=== PATIENT | male | born 1955 | race Caucasian/White ===

== ENCOUNTER → 2018-04-24 07:22 | Outpatient (REF) | payer OTHER, SELFPAY ==
[2018-04-24 09:58] LABS: ALT 69 U/L (12-78); AST 93 U/L (15-37); Albumin 3.8 g/dL (3.4-5.0); Alkaline Phosphatase 124 U/L (46-116); Bilirubin, Total 0.5 mg/dL (0.2-1.0); Cholesterol 225 mg/dL (50-200); HDL Cholesterol 56 mg/dL (40-60); LDL CHOLESTEROL 96 mg/dL (<100); Total Protein 7.4 g/dL (6.4-8.2); Triglyceride 321 mg/dL (30-150)
== END ==
LOC: LBN 07:22
PROVIDERS: PCP Family Medicine; Visit Provider Family Medicine
DX: E78.5 Hyperlipidemia, unspecified (principal)
CPT/HCPCS: 80061; 80076; 83721

== ENCOUNTER 2018-04-27 08:00 | Outpatient (RCR) | payer OTHER, SELFPAY ==
--- NOTE | 2018-04-17 13:53 | PTTR_ITS ---
DATE: 04/17/18 SUBJECTIVE: Long stating that he is feeling much better. He felt a little sore after last session but the second day he noticed good relief. He managed to keep the tape on for several days and he feels this was helpful. He is questioning if he should cancel his MRI he has coming up. OBJECTIVE: Pt will be in contact with his doctor at the [facility] regarding MRI. Manual therapy: ([id number]). Perform unloading of his lumbar spine via leg pull bilaterally and unilaterally. Pt receives single knee to chest stretch, piriformis stretching and hamstring stretching. In prone perform STM to the right QL, glut musculature and piriformis. Clear trigger point to the piriformis with good tolerance. End with application of rock tape in H technique to the lumbar spine. He has a follow up with primary therapist Paolo Staples DPT next week. Direct treatment time: 30 minutes Total treatment time: 30 minutes Fang Couch PTA
--- NOTE | 2018-04-27 08:24 | PTTR_ITS ---
DATE: 04/27/18 SUBJECTIVE: I am doing okay for the most part. OBJECTIVE: * X Self Care Training - ([id number] x1): Patient states that he is doing quite a bit better and is able to work. He has been instructed that with the insidious nature of his back pain presenting that it very well could be related to his job activities. 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 Instead of utilizing the throttle on the right hand the entire time which creates a side bend to the right and mild thoraco lumbar rotation to the right, he should switch to the left half way through for symmetry and equilibrium. He should continue with his stretches and mobility patterns. Patient was then lightly mobilized with IASTM through the QL on the right side, and lightly over the lumbar paraspinals on the right for down regulation. Direct treatment time: 15 minutes of direct patient care.
== END 2018-05-12 23:59 | disposition home or self-care (01) ==
LOC: PT 08:00
PROVIDERS: PCP Family Medicine; Referring Provider Family Medicine; Visit Provider Family Medicine
DX: M54.5 Low back pain (principal)
CPT/HCPCS: 97140; 97535

== ENCOUNTER → 2018-05-01 14:46 | Outpatient (REF) | payer OTHER, SELFPAY ==
[2018-05-01 18:17] LABS: Abs Immature Grans 0.02 k/cumm (0.0-0.09); Absolute Basophil Count 0.02 k/cumm (0.0-0.2); Absolute Eosinophil Count 0.03 k/cumm (0.0-0.7); Absolute Lymphocyte Count 1.07 k/cumm (1.2-3.4); Absolute Monocyte Count 0.58 k/cumm (0.11-0.7); Absolute Neutrophil Count 1.98 k/cumm (1.2-6.7); Basophils % 0.5; Eosinophils % 0.8; HCT 34.4 % (40.0-50.0); HGB 11.7 g/dL (13.5-17.5); Immature Grans % 0.5; Lymphocytes % 28.9; Mean Corpuscular Hemoglobin 35.7 pg (27.0-33.0); Mean Corpuscular Volume 104.9 fL (80-95); Mean Platelet Volume 9.5 fL (8.0-11.0); Monocytes % 15.7; Neutrophils % 53.6; Platelet Count 105 x1000/uL (130-400); RBC 3.28 m/cumm (4.50-6.00); RBC Distribution Width 12.5 % (11.8-14.1)
== END ==
LOC: LBN 14:46
PROVIDERS: PCP Family Medicine; Visit Provider Internal Medicine Hematology & Oncology
DX: D69.3 Immune thrombocytopenic purpura (principal)
CPT/HCPCS: 85025

== ENCOUNTER 2018-10-30 00:52 | Outpatient (CLI) | payer OTHER, SELFPAY ==
--- NOTE | 2018-10-30 07:55 | DI.RAD_ITS ---
SYMPTOM/DIAGNOSIS: NEW ONSET LT SIDED CERVICAL PAIN, CERVICALGIA, M54.2 CERVICAL SPINE: Odontoid, AP and lateral and bilateral oblique views. No priors for comparison. There is straightening of the normal cervical lordosis. There is minimal anterolisthesis of C 3 on C 4. Disc heights appear well maintained. There are endplate osteophytes at multiple levels of the cervical spine. There are also degenerative changes of the facets seen throughout the cervical spine, particularly from C 2-3 through C 5-6, left slightly greater than right. There is moderate narrowing of the neural foramen on the left at C 2-3, C 3-4 and C 4- 5 and on the right at C 4-5. No acute fractures or subluxations are seen. The prevertebral soft tissues are unremarkable. IMPRESSION: Moderate cervical spondylosis.
== END 2018-10-30 01:12 ==
PROVIDERS: PCP Family Medicine; Visit Provider Family Medicine
DX: M54.2 Cervicalgia (principal); M47.812 Spondylosis without myelopathy or radiculopathy, cervical region
CPT/HCPCS: 72050

== ENCOUNTER 2018-12-05 01:11 | Outpatient (CLI) | payer OTHER, SELFPAY ==
--- NOTE | 2018-12-05 08:49 | DI.MRI_ITS ---
SYMPTOM/DIAGNOSIS: PERSISTENT NECK PAIN, CERVICALGIA, M54., SPONDYLOSIS ON XRAY CERVICAL SPINE MRI: MRI examination of the cervical spine was performed according to the usual protocol. No significant bony signal abnormality is seen. Visualized posterior fossa structures appear intact. There is a moderate mid cervical kyphosis. There are prominent hypertrophic endplate changes most marked at C 3-4 on the left. There is narrowing of the spinal canal at C 3-4 consistent with mild central canal spinal stenosis. There is a question of minimal cervical cord abnormality at this site seen on the sagittal T 2 weighted images, this is questionably present on the axial T 2 images as well. There is borderline central canal spinal stenosis at C 4-5 secondary to prominence of the disc osteophyte complex. There is bilateral neural foraminal narrowing at C 3-4 and C 4-5 and C 5-6. There is left sided neural foraminal narrowing at C 2-3. No additional focal findings identified in the cervical region. CONCLUSION: 1. Prominent hypertrophic degenerative endplate changes, most marked at C 3-4 with mild central canal spinal stenosis and question associated cord impingement/edema at this level. Multi level neural foraminal narrowing also noted. Please see above discussion for findings at individual levels.
== END 2018-12-05 01:31 ==
PROVIDERS: PCP Family Medicine; Visit Provider Family Medicine
DX: M54.2 Cervicalgia (principal); M48.02 Spinal stenosis, cervical region; M47.892 Other spondylosis, cervical region
CPT/HCPCS: 72141

== ENCOUNTER 2019-02-21 09:08 | Outpatient (CLI) | payer OTHER, SELFPAY ==
[2019-02-21] VITALS (11 sets, daily range): BP systolic 161–186; BP diastolic 88–101; PULSE 92–108; RESP 22–24; TEMP 36.7; O2SAT 94–98
--- NOTE | 2019-02-21 06:00 | DI.RAD_ITS ---
SYMPTOMS/DIAGNOSIS: CERVICAL RADICULOPATHY, CERVICAL EPIDURAL STEROID INJECTION PAIN CLINIC: Fluoroscopy Time: 36.6 sec Fluoroscopy was utilized by Dr. Allen during the performance of a cervical epidural steroid injection. Please refer to the procedure report for complete details.
[2019-02-21 10:00] LABS: Prothrombin Time 9.8 sec (9.3-11.0)
[2019-02-21 10:08] LABS: Platelet Count 133 x1000/uL (130-400)
[2019-02-21] MEDS: Midazolam 2 MG/2 ML VIAL IVP ×2 (11:01→11:06)
[2019-02-21] MEDS: Omnipaque 240 MG/ML 50 ML BTL IJ (11:17)
[2019-02-21] MEDS: methylPREDNISolone ACETATE 40 MG/ML VIAL IJ (11:17)
--- NOTE | 2019-02-21 11:17 | PDOC.PAIN ---
Pain Clinic Procedure Note Current Active Problems Problem Status Onset Cervical radiculitis Chronic Cervical Epidural Steroid Injection JAYCE BUCKLEY has been referred to the [facility] for cervical epidural steroid injection. 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 There were no medical, pharmacologic, radiographic or other structural contraindications to attempting fluoroscopically guided epidural steroid injection. Risks and expected side effects as well as potential benefit of the procedure were reviewed and voiced concerns addressed. The printed consent form was signed and witnessed. Standard time-out procedure was performed. The patient was placed in the prone position on the fluoroscopy table and automated blood pressure cuff and pulse oximeter applied. The skin entry point for entering the epidural space by a midline C7-T1 interlaminar approach was identified under fluoroscopy and marked. Following thorough Chlorhexadine preparation of the skin and draping and 1% lidocaine infiltration of the skin entry point and subcutaneous tissues, an 17 gauge Tuohy needle was placed under fluoroscopic guidance and with loss of resistance technique into the epidural space. Upon needle placement and loss of resistance there were no paresthesiae or return of blood or CSF through the needle. An Arrow catheter was thread cephalad to the C5 level {left} of midline. 1ml of Omnipaque 240 were injected with clear epidural spread in the A/P, lateral and oblique views. 80mg Depomedrol with 1ml sterile normal saline were injected through the catheter with no unusual discomfort expressed. Vital signs were stable throughout the procedure and were as recorded in the docflowsheet by the nursing staff. If given, dosages of intravenous drugs for anxiolysis and analgesia were documented in MAR. Follow up plans and appointments were discussed. Post procedure instruction was given as documented in nursing documentation and having met discharge criteria and was discharged from the [facility]. COMMENTS: Versed 2mg. patient will follow up. He can repeat if he gets good relief last. Otherwise consider medial branch blocks. Patient will follow-up with Marcela Holloway as needed. CC: Jordon Edgar DO
[2019-02-21] MEDS: Lactated Ringers 1,000 ML 80 ML IV ×2 (11:23→11:24)
[2019-02-21] MEDS: Acetaminophen 500 MG TAB 1000 MG PO (12:09)
== END 2019-02-21 09:28 ==
PROVIDERS: PCP Family Medicine; Visit Provider Anesthesiology Pain Medicine
DX: M54.12 Radiculopathy, cervical region (principal)
CPT/HCPCS: 62321; 36415; 72040; 85049; 85610; J1030; J2250; Q9967

== ENCOUNTER 2019-03-20 10:33 | Outpatient (REF) | payer OTHER, SELFPAY ==
[2019-03-20 13:23] LABS: Abs Immature Grans 0.01 k/cumm (0.0-0.09); Absolute Basophil Count 0.02 k/cumm (0.0-0.2); Absolute Eosinophil Count 0.04 k/cumm (0.0-0.7); Absolute Lymphocyte Count 0.89 k/cumm (1.2-3.4); Absolute Monocyte Count 0.44 k/cumm (0.11-0.7); Absolute Neutrophil Count 3.27 k/cumm (1.2-6.7); Basophils % 0.4; Eosinophils % 0.9; HCT 40.5 % (40.0-50.0); HGB 13.4 g/dL (13.5-17.5); Immature Grans % 0.2; Lymphocytes % 19.1; Mean Corp. HGB Concentration 33.1 g/dL (32.0-36.0); Mean Corpuscular Hemoglobin 34.8 pg (27.0-33.0); Mean Corpuscular Volume 105.2 fL (80-95); Monocytes % 9.4; RBC 3.85 m/cumm (4.50-6.00); RBC Distribution Width 12.7 % (11.8-14.1); White Blood Cell Count 4.67 k/cumm (4.4-10.8)
[2019-03-20 13:57] LABS: Diff Comment RBC Morph Reviewed; Platelet Count 98 x1000/uL (130-400)
[2019-03-20 13:58] LABS: Macrocytosis 1+
== END 2019-03-20 10:53 ==
LOC: LBN 10:33
PROVIDERS: PCP Family Medicine; Visit Provider Family Medicine
DX: T14.8XXA Other injury of unspecified body region, initial encounter (principal); R23.3 Spontaneous ecchymoses; M54.12 Radiculopathy, cervical region
CPT/HCPCS: 85025

== ENCOUNTER 2019-04-03 10:52 | Outpatient (CLI) | payer OTHER, SELFPAY ==
[2019-04-03 11:00] VITALS: BP 166/89; PULSE 98; RESP 22; TEMP 37.1; O2SAT 98
[2019-04-03 11:40] VITALS: O2SAT 98
--- NOTE | 2019-04-03 11:41 | PDOC.PAIN ---
Pain Clinic Procedure Note Current Active Problems Problem Status Onset Muscle pain LEFT trapezius, scalene and levator scapulae muscle trigger point INJECTIONS Pre-Procedural Evaluation: JAYCE BUCKLEY has been referred to the [facility] for a left trapezius, scalene and levator scapulae trigger point injection for a chief complaint of muscle pain. Pre-procedure Pain Score: 7/10 Patient was interviewed and the medical record reviewed. There were no medical, pharmacologic, radiographic, or other structural contraindications to preforming trigger point injection. Risks and expected side effects as well as potential benefits of the procedure were reviewed. The patient consent form was signed and witnessed. Standard time-out procedure was performed. Procedure Description: The patient was placed in the prone position and automated blood pressure cuff and pulse oximeter applied for monitoring during the procedure and recorded in the medical record. The site was then prepared in the usual sterile fashion, using thorough Chlorhexadine preparation of the skin and sterile draping. 3Skin and subcutaneous tissues were anesthetized with mL of 1% Lidocaine. A 25 guage 1.5 needle inch needle through the above named muscles. Post-procedure Pain Score: 0/10 Vital signs were stable throughout the procedure and were as recorded in the docflowsheet by the nursing staff. Follow up plans and appointments were discussed with the patient.Post procedure instruction was given as documented in nursing documentation and having met discharge criteria, they were discharged from the [facility]. COMMENTS: Stretching exercises for this area were taught.
== END 2019-04-03 11:12 ==
PROVIDERS: PCP Family Medicine; Visit Provider Preventive Medicine Occupational Medicine
DX: M79.10 Myalgia, unspecified site (principal)
CPT/HCPCS: 20553

== ENCOUNTER 2019-07-30 09:23 | Outpatient (REF) | payer OTHER, SELFPAY ==
[2019-07-30 10:09] LABS: Abs Immature Grans 0.01 k/cumm (0.0-0.09); Absolute Basophil Count 0.02 k/cumm (0.0-0.2); Absolute Eosinophil Count 0.04 k/cumm (0.0-0.7); Absolute Lymphocyte Count 1.59 k/cumm (1.2-3.4); Absolute Monocyte Count 0.53 k/cumm (0.11-0.7); Absolute Neutrophil Count 2.65 k/cumm (1.2-6.7); Basophils % 0.4; Eosinophils % 0.8; HCT 40.9 % (40.0-50.0); HGB 14.1 g/dL (13.5-17.5); Immature Grans % 0.2; Lymphocytes % 32.9; Mean Corp. HGB Concentration 34.5 g/dL (32.0-36.0); Mean Corpuscular Hemoglobin 35.5 pg (27.0-33.0); Mean Platelet Volume 10.4 fL (8.0-11.0); Neutrophils % 54.7; Platelet Count 119 x1000/uL (130-400); RBC 3.97 m/cumm (4.50-6.00); RBC Distribution Width 13.4 % (11.8-14.1); White Blood Cell Count 4.84 k/cumm (4.4-10.8)
== END 2019-07-30 09:43 ==
LOC: LBN 09:23
PROVIDERS: PCP Family Medicine; Visit Provider Internal Medicine Hematology & Oncology
DX: R56.9 Unspecified convulsions (principal); I25.118 Atherosclerotic heart disease of native coronary artery with other forms of angina pectoris; I73.9 Peripheral vascular disease, unspecified; D69.3 Immune thrombocytopenic purpura
CPT/HCPCS: 85025

== ENCOUNTER 2019-08-02 13:30 | Outpatient (CLI) | payer OTHER, SELFPAY ==
[2019-08-02 13:32] VITALS: BP 149/84; PULSE 94; RESP 16; TEMP 37.2; O2SAT 99
--- NOTE | 2019-08-02 14:02 | PDOC.PAIN ---
Pain Clinic Procedure Note Procedure Note Procedure Note: Pain Clinic Procedure Note Pre-operative diagnosis: myofascial pain Post-operative diagnosis: same as above LEFT scalene muscle, left levator scapulae trigger point INJECTIONS Pre-Procedural Evaluation: JAYCE BUCKLEY has been referred to the [facility] for a left scalene and levator scapulae trigger point injection for a chief complaint of muscle pain. Pre-procedure Pain Score: 7/10 Patient was interviewed and the medical record reviewed. There were no medical, pharmacologic, radiographic, or other structural contraindications to preforming trigger point injection. Risks and expected side effects as well as potential benefits of the procedure were reviewed. The patient consent form was signed and witnessed. Standard time-out procedure was performed. Procedure Description: The patient was placed in the prone position and automated blood pressure cuff and pulse oximeter applied for monitoring during the procedure and recorded in the medical record. The site was then prepared in the usual sterile fashion, using thorough Chlorhexadine preparation of the skin and sterile draping. A 27 guage 1.5 needle inch needle through the above named muscles and a total of 5cc solution containing 1cc of 10mg dexamethasone and 4cc of 0.25% Bupivocaine was injected into three trigger points along the belly of left anterior scalene muscles. Post-procedure Pain Score: 0/10 Vital signs were stable throughout the procedure and were as recorded in the docflowsheet by the nursing staff. Follow up plans and appointments were discussed with the patient.Post procedure instruction was given as documented in nursing documentation and having met discharge criteria, they were discharged from the [facility]. COMMENTS: Stretching exercises for this area were taught. I personally performed the entire procedure. Gilberto Cano MD Pain Management
[2019-08-02] MEDS: Bupivacaine 0.25% Pres-Free 30 ML VIAL IJ (14:11)
[2019-08-02] MEDS: Dexamethasone Sod. Phos./Pres-Free 10 MG/ML VIAL IJ (14:12)
== END 2019-08-02 13:50 ==
PROVIDERS: PCP Family Medicine; Visit Provider Internal Medicine
DX: M79.18 Myalgia, other site (principal)
CPT/HCPCS: 20552

== ENCOUNTER 2019-10-22 16:57 | Outpatient (REF) | payer OTHER, SELFPAY ==
[2019-10-22 18:22] LABS: Abs Immature Grans 0.01 k/cumm (0.0-0.09); Absolute Basophil Count 0.01 k/cumm (0.0-0.2); Absolute Eosinophil Count 0.02 k/cumm (0.0-0.7); Absolute Lymphocyte Count 1.27 k/cumm (1.2-3.4); Absolute Monocyte Count 0.61 k/cumm (0.11-0.7); Absolute Neutrophil Count 1.65 k/cumm (1.2-6.7); Basophils % 0.3; Eosinophils % 0.6; HCT 37.9 % (40.0-50.0); HGB 12.5 g/dL (13.5-17.5); Immature Grans % 0.3 %; Lymphocytes % 35.6; Mean Corpuscular Hemoglobin 35.8 pg (27.0-33.0); Mean Corpuscular Volume 108.6 fL (80-95); Mean Platelet Volume 9.8 fL (8.0-11.0); Monocytes % 17.1; Neutrophils % 46.1; RBC 3.49 m/cumm (4.50-6.00); RBC Distribution Width 12.5 % (11.8-14.1); White Blood Cell Count 3.57 k/cumm (4.4-10.8)
[2019-10-22 18:37] LABS: Diff Comment RBC Morph Reviewed; Macrocytosis 3+; Platelet Count 89 x1000/uL (130-400); Stomatocytes 2+
[2019-10-22 19:20] LABS: Vitamin B12 1303 pg/mL (193-986)
== END 2019-10-22 17:17 ==
LOC: LBN 16:57
PROVIDERS: PCP Family Medicine; Visit Provider Family Medicine
DX: D53.9 Nutritional anemia, unspecified (principal)
CPT/HCPCS: 82607; 85025

== ENCOUNTER 2019-11-06 14:00 | Outpatient (CLI) | payer OTHER, SELFPAY ==
[2019-11-06 14:09] VITALS: BP 145/86; PULSE 95; RESP 16; TEMP 37.2; O2SAT 96
--- NOTE | 2019-11-06 14:30 | PDOC.PAIN ---
Pain Clinic Procedure Note Procedure Note Procedure Note: Procedure Note: Pre-operative diagnosis: myofascial pain Post-operative diagnosis: same as above LEFT anterior scalene muscle, left trapezius trigger point INJECTIONS Pre-Procedural Evaluation: JAYCE BUCKLEY has been referred to the [facility] for a left scalene and levator scapulae trigger point injection for a chief complaint of muscle pain. Patient was interviewed and the medical record reviewed. There were no medical, pharmacologic, radiographic, or other structural contraindications to preforming trigger point injection. Risks and expected side effects as well as potential benefits of the procedure were reviewed. The patient consent form was signed and witnessed. Standard time-out procedure was performed. Procedure Description: The patient was placed in the prone position and automated blood pressure cuff and pulse oximeter applied for monitoring during the procedure and recorded in the medical record. The site was then prepared in the usual sterile fashion, using thorough Chlorhexadine preparation of the skin and sterile draping. A 25 guage 1.5 needle inch needle through the above named muscles and a total of 6cc solution containing 1cc of 10mg dexamethasone and 5cc of 0.25% Bupivocaine was injected into three trigger points along the belly of left anterior scalene muscles and left trapezius muscles. Vital signs were stable throughout the procedure and were as recorded in the docflowsheet by the nursing staff. Follow up plans and appointments were discussed with the patient.Post procedure instruction was given as documented in nursing documentation and having met discharge criteria, they were discharged from the [facility]. COMMENTS: for future injections, would recommend ultrasound guided left scalene injection for increased accuracy and safety. I personally performed the entire procedure. Gilberto Cano MD Pain Management
[2019-11-06 14:34] VITALS: O2SAT 97
[2019-11-06] MEDS: Bupivacaine 0.25% Pres-Free 30 ML VIAL IJ (14:35)
[2019-11-06] MEDS: Dexamethasone Sod. Phos./Pres-Free 10 MG/ML VIAL IJ (14:36)
== END 2019-11-06 14:20 ==
PROVIDERS: PCP Family Medicine; Visit Provider Internal Medicine
DX: M79.18 Myalgia, other site (principal)
CPT/HCPCS: 20552

== ENCOUNTER 2020-04-28 01:09 | Outpatient (CLI) | payer OTHER, SELFPAY ==
--- NOTE | 2020-04-28 06:45 | DI.RAD_ITS ---
EXAM: XR LUMBAR SPINE COMPLETE CLINICAL HISTORY: CHRONIC LOW BACK PAIN,M54.5,G89.29 TECHNIQUE: 2D digital imaging was performed. COMPARISON: CR LUMBAR SPINE COMPLETE from 04/22/2014 FINDINGS: There are no compression fractures. Endplate osteophytes are noted at all levels, greatest on the ri ght at L 2 3 and L4-5. There is mild narrowing of the L3-4 disc space. No spondylolysis or spondylo listhesis is seen. The aorta is calcified and normal in diameter. IMPRESSION: Stable degenerative disc changes.
== END 2020-04-28 01:29 ==
PROVIDERS: PCP Family Medicine; Visit Provider Family Medicine
DX: M51.36 Other intervertebral disc degeneration, lumbar region (principal)
CPT/HCPCS: 72110

== ENCOUNTER 2020-05-13 00:57 | Outpatient (CLI) | payer OTHER, SELFPAY ==
--- NOTE | 2020-05-13 07:00 | DI.RAD_ITS ---
EXAM: XR SACRUM CLINICAL HISTORY: fell landing on left buttock, r/o insufficiency Fx, SACRAL BACK PAIN, M53.3. TECHNIQUE: 2D digital imaging was performed. COMPARISON: No exams were available for comparison FINDINGS: BONES: No acute fracture is present. No bony destructive lesion is seen. JOINTS: No dislocation present. SOFT TISSUE: Vascular calcifications are present. IMPRESSION: No acute fracture or dislocation. DATA REPOSITORY: RADIATION DOSE DELIVERED:
== END 2020-05-13 01:17 ==
PROVIDERS: PCP Family Medicine; Visit Provider Nurse Practitioner Family
DX: M53.3 Sacrococcygeal disorders, not elsewhere classified (principal); M54.5 Low back pain
CPT/HCPCS: 72220

== ENCOUNTER 2020-11-10 07:08 | Outpatient (REF) | payer OTHER, SELFPAY ==
[2020-11-10 09:24] LABS: ALT 36 U/L (16-63); AST 69 U/L (15-37); Albumin 3.3 g/dL (3.4-5.0); Alkaline Phosphatase 265 U/L (46-116); Anion Gap 8.4 mmol/L (3-11); BUN 7 mg/dL (7-18); Bilirubin, Total 0.6 mg/dL (0.2-1.0); CO2 24.6 mmol/L (21.0-32.0); CREATININE 0.7 mg/dL (0.70-1.30); Calcium 8.4 mg/dL (8.5-10.1); Calculated LDL 90 mg/dL (<100); Chloride 102 mmol/L (98-107); Cholesterol 181 mg/dL (<200); Glucose 102 mg/dL (74-106); HDL Cholesterol 73 mg/dL (40-60); Potassium 4.8 mmol/L (3.5-5.1); Sodium 135 mmol/L (136-145); Triglyceride 91 mg/dL (<150)
== END 2020-11-10 07:09 | disposition home or self-care (01) ==
LOC: LBN 07:08
PROVIDERS: PCP Family Medicine; Visit Provider Family Medicine
DX: E78.5 Hyperlipidemia, unspecified (principal)
CPT/HCPCS: 80053; 80061

== ENCOUNTER 2021-01-23 13:16 | Outpatient (CLI) | payer OTHER, SELFPAY ==
--- NOTE | 2021-01-23 13:25 | DI.RAD_ITS ---
Exam(s) XR FOOT LT COMPLETE EXAM: XR FOOT LT COMPLETE CLINICAL HISTORY: Lt foot pain, likely gout, r/o frx of 2nd metatarsal, M79.673. TECHNIQUE: 2D digital imaging was performed. COMPARISON: ECG EKG from 01/29/2008 ECG EKG from 01/29/2008 FINDINGS: The patient has had previous surgery with resection of the head of the 2nd metatarsal and proximal po rtion of the proximal phalanx. No bony erosions are seen. There is no evidence of acute fracture. There are mild degenerative changes in the intertarsal region and 1st tarsal metatarsal joint. IMPRESSION: Chronic appearing deformities of the base of the 2nd proximal phalanx and head of the 2nd metatarsal. DATA REPOSITORY: RADIATION DOSE DELIVERED:
== END 2021-01-23 13:36 ==
PROVIDERS: PCP Family Medicine; Visit Provider Family Medicine
DX: M79.673 Pain in unspecified foot (principal); Z98.890 Other specified postprocedural states; M21.6X2 Other acquired deformities of left foot
CPT/HCPCS: 73630

== ENCOUNTER 2021-07-14 09:08 | Outpatient (CLI) | payer OTHER, SELFPAY ==
[2021-07-14 21:52] LABS: COVID-19 RT-PCR UVMMC Result Negative (Negative)
== END 2021-07-14 09:09 | disposition home or self-care (01) ==
LOC: LBO 09:08
PROVIDERS: PCP Family Medicine; Visit Provider Nurse Practitioner Family
DX: Z20.822 Contact with and (suspected) exposure to COVID-19 (principal)
CPT/HCPCS: U0003

== ENCOUNTER 2021-07-21 08:45 | Outpatient (CLI) | payer OTHER, SELFPAY ==
--- NOTE | 2021-07-21 08:30 | DI.RAD_ITS ---
Exam(s) XR SACROILIAC JOINTS EXAM: XR SACROILIAC JOINTS CLINICAL HISTORY: lower back pain left at SI joint, M54.9. TECHNIQUE: 2D digital imaging was performed. Three images were obtained. COMPARISON: CR XR LUMBAR SPINE COMPLETE from 04/28/2020 CR XR SACRUM from 05/13/2020 FINDINGS: Bones: No fracture is present. No bony destructive lesion is seen. Alignment is satisfactory. SI Joint:No fusion, erosions or sclerosis is seen. Soft Tissue: Atherosclerosis. IMPRESSION: No acute abnormality. DATA REPOSITORY: RADIATION DOSE DELIVERED:
== END 2021-07-21 09:05 ==
PROVIDERS: PCP Family Medicine; Visit Provider Physician Assistant
DX: M54.59 Other low back pain (principal); M53.3 Sacrococcygeal disorders, not elsewhere classified
CPT/HCPCS: 72202

== ENCOUNTER 2021-12-25 09:27 | Outpatient (CLI) | payer OTHER, SELFPAY ==
--- NOTE | 2021-12-25 09:15 | RT.EKG_ITS ---
APPROVED REPORT Exam: Resting ECG Reason for Exam: chest pain, WOODARD Patient Location: O HR:92 bpm ECG Measurements Heart Rate 92 AXIS DE 202 P 52 QRSd 83 QRS 7 QT 355 T 88 QTc 433 Conclusion Sinus rhythm...normal P axis, V-rate 60- 99 Atrial premature complexes...SV complexes w/ short R-R intvls
== END 2021-12-25 09:28 | disposition home or self-care (01) ==
PROVIDERS: PCP Student in an Organized Health Care Education/Training Program; Visit Provider Student in an Organized Health Care Education/Training Program
DX: R07.9 Chest pain, unspecified (principal); R06.09 Other forms of dyspnea
CPT/HCPCS: 93010

== ENCOUNTER 2021-12-25 10:28 | Outpatient (CLI) | payer OTHER, SELFPAY ==
--- NOTE | 2021-12-25 10:08 | DI.RAD_ITS ---
Exam(s) XR CHEST 2V PA LATERAL EXAM: XR CHEST 2V PA LATERAL CLINICAL HISTORY: eval poor lung snds, left bs; wt gain/possible CHF R63.5 WEIGHT GAIN R07.9 TECHNIQUE: 2D digital imaging was performed of the chest. Two images were obtained. PA and lateral views were obtained. COMPARISON: CR CHEST 2 VIEWS PA,LAT from 05/09/2017 FINDINGS: MEDIASTINUM: Normal. HEART: Normal. PULMONARY VASCULATURE: Normal. LUNGS: Stable scarring in the left lingula. No focal consolidating infiltrates. PLEURAL SPACE: No pleural effusion or pneumothorax. BONE:Within normal limits for the patient's age. OTHER FINDINGS:Unchanged slight elevation of the left hemidiaphragm. IMPRESSION: No acute pulmonary findings. DATA REPOSITORY: RADIATION DOSE DELIVERED:
== END 2021-12-25 10:48 ==
PROVIDERS: PCP Student in an Organized Health Care Education/Training Program; Visit Provider Student in an Organized Health Care Education/Training Program
DX: J44.9 Chronic obstructive pulmonary disease, unspecified (principal); R06.02 Shortness of breath; R07.89 Other chest pain; R63.5 Abnormal weight gain
CPT/HCPCS: 71046

== ENCOUNTER → 2022-01-05 00:59 | Outpatient (CLI) | payer OTHER, SELFPAY ==
--- NOTE | 2022-01-05 07:00 | DI.NM_ITS ---
APPROVED REPORT Exam: Exercise Treadmill Patient Location: Out-Patient Room/Bed: Stress Nurse: Bridget Briscoe RN Ordering Provider:LEONIDES CABRERA, Contact Number: [phone] BMI: 29.28 Baseline Rhythm: Sinus Tachycardia Indications: SUDDEN ONSET SOB, DULL CHEST PAIN, H/O STENTS Medical History Medical History: SOB, Chest pain, COPD, Carotid artery occlusion w/ cerebral infarction, ASCVD, Macro cytic Anemia, HLD Cardiac Medications: Rosuvastatin, Nitro, Metoprolol succinate, Clopidogrel, Albuterol, Pantoprazole , Allergies: Atorvastatin Cardiac Risk Factors: FHX of CAD, Hyperlipidemia, HTN, COPD, Smoking (former) Previous Cardiac Procedures: PCI w/ stent Pretest Chest Pain Characteristics: No chest pain Exercise History: Sedentary Physical Disabilities: None Lung Sounds: Clear to auscultation Heart Sounds: Regular Stress Test Details Test: Exercise stress testing was performed using a Pramod protocol. Nuclear Acquisition: Rest Tc-99m/Stress Tc-99m 2 days Rest Isotope: Tc-99m Sestamibi. Dose: 10.5 Date: 01/05/2022 Injection Time: 0930 Stress Isotope: Tc-99m Sestamibi. Dose: 33.0 Date: 01/05/2022 Injection Time: 1120 HR Resting HR Supine: 101 bpm Max Heart Rate (APMHR): 153.036402 bpm Resting HR Standin bpm Target HR (85% APMHR): 130.474790 bpm Max HR Achieved: 152 bpm % of APMHR: 99.35 Recovery HR: 106 bpm Comment: Patient did not take medications this morning. BP Resting BP Supine: 178/90 mmHg Resting BP Standin/88 mmHg Max BP: 204/94 mmHg Recovery BP: 160/88 mmHg Comment: Patient did not take medications this morning. ECG Resting ECG: Sinus Tachycardia Ectopy: PVCs, couplet Stress ECG: Sinus Tachycardia ST Change: No significant ST segment changes noted Arrhythmia: frequent PVCs Recovery ECG: Sinus tachycardia Recovery ST Change: Downsloping ST depression Lead(s): inferior leads Recovery ST Deviation: 0.5 mm Recovery Arrhythmia: frequent PACs and PVCs Clinical Reason for Termination: Fatigue, Dyspnea Stress Symptoms: Dyspnea, General Fatigue Exercise duration: 03 min45 sec Highest Stage Reached: Stage 2: 2.5 mph at 12% grade. Exercise capacity: 5.52 METs Rate Pressure Product: 32385 Stress ECG Conclusion 1. Resting electrocardiogram was within normal limits 2. Patient exercised on the Pramod protocol and completed a workload of 5.52 METS, stopping due to fat igue 3. Normal heart rate and blood pressure response to exercise. The patient achieved 99% of predicted heart rate for age 4. The electrocardiographic portion of the test showed no evidence of myocardial ischemia 5. Atrial and ventricular ectopic beats were seen 6. See MPI report Stress Test Summary STAGE Time (mins) Speed (mph) Grade (%) HR BP SYMPTOMS METS Supine 101 178/90 Standing 115 168/88 1 3 1.7 10 135 190/88 4.6 1 min recovery 133 202/88 3 min recovery 114 204/94 6 min recovery 106 188/80 9 min recovery 106 160/88 MPI Conclusion There is a moderate area of anteroapical and apical infarction There is no significant myocardial ischemia EF is 33%. There is moderate generalized hypokinesis Radiologist Interpretation Radiologist Interpretation by: Alek Alfaro MD Interpretation Date/Time: 01/05/2022 16:56:04
== END ==
PROVIDERS: PCP Student in an Organized Health Care Education/Training Program; Visit Provider Student in an Organized Health Care Education/Training Program
DX: R06.02 Shortness of breath (principal); R07.89 Other chest pain; Z95.5 Presence of coronary angioplasty implant and graft
CPT/HCPCS: 78452; 93017

== ENCOUNTER 2022-01-22 09:20 | Outpatient (REF) | payer OTHER, SELFPAY ==
[2022-01-22 10:02] LABS: Abs Immature Grans 0.03 10^3/uL (0.0-0.06); Absolute Basophil Count 0.03 10^3/uL (0.0-0.2); Absolute Eosinophil Count 0.07 10^3/uL (0.0-0.7); Absolute Lymphocyte Count 0.99 10^3/uL (1.2-3.4); Absolute Neutrophil Count 2.68 10^3/uL (1.2-6.7); Basophils % 0.7; Eosinophils % 1.6; HCT 35.7 % (40.0-50.0); HGB 12.3 g/dL (13.5-17.5); Immature Grans % 0.7; MCHC 34.5 % (32.0-36.0); MCV 99 fL (80-95); MPV 9.8 fL (8.0-11.0); Monocytes % 11.6; Neutrophils % 62.4; RBC 3.62 10^6/uL (4.36-5.78); RDW-SD 50.9 fL
[2022-01-22 10:27] LABS: ALT 28 U/L (16-63); AST 45 U/L (15-37); Alkaline Phosphatase 139 U/L (46-116); Anion Gap 9.8 mmol/L (3-11); BUN 5 mg/dL (7-18); Bilirubin, Total 0.5 mg/dL (0.2-1.0); CO2 22.2 mmol/L (21.0-32.0); CREATININE 0.8 mg/dL (0.70-1.30); Calcium 8.7 mg/dL (8.5-10.1); Chloride 97 mmol/L (98-107); Glucose 106 mg/dL (74-106); Potassium 4.9 mmol/L (3.5-5.1); Sodium 129 mmol/L (136-145); Total Protein 8.1 g/dL (6.4-8.2)
[2022-01-22 10:29] LABS: Diff Comment Diff Reviewed; Platelet Count 96 10^3/uL (130-400); RBC Morphology Normal
[2022-01-22 10:39] LABS: Calculated LDL 57 mg/dL (<100); Cholesterol 182 mg/dL (<200); HDL Cholesterol 111 mg/dL (40-60); Triglyceride 70 mg/dL (<150)
[2022-01-25 10:50] LABS: HIV-1/2 Ag & Ab Screen Negative (Negative)
[2022-01-25 10:55] LABS: Hepatitis C Ab w Rflx HCV PCR Negative (Negative)
== END 2022-01-22 09:21 | disposition home or self-care (01) ==
LOC: LBN 09:20
PROVIDERS: Family Medicine; PCP Student in an Organized Health Care Education/Training Program; Visit Provider Internal Medicine Cardiovascular Disease
DX: R07.9 Chest pain, unspecified (principal); I25.10 Atherosclerotic heart disease of native coronary artery without angina pectoris; R06.02 Shortness of breath; N28.9 Disorder of kidney and ureter, unspecified; Z13.220 Encounter for screening for lipoid disorders; Z11.3 Encounter for screening for infections with a predominantly sexual mode of transmission; Z11.4 Encounter for screening for human immunodeficiency virus [HIV]; Z11.59 Encounter for screening for other viral diseases
CPT/HCPCS: 80053; 80061; 85027; 86803; 87389; 85025

== ENCOUNTER 2022-01-23 11:25 | Outpatient (REF) | payer OTHER, SELFPAY ==
[2022-01-23 11:44] LABS: Source Nasal/Nares
[2022-01-23 14:02] LABS: COVID-19 PCR Negative (Negative)
== END 2022-01-23 11:26 | disposition home or self-care (01) ==
LOC: LBN 11:25
PROVIDERS: PCP Student in an Organized Health Care Education/Training Program; Visit Provider Student in an Organized Health Care Education/Training Program
DX: Z20.822 Contact with and (suspected) exposure to COVID-19 (principal); Z01.818 Encounter for other preprocedural examination
CPT/HCPCS: 87635

== ENCOUNTER 2022-02-06 11:33 | Outpatient (REF) | payer OTHER, SELFPAY ==
[2022-02-06 11:39] LABS: Source Nasal/Nares
[2022-02-06 14:55] LABS: COVID-19 PCR Negative (Negative)
== END 2022-02-06 11:34 | disposition home or self-care (01) ==
LOC: LBN 11:33
PROVIDERS: PCP Student in an Organized Health Care Education/Training Program; Visit Provider Student in an Organized Health Care Education/Training Program
DX: Z20.822 Contact with and (suspected) exposure to COVID-19 (principal); Z01.818 Encounter for other preprocedural examination
CPT/HCPCS: 87635

== ENCOUNTER → 2022-03-08 02:02 | Outpatient (CLI) | payer OTHER, SELFPAY ==
--- NOTE | 2022-03-08 06:45 | DI.MRI_ITS ---
Exam(s) MR LUMBAR SPINE WO EXAM: MR LUMBAR SPINE WO CLINICAL HISTORY: eval lft paraspinal region; out of proprtn tendERNESS,lt sided back pain,. TECHNIQUE: Multiplanar multisequence MRI of the Lumbar spine was performed. COMPARISON: No exams were available for comparison FINDINGS: Five lumbar vertebrae are presumed. Conus medullaris is at normal level. There is no evidence of conus mass nor subjacent clumping of in trathecal nerve roots to suggest arachnoiditis. The distal thecal sac appears unremarkable.There is no evidence of Tarlov intrasacral cysts nor other significant findings within the sacral canal Bones:There is a compression fracture at superior endplate level of L2. This exhibits acute and suba cute signal. Fracture lines extend towards the pedicles. There is approximately 20 percent height l oss at superior endplate level and there is intraosseous edema. There is also mild anterior wedging of T12 without acute signal evident on STIR images With respect to the individual levels... T12-L1: Normal disc height and signal at this level. No disc herniation. No central canal stenosis. No foraminal stenosis. L1-2: The L2 compression fracture at this level is associated with mild posterior displacement of the cortex. There is mild annular bulging but no prominent disc herniation. Nevertheless, there is an element of mild central spinal canal stenosis at this level as these findings are superimposed upon d evelopmental short AP dimensions of the pedicles. Facet joints appear unremarkable. There is no edna e foraminal stenosis at this level. No evidence of paraspinal hematoma. L2-3: Normal disc height. No disc herniation nor central canal stenosis.No foraminal stenosis.No face t arthropathy. L3-4: Preserved disc height although there is mild decreased hydration signal in the disc at this lev el. There is also broad relatively symmetrical annular bulging without a distinct focal disc herniat ion. Central canal dimensions are lower normal. There is mild foraminal stenosis on the right side as the bulging annulus extends into the exiting right neural foramen. Similar findings are not seen on the left side and there is no foraminal stenosis on the left side at this level. There is no prom inent facet arthropathy nor ligamentum flavum hypertrophy at this level. L4-5: This level exhibits preserved disc height and signal. However, there is annular bulging with a superimposed central subligamentous disc herniation. This extends posteriorly 4 millimeters and imp resses upon the anterior aspect of the thecal sac. These findings result in moderate central spinal canal stenosis at this level. The disc protrusion extends caudally for distance of 5 millimeters beh ind the mid aspect of L5 vertebral body. The annular bulging extends into the neural foramina bilate rally. There is an element of bilateral foraminal stenosis here, mild on the left side and moderate on the right side, this despite absence of prominent facet joint arthropathy. It is related to short AP dimensions the pedicles and the annular bulging. L5-S1: Normal disc height and signal. No disc herniation or canal stenosis. No foraminal stenosis a t this level. No significant facet arthropathy Soft tissues: Small benign cyst is noted in the left kidney. This measures approximately 11 millime ters. IMPRESSION: 1. Multilevel findings as described individually above. 2. Acute or subacute appearing fracture of L2 with approximately 20 percent height loss. There is mi ld central canal stenosis at this level without prominent foraminal stenosis. 3. Moderate central spinal canal stenosis at L4-5 level as well as mild foraminal stenosis on the lef t side and moderate foraminal stenosis on the right side at this level, as described above. Mild foraminal stenosis on the right side at L3-4 level also noted, as described above. DATA REPOSITORY:
== END ==
PROVIDERS: PCP Student in an Organized Health Care Education/Training Program; Visit Provider Student in an Organized Health Care Education/Training Program
DX: M48.061 Spinal stenosis, lumbar region without neurogenic claudication (principal); S32.029A Unspecified fracture of second lumbar vertebra, initial encounter for closed fracture; X58.XXXA Exposure to other specified factors, initial encounter
CPT/HCPCS: 72148

== ENCOUNTER 2022-08-04 13:18 | Outpatient (REF) | payer OTHER, SELFPAY ==
[2022-08-04 09:05] LABS: Anion Gap 8.9 mmol/L (3-11); BUN 9 mg/dL (7-18); CO2 25.1 mmol/L (21.0-32.0); Calcium 8.8 mg/dL (8.5-10.1); Chloride 94 mmol/L (98-107); Estimated GFR 81.98 (mL/min/1.73m2); Glucose 159 mg/dL (74-106); Potassium 4.8 mmol/L (3.5-5.1); Sodium 128 mmol/L (136-145)
== END 2022-08-04 13:19 | disposition home or self-care (01) ==
LOC: LBN 13:18
PROVIDERS: PCP Student in an Organized Health Care Education/Training Program; Visit Provider Student in an Organized Health Care Education/Training Program
DX: M48.061 Spinal stenosis, lumbar region without neurogenic claudication (principal); Z79.1 Long term (current) use of non-steroidal anti-inflammatories (NSAID); M62.830 Muscle spasm of back
CPT/HCPCS: 80048

== ENCOUNTER 2022-08-29 16:57 | Outpatient (REF) | payer OTHER, SELFPAY ==
[2022-08-29 17:11] LABS: Anion Gap 10.3 mmol/L (3-11); BUN 6 mg/dL (7-18); CO2 23.7 mmol/L (21.0-32.0); CREATININE 0.8 mg/dL (0.70-1.30); Calcium 8.3 mg/dL (8.5-10.1); Chloride 96 mmol/L (98-107); Glucose 98 mg/dL (74-106); Sodium 130 mmol/L (136-145)
== END 2022-08-29 16:58 | disposition home or self-care (01) ==
LOC: LBN 16:57
PROVIDERS: PCP Student in an Organized Health Care Education/Training Program; Visit Provider Student in an Organized Health Care Education/Training Program
DX: E87.1 Hypo-osmolality and hyponatremia (principal); Z79.1 Long term (current) use of non-steroidal anti-inflammatories (NSAID)
CPT/HCPCS: 80048

== ENCOUNTER 2022-10-19 12:47 | Outpatient (CLI) | payer OTHER, SELFPAY ==
--- NOTE | 2022-10-19 12:53 | DI.CT_ITS ---
Exam(s) CT CHEST PE CTA EXAM: CT CHEST PE CTA CLINICAL HISTORY: Pleuritic chest pain, R07.81, SOB, R06.02, eval for PNA, PE. TECHNIQUE: Imaging Protocol: CT angiography of the chest was performed using pulmonary embolus soniya col. Multi planar reconstructions were performed. CONTRAST MATERIAL: Intravenous: Omnipaque 350 Contrast volume: 100 cc COMPARISON: CT,NM,TMT NM MPI REST STRESS GRP from 01/05/2022 FINDINGS: CHEST: PULMONARY ARTERIES: There are no obvious intraluminal filling defects to suggest acute pulmonary embo li. LUNGS: No confluent infiltrates nor pleural effusions. There is a pleural base nodule in the lateral segment of the right middle lobe measuring 4 millimeters. No other significant focal right lung par enchymal findings although there is a sessile pleural plaque over the right upper lobe noted measurin g 1 cm x 0.3 cm. No associated mass at this level. No other calcified pleural plaques on either simran e. There are no infiltrates nor significant nodules in the opposite-left lung. There are no pleural effusions on either side. There are no focal findings in the trachea and mainstem bronchi. MEDIASTINUM: There is no hilar nor mediastinal adenopathy. Visualized thyroid unremarkable. CARDIAC: Heart size is upper normal. There is no pericardial effusion.Caliber of the thoracic aorta is within normal limits. No evidence of aortic dissection. There is no significant shift of the inte rventricular septum. PARTIALLY VISUALIZED UPPERMOST ABDOMEN: Somewhat cirrhotic appearing partially visualized liver. No ascites evident. OSSEOUS: No significant osseous lesions.. IMPRESSION: 1. No evidence of acute pulmonary emboli. No evidence of pulmonary infarction.No pleural effusions. 2. Small 4 millimeters subpleural nodule in the lateral aspect of the right lung, specifically in the lateral segment of the right middle lobe. There is also a sessile 1 cm length calcified pleural kathryn que over the anterior aspect of the right lung. Opposite-left lung is clear. 3. No evidence of Arctic dissection. No pericardial effusion. RADIATION DOSE DELIVERED: 401.17mGy.cm Total DLP DATA REPOSITORY: All CT scans at this facility are submitted to the National Radiology Data Registry (NRDR) Dose Index Registry (DIR) with the [employer] (ACR). RADIATION OPTIMIZATION: All CT scans at this facility use at least one of these dose optimization te chniques: automated exposure control; mA and/or kV adjustment per patient size (includes targeted exa ms where dose is matched to clinical indication); or iterative reconstruction.
[2022-10-19 13:53] LABS: Estimated GFR 81.98 (mL/min/1.73m2)
[2022-10-19] MEDS: Omnipaque 350 MG/ML 100 ML BTL IJ (14:07)
== END 2022-10-19 13:07 ==
PROVIDERS: PCP Student in an Organized Health Care Education/Training Program; Visit Provider Student in an Organized Health Care Education/Training Program
DX: E87.1 Hypo-osmolality and hyponatremia (principal); R07.81 Pleurodynia; R06.02 Shortness of breath; R91.1 Solitary pulmonary nodule
CPT/HCPCS: 71275; 82565; J3490

== ENCOUNTER 2022-11-20 10:58 | Outpatient (REF) | payer OTHER, SELFPAY ==
[2022-11-20 11:51] LABS: Abs Immature Grans 0.02 10^3/uL (0.0-0.06); Absolute Basophil Count 0.02 10^3/uL (0.0-0.2); Absolute Eosinophil Count 0.04 10^3/uL (0.0-0.7); Absolute Lymphocyte Count 0.39 10^3/uL (1.2-3.4); Absolute Monocyte Count 0.45 10^3/uL (0.1-0.8); Basophils % 0.6; Eosinophils % 1.2; HCT 35.3 % (40.0-50.0); HGB 11.7 g/dL (13.5-17.5); Immature Grans % 0.6; Lymphocytes % 11.7; MCH 32.1 pg (27.0-33.0); MCHC 33.1 % (32.0-36.0); MCV 97 fL (80-95); MPV 9.7 fL (8.0-11.0); Monocytes % 13.6; Neutrophils % 72.3; Platelet Count 106 10^3/uL (130-400); RBC 3.64 10^6/uL (4.36-5.78); RDW 16.2 % (11.8-14.1); RDW-SD 58.4 fL; WBC 3.32 10^3/uL (4.4-10.8)
[2022-11-20 12:03] LABS: BUN 7 mg/dL (7-18); CREATININE 0.8 mg/dL (0.70-1.30); Chloride 96 mmol/L (98-107); Glucose 101 mg/dL (74-106); Potassium 4.9 mmol/L (3.5-5.1); Sodium 131 mmol/L (136-145)
[2022-11-20 12:07] LABS: Iron 49 ug/dL (65-175); Total Iron Binding Capacity 440 ug/dL (250-450); Transferrin Sat 11 % (20-55)
== END 2022-11-20 10:59 | disposition home or self-care (01) ==
LOC: LBN 10:58
PROVIDERS: PCP Student in an Organized Health Care Education/Training Program; Visit Provider Student in an Organized Health Care Education/Training Program
DX: D53.9 Nutritional anemia, unspecified; D69.3 Immune thrombocytopenic purpura; E83.51 Hypocalcemia; E87.1 Hypo-osmolality and hyponatremia; J44.9 Chronic obstructive pulmonary disease, unspecified
CPT/HCPCS: 80048; 83540; 83550; 85025

== ENCOUNTER 2022-12-09 03:02 | Outpatient (CLI) | payer OTHER, SELFPAY ==
[2022-12-09] MEDS: Albuterol HFA 18 GM 200 PUFF INH IH (09:10)
[2022-12-09] MEDS: Inhaler, Assist Device 1 EACH MC (09:12)
--- NOTE | 2022-12-10 13:35 | W.PFT ---
Date of service: 12/09/22 Time of Service: 08:07 Pulmonary Function Test Result Indications: COPD/Pleural Plaques Interpretation Spirometry: There is no airflow limitation. There is restrictive appearing spirometry. There is no bronchodilator response. Lung Volumes: There is moderate restrictive lung disease Diffusion Capacity: Decreased diffusion Airway Pressure: Normal airways resistance. Impression Moderate restrictive lung disease. Clinical Correlation therefore is recommended.
== END 2022-12-09 03:03 | disposition home or self-care (01) ==
LOC: RT 03:02
PROVIDERS: PCP Student in an Organized Health Care Education/Training Program; Visit Provider Student in an Organized Health Care Education/Training Program
DX: J98.4 Other disorders of lung (principal)
CPT/HCPCS: 94060; 94726; 94729

== ENCOUNTER 2022-12-09 12:52 | Outpatient (REF) | payer OTHER, SELFPAY ==
[2022-12-10 09:42] LABS: Source Nasal/Nares
[2022-12-10 10:38] LABS: COVID-19 PCR Negative (Negative)
== END 2022-12-09 12:53 | disposition home or self-care (01) ==
LOC: LBN 12:52
PROVIDERS: PCP Student in an Organized Health Care Education/Training Program; Visit Provider Physician Assistant Surgical
DX: Z20.822 Contact with and (suspected) exposure to COVID-19 (principal); Z01.818 Encounter for other preprocedural examination
CPT/HCPCS: 87635; U0003

== ENCOUNTER 2022-12-10 10:23 | Day surgery (SDC) | payer OTHER, SELFPAY ==
[2022-12-10] VITALS (7 sets, daily range): BP systolic 142–182; BP diastolic 76–97; PULSE 92–110; RESP 16–23; TEMP 36.5–36.6; O2SAT 96–99; BMI 24.8
[2022-12-10] MEDS: Lactated Ringers 1,000 ML 80 ML IV (11:05)
--- NOTE | 2022-12-10 11:29 | W.ANESPRE ---
General Info Date of Service Date Performed: 12/10/22 Height: 5 ft 10.87 in Weight: 80.6 kg Body Mass Index (BMI): 24.8 Surgical Procedure: Operation Date: 12/10/22 12:10 Proposed Procedure Side Surgeon p Bronchoscopy w/BAL and Endobronchial Brushing Danyell Henriquez MD Meds Allergies and Home Medications Allergies Allergy/AdvReac Type Severity Reaction Status Date / Time atorvastatin AdvReac Intermediate Diarrhea Verified 12/02/22 10:07 Home Medication Medication Instructions Recorded acetaminophen 500 mg tablet 1,000 mg PO PRN PRN 04/25/15 (Tylenol Extra Strength) vitamin B complex [B 1 cap PO .qd 04/24/19 Complex-Vitamin B12] eyhkkezlfy-gswuotljlafzfev-jwzxhwbsldtjhkvq-acetaminophen 1 cap PO DAILY 11/17/20 capsule colchicine 0.6 mg tablet 0.6 mg PO DAILY PRN gout #7 tabs 02/10/21 losartan 25 mg tablet 25 mg PO HS 01/13/22 metoprolol succinate 200 mg 200 mg PO HS 01/13/22 tablet,extended release 24 hr (Toprol XL) gabapentin 300 mg capsule 300 mg PO BID #60 caps 02/05/22 clopidogrel 75 mg tablet (Plavix) 75 mg PO DAILY #90 tabs 03/30/22 pantoprazole 40 mg tablet,delayed 40 mg PO DAILY 90 days #90 tab-caps 03/30/22 release (Protonix) sildenafil 50 mg tablet (Viagra) 50 mg PO DAILY PRN sexual activity 05/28/22 10 days #10 tab-caps ipratropium 20 mcg-albuterol 100 1 puff inhalation Q6H PRN chest 06/14/22 mcg/actuation mist for inhalation congestion; cold symptoms #4 grams (Combivent Respimat) aspirin 81 mg chewable tablet 81 mg PO DAILY #90 tab-caps 09/16/22 furosemide 20 mg tablet 20 mg PO DAILY #90 tabs 09/16/22 nitroglycerin 0.4 mg sublingual 0.4 mg sublingual PRN #25 tabs 10/07/22 tablet tramadol 50 mg tablet 50 mg PO DAILY PRN severe back or 10/19/22 coughing pain #10 tabs fluticasone fur. 100 mcg-umeclid 1 inh inhalation DAILY #60 ea 12/02/22 62.5 mcg-vilant 25 mcg inhalat.powder (Trelegy Ellipta) rosuvastatin 20 mg tablet 20 mg PO DAILY #90 tabs 12/08/22 Current Visit Medications: Current Medications Generic Name Dose Route Start Last Admin Trade Name Freq PRN Reason Stop Dose Admin Albuterol Sulfate 2.5 mg/ 0 mg 12/10/22 08:03 Ipratropium Yeso 0.5 mg UPD Q2H PRN PRN Ringer's Solution 1,000 mls @ 80 mls/hr 12/10/22 06:00 12/10/22 11:05 IV 12/10/22 23:59 80 mls/hr INFUSION SULEIMAN Administration IV Miscellaneous Supplies 1 each 12/10/22 06:00 Iv Access IV 12/10/22 23:59 DIRECTED SULEIMAN Sodium Chloride 0 ml 12/10/22 06:00 Normal Saline Flush 10 Ml Syr IV 12/10/22 23:59 PRN PRN Sodium Chloride 0 ml 12/10/22 06:00 Normal Saline 10 Ml Vial IJ 12/10/22 23:59 DIRECTED PRN Sterile Water 0 ml 12/10/22 06:00 Water,Injection,Sterile 10 Ml Vial IJ 12/10/22 23:59 DIRECTED PRN PFSH Active Problems Active Problems: Problem Status Onset Code Coronary atherosclerosis of [place] coronary vessel 10/24/09 I25.10 Chronic ITP (idiopathic thrombocytopenia) 07/25/17 D69.3 Chronic airway obstruction, not elsewhere classified 03/06/07 J44.9 Hypertension 12/11/00 I10 Hyperlipidemia 11/10/02 E78.5 Hypocalcemia 04/01/15 E83.51 Sensorineural hearing loss, bilateral 06/24/14 H90.3 Splenomegaly 08/02/17 R16.1 Cervical radiculitis M54.12 Sudden hearing loss 12/15/12 H91.20 Osteoarthritis of lower back 12/11/01 M47.9 Headache 08/01/09 R51 Macrocytic anemia D53.9 Carcinoma in situ, unspecified D09.9 Chronic low back pain M54.5, G89.29 Hepatic steatosis K76.0 Muscle spasm M62.838 Left-sided back pain M54.9 Hx of atherosclerotic cardiovascular disease Z86.79 COPD (chronic obstructive pulmonary disease) J44.9 Weight gain R63.5 Absent breath sounds on left side of chest R09.89 Anemia D64.9 Tenderness of back M54.9 Compression fracture of L2 lumbar vertebra S32.020A Spinal stenosis at L4-L5 level M48.061 COVID-19 U07.1 Encounter for long-term (current) use of NSAIDs Z79.1 Sacroiliac joint dysfunction of left side M53.3 Hyponatremia E87.1 Lung nodule seen on imaging study R91.1 Pleuritic chest pain R07.81 Pleural plaque J92.9 Hemoptysis R04.2 Encounter for screening for COVID-19 Z11.52 Medical History Medical History Abnormal findings on diagnostic imaging of lung (11/25/06) Old notes, CXR since then show cardiomegaly, possible atelectasis or scarring.. nothing acute. Anxiety disorder, unspecified (03/22/17) Atherosclerosis of [place] coronary artery of [place] heart without angina pectoris (10/24/09) stent 2009; re-occluded stented 11/2015 along with second site Cx.; dual platelet rx until 12/2016-06/2018; Dr. Mcnulty; MPI [facility] [place] 07/30/16 neg for ischemia, EF 51% Carotid artery occlusion (04/12/07) bilateral; L PARIETAL CVA Carpal tunnel syndrome (07/05/11) Cerebral artery occlusion with cerebral infarction (01/13/07) Convulsions (01/25/08) Pt. denies Erectile dysfunction History of tobacco use (10/12/11) quit over 25 yrs ago, 09/2022 Left buttock pain Helped focus on SI Joint vs lower bk. Feeling great, 09/2022. 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 [facility] [place] Tobacco Smoking/Tobacco Use Status: Former Tobacco Use Passive smoking exposure: Yes Second hand exposure: Yes Alcohol Alcohol Intake: current Alcohol intake frequency: 0-2 drinks per day Alcohol type: beer and wine Substance Use Substance use: Never Substance use type: does not use Vital Signs and Lab Results Vital Signs Most Recent Vital Signs in EMR: Most Recent Vital Signs Temp Pulse Resp BP Pulse Ox 36.6 C 110 H 18 182/92 H 99 12/10/22 10:55 12/10/22 10:55 12/10/22 10:55 12/10/22 10:55 12/10/22 10:55 Lab Results Blood Type / Crossmatch: No Data to Display Complete Blood Count: White Blood Count 3.32 10^3/uL (4.4-10.8) L 11/20/22 08:25 Red Blood Count 3.64 10^6/uL (4.36-5.78) L 11/20/22 08:25 Hemoglobin 11.7 g/dL (13.5-17.5) L 11/20/22 08:25 Hematocrit 35.3 % (40.0-50.0) L 11/20/22 08:25 Platelet Count 106 10^3/uL (130-400) L 11/20/22 08:25 Complete Metabolic Panel: Sodium 131 mmol/L (136-145) L 11/20/22 08:25 Potassium 4.9 mmol/L (3.5-5.1) 11/20/22 08:25 Chloride 96 mmol/L (98-107) L 11/20/22 08:25 Carbon Dioxide 27.0 mmol/L (21.0-32.0) 11/20/22 08:25 BUN 7 mg/dL (7-18) 11/20/22 08:25 Creatinine 0.8 mg/dL (0.70-1.30) 11/20/22 08:25 Est GFR (CKD-EPI 2020) 96.40 (mL/min/1.73m2) 11/20/22 08:25 Calcium 9.0 mg/dL (8.5-10.1) 11/20/22 08:25 Glucose 101 mg/dL (74-106) 11/20/22 08:25 Liver Function Panel: No Data to Display Coagulation Panel: No Data to Display Cardiac Panel: No Data to Display Arterial Blood Gas: No Data to Display Venous Blood Gas: No Data to Display Pancreas Panel: No Data to Display Thyroid Panel: No Data to Display Infectious Disease: Coronavirus (COVID-19)(PCR) Negative (Negative) 12/09/22 09:00 Coronavirus 2019 Source Nasal/Nares 12/09/22 09:00 Blood Cultures: No Data to Display Toxicology Panel: No Data to Display Imaging and Studies Imaging and Studies Study information below may be from another EMR and interpreted by another provider. Please see original notes in EMR for more complete details. EKG Summary: Conclusion Sinus rhythm...normal P axis, V-rate 60- 99 Atrial premature complexes...SV complexes w/ short R-R intvls 12/25/21 Stress Test Summary: Stress ECG Conclusion 1. Resting electrocardiogram was within normal limits 2. Patient exercised on the Pramod protocol and completed a workload of 5.52 METS, stopping due to fatigue 3. Normal heart rate and blood pressure response to exercise. The patient achieved 99% of predicted heart rate for age 4. The electrocardiographic portion of the test showed no evidence of myocardial ischemia 5. Atrial and ventricular ectopic beats were seen 6. See MPI report 01/05/22 Anesthesia Assessment and Plan Anesthesia History Personal History: No History of Anesthesia Complications and Malignant Hyperthermia Family History: No Family History of Anesthesia Complications and Family History Unknown Exercise Tolerance Exercise Tolerance: Metabolic Equivalents>4 Pertinent Negatives Pertinent Negatives: No Symptoms of GERD, No Major Cardiovascular Symptoms or Complaints and No History of CVA/TIA Cardiac & Pulmonary Exam Cardiac Exam: Normal S1/S2 Heart Sounds Pulmonary Exam: Clear Bilateral Breath Sounds Implantable Cardiac Device Does patient have a Pacemaker or an ICD?: No Airway Exam Known Difficult Airway: No Mallampati Class: 2 Mouth Opening: Normal (> 3cm) Thyromental Distance: Greater than 3 cm Neck Range of Motion: Full ROM Neck Circumference: Normal Teeth Condition: Normal Dentition (lower teeth intact) and Removable Dentures/Plates Upper ASA Classification ASA Score: ASA 3 Emergency Case?: No NPO Status NPO Status: NPO Clears >2 hours, Solids >8 hours Anesthesia Plan Resuscitation Status: Full Code Anesthesia Technique: General Anesthesia Airway Planned: Endotracheal Tube Monitors Used: Standard Monitors Preoperative Comments:: Used inhaler this am, breathing pretty good per patient. COVID neg.
--- NOTE | 2022-12-10 12:25 | PAPNONF_PTH ---
PATIENT: Long Godinez LOC: [facility] U#:[id number] AGE/SX: 67/M ROOM: RE12/10/[address]: Danyell Henriquez MD : [id number] BED: DIS: 12/10/2022 SPEC #: [id number] RECD: 12/10/22 16:21 STATUS: HENNY REGoldy #: [id number] SRAVANTHI: 12/10/22 12:[address]: Danyell Henriquez DEPT: [facility] Cytology RECD BY: Sarahi Murillo ENTERED: 12/10/22 16:23 SP TYPE: YANELIS HENDRIX DR: Annette Moreno, DO Tissues: 1 - BODY FLUID CYTO(NOT S/U/N/EM)[facility] Procedures: BODY FLUID CYTO(NOT SPU/UR/NIP/ENDOM)[facility] Comments: [id number] (TV = 15 ML, SENT FRESH) (REFRIGERATED)
[2022-12-10] MEDS: Lidocaine 1% Multi-Dose 10 ML VIAL (12:30)
--- NOTE | 2022-12-10 13:17 | W.PM.OP ---
Date of service: 12/10/22 Time of Service: 12:00 Operative Note Operative Note Refer to Anesthesia Record Procedure Description: Bronchoscopy Indication:Hemoptysis, pulmonary nodule Procedure performed: Flexible bronchoscopy with BAL and endobronchial brushings Sedation plan: General anesthesia Informed consent was obtained after the risks and benefits or the procedure were discussed. Anesthesia sedated the patient and I intubated the patient using a 3.0 Glydescope with an 8.5 EET on first attempt. A proper and complete OR compliant time out was performed. The therapeutic 6.2mm Olympus bronchoscope was inserted into the airways the the ETT, were 3cc in total of 1% topical lidocaine was used the anesthetize the airways. The trachea was midline and without lesion or injury. The mucosa appeared normal and there were no signs of tracheomalacia. The idania was sharp. All bronchial subsegments were visualized within each lobe and showed normal anatomy, minimal to now clear secretions and no evidence of lesion, injury or trauma. There was no evidence of old blood nor evidence of newer blood or active bleeding. Endobronchial brushings were obtained of the anterior and posterior wall of the right mainstem bronchus in order to send for Percepta genetic testing. A bronchoalveolar lavage was performed in the RML. A total of 120cc of saline was administered with a return of 50cc. The fluid was slightly cloudy in appearance with some mucus plugging. The bronchoscope was then removed and the case terminated. The patient was taken to PACU in stable condition. Samples collected:L BAL, bronchial washings, right main stem endobronchial brushings Testing ordered:Percepta genetic testing, cell diff, cytopathology, bacterial, fungal and AFB cultures Complications:None Danyell Henriquez MD Pulmonary & Critical Care Medicine
--- NOTE | 2022-12-10 13:24 | W.ANESPOSTOP ---
Postoperative Evaluation Date, Time and Location Date Performed: 12/10/22 Time Performed: 13:25 Patient Location: Day Surgery Unit Vital Signs Most Recent Imported Vital Signs: Most Recent Vital Signs Temp Pulse Resp BP Pulse Ox 36.6 C 93 H 23 142/81 H 97 12/10/22 13:01 12/10/22 13:01 12/10/22 13:01 12/10/22 13:01 12/10/22 13:01 Pain Score Most Recent Pain Score: Most Recent Pain Score Pain Level 0 12/10/22 10:55 Assessment Mental Status: Awake (Alert & Oriented to Patient Baseline) Airway and Respiratory Function: Patent airway with normal (patient baseline) respiratory exam Cardiovascular Function: Hemodynamically Stable Hydration Status: Adequately Hydrated Nausea & Vomiting: No Nausea or Vomiting Pain: Pt. Denies Any Pain Peripheral Nerve Block: Patient did not receive a nerve block
[2022-12-12 08:30] LABS: Gram Smear Result Neutrophils Present
[2022-12-13 16:07] LABS: Lymphocytes Fluid Relative 59 %; Neutrophils Fluid Relative 5 %
[2022-12-13 16:08] LABS: Mono/Macrophage Fluid Relative 36 %
[2023-01-07 08:27] LABS: Fungus Smear No Fungi Seen
[2023-01-07 08:28] LABS: Fungus Smear No Fungi Seen
== END 2022-12-10 13:45 | disposition home or self-care (01) ==
PROVIDERS: PCP Student in an Organized Health Care Education/Training Program; Visit Provider Student in an Organized Health Care Education/Training Program
PROC: 0BJ08ZZ Inspection of Tracheobronchial Tree, Via Natural or Artificial Opening Endoscopic (ICD-10-PCS; CPT 31622; principal; 2022-12-10 12:00)
DX: R91.1 Solitary pulmonary nodule (principal); R04.2 Hemoptysis; J84.09 Other alveolar and parieto-alveolar conditions
CPT/HCPCS: 31623; 31624; 80162; 87070; 87102; 87116; 87205; 87206; 88104; J1100; J2405; J2704; J3010

== ENCOUNTER 2023-06-23 11:15 | Outpatient (CLI) | payer OTHER, SELFPAY ==
[2023-06-23 09:47] LABS: CREATININE 0.9 mg/dL (0.70-1.30); Estimated GFR 92.45 (mL/min/1.73m2)
== END 2023-06-23 11:16 | disposition home or self-care (01) ==
LOC: LBO 11:18
PROVIDERS: PCP Student in an Organized Health Care Education/Training Program; Visit Provider Surgery
DX: I73.9 Peripheral vascular disease, unspecified (principal)
CPT/HCPCS: 36415; 82565

== ENCOUNTER 2023-08-19 16:58 | Outpatient (REF) | payer OTHER, SELFPAY ==
[2023-08-19 08:40] LABS: Abs Immature Grans 0.01 10^3/uL (0.0-0.06); Absolute Basophil Count 0.01 10^3/uL (0.0-0.2); Absolute Eosinophil Count 0.03 10^3/uL (0.0-0.7); Absolute Lymphocyte Count 0.39 10^3/uL (1.2-3.4); Absolute Monocyte Count 0.29 10^3/uL (0.1-0.8); Absolute Neutrophil Count 1.46 10^3/uL (1.2-6.7); Basophils % 0.5; Eosinophils % 1.4; HCT 32.9 % (40.0-50.0); HGB 10.7 g/dL (13.5-17.5); Immature Grans % 0.5; Lymphocytes % 17.8; MCH 30.5 pg (27.0-33.0); MCHC 32.5 % (32.0-36.0); MCV 94 fL (80-95); MPV 9.9 fL (8.0-11.0); Monocytes % 13.2; Neutrophils % 66.6; RBC 3.51 10^6/uL (4.36-5.78); RDW 14.6 % (11.8-14.1); RDW-SD 50.4 fL; WBC 2.19 10^3/uL (4.4-10.8)
[2023-08-19 09:03] LABS: Iron 32 ug/dL (65-175); Total Iron Binding Capacity 483 ug/dL (250-450); Transferrin Sat 7 % (20-55)
[2023-08-19 09:05] LABS: Diff Comment Diff Reviewed; Platelet Count 81 10^3/uL (130-400); RBC Morphology Normal
[2023-08-19 09:06] LABS: ALT 35 U/L (16-63); AST 47 U/L (15-37); Albumin 3.8 g/dL (3.4-5.0); Alkaline Phosphatase 160 U/L (46-116); Anion Gap 8.7 mmol/L (3-11); BUN 5 mg/dL (7-18); Bilirubin, Direct 0.2 mg/dL (0.0-0.2); Bilirubin, Total 0.6 mg/dL (0.2-1.0); CO2 28.3 mmol/L (21.0-32.0); CREATININE 0.8 mg/dL (0.70-1.30); Calcium 8.8 mg/dL (8.5-10.1); Chloride 96 mmol/L (98-107); Cholesterol 184 mg/dL (<200); Glucose 142 mg/dL (74-106); HDL Cholesterol 119 mg/dL (40-60); Potassium 4.6 mmol/L (3.5-5.1); Sodium 133 mmol/L (136-145); Total Protein 7.7 g/dL (6.4-8.2)
[2023-08-19 09:11] LABS: Triglyceride <25 mg/dL (<150)
[2023-08-19 09:22] LABS: LDL CHOLESTEROL 46 mg/dL (<100)
== END 2023-08-19 16:59 | disposition home or self-care (01) ==
LOC: LBN 16:58
PROVIDERS: PCP Student in an Organized Health Care Education/Training Program; Visit Provider Student in an Organized Health Care Education/Training Program
DX: D69.3 Immune thrombocytopenic purpura; E78.5 Hyperlipidemia, unspecified; I10 Essential (primary) hypertension; I25.10 Atherosclerotic heart disease of native coronary artery without angina pectoris; J98.4 Other disorders of lung; Z13.220 Encounter for screening for lipoid disorders
CPT/HCPCS: 80048; 80061; 80076; 83721; 83540; 83550; 85025

== ENCOUNTER → 2023-08-30 19:28 | Outpatient (CLI) | payer OTHER, SELFPAY ==
--- NOTE | 2023-08-30 17:58 | DI.RAD_ITS ---
Exam(s) XR CHEST 2V PA LATERAL EXAM: XR CHEST 2V PA LATERAL CLINICAL HISTORY: COPD-J44.9 TECHNIQUE: 2D digital imaging was performed of the chest. Two images were obtained. PA and lateral views were obtained. COMPARISON: CR XR CHEST 2V PA LATERAL from 12/25/[address] CHEST WO from 01/19/2023 FINDINGS: There is poor inspiration. MEDIASTINUM: Normal. HEART: Normal. PULMONARY VASCULATURE: Normal. LUNGS: No focal consolidating infiltrates. PLEURAL SPACE: No pleural effusion or pneumothorax. BONE:Within normal limits for the patient's age. There is an old T6 compression fracture deformity. There now appears to be mild compression of the T5 vertebral body. OTHER FINDINGS:There is elevation of the left hemidiaphragm. IMPRESSION: 1. No focal consolidating infiltrates. 2. Question of new mild T5 vertebral body compression deformity. This is of indeterminate age. This was not present on the most recent examination from 01/19/2023. Please correlate with patient's clin ical findings. If further imaging is warranted, an MRI may be obtained. DATA REPOSITORY: RADIATION DOSE DELIVERED:
--- NOTE | 2023-08-30 18:16 | DI.VRAD_ITS ---
PROCEDURE INFORMATION: Exam: XR Chest Exam date and time: 08/30/2023 5:24 PM Age: 68 years old Clinical indication: Other: Copd eval pathology TECHNIQUE: Imaging protocol: Radiologic exam of the chest. Views: 2 views. COMPARISON: CT CHEST WO 01/19/2023 8:04 AM FINDINGS: Lungs: Lung volumes are relatively low with mild bilateral lower lobe atelectasis. Mid to upper lungs appear clear. Pleural spaces: Unremarkable. No pleural effusion. No pneumothorax. Heart/Mediastinum: Unremarkable. No cardiomegaly. Diaphragm: Mild elevation of the left hemidiaphragm. Bones/joints: Mild degenerative changes of the spine and shoulders. IMPRESSION: Mild hypoaeration changes. Dictated and Authenticated by: Nirav Dawson MD. Ordering:HILARIO Connors MD
== END ==
PROVIDERS: PCP Student in an Organized Health Care Education/Training Program; Visit Provider Nurse Practitioner Family
DX: J44.9 Chronic obstructive pulmonary disease, unspecified (principal)
CPT/HCPCS: 71046

== ENCOUNTER 2023-09-15 04:33 | Outpatient (CLI) | payer OTHER, SELFPAY ==
[2023-09-15] MEDS: Levalbuterol HFA 15 GM INH 4 PUFF IH (08:47)
[2023-09-15] MEDS: Inhaler, Assist Device 1 EACH MC (08:48)
--- NOTE | 2023-09-15 10:48 | W.PFT ---
Date of service: 09/15/23 Time of Service: 07:59 Pulmonary Function Test Result Indications: RLD Interpretation Spirometry: There is no airflow limitation. No significant bronchodilator response. FVC is low. Lung Volumes: There is moderate restrictive lung disease Diffusion Capacity: The diffusion is low Airway Pressure: Normal airways resistance Impression Moderate restrictive lung disease with a decreased diffusion. This pattern is most consistent with ILD. Clinical Correlation therefore is recommended.
== END 2023-09-15 04:34 | disposition home or self-care (01) ==
LOC: RT 04:33
PROVIDERS: PCP Student in an Organized Health Care Education/Training Program; Visit Provider Physician Assistant Surgical
DX: J84.9 Interstitial pulmonary disease, unspecified (principal)
CPT/HCPCS: 94060; 94726; 94729

== ENCOUNTER → 2023-10-27 02:02 | Outpatient (CLI) | payer OTHER, SELFPAY ==
--- NOTE | 2023-10-27 | DI.NM_ITS ---
APPROVED REPORT Exam: Pharmacologic Patient Location: Out-Patient Room/Bed: Stress Nurse: Temitope Giles RN Ordering Provider:JOSE JUAN MG, Contact Number: [phone] BMI: 28.16 Baseline Rhythm: Sinus Rhythm Comment: Occasional multifocal PVC's Indications: ASCVD, cardiomyopathy, R/O ischemia Medical History Medical History: Claudification calf muscle, cerebral artery occlusion with cerebral infarction, vert igo, anxiety, hx, tobacco use, atherosclerosis of [place] coronary artery without angina, PAD, corotid artery occlusion, pulmonary fibrosis, RLS, HTN, HLD, COPD, emphysema Cardiac Medications: Aspirin, breztri aerosphere, clopidogel, trelegy ellipta, furosemide, combivent, losartan, metoprolol succinate, pantoprazole, rosuvastatin, sildenafil, tramadol, vitamin B complex Allergies: Atorvastatin Cardiac Risk Factors: Family hx, HTN, HLD, PVD, CVD, COPD, former smoker Previous Cardiac Procedures: Coronary stent november 2015 CHRISSY left circumflex , LAD POBA in stent resten osis cardiac cath 01/22/22 Pretest Chest Pain Characteristics: None Exercise History: Sedentary Physical Disabilities: Current DVTs LE's Lung Sounds: Fine crackles bilat bases Heart Sounds: Regular Stress Test Details Test: Pharmacologic stress testing performed using 0.4 mg of regadenoson per 5 mL given IV over 10 s econds. Reason for pharmacologic stress test: Current DVT's LE's. Nuclear Acquisition: Rest Tc-99m/Stress Tc-99m 1 day Rest Isotope: Tc-99m Sestamibi. Dose: 9.5 Date: 10/27/2023 Injection Time: 0915 Stress Isotope: Tc-99m Sestamibi. Dose: 32.4 Date: 10/27/2023 Injection Time: 1115 HR Resting HR Supine: 83 bpm Max Heart Rate (APMHR): 151.680321 bpm Target HR (85% APMHR): 128.880719 bpm Max HR Achieved: 98 bpm % of APMHR: 64.90 Recovery HR: 84 bpm BP Resting BP Supine: 178/98 mmHg Max BP: 184/90 mmHg Recovery BP: 180/90 mmHg ECG Resting ECG: Sinus Rhythm Ectopy: Occasional multifocal PVC's Stress ECG: Sinus Rhythm ST Change: Nondiagnostic low heart rate Arrhythmia: Multifocal PVC's Recovery ECG: Sinus Rhythm Recovery ST Change: Nondiagnostic low heart rate Recovery Arrhythmia: Occasional multifocal PVC's, couplet Clinical Stress Symptoms: Mod dyspnea Angina Score: None Rate Pressure Product: 20111 Stress ECG Conclusion 1. Resting EKG showed poor R wave progression 2. Patient underwent testing using pharmacologic stress with regadenoson 3. Peak heart rate achieved was 65% of maximal for age 4. The electrocardiographic portion of the test was not nonstick 5. Sporadic atrial and ventricular beats were seen 6. See MPI report Stress Test Summary STAGE HR BP SpO2 Symptoms NOTES Supine 83 178/98 1 min post Lexiscan injection 88 184/90 3 min post Lexiscan injection 88 180/92 6 min post Lexiscan injection 84 180/90 96 Patient noted to have fine crackles in bilateral bases. No noted dyspnea at rest or complaints of SOB . Spoke with adelfo Moses to proceed with lexiscan. MPI Conclusion There is a small fixed anteroapical defect consistent with infarction. There is no superimposed isch emia Ejection fraction is calculated at 10% with severe global hypokinesis Radiologist Interpretation Radiologist agrees with Respiratory Support Technician's Interpretation. Radiologist Interpretation by: Ameena Tierney MD Interpretation Date/Time: 10/27/2023 15:43:49
== END ==
PROVIDERS: PCP Student in an Organized Health Care Education/Training Program; Visit Provider Physician Assistant
DX: I25.10 Atherosclerotic heart disease of native coronary artery without angina pectoris (principal); I42.9 Cardiomyopathy, unspecified
CPT/HCPCS: 78452; 93017

== ENCOUNTER → 2023-11-11 00:25 | Outpatient (CLI) | payer OTHER, SELFPAY ==
--- NOTE | 2023-11-11 07:30 | DI.US_ITS ---
APPROVED REPORT EXAM: Comprehensive 2D, Doppler, and color-flow Echocardiogram Patient Location: Out-Patient Sanitation Technician: Lisa Davenport RDCS (AE) Indications: ASCVD, Cardiomyopathy Other Information Study Quality: Adequate Conclusion Normal left ventricular wall thickness and chamber size. Ejection fraction biplane is 33%. There is generalized hypokinesis with akinesis of anterior apical segment Normal right ventricular size and function Mildly dilated left atrium. Normal right atrial size Aortic valve is sclerotic and trileaflet with trace to mild regurgitation Normal mitral valve with mild regurgitation Normal tricuspid valve with trace to mild regurgitation Estimated right ventricular systolic pressure is 57 mmHg Wall motion Left Ventricle The left ventricle is normal size. Left ventricular systolic function is moderately decreased. There is normal left ventricular wall thickness. Regional wall motion abnormalities are noted. There is no ventricular septal defect visualized. LVEF is 33%. Right Ventricle The right ventricle is normal size. The right ventricular systolic function is normal. Atria Left atrium is mildly dilated. The right atrium size is normal. Aortic Valve The Aortic valve is sclerotic. There is no aortic valvular stenosis. Trace to mild aortic regurgitati on. Mitral Valve The mitral valve is normal in structure. No evidence of mitral valve stenosis. Mild mitral regurgitat ion. Tricuspid Valve The tricuspid valve is normal in structure. There is no tricuspid valve stenosis. Trace to mild tricu spid regurgitation. The RVSP is 56.9 mmHg. Pulmonic Valve The pulmonary valve is normal in structure. There is no pulmonic valvular stenosis. There is no pulmo nilson valvular regurgitation. Great Vessels The aortic root is normal in size. The ascending aorta is normal in size. Aortic arch is not well vis ualized. IVC is normal in size and collapses >50% with inspiration. Pericardium There is no pericardial effusion. 2D Dimensions IVSD d PLAX 0.87 cm M: 0.6-1.2 Ao Root d 3.05 cm M: 3.1 - 3.7 LVPW d PLAX 0.92 cm M: 0.6 - 1.2 Ao Asc Diam d 3.47 cm M: 2.6 - 3.4 LVID d PLAX 5.55 cm M: 4.2 - 5.8 LVDs 4.66 cm M: 2.5 - 4.0 LV EF Teichholz 33.4 % FS 16.06 % LV EDV (Teich) 150.3 mL LV ESV (Teich) 100.1 mL M-Mode TAPSE 2.08 cm (M/F) >1.7 Auto EF LV EDV A4C 163.7 mL LV EDV A2C 175.2 mL LV EDV BP 167.8 mL LV ESV A4C 107.9 mL LV ESV A2C 117.4 mL LV ESV BP 111.7 mL LVEF(%) A4C 34.1 % LVEF(%) A2C 33.0 % LVEF(%) BP 33.4 % LV SV A4C 55.8 ml LV SV A2C 57.8 ml LV SV BP 56.1 ml LV CO A4C 4.2 L/min LV CO A2C 4.3 L/min LV CO BP 4.2 L/min HR A4C 74.54 BPM HR A2C 74.23 BPM LV EDV Index (BP) LV Strain Long Pk Overal Avg (s) 7.98 LA Volume LA Length A4C 5.9 cm LA Length A2C 5.9 cm LA Area A4C s 24.31 cm2 LA Area A2C s 26.74 cm2 LA Vol A4C A-L 85.05 mL LA Vol A2C A-L 102.68 mL LA Vol Biplane A-L 93.6 mL LA Vol/BSA A4C A-L LA Vol/BSA A2C A-L LA Vol/BSA BP A-L 43.7 mL/m2 LA Vol A4C MOD 78.1 mL LA Vol A2C MOD 91.0 mL LA Vol BP MOD 84.3 mL RA Volume RA Area A4C 16.8 cm2 RA ESV A4C (A-L) 46.2mL RA Vol/BSA A4C A-L RA Length A4C 5.2 cm RA ESV A4C (MOD) 43.6mL LV Diastology MV E' medial 0.046 (>0.07 m/s) MV E Vmax 1.13 (0.4-1.3 m/s) MV E/E' MED 24.33 (<14) MV A Vmax 0.50 (0.4-1.3 m/s) MV E' lateral 0.108 (>0.1 m/s) E/A Ratio 2.3 MV E/E' LAT 10.44 (<14) MV E' Average 0.077 m/s MV E/E'(average) 14.61 Aortic Valve AoV Vmax 1.86 m/s LVOT Vmax 1.00 m/s AoV Peak Grad 40.8 mmHg LVOT Peak Grad 4.0 mmHg AoV Area (Vmax) 1.49 cm2 LVOT VTI 0.234 m AoV VTI 0.417 m LVOT Mean Grad 2.2 mmHg AoV Mean Dejuan. 1.27 m/s LVOT SV 65.11 mL AoV Mean Grad 7.3 mmHg LVOT Diam s 1.85 cm AoV Area (VTI) 1.56 cm2 AV Regurg Peak Gr. 67.65 mmHg Velocity Ratio 0.54 AR Decel [place] 2.3m/sec2 AR DT 1799 msec AR PHT 522 msec AR Vmax 4.11 m/s Mitral Valve MV DT 145 (160-240 msec) MV Vmax TIPS 1.24 m/s MV Mean Grad 2.1 (<2mmHg) MV VTI 0.330 m Pulmonary Valve PV Vmax 1.05 (0.5-1.5 m/s) RVOT Vmax 0.44 m/s PV Peak Grad 4.4 mmHg RVOT Peak Gr. 0.8 mmHg PV Mean Dejuan 0.54 m/s RVOT VTI 0.111 m PV Mean Grad 1.4 mmHg RVOT Mean Gr. 0.6 mmHg Tricuspid Valve RA Pressure 3.00 mmHg TR Vmax 3.67 m/s TV S' 0.13 m/s TR Peak Grad 53.9 mmHg RVSP (TR) 56.9 mmHg
== END ==
PROVIDERS: PCP Student in an Organized Health Care Education/Training Program; Visit Provider Physician Assistant
DX: I42.9 Cardiomyopathy, unspecified (principal)
CPT/HCPCS: 93306

== ENCOUNTER 2023-11-18 02:05 | Outpatient (CLI) | payer OTHER, SELFPAY ==
[2023-11-18 09:40] LABS: Abs Immature Grans 0.02 10^3/uL (0.0-0.06); Absolute Basophil Count 0.02 10^3/uL (0.0-0.2); Absolute Eosinophil Count 0.06 10^3/uL (0.0-0.7); Absolute Lymphocyte Count 0.84 10^3/uL (1.2-3.4); Absolute Monocyte Count 0.35 10^3/uL (0.1-0.8); Absolute Neutrophil Count 2.19 10^3/uL (1.2-6.7); Basophils % 0.6; Eosinophils % 1.7; HGB 11.8 g/dL (13.5-17.5); Immature Grans % 0.6; Lymphocytes % 24.1; MCHC 31.9 % (32.0-36.0); MCV 94 fL (80-95); MPV 10.5 fL (8.0-11.0); Monocytes % 10.1; Neutrophils % 62.9; RBC 3.93 10^6/uL (4.36-5.78); RDW 17.1 % (11.8-14.1); WBC 3.48 10^3/uL (4.4-10.8)
[2023-11-18 09:47] LABS: Iron 100 ug/dL (65-175); Total Iron Binding Capacity 421 ug/dL (250-450); Transferrin Sat 24 % (20-55)
[2023-11-18 09:51] LABS: Anion Gap 8.3 mmol/L (3-11); BUN 16 mg/dL (7-18); CO2 26.7 mmol/L (21.0-32.0); CREATININE 1.5 mg/dL (0.70-1.30); Calcium 8.4 mg/dL (8.5-10.1); Calculated LDL 76 mg/dL (<100); Chloride 100 mmol/L (98-107); Cholesterol 197 mg/dL (<200); Estimated GFR 50.08 (mL/min/1.73m2); Glucose 81 mg/dL (74-106); HDL Cholesterol 100 mg/dL (40-60); Potassium 4.7 mmol/L (3.5-5.1); Sodium 135 mmol/L (136-145); Triglyceride 107 mg/dL (<150)
[2023-11-18 09:56] LABS: Diff Comment Diff Reviewed; Platelet Count 69 10^3/uL (130-400); RBC Morphology Normal
[2023-11-18 10:10] LABS: Vitamin D 25 Total 43.8 ng/mL (30-100)
== END 2023-11-18 02:06 | disposition home or self-care (01) ==
LOC: LBO 02:07
PROVIDERS: PCP Student in an Organized Health Care Education/Training Program; Visit Provider Student in an Organized Health Care Education/Training Program
DX: E87.1 Hypo-osmolality and hyponatremia; D69.3 Immune thrombocytopenic purpura; J44.9 Chronic obstructive pulmonary disease, unspecified; I65.29 Occlusion and stenosis of unspecified carotid artery; E78.5 Hyperlipidemia, unspecified; I73.9 Peripheral vascular disease, unspecified; K90.9 Intestinal malabsorption, unspecified
CPT/HCPCS: 80048; 80061; 82306; 83540; 83550; 85025

== ENCOUNTER 2023-12-12 09:45 | Outpatient (REF) | payer OTHER, SELFPAY ==
[2023-12-12 10:51] LABS: ALT 39 U/L (16-63); AST 59 U/L (15-37); Albumin 3.4 g/dL (3.4-5.0); Alkaline Phosphatase 179 U/L (46-116); Anion Gap 11.7 mmol/L (3-11); BUN 18 mg/dL (7-18); Bilirubin, Direct 0.3 mg/dL (0.0-0.2); Bilirubin, Total 0.8 mg/dL (0.2-1.0); CO2 25.3 mmol/L (21.0-32.0); CREATININE 1.4 mg/dL (0.70-1.30); Calcium 8.2 mg/dL (8.5-10.1); Chloride 99 mmol/L (98-107); Estimated GFR 54.41 (mL/min/1.73m2); Glucose 89 mg/dL (74-106); Potassium 4.3 mmol/L (3.5-5.1); Sodium 136 mmol/L (136-145); Total Protein 7.1 g/dL (6.4-8.2)
== END 2023-12-12 09:46 | disposition home or self-care (01) ==
LOC: LBN 09:45
PROVIDERS: PCP Student in an Organized Health Care Education/Training Program; Visit Provider Student in an Organized Health Care Education/Training Program
DX: I10 Essential (primary) hypertension (principal); N17.9 Acute kidney failure, unspecified; K76.0 Fatty (change of) liver, not elsewhere classified
CPT/HCPCS: 36415; 80048; 80076

== ENCOUNTER 2023-12-23 08:22 | Outpatient (CLI) | payer OTHER, SELFPAY ==
--- NOTE | 2023-12-23 08:15 | RT.EKG_ITS ---
APPROVED REPORT Exam: Resting ECG Reason for Exam: Irregular heart rhythem/tachycardia Patient Location: O HR:111 bpm ECG Measurements Heart Rate 111 AXIS NM [id number] P [id number] QRSd 86 QRS 0 QT 321 T 93 QTc 436 Conclusion Atrial fibrillation...V-rate 88-142, irreg A-activity Ventricular premature complex...V complex w/ short R-R interval Nonspecific T abnormalities, lateral leads...T <-0.10mV, I aVL V5 V6
== END 2023-12-23 08:23 | disposition home or self-care (01) ==
PROVIDERS: PCP Student in an Organized Health Care Education/Training Program; Visit Provider Student in an Organized Health Care Education/Training Program
DX: I49.9 Cardiac arrhythmia, unspecified (principal)
CPT/HCPCS: 93010

== ENCOUNTER 2023-12-30 08:19 | Outpatient (RCR) | payer OTHER, SELFPAY ==
--- NOTE | 2023-12-30 09:00 | HOLTER_ITS ---
APPROVED REPORT Conclusion This is a 48-hour Holter monitor Rhythm throughout is atrial fibrillation with an average heart rate of 110. Minimum heart rate is 6 2, maximum 169 There are occasional ventricular ectopic beats There were no apparent patient symptoms
== END 2024-01-10 23:59 | disposition home or self-care (01) ==
LOC: CARDOPNVT 08:19
PROVIDERS: PCP Student in an Organized Health Care Education/Training Program; Visit Provider Internal Medicine Cardiovascular Disease
DX: Z86.79 Personal history of other diseases of the circulatory system; I10 Essential (primary) hypertension
CPT/HCPCS: 93225

== ENCOUNTER 2023-12-30 08:41 | Outpatient (CLI) | payer OTHER, SELFPAY ==
--- NOTE | 2023-12-30 08:30 | RT.EKG_ITS ---
APPROVED REPORT Exam: Resting ECG Reason for Exam: Tachycardia Patient Location: O HR:128 bpm ECG Measurements Heart Rate 128 AXIS NJ [id number] P [id number] QRSd 82 QRS 13 QT 310 T 82 QTc 453 Conclusion Atrial fibrillation...V-rate 99-169, irreg A-activity
== END 2023-12-30 08:42 | disposition home or self-care (01) ==
LOC: DI.CARD 08:42
PROVIDERS: PCP Student in an Organized Health Care Education/Training Program; Visit Provider Internal Medicine Cardiovascular Disease
DX: I65.29 Occlusion and stenosis of unspecified carotid artery (principal); I48.91 Unspecified atrial fibrillation; I73.9 Peripheral vascular disease, unspecified
CPT/HCPCS: 93010

== ENCOUNTER 2023-12-30 15:59 | Outpatient (REF) | payer OTHER, SELFPAY ==
[2023-12-30 16:42] LABS: TSH (W/Ref FT4) 1.97 uIU/mL (0.36-3.74)
[2023-12-30 16:58] LABS: HCT 32.2 % (40.0-50.0); HGB 10.5 g/dL (13.5-17.5); MCH 34.1 pg (27.0-33.0); MCHC 32.6 % (32.0-36.0); MCV 105 fL (80-95); MPV 9.9 fL (8.0-11.0); RBC 3.08 10^6/uL (4.36-5.78); RDW 20.2 % (11.8-14.1); RDW-SD 78.3 fL
[2023-12-30 17:10] LABS: Platelet Count 54 10^3/uL (130-400)
[2023-12-30 17:11] LABS: ALT 37 U/L (16-63); AST 62 U/L (15-37); Albumin 3.3 g/dL (3.4-5.0); Alkaline Phosphatase 161 U/L (46-116); Anion Gap 11.8 mmol/L (3-11); BUN 13 mg/dL (7-18); Bilirubin, Direct 0.2 mg/dL (0.0-0.2); Bilirubin, Total 0.5 mg/dL (0.2-1.0); CO2 24.2 mmol/L (21.0-32.0); CREATININE 1.1 mg/dL (0.70-1.30); Calcium 8.4 mg/dL (8.5-10.1); Chloride 102 mmol/L (98-107); Estimated GFR 72.67 (mL/min/1.73m2); Glucose 102 mg/dL (74-106); Magnesium 2.1 mg/dL (1.8-2.4); Potassium 4.6 mmol/L (3.5-5.1); Sodium 138 mmol/L (136-145)
[2023-12-30 17:57] LABS: WBC 1.71 10^3/uL (4.4-10.8)
[2023-12-30 20:27] LABS: Lab Add On Test DONE
[2023-12-30 20:30] LABS: Abs Immature Grans 0.01 10^3/uL (0.0-0.06); Absolute Basophil Count 0.01 10^3/uL (0.0-0.2); Absolute Eosinophil Count 0.03 10^3/uL (0.0-0.7); Absolute Lymphocyte Count 0.34 10^3/uL (1.2-3.4); Basophils % 0.6; Eosinophils % 1.8; Immature Grans % 0.6; Lymphocytes % 20.1; Monocytes % 11.8; Neutrophils % 65.1
[2023-12-30 20:34] LABS: ESR 14 mm/hr (0-20)
[2023-12-30 20:42] LABS: C-Reactive Protein < 0.50 mg/dL (<or=0.5)
[2023-12-30 20:46] LABS: Lab Add On Test DONE
[2023-12-30 20:54] LABS: Reticulocyte 2.6 % (0.5-2.4)
[2023-12-30 21:40] LABS: LDH 199 U/L (85-227); Vitamin B12 1127 pg/mL (193-986)
== END 2023-12-30 16:00 | disposition home or self-care (01) ==
LOC: LBO 15:59
PROVIDERS: PCP Student in an Organized Health Care Education/Training Program; Visit Provider Student in an Organized Health Care Education/Training Program
DX: I10 Essential (primary) hypertension (principal); Z91.89 Other specified personal risk factors, not elsewhere classified; E88.89 Other specified metabolic disorders; D61.818 Other pancytopenia; D69.3 Immune thrombocytopenic purpura; I25.10 Atherosclerotic heart disease of native coronary artery without angina pectoris; D72.819 Decreased white blood cell count, unspecified; Z79.899 Other long term (current) drug therapy
CPT/HCPCS: 80048; 80076; 85027; 85652; 82607; 83615; 83735; 84443; 85007; 85025; 85045; 86140

== ENCOUNTER 2024-02-13 18:48 | Outpatient (REF) | payer OTHER, SELFPAY ==
[2024-02-13 19:01] LABS: Abs Immature Grans 0.01 10^3/uL (0.0-0.06); Absolute Basophil Count 0.01 10^3/uL (0.0-0.2); Absolute Eosinophil Count 0.03 10^3/uL (0.0-0.7); Absolute Lymphocyte Count 0.52 10^3/uL (1.2-3.4); Absolute Monocyte Count 0.47 10^3/uL (0.1-0.8); Absolute Neutrophil Count 2.41 10^3/uL (1.2-6.7); Basophils % 0.3 %; Eosinophils % 0.9 %; HCT 26.7 % (40.0-50.0); HGB 8.9 g/dL (13.5-17.5); Immature Grans % 0.3 %; Lymphocytes % 15.1 %; MCHC 33.3 % (32.0-36.0); MCV 105 fL (80-95); MPV 9.8 fL (8.0-11.0); Monocytes % 13.6 %; Neutrophils % 69.8 %; RBC 2.54 10^6/uL (4.36-5.78); RDW 15.7 % (11.8-14.1); WBC 3.45 10^3/uL (4.4-10.8)
[2024-02-13 19:13] LABS: Calculated LDL 66 mg/dL (<100); Cholesterol 173 mg/dL (<200); HDL Cholesterol 98 mg/dL (40-60); Triglyceride 46 mg/dL (<150)
[2024-02-13 19:44] LABS: Diff Comment RBC Morph Reviewed; Macrocytosis 1+; Platelet Count 61 10^3/uL (130-400)
== END 2024-02-13 18:49 | disposition home or self-care (01) ==
LOC: LBN 18:48
PROVIDERS: PCP Student in an Organized Health Care Education/Training Program; Visit Provider Internal Medicine Cardiovascular Disease
DX: D69.3 Immune thrombocytopenic purpura (principal); E78.2 Mixed hyperlipidemia
CPT/HCPCS: 80061; 85025

== ENCOUNTER 2024-05-13 11:15 | Outpatient (REF) | payer OTHER, SELFPAY ==
[2024-05-13 11:34] LABS: Anion Gap 9.6 mmol/L (3-11); BUN 13 mg/dL (7-18); CO2 23.4 mmol/L (21.0-32.0); CREATININE 1.4 mg/dL (0.70-1.30); Calcium 8.2 mg/dL (8.5-10.1); Chloride 106 mmol/L (98-107); Estimated GFR 54.41 (mL/min/1.73m2); Glucose 108 mg/dL (74-106); Potassium 3.3 mmol/L (3.5-5.1); Sodium 139 mmol/L (136-145)
[2024-05-13 12:02] LABS: Abs Immature Grans 0.01 10^3/uL (0.0-0.06); Absolute Basophil Count 0.01 10^3/uL (0.0-0.2); Absolute Eosinophil Count 0.03 10^3/uL (0.0-0.7); Absolute Lymphocyte Count 0.43 10^3/uL (1.2-3.4); Absolute Monocyte Count 0.13 10^3/uL (0.1-0.8); Absolute Neutrophil Count 1.14 10^3/uL (1.2-6.7); Basophils % 0.6 %; Eosinophils % 1.7 %; HCT 29.5 % (40.0-50.0); HGB 9.6 g/dL (13.5-17.5); Immature Grans % 0.6 %; Lymphocytes % 24.6 %; MCH 35.7 pg (27.0-33.0); MCHC 32.5 % (32.0-36.0); MCV 110 fL (80-95); Monocytes % 7.4 %; Neutrophils % 65.1 %; RBC 2.69 10^6/uL (4.36-5.78); RDW 17.2 % (11.8-14.1); RDW-SD 69.4 fL
[2024-05-13 12:06] LABS: Platelet Count 59 10^3/uL (130-400)
[2024-05-13 12:07] LABS: Diff Comment Agrees w/ Instrument; Macrocytosis 2+
[2024-05-13 12:24] LABS: WBC 1.75 10^3/uL (4.4-10.8)
== END 2024-05-13 11:16 | disposition home or self-care (01) ==
LOC: LBN 11:15
PROVIDERS: PCP Student in an Organized Health Care Education/Training Program; Visit Provider Internal Medicine Cardiovascular Disease
DX: I50.21 Acute systolic (congestive) heart failure (principal); D61.818 Other pancytopenia
CPT/HCPCS: 80048; 85025

== ENCOUNTER 2024-06-04 23:24 | Emergency (ER) | payer OTHER, SELFPAY ==
--- NOTE | 2024-06-04 23:15 | RT.EKG_ITS ---
APPROVED REPORT Exam: Resting ECG Reason for Exam: WEAKNESS Patient Location: E HR:86 bpm ECG Measurements Heart Rate 86 AXIS KS [id number] P [id number] QRSd 85 QRS -7 QT 385 T 109 QTc 461 Conclusion Atrial fibrillation...V-rate 72-105, irreg A-activity no ST segment or T wave abnormalities to suggest occlusive IA
[2024-06-04 23:28] VITALS: BP 127/72; PULSE 77; RESP 16; TEMP 36.8; O2SAT 98
[2024-06-04 23:58] LABS: Abs Immature Grans 0.02 10^3/uL (0.0-0.06); Absolute Basophil Count 0.03 10^3/uL (0.0-0.2); Absolute Eosinophil Count 0.07 10^3/uL (0.0-0.7); Absolute Lymphocyte Count 1.19 10^3/uL (1.2-3.4); Absolute Monocyte Count 0.48 10^3/uL (0.1-0.8); Absolute Neutrophil Count 2.33 10^3/uL (1.2-6.7); Basophils % 0.7 %; Eosinophils % 1.7 %; HGB 10.7 g/dL (13.5-17.5); Immature Grans % 0.5 %; Lymphocytes % 28.9 %; MCH 36.3 pg (27.0-33.0); MCHC 32.4 % (32.0-36.0); MCV 112 fL (80-95); Monocytes % 11.7 %; Neutrophils % 56.5 %; RBC 2.95 10^6/uL (4.36-5.78); RDW 16.6 % (11.8-14.1); RDW-SD 69.2 fL; WBC 4.12 10^3/uL (4.4-10.8)
[2024-06-05] VITALS (52 sets, daily range): BP systolic 122–170; BP diastolic 63–104; PULSE 73–117; RESP 15–30; O2SAT 83–99
--- NOTE | 2024-06-05 | DI.CT_ITS ---
Exam(s) CT HEAD WO EXAM: CT HEAD WO CLINICAL HISTORY: fall on AC, worsening BLE worst on rt. TECHNIQUE: Imaging Protocol: Axial computed tomography images with coronal and sagittal reformatted images were created and reviewed COMPARISON: CT HEAD WITHOUT CONTRAST from 05/09/2017 FINDINGS: Ventricles and Extra axial spaces: Normal in size and morphology for the patient's age. Hemorrhage: None. Cerebral parenchyma: There is a stable area of encephalomalacia involving the left parietal lobe. Th ere are areas of decreased attenuation in the white matter consistent with chronic microvascular isch emic disease. Midline shift: None. Brainstem/Cerebellum: Normal. Calvarium: Normal. Visualized Paranasal sinuses/Mastoids: The visualized paranasal sinuses are clear. There is opacific ation of the right mastoid air cells. Soft Tissues: Unremarkable. IMPRESSION: No acute intracranial process. RADIATION DOSE DELIVERED: 844.25mGy.cm Total DLP DATA REPOSITORY: All CT scans at this facility are submitted to the National Radiology Data Registry (NRDR) Dose Index Registry (DIR) with the [employer] (ACR). RADIATION OPTIMIZATION: All CT scans at this facility use at least one of these dose optimization te chniques: automated exposure control; mA and/or kV adjustment per patient size (includes targeted exa ms where dose is matched to clinical indication); or iterative reconstruction.
[2024-06-05 00:10] LABS: INR 1.8 (0.9-1.1); PTT Activated 42.6 sec (23.6-32.8); Prothrombin Time 17.2 sec (9.1-11.1)
[2024-06-05 00:15] LABS: ALT 25 U/L (16-63); AST 53 U/L (15-37); Albumin 2.9 g/dL (3.4-5.0); Alkaline Phosphatase 180 U/L (46-116); Anion Gap 8.3 mmol/L (3-11); BUN 20 mg/dL (7-18); CO2 30.7 mmol/L (21.0-32.0); CREATININE 1.8 mg/dL (0.70-1.30); Calcium 8.2 mg/dL (8.5-10.1); Chloride 101 mmol/L (98-107); Creatine Kinase 72 U/L (39-308); Estimated GFR 39.99 (mL/min/1.73m2); Glucose 98 mg/dL (74-106); Potassium 3.5 mmol/L (3.5-5.1); Sodium 140 mmol/L (136-145); Troponin I 45 ng/L (<or=76)
[2024-06-05 00:23] LABS: Diff Comment RBC Morph Reviewed; Macrocytosis 1+; Platelet Count 79 10^3/uL (130-400)
--- NOTE | 2024-06-05 00:30 | DI.CT_ITS ---
Exam(s) CT ABD AORTA CTA W RUNOFF EXAM: CT ABD AORTA CTA W RUNOFF CLINICAL HISTORY: BLE weakness (rt worst), no doppler DP/PT pulses. TECHNIQUE: Imaging Protocol: Axial computed tomography images with coronal and sagittal reformatted images were created and reviewed CONTRAST MATERIAL: Intravenous: Omnipaque 350 Contrast volume:100 ml Oral: None COMPARISON: CT CT ANGIOGRAM AORTA LOWER EXTREMITY RUNOFF from 06/23/2023 FINDINGS: There is cardiomegaly. No pericardial effusion. No pleural effusions in the visualized lung bases. AORTA/RUNOFF CTA: There is no evidence of abdominal aortic aneurysm. The abdominal aorta is peripherally calcified but not enlarged. No evidence of dissection.The aortic bifurcation is calcified There is moderate stenosis at the origin celiac artery. There is more severe stenosis stenosis in the 1st cm of the superior mesenteric artery. The inferior mesenteric artery is patent. There are no large meandering collateral vessels in the mesentery. There are no ischemic appearing bowel loops.. Bowel loop diameters are also normal in both large and small bowel and there is no ascites. Renal arteries exhibit mild proximal stenosis without obvious critical stenosis. No evidence of posts tenotic dilatation of the renal arteries. The aortic bifurcation is calcified as are the common iliac arteries. There is no aneurysmal dilatat ion of the common iliac arteries but there is significant atherosclerotic disease in these vessels, m ost prominent in the proximal aspect of the right common iliac artery where there is approximately 50 percent stenosis. There is no significant stenosis in the right external iliac artery. There is mo derate atherosclerotic disease in the right common femoral artery. The right SFA exhibits moderate s tenosis proximally. Also mild-moderate stenosis in Sai's canal. There is a tight focal stenosis in the proximal right popliteal artery. Moderate-severe disease throu ghout the popliteal artery below this level. No evidence of right popliteal aneurysm. Tibioperoneal t runk exhibits mild disease but there is a significant stenosis at the origin of the right anterior ti bial artery. No significant stenosis at the origin of the right posterior tibial artery. There is pat ent 3 vessel runoff below this level in the calf with the anterior tibial artery continuous into the foot as the dorsalis pedis vessel and the posterior tibial artery reaching to and beyond the medial m alleolus as the plantar vessels. The right peroneal artery is opacified to the distal calf. On the LEFT side there is circumferential calcified plaque in the left common iliac artery with mild- moderate stenosis. There is no significant stenosis at the junction of the left common and external i liac arteries and there is no significant stenosis in the left external iliac artery. There is calcif ied posterior wall plaque in the left common femoral artery with mild stenosis. The left SFA artery e xhibits multilevel mild stenosis proximally. Mild-moderate disease in Sai's canal. There is a mode rate stenosis at the origin of the left popliteal artery. There is no evidence of aneurysm of the lef t popliteal artery. Mild multilevel stenosis in the popliteal artery. The left tibioperoneal trunk is patent. There is no significant stenosis at the origin of the left anterior tibial artery nor at the origin of the left posterior tibial artery. There is patent 3 vessel runoff in the left calf with th e anterior tibial artery continuous into the dorsal foot as the dorsalis pedis artery and the left po sterior tibial artery continuous beyond the medial malleolus ankle level into the foot as the plantar artery. The left peroneal is demonstrated to be patent to the distal left calf. There is no evidence of obvious abscess is nor osteomyelitis in the feet. ABDOMEN: There is no ascites. There are no ischemic appearing bowel loops. LIVER: Liver appears cirrhotic. There are no obvious for ominous focal hepatic lesions. GALLBLADDER/BILIARY: Gallbladder appears mildly distended but not edematous. There is no pericholecys tic fluid. No calcified gallstones noted. CBD is not dilated. PANCREAS: No evidence of pancreatic mass nor dilatation of the pancreatic duct. SPLEEN: Spleen size upper normal. No significant splenic lesions. ADRENALS: There are no significant adrenal masses. KIDNEYS: Both kidneys exhibit normal size. There is a benign cyst in the inferior pole the left kidne y which measures 1.3 cm and does not require further workup. There are no solid renal lesions no radi opaque calculi in the kidneys and no hydronephrosis nor hydroureter.. LYMPH NODES: There is no retroperitoneal nor para-aortic adenopathy. No obvious mesenteric masses. ABDOMINAL WALL: No evidence of significant significant anterior abdominal wall hernia. GI: There is no evidence of bowel obstruction, free air, nor abscess.No ischemic appearing bowel loop s. PELVIS: LYMPH NODES: There is no intrapelvic nor inguinal adenopathy. GI: No evidence of appendicitis.There is diverticulosis of the descending-left colon and sigmoid. The re is no evidence of acute diverticulitis. URINARY BLADDER: No calculi nor masses evident REPRODUCTIVE: Prostate size normal. Seminal vesicles unremarkable. OSSEOUS: No significant osseous lesions. IMPRESSION: 1. Significant atherosclerotic disease, including a high-grade hemodynamically significant stenosis a t the junction of the RIGHT SFA and right popliteal artery. There is no similar stenosis at this loca tion in the opposite-left lower extremity. Vascular surgery consultation is recommended. 2. Mild-moderate atherosclerotic involvement of suprainguinal inflow, as described above. Most signif icant atherosclerotic inflow disease is in the proximal right common iliac artery. 3. Moderate focal narrowing at the origin of the right anterior tibial artery. 4. There is thin but otherwise patent 3 vessel runoff in both calves. 5. No evidence of abdominal aortic aneurysm, significant aneurysmal dilatation of the iliac vessels, nor evidence of popliteal artery aneurysms. 6. 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 More moderate stenosis at the brianda gin of the celiac artery. The inferior mesenteric artery is not occluded. There are no prominent mean dering mesenteric vessels and there are no ischemic appearing bowel loops. 7. Other findings as above. First read by [facility]. Final report called by myself to ER physician later same date 06/05/2024 RADIATION DOSE DELIVERED: 839.03mGy.cm Total DLP DATA REPOSITORY: All CT scans at this facility are submitted to the National Radiology Data Registry (NRDR) Dose Index Registry (DIR) with the [employer] (ACR). RADIATION OPTIMIZATION: All CT scans at this facility use at least one of these dose optimization te chniques: automated exposure control; mA and/or kV adjustment per patient size (includes targeted exa ms where dose is matched to clinical indication); or iterative reconstruction.
--- NOTE | 2024-06-05 00:44 | ED.GENADUL_ITS ---
Discharge Plan Discharge Details Chief Complaint: Fall/Non TraumaCriteria Primary Care Provider: Annette Moreno ED Provider: Roselyn Strauss Home Meds and New Rx's Prescriptions: No Action rosuvastatin 20 mg tablet 20 mg PO DAILY Qty: 90 3RF Eliquis 5 mg tablet 5 mg PO BID Qty: 60 1RF Rx Instructions: Trial 2' new Afib & (mod-high) TANGELA/CH2DS2 scores.. TBD w/ Card/Vasc re: PLAVIX metoprolol succinate [Toprol XL] 200 mg tablet extended release 24 hr 200 mg PO HS Rx Instructions: Continue w/ increase of 200mg per Card 12/2021 ([facility]) nitroglycerin 0.4 mg tablet, sublingual 0.4 mg Sublingual PRN Qty: 25 3RF Rx Instructions: for chest pain. sildenafil [Viagra] 50 mg tablet 50 mg PO DAILY PRN (Reason: sexual activity) 10 Days Qty: 10 6RF Patient Comments: pt states he doesn't take this anymore Rx Instructions: as directed for erectile dysfunction tramadol 50 mg tablet 50 mg PO DAILY PRN (Reason: severe back pain or claudication pain) vitamin B complex [B Complex-Vitamin B12] 1 cap PO .qd Patient Comments: Pt reports he is no longer taking 08/02/19 TR aspirin 81 mg tablet,chewable 81 mg PO DAILY Qty: 90 3RF Rx Instructions: As best dispensed (OTC vs Rx?) Combivent Respimat 20-100 mcg/actuation mist 1 puff inhalation Q6H PRN (Reason: chest congestion; cold symptoms) Qty: 4 6RF Rx Instructions: Trial in the morning (with spacer) to help clear phlegm acetaminophen [Tylenol Extra Strength] 500 MG tablet 1,000 mg PO PRN PRN Patient Comments: Pt reports taking 1500mg Acetaminophen TID, made aware of Pt exceeding recommended dosage. TR 08/02/19. benzonatate 100 mg capsule 100 mg PO TID PRN (Reason: cough) Qty: 90 6RF Breztri Aerosphere 160-9-4.8 mcg/actuation HFA aerosol inhaler 2 inh inhalation BID Qty: 10.7 12RF losartan 50 mg tablet 50 mg PO DAILY Patient Comments: Increased Per [facility] Cardio note 10/18/23 Dr. Moreno.HE Trelegy Ellipta 100-62.5-25 mcg blister with device 1 inh inhalation DAILY Qty: 60 11RF furosemide 20 mg tablet 20 mg PO DAILY Qty: 90 3RF pantoprazole 20 mg tablet,delayed release (/EC) 20 mg PO DAILY Qty: 90 3RF Rx Instructions: Continue with lower dose PPI 2' malabsorption risks clopidogrel [Plavix] 75 mg tablet 75 mg PO DAILY Qty: 90 3RF Rx Instructions: 01/20/24--pt restarted on his own- 12/28/23- stop plavix, start eliquis 5mg BID, cont asa 81mg; (per [facility] Cardiology; Dr. Peralta) dabigatran etexilate 150 mg capsule 150 mg PO BID HPI General Mode of arrival: EMS . Date/Time Provider Initiated Documentation: 06/04/24 23:29 . Limitations to Documentation: no limitations . Information obtained by: patient, family and old records reviewed . HPI Narrative: 69yo M with hx severe peripheral arterial disease, afib on dabigatran, prior CVA, COPD, CHF, panycytopenia, presenting for weakness and fall. Reports 2 years of progressively worsening bilateral lower extremity weakness, significantly impacting his ability to get around and walk for the past 6 months. Today his legs 'gave out' from under him; typically when this happens he is able to 'catch myself' and recover but today was not able to and fell to the ground landing on his knees at around 5pm. Since then has been unable to walk independently for which reason he called EMS. No pain anywhere including no leg or knee or back pain. No numbness or tingling. Right leg is weaker then left; no weakness elsewhere. He did not strike his head or lose conciseness. Has been trying to get some type of vascular surgery but reports he needs his cardiac conditions/anticoagulation managed before it can be done. He is otherwise in his usual state of health with no fevers, chills, rash, nausea, vomiting, abdominal pain, back pain, lightheadedness, vertigo, vision changes, bowel/bladder changes, or other concerns. Related Data Home Medications ?Medication ?Instructions ?Recorded ?Confirmed acetaminophen 500 mg tablet 1,000 mg PO PRN PRN 04/25/15 06/04/24 (Tylenol Extra Strength) vitamin B complex [B 1 cap PO .qd 04/24/19 06/04/24 Complex-Vitamin B12] aspirin 81 mg chewable tablet 81 mg PO DAILY #90 tab-caps 09/16/22 06/04/24 benzonatate 100 mg capsule 100 mg PO TID PRN cough #90 caps 09/01/23 06/04/24 budesonide 160 mcg-glycopyr 9 2 inh inhalation BID #10.7 grams 09/01/23 06/04/24 mcg-formot 4.8 mcg/actuation HFA inhaler (Breztri Aerosphere) rosuvastatin 20 mg tablet 20 mg PO DAILY #90 tabs 11/10/23 06/04/24 losartan 50 mg tablet 50 mg PO DAILY 11/17/23 06/04/24 fluticasone fur. 100 mcg-umeclid 1 inh inhalation DAILY #60 ea 12/05/23 06/04/24 62.5 mcg-vilant 25 mcg inhalat.powder (Trelegy Ellipta) apixaban 5 mg tablet (Eliquis) 5 mg PO BID new atrial 12/25/23 06/04/24 fibrillation & stroke risk #60 tabs metoprolol succinate 200 mg 200 mg PO HS 12/25/23 06/04/24 tablet,extended release 24 hr (Toprol XL) nitroglycerin 0.4 mg sublingual 0.4 mg sublingual PRN #25 tabs 12/25/23 06/04/24 tablet sildenafil 50 mg tablet (Viagra) 50 mg PO DAILY PRN sexual activity 12/25/23 06/04/24 10 days #10 tab-caps tramadol 50 mg tablet 50 mg PO DAILY PRN severe back 12/25/23 06/04/24 pain or claudication pain furosemide 20 mg tablet 20 mg PO DAILY #90 tabs 01/06/24 06/04/24 ipratropium 20 mcg-albuterol 100 1 puff inhalation Q6H PRN chest 02/03/24 06/04/24 mcg/actuation mist for inhalation congestion; cold symptoms #4 grams (Combivent Respimat) pantoprazole 20 mg tablet,delayed 20 mg PO DAILY #90 tab-caps 04/20/24 06/04/24 release clopidogrel 75 mg tablet (Plavix) 75 mg PO DAILY #90 tabs 04/26/24 06/04/24 dabigatran etexilate 150 mg capsule 150 mg PO BID 05/28/24 06/04/24 Previous Rx's ?Medication ?Instructions ?Recorded aspirin 81 mg chewable tablet 81 mg PO DAILY #90 tab-caps 09/16/22 benzonatate 100 mg capsule 100 mg PO TID PRN cough #90 caps 09/01/23 budesonide 160 mcg-glycopyr 9 2 inh inhalation BID #10.7 grams 09/01/23 mcg-formot 4.8 mcg/actuation HFA inhaler (Breztri Aerosphere) rosuvastatin 20 mg tablet 20 mg PO DAILY #90 tabs 11/10/23 fluticasone fur. 100 mcg-umeclid 1 inh inhalation DAILY #60 ea 12/05/23 62.5 mcg-vilant 25 mcg inhalat.powder (Trelegy Ellipta) apixaban 5 mg tablet (Eliquis) 5 mg PO BID new atrial 12/25/23 fibrillation & stroke risk #60 tabs nitroglycerin 0.4 mg sublingual 0.4 mg sublingual PRN #25 tabs 12/25/23 tablet sildenafil 50 mg tablet (Viagra) 50 mg PO DAILY PRN sexual activity 12/25/23 10 days #10 tab-caps furosemide 20 mg tablet 20 mg PO DAILY #90 tabs 01/06/24 ipratropium 20 mcg-albuterol 100 1 puff inhalation Q6H PRN chest 02/03/24 mcg/actuation mist for inhalation congestion; cold symptoms #4 grams (Combivent Respimat) pantoprazole 20 mg tablet,delayed 20 mg PO DAILY #90 tab-caps 04/20/24 release clopidogrel 75 mg tablet (Plavix) 75 mg PO DAILY #90 tabs 04/26/24 Allergies Allergy/AdvReac Type Severity Reaction Status Date / Time atorvastatin AdvReac Intermediate Diarrhea Verified 06/04/24 23:37 General Stated Complaint: Fall/Non TraumaCriteria SHE: 3 Review of Systems Narrative: see HPI Exam Narrative Exam Narrative: GENERAL: Alert, no acute distress. SKIN: Warm and well perfused. Scattered echymosis. HEAD: Atraumatic, normocephalic without edema, discoloration or evidence of trauma. EYES: PERRL. No scleral icterus or conjunctival injection. Extraocular muscles intact without nystagmus or diplopia. MOUTH: Moist mucus membranes without blood. Posterior pharynx without erythema or exudate. NECK: Trachea midline. No discolorations or edema. CV: Irregular. Normal s1 and s2. No murmurs, rubs, or gallops. PV: Radial pulses 2+ bilaterally and symmetric. No extremity edema. 6-8 second capillary refill at toes, no palpable DP or PT pulses. CHEST: Chest symmetric with respirations. No chest wall tenderness. Lungs are clear to auscultation bilaterally. ABDOMEN: Soft, nondistended, nontender. BACK: Spine without bony tenderness PELVIC: Pelvis stable, nontender to lateral compression MSK: No gross deformities. Tolerates full range of motion of extremities without tenderness. Neuro: ? GCS 15.? PERRL.? EOMI.? Fluent speech, no dysarthria. Motor- 5/5 strength symmetric bilateral upper extremities. RLE: Hip flexion & knee flexors/extensors 2/5, ankle dorsiflexors and planter flexors 3+/5. LLE: Hip flexion & knee flexors/extensors 3+/5, ankle dorsiflexors/plantar flexors 4/5 Sensation- ?Intact to light touch and symmetric multiple dermatomes including upper and lower extremities, no saddle anesthesia Rectal: Normal tone Coordination- No dysmetria on finger to nose Reflexes- 2/4 achilles & patellar, no clonus CRANIAL NERVES: II: Pupils equal and reactive, III, IV, : EOM intact, no gaze preference or deviation, no nystagmus. V: normal sensation in V1, V2, and V3 segments bilaterally VII: no asymmetry, no nasolabial fold flattening VIII: normal hearing to speech IX, X: normal palatal elevation, no uvular deviation XI: 5/5 head turn and 5/5 shoulder shrug bilaterally XII: midline tongue protrusion Course Vital Signs Vital signs: Vital Signs Temperature 36.8 C 06/04/24 23:28 Pulse 77 06/04/24 23:28 Respiratory Rate 16 06/04/24 23:28 Blood Pressure 127/72 06/04/24 23:28 Pulse Oximetry 98 06/04/24 23:28 Temperature 36.8 C 06/04/24 23:28 Temperature Source Temporal Artery Scan 06/04/24 23:28 Pulse 77 06/04/24 23:28 Respiratory Rate 16 06/04/24 23:28 Respiratory Effort Normal 06/04/24 23:42 Blood Pressure 127/72 06/04/24 23:28 Blood Pressure Position Sitting 06/04/24 23:28 Pulse Oximetry 98 06/04/24 23:28 Oxygen Delivery Method Room Air 06/04/24 23:28 Oxygen Flow Rate 0 06/04/24 23:28 Pain Level 0 06/04/24 23:28 Lab/Test Results Lab/Test Results: Laboratory Tests Range/Units 06/04/24 23:55 WBC (4.4-10.8) 10^3/uL 4.12 L RBC (4.36-5.78) 10^6/uL 2.95 L Hgb (13.5-17.5) g/dL 10.7 L Hct (40.0-50.0) % 33.0 L MCV (80-95) fL 112 H MCH (27.0-33.0) pg 36.3 H MCHC (32.0-36.0) % 32.4 RDW (11.8-14.1) % 16.6 H Plt Count (130-400) 10^3/uL 79 L MPV (8.0-11.0) fL 10.0 Immature Gran % % 0.5 Neutrophils % % 56.5 Lymphocytes % % 28.9 Monocytes % % 11.7 Eosinophils % % 1.7 Basophils % % 0.7 Nucleated RBC % (0.0-0.3) % 0.0 Absolute Neutrophils (1.2-6.7) 10^3/uL 2.33 Absolute Lymphocytes (1.2-3.4) 10^3/uL 1.19 L Absolute Monocytes (0.1-0.8) 10^3/uL 0.48 Absolute Eosinophils (0.0-0.7) 10^3/uL 0.07 Absolute Basophils (0.0-0.2) 10^3/uL 0.03 Macrocytosis 1+ PT (9.1-11.1) sec 17.2 H INR (0.9-1.1) 1.8 H APTT (23.6-32.8) sec 42.6 H Sodium (136-145) mmol/L 140 Potassium (3.5-5.1) mmol/L 3.5 Chloride (98-107) mmol/L 101 Carbon Dioxide (21.0-32.0) mmol/L 30.7 Anion Gap (3-11) mmol/L 8.3 BUN (7-18) mg/dL 20 H Creatinine (0.70-1.30) mg/dL 1.8 H Est GFR (CKD-EPI 2020) (mL/min/1.73m2) 39.99 Glucose (74-106) mg/dL 98 Calcium (8.5-10.1) mg/dL 8.2 L Total Bilirubin (0.2-1.0) mg/dL 0.80 AST (15-37) U/L 53 H ALT (16-63) U/L 25 Alkaline Phosphatase (46-116) U/L 180 H Creatine Kinase (39-308) U/L 72 Troponin I (<or=76) ng/L 45 Total Protein (6.4-8.2) g/dL 7.0 Albumin (3.4-5.0) g/dL 2.9 L Medical Decision Making 69yo M with hx severe peripheral arterial disease, afib on dabigatran, prior CVA, COPD, CHF, panycytopenia, presenting for weakness and fall. Reports 2 years of progressively worsening bilateral lower extremity weakness, significantly impacting his ability to get around and walk for the past 6 months, and much more severe for the past two weeks, today resulting in a fall after which he has been unable to walk independently. He denies any pain or numbness. Vital signs reassuring on arrival, no significant traumatic findings on exam. He does have marked lower extremity weakness worst on the right with no palpable or dopplerable DP or PT pulses on either side and apillary refill is 6-8 seconds. Sensation is intact to light touch and he has no pain as well as no skin breakdown/ulcers/gangrene. History/symptoms not suggestive of GBS. Not particularly consistent with acute limb ischemia however severe weakness and absent pulses is concerning for progression of chronic vascular disease. Less likely CVA and patient not within window for tPA or thrombectomy. No back pain or bowel/bladder symptoms to suggest cauda equina/spinal epidural hematoma/epidural abscess/cord compression. As we are unable to get an MEET, will order CTA with runoff. -EKG afib, no ST segment or T wave abnormalities to suggest occlusive SC -Labs reviewed as below, CBC with pancytopenia somewhat improved from 05/13/24 (WBC 4.1, Hg 10.7, plt 79, ANC 2.33), CMP with Cr of 1.8 (up from 1.4 3 weeks prior), INR elevated at 1.8, CK normal, troponin normal. -CT head independently reviewed; likely old left sided stroke with no intracranial mass or bleed on my view, agree with radiology read below. -CTA independently reviewed; radiology read below with significant LE occlusion/stenosis On reassessment patient with somewhat improved strength- good strength on left, right slightly improved but continues with significant weakness and is unable to walk even with walker. He does now report some chronic low back pain and that his LE weakness seems to be worse when his back pain is worse (but again denies back pain at this particular time). Would benefit from MRI when available in the morning. Teleneurology consulted; discussed with Dr. Mckeon who agrees with MRI lumbar spine, no indication for further brain imaging. Pancytopenia without clear origin (inconclusive bone marrow biopsy in February) raises concern for malignancy and ideally would get C & T spine as well however patient claustrophobic and likely unable to tolerate, refuses; does think he can tolerate shorter scan wtih premedication, agreeable to L-spine this morning. Will be signed out to oncoming physician with plan to followup MRI. Pending results, anticipate either neurosurgery consult with potential transfer, vs [facility] admission for PT/OT. Medical Records Medical records reviewed: Yes I reviewed the patient's medical records. Imaging Data Radiologic Study: Imaging: CT Scan Radiologist's impression: Head: IMPRESSION: No intracranial posttraumatic changes. Runoff: IMPRESSION: 1. 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 2. No evidence of hemodynamically significant stenosis or occlusion within the lower extremities. Lab Data Lab results reviewed: Yes I reviewed the patient's lab results. Labs: Laboratory Tests Range/Units 06/04/24 23:55 WBC (4.4-10.8) 10^3/uL 4.12 L RBC (4.36-5.78) 10^6/uL 2.95 L Hgb (13.5-17.5) g/dL 10.7 L Hct (40.0-50.0) % 33.0 L MCV (80-95) fL 112 H MCH (27.0-33.0) pg 36.3 H MCHC (32.0-36.0) % 32.4 RDW (11.8-14.1) % 16.6 H Plt Count (130-400) 10^3/uL 79 L MPV (8.0-11.0) fL 10.0 Immature Gran % % 0.5 Neutrophils % % 56.5 Lymphocytes % % 28.9 Monocytes % % 11.7 Eosinophils % % 1.7 Basophils % % 0.7 Nucleated RBC % (0.0-0.3) % 0.0 Absolute Neutrophils (1.2-6.7) 10^3/uL 2.33 Absolute Lymphocytes (1.2-3.4) 10^3/uL 1.19 L Absolute Monocytes (0.1-0.8) 10^3/uL 0.48 Absolute Eosinophils (0.0-0.7) 10^3/uL 0.07 Absolute Basophils (0.0-0.2) 10^3/uL 0.03 Macrocytosis 1+ PT (9.1-11.1) sec 17.2 H INR (0.9-1.1) 1.8 H APTT (23.6-32.8) sec 42.6 H Sodium (136-145) mmol/L 140 Potassium (3.5-5.1) mmol/L 3.5 Chloride (98-107) mmol/L 101 Carbon Dioxide (21.0-32.0) mmol/L 30.7 Anion Gap (3-11) mmol/L 8.3 BUN (7-18) mg/dL 20 H Creatinine (0.70-1.30) mg/dL 1.8 H Est GFR (CKD-EPI 2020) (mL/min/1.73m2) 39.99 Glucose (74-106) mg/dL 98 Calcium (8.5-10.1) mg/dL 8.2 L Total Bilirubin (0.2-1.0) mg/dL 0.80 AST (15-37) U/L 53 H ALT (16-63) U/L 25 Alkaline Phosphatase (46-116) U/L 180 H Creatine Kinase (39-308) U/L 72 Troponin I (<or=76) ng/L 45 Total Protein (6.4-8.2) g/dL 7.0 Albumin (3.4-5.0) g/dL 2.9 L Quality:SDOH Health Related Social Needs: No Data to Display PFSH All Active Problems (Updated 03/01/24 @ 10:21 by Selma Platt LPN) Pancytopenia (Acute) 02/17/24 f/u [facility] Hem/Onc At risk for stroke (Acute) New AFib: CHAD2 12/16.. [id number] 02/18 .. so, med-high risk (9.7% stroke risk; 13.6% TIA risk).. Atrial fibrillation, new onset (Acute) Asymptomatic, just took medications.. some improvement in HR while resting [allowing meds to act? ik) in exam room, 12/23/23. Thrombocytopenia (Chronic) Acute, with Hx chronic ITP .. new pathology? or active ITP? or hepatic dz? Atherosclerosis of [place] coronary artery of [place] heart without angina pectoris (Acute 10/24/09) stent 2009; re-occluded stented 11/2015 along with second site Cx.; dual platelet rx until 12/2016-06/2018; Dr. Mcnulty; [facility] 07/30/16 neg for ischemia, EF 51% (< AFTER 2021 stenting?) Cirrhosis of liver without ascites (Acute) Heart failure with reduced ejection fraction (Acute) EF 33% (11/11/23) .. 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 Rt Calf, resolves w/in minutes of rest Other specified nonscarring hair loss (Acute) LE, b/l (no problem, but notable to pt who is wondering) .. 2' PAD? ik, 03/2023 [ ] MEET Pulmonary fibrosis (Acute) Emphysema lung (Acute) Restrictive lung disease (Acute) Chronic ITP (idiopathic thrombocytopenia) (Chronic 07/25/17) Per rvw of Heme consult of 07/2019: RTC if pltlts<70,000, 12/17/23, ik...Heme consult Dr. Nolen 07/2017, likely slowly progressive chronic going back to 2006; re-consult if drops below 50,000 Hypertension (Chronic 12/11/00) avoid hypotension due to cerebral vascular disease; cardilogy: Dr Camara; goal 130-140 systolic, sens to thiazide Hyperlipidemia (Chronic 11/10/02) goal LDL 70 or best able Sensorineural hearing loss, bilateral (Chronic 06/24/14) R hearing aid 07/2014 Splenomegaly (Chronic 08/02/17) 14 cm on US 06/2017; ? due to chronic ITP Cervical radiculitis (Chronic) Osteoarthritis of lower back (Acute 12/11/01) Macrocytic anemia (Acute) Chronic low back pain (Chronic) Acute episodes, . Mild DJD on LS film 04/2014; Hx daily Aleve. Hepatic steatosis (Chronic) Abdominal US in 2016 Muscle spasm (Acute) Acute ... improves with PT, but re-spasms .. Need rest, anti-inflamm then abd/core mm strengthening. Possible PSOAS (?) Hx of atherosclerotic cardiovascular disease (Acute) Stents Patent per Cath, 02/2022 (Dr. Camara, [facility] [facility]). Stents placed, 2009 .. re- occluded, stented 11/2015 along with second site Cx.; dual platelet Rx 12/2016-06/2018; Dr. Mcnulty; [facility] 07/30/16 neg for ischemia, EF 51% COPD (chronic obstructive pulmonary disease) (Chronic) NEG COPD per pt rpt s/p Pulm OV, 03/2023. Per CT (2016), Hx smoking. Weight gain (Acute) 15 lbs per chart, no diet change per pt Absent breath sounds on left side of chest (Acute) much lower than rt base .. seems new.. Anemia (Chronic) Low HGB. Hx Macrocytic anemia, B12 WNL ().. [ ] iron suppl, po review Compression fracture of L2 lumbar vertebra (Acute) per MRI (03/08/22), w/ acute/subacute signal. Fx lines extend towards pedicles..20% ht loss..intraosseous edema.. Spinal stenosis at L4-L5 level (Acute) per MRI (03/08/22). .. moderate ctl canal stenosis .. disc protrusion caudally, 5mm behind L5.. MRI LSpine 04/2022 no nerve compressin or central stenosis Sacroiliac joint dysfunction of left side (Acute) Hyponatremia (Chronic) CHRONIC? Asymptomatic, 08/05/22 Lung nodule seen on imaging study (Acute) Per 10/19/22 CTA: Neg PE. (+) pleural base nodule, RML, 4mm.. & sessile pleural plaque (RUL) measuring 1 cm x 0.3 cm. Pleuritic chest pain (Acute) Pleural plaque (Acute) Medical History (Updated 03/01/24 @ 10:21 by Selma Platt LPN) Hx of arterial ischemic stroke 2006, cerebral infarction Hemoptysis COVID-30 March 2022, home test Tenderness of back Prominent mm; lft paraspinal tenderness (L2-L4), rad into left buttock Left buttock pain Helped focus on SI Joint vs lower bk. Feeling great, 09/2022. Left-sided back pain Acute on chronic .. barely walking, tenderness out of proportion .. 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 Derm: squamous cell left forearm with biopsy and destroyed by curettage and electrodesiccation. Cerebral artery occlusion with cerebral infarction (01/13/07) Convulsions (01/25/08) Pt. denies Abnormal findings on diagnostic imaging of lung (11/25/06) Old notes, CXR since then show cardiomegaly, possible atelectasis or scarring.. nothing acute. Carpal tunnel syndrome (07/05/11) Headache (08/01/09) Sudden hearing loss (12/15/12) assoc with CVA?? 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 [facility] Coronary Stent (12/11/15) LAD POBA for in-stent restenosis, November 2015 AND left circumflex 3-mm drug-eluting stent, November 2015, Dr Camara Appendectomy 2006 Family History Father , Pneumonia at age 68. Tobacco use disorder Pneumonia Other Heart disease Stroke Social History Smoking/Tobacco Use Status: Former Tobacco Use Quit Date: 09/12/02 Tobacco: How many years used: 15 Second Hand Exposure: Yes Smoking risk assessment performed?: Yes Alcohol Intake: current Alcohol Intake frequency: 0-2 drinks per day Alcohol type: beer and wine Drug use: Never Substance use type: does not use Adopted: No Foster care: No Household members: spouse and family Housing: house Number of Children: 2 number of grandchildren: 3 Communication Needs: Hard of Hearing and Corrective Lenses Education Level: high school Do you need help understanding health information?: Never current occupation: [employer] Pets and animals: No Do you think of yourself as: straight/heterosexual Current gender identity: male What is your relationship status?: How often do you get together with friends or relatives?: once per week Panel score (0-1 are the most socially isolated patients): 1 What type of physical activity do you participate in: other Details: active lifestyle- Duration: 15-30 minutes/day Frequency: daily Shannan/Jehovah'S Witness: Adventism Seatbelt use: sometimes Drive intox or ride w/intox hammer driver: No Do you feel safe at home: Yes Do you feel safe in your relationship?: Yes
[2024-06-05] MEDS: Omnipaque 350 MG/ML 100 ML BTL IJ (00:51)
[2024-06-05] MEDS: Normal Saline - Diluent 50 ML VIAL IJ ×2 (00:53→00:55)
[2024-06-05] MEDS: Omnipaque 350 MG/ML 50 ML BTL IJ (00:54)
[2024-06-05] MEDS: Normal Saline Flush 10 ML SYR IVP ×2 (00:56→10:42)
[2024-06-05] MEDS: Normal Saline 1,000 ML 150 ML IV (01:33)
--- NOTE | 2024-06-05 01:44 | DI.VRAD_ITS ---
PROCEDURE INFORMATION: Exam: CT Head Without Contrast Exam date and time: 06/05/2024 12:17 AM Age: 69 years old Clinical indication: Injury or trauma; Blunt trauma (contusions or hematomas); Consciousness not specified; Injury date: 06/04/24; Injury details: Fall on ac, worsening ble worst on RT TECHNIQUE: Imaging protocol: Computed tomography of the head without contrast. Radiation optimization: All CT scans at this facility use at least one of these dose optimization techniques: automated exposure control; mA and/or kV adjustment per patient size (includes targeted exams where dose is matched to clinical indication); or iterative reconstruction. COMPARISON: MR cervical spine wo 12/05/2018 5:02 PM FINDINGS: Brain: No recent infarct, intracranial bleed or mass effect. There is left frontoparietal encephalomalacia, from prior left MCA infarct. Cerebral ventricles: No ventriculomegaly. Pituitary gland and sella: Partially empty sella. Paranasal sinuses: Visualized sinuses are unremarkable. No fluid levels. Mastoid air cells: Partial opacification of the right mastoid air cells. Bones: Unremarkable. No acute fracture. Soft tissues: Unremarkable. IMPRESSION: No intracranial posttraumatic changes. Dictated and Authenticated by: Ta Zarate MD. Ordering:ANNA Dempsey MD
--- NOTE | 2024-06-05 04:14 | DI.VRAD_ITS ---
PROCEDURE INFORMATION: Exam: CTA Abdominal Aorta and Bilateral Lower Extremities (Run-off) With Contrast Exam date and time: 06/05/2024 1:11 AM Age: 69 years old Clinical indication: Other: Ble weakness (rt worst), no doppler dp/pt pulses; Prior surgery; Surgery date: 6+ months; Surgery type: Cardiac cath, appendectomy TECHNIQUE: Imaging protocol: Computed tomographic angiography of the of the abdominal aorta, pelvis and bilateral lower extremities with contrast. 3D rendering (Not supervised by radiologist): MIP and/or 3D reconstructed images were created by the technologist. Radiation optimization: All CT scans at this facility use at least one of these dose optimization techniques: automated exposure control; mA and/or kV adjustment per patient size (includes targeted exams where dose is matched to clinical indication); or iterative reconstruction. Contrast material: OMNIPAQUE 350; Contrast volume: 150 ml; Contrast route: INTRAVENOUS (IV); COMPARISON: CT ANGIOGRAM AORTA LOWER EXTREMITY RUNOFF 06/23/2023 2:43 PM FINDINGS: Aorta: Atherosclerotic plaque. No aortic aneurysm. No aortic dissection. Celiac trunk and mesenteric arteries: Moderate stenosis at the origin of the celiac artery. 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 Renal arteries: Atherosclerotic plaque. No occlusion or significant stenosis. Right iliac arteries: Atherosclerotic plaque. No occlusion or significant stenosis. Right femoral/popliteal arteries: Atherosclerotic plaque with areas of segmental stenoses. No occlusion or significant stenosis. Right infrapopliteal arteries: No occlusion or significant stenosis. Left iliac arteries: Atherosclerotic plaque. No occlusion or significant stenosis. Left femoral/popliteal arteries: Atherosclerotic plaque with areas of segmental stenoses. No occlusion or significant stenosis. Left infrapopliteal arteries: No occlusion or significant stenosis. Liver: No mass. Gallbladder and biliary ducts: Unremarkable. No calcified stones. No ductal dilation. Pancreas: Unremarkable. No mass. No ductal dilation. Spleen: Normal. No splenomegaly. Adrenal glands: Normal. No mass. Kidneys and ureters: Normal. No mass. Stomach and bowel: Unremarkable. No obstruction. No mucosal thickening. Appendix: No evidence of appendicitis. Urinary bladder: Unremarkable. No mass. Reproductive: Unremarkable as visualized. Intraperitoneal space: Unremarkable. No free air. No significant fluid collection. Lymph nodes: No lymphadenopathy. Bones/joints: No acute fracture. No dislocation. Soft tissues: Unremarkable. IMPRESSION: 1. 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 2. No evidence of hemodynamically significant stenosis or occlusion within the lower extremities. Dictated and Authenticated by: Armond Cuadra MD. Ordering:ANNA Dempsey MD
--- NOTE | 2024-06-05 04:57 | DI.MRI_ITS ---
Exam(s) MR LUMBAR SPINE WO/W EXAM: MR LUMBAR SPINE WO/W CLINICAL HISTORY: BLE weakness R > L. TECHNIQUE: Multiplanar multisequence MRI of the Lumbar Spine was performed. CONTRAST MATERIAL: IV Contrast: 19 mL of Dotarem contrast administered. COMPARISON: MR MR LUMBAR SPINE WO from 03/08/2022 FINDINGS: The examination is limited due to patient motion artifact. Bones: The last intervertebral disc space is designated the L5/S1 level for the numbering purpose of this examination. Stable old L2 compression fracture deformity. No spondylolysis or spondylolisthes is. Endplate osteophytes are seen at several levels of the lumbar spine. Cord: The conus tip ends at the L1 level. It is of normal size and signal intensity. T12-L1: No disc herniations or bulges are present. No central spinal canal or neural foraminal stenos is. L1-2: There is a diffuse disc bulge present. There is flattening of the thecal sac. There is mild b ilateral neural foraminal stenosis. L2-3: No disc herniations or bulges are present. No central spinal canal or neural foraminal stenosis . L3-4: There is a diffuse disc bulge. There are degenerative changes of the facets. Mild narrowing o f the central spinal canal is seen. Moderate to severe bilateral neural foraminal stenosis is presen t, right greater than left. L4-5: There is a diffuse disc bulge. There are degenerative changes of the facets and mild hypertrop hy of the ligamentum flavum. Moderately severe central spinal canal stenosis is present. Marked aleida ateral neural foraminal stenosis is seen. L5-S1: No disc herniations or bulges are present. There are mild degenerative changes of the facets. No significant central spinal canal stenosis or neural foraminal stenosis is present. Soft tissues: The visualized SI joints and sacrum are well maintained. The paraspinal soft tissues ar e unremarkable. There is no evidence of suspicious enhancement. IMPRESSION: 1. Degenerative changes in the disc bulge seen at L4-L5 causing moderately severe central spinal marvin l stenosis and marked bilateral neural foraminal stenosis. 2. Old L2 compression fracture. 3. Multilevel central spinal canal or neural foraminal stenosis as described above. DATA REPOSITORY:
[2024-06-05] MEDS: Cyclobenzaprine 10 MG TAB 5 MG PO (07:42)
[2024-06-05] MEDS: Dexamethasone 10 MG/ML VIAL IVP (07:42)
[2024-06-05] MEDS: Lidocaine 5% Patch 1 PATCH TP (07:43)
[2024-06-05] MEDS: LORazepam 2 MG/ML VIAL 1 MG IV (09:52)
[2024-06-05] MEDS: Gadoterate meglumine 20 ML SYRINGE 19 ML IVP (10:43)
--- NOTE | 2024-06-05 12:34 | ED.PROG_ITS ---
Date of service: 06/05/24 Time of Service: 12:34 Medical Decision Making Resting comfortably feeling much better after dexamethasone cyclobenzaprine and Lidoderm, MRI showing degenerative changes and disc bulge at L4-L5 causing moderate severe central spinal canal stenosis with bilateral foraminal stenosis, patient now able to ambulate at bedside, full strength, sensation intact no ataxia; patient requesting to go home. Will initiate spine service referral at [facility]. Given home care instructions and return precautions. Given walker as extra precaution at home. Quality:[facility] Health Related Social Needs: No Data to Display Sign Out Sign Out Data: Sign Out Comment: BLE weakness R >> L, unable to walk. Pending MRI; will need admit vs transfer depending on results. Last updated by Roselyn Strauss MD at 06/05/24 06:57 Discharge Plan Disposition Patient Disposition: Home Condition: Improving Discharge Details Chief Complaint: Fall/Non TraumaCriteria Clinical Impression: Lumbar spinal stenosis, Neural foraminal stenosis of lumbar spine Primary Care Provider: Annette Moreno ED Provider: Aris Knowles Home Meds and New Rx's Prescriptions: No Action rosuvastatin 20 mg tablet 20 mg PO DAILY Qty: 90 3RF Eliquis 5 mg tablet 5 mg PO BID Qty: 60 1RF Rx Instructions: Trial 2' new Afib & (mod-high) TANGELA/CH2DS2 scores.. TBD w/ Card/Vasc re: PLAVIX metoprolol succinate [Toprol XL] 200 mg tablet extended release 24 hr 200 mg PO HS Rx Instructions: Continue w/ increase of 200mg per Card 12/2021 ([facility]) nitroglycerin 0.4 mg tablet, sublingual 0.4 mg Sublingual PRN Qty: 25 3RF Rx Instructions: for chest pain. sildenafil [Viagra] 50 mg tablet 50 mg PO DAILY PRN (Reason: sexual activity) 10 Days Qty: 10 6RF Patient Comments: pt states he doesn't take this anymore Rx Instructions: as directed for erectile dysfunction tramadol 50 mg tablet 50 mg PO DAILY PRN (Reason: severe back pain or claudication pain) vitamin B complex [B Complex-Vitamin B12] 1 cap PO .qd Patient Comments: Pt reports he is no longer taking 08/02/19 TR aspirin 81 mg tablet,chewable 81 mg PO DAILY Qty: 90 3RF Rx Instructions: As best dispensed (OTC vs Rx?) Combivent Respimat 20-100 mcg/actuation mist 1 puff inhalation Q6H PRN (Reason: chest congestion; cold symptoms) Qty: 4 6RF Rx Instructions: Trial in the morning (with spacer) to help clear phlegm acetaminophen [Tylenol Extra Strength] 500 MG tablet 1,000 mg PO PRN PRN Patient Comments: Pt reports taking 1500mg Acetaminophen TID, MD made aware of Pt exceeding recommended dosage. TR 08/02/19. benzonatate 100 mg capsule 100 mg PO TID PRN (Reason: cough) Qty: 90 6RF Breztri Aerosphere 160-9-4.8 mcg/actuation HFA aerosol inhaler 2 inh inhalation BID Qty: 10.7 12RF losartan 50 mg tablet 50 mg PO DAILY Patient Comments: Increased Per [facility] Cardio note 10/18/23 Dr. Moreno.HE Trelegy Ellipta 100-62.5-25 mcg blister with device 1 inh inhalation DAILY Qty: 60 11RF furosemide 20 mg tablet 20 mg PO DAILY Qty: 90 3RF pantoprazole 20 mg tablet,delayed release (DR/EC) 20 mg PO DAILY Qty: 90 3RF Rx Instructions: Continue with lower dose PPI 2' malabsorption risks clopidogrel [Plavix] 75 mg tablet 75 mg PO DAILY Qty: 90 3RF Rx Instructions: 01/20/24--pt restarted on his own- 12/28/23- stop plavix, start eliquis 5mg BID, cont asa 81mg; (per [facility] Cardiology; Dr. Peralta) dabigatran etexilate 150 mg capsule 150 mg PO BID Discharge Instructions Instructions: Lumbar spinal stenosis Additional Instructions: Please follow-up with spinal specialist. Please help with your primary care physician. Return to the emergency department for any worsening symptom
--- NOTE | 2024-06-05 16:45 | ED.FU.B_ITS ---
Date of service: 06/05/24 Time of Service: 16:46 Follow Up Plan: Received call from Dr. Mccormick who is reading the CTA with runoffs provide patient has significant disease in his legs. On chart review it seems like he has chronic vascular disease in his legs and is deemed high risk for intervention and sees [facility] vascular surgery. Will place in the follow-up list to have care management help make sure he has follow-up with them.
== END 2024-06-05 12:59 | disposition home or self-care (01) ==
PROVIDERS: Student in an Organized Health Care Education/Training Program; Emergency Provider Emergency Medicine; PCP Student in an Organized Health Care Education/Training Program
DX: R53.1 Weakness (principal); M48.061 Spinal stenosis, lumbar region without neurogenic claudication; W19.XXXA Unspecified fall, initial encounter; Z86.79 Personal history of other diseases of the circulatory system; Z79.01 Long term (current) use of anticoagulants
CPT/HCPCS: 00123; 36415; 36416; 72158; 75635; 80053; 82550; 82962; 93005; 96361; 96374; 96375; 99285; 70450; 84484; 85025; 85610; 85730; 93010; 99284; J1100; J2060; J3490; Q9967

== ENCOUNTER 2024-06-15 08:54 | Outpatient (REF) | payer OTHER, SELFPAY ==
[2024-06-15 09:07] LABS: Abs Immature Grans 0.02 10^3/uL (0.0-0.06); Absolute Basophil Count 0.01 10^3/uL (0.0-0.2); Absolute Eosinophil Count 0.03 10^3/uL (0.0-0.7); Absolute Lymphocyte Count 0.76 10^3/uL (1.2-3.4); Absolute Monocyte Count 0.26 10^3/uL (0.1-0.8); Basophils % 0.3 %; Eosinophils % 0.9 %; HCT 27.4 % (40.0-50.0); HGB 8.9 g/dL (13.5-17.5); Immature Grans % 0.6 %; Lymphocytes % 23.2 %; MCH 37.9 pg (27.0-33.0); MCHC 32.5 % (32.0-36.0); MCV 117 fL (80-95); Monocytes % 7.9 %; Neutrophils % 67.1 %; Nucleated RBC 0.6 % (0.0-0.3); Platelet Count 64 10^3/uL (130-400); RBC 2.35 10^6/uL (4.36-5.78); RDW 17.2 % (11.8-14.1); RDW-SD 70.9 fL; WBC 3.28 10^3/uL (4.4-10.8)
[2024-06-15 09:23] LABS: Diff Comment RBC Morph Reviewed; MPV 10.4 fL (8.0-11.0); Macrocytosis 2+; Polychromasia Present
[2024-06-15 09:32] LABS: ALT 36 U/L (16-63); AST 58 U/L (15-37); Alkaline Phosphatase 232 U/L (46-116); Anion Gap 9.9 mmol/L (3-11); BUN 14 mg/dL (7-18); CO2 25.1 mmol/L (21.0-32.0); CREATININE 1.4 mg/dL (0.70-1.30); Calcium 8.4 mg/dL (8.5-10.1); Chloride 104 mmol/L (98-107); Estimated GFR 54.07 (mL/min/1.73m2); Glucose 107 mg/dL (74-106); Potassium 3.4 mmol/L (3.5-5.1); Sodium 139 mmol/L (136-145); Total Protein 6.9 g/dL (6.4-8.2)
== END 2024-06-15 08:55 | disposition home or self-care (01) ==
LOC: LBN 08:54
PROVIDERS: PCP Student in an Organized Health Care Education/Training Program; Visit Provider Nurse Practitioner Adult Health
DX: D61.818 Other pancytopenia (principal)
CPT/HCPCS: 80053; 85025

== ENCOUNTER 2024-07-20 01:22 | Outpatient (CLI) | payer OTHER, SELFPAY ==
[2024-07-20 08:23] LABS: Abs Immature Grans 0.01 10^3/uL (0.0-0.06); Absolute Basophil Count 0.01 10^3/uL (0.0-0.2); Absolute Eosinophil Count 0.03 10^3/uL (0.0-0.7); Absolute Lymphocyte Count 0.39 10^3/uL (1.2-3.4); Absolute Monocyte Count 0.29 10^3/uL (0.1-0.8); Absolute Neutrophil Count 1.53 10^3/uL (1.2-6.7); Basophils % 0.4 %; Eosinophils % 1.3 %; HCT 26.5 % (40.0-50.0); HGB 8.5 g/dL (13.5-17.5); Immature Grans % 0.4 %; Lymphocytes % 17.3 %; MCH 35.3 pg (27.0-33.0); MCHC 32.1 % (32.0-36.0); MCV 110 fL (80-95); MPV 10.6 fL (8.0-11.0); Monocytes % 12.8 %; Neutrophils % 67.8 %; RBC 2.41 10^6/uL (4.36-5.78); RDW-SD 60.2 fL; WBC 2.26 10^3/uL (4.4-10.8)
[2024-07-20 08:44] LABS: Diff Comment Diff Reviewed; Hypochromasia 1+; Macrocytosis 2+; Platelet Count 59 10^3/uL (130-400)
== END 2024-07-20 01:23 | disposition home or self-care (01) ==
LOC: LBO 01:22
PROVIDERS: PCP Student in an Organized Health Care Education/Training Program; Visit Provider Internal Medicine Cardiovascular Disease
DX: I25.10 Atherosclerotic heart disease of native coronary artery without angina pectoris (principal)
CPT/HCPCS: 36415; 85025

== ENCOUNTER 2024-08-06 09:54 | Inpatient (IN) | payer OTHER, SELFPAY ==
[2024-08-06] VITALS (45 sets, daily range): BP systolic 123–205; BP diastolic 58–92; PULSE 67–121; RESP 16–41; TEMP 36.3–36.7; O2SAT 85–96
--- NOTE | 2024-08-06 09:45 | RT.EKG_ITS ---
APPROVED REPORT Exam: Resting ECG Reason for Exam: SOB/weakness Patient Location: E HR:88 bpm ECG Measurements Heart Rate 88 AXIS MS 184 P 61 QRSd 89 QRS -4 QT 392 T 77 QTc 470 Conclusion Sinus rhythm...normal P axis, V-rate 60- 99 Low voltage, precordial leads...precordial leads <1.0mV
[2024-08-06 10:17] LABS: Lactate 2.1 mmol/L (0.6-1.4)
[2024-08-06 10:20] LABS: Abs Immature Grans 0.03 10^3/uL (0.0-0.06); Absolute Basophil Count 0.02 10^3/uL (0.0-0.2); Absolute Eosinophil Count 0.01 10^3/uL (0.0-0.7); Absolute Lymphocyte Count 0.52 10^3/uL (1.2-3.4); Absolute Monocyte Count 0.25 10^3/uL (0.1-0.8); Absolute Neutrophil Count 3.65 10^3/uL (1.2-6.7); Basophils % 0.4 %; Eosinophils % 0.2 %; HCT 32.3 % (40.0-50.0); HGB 10.3 g/dL (13.5-17.5); Immature Grans % 0.7 %; Lymphocytes % 11.6 %; MCH 35.4 pg (27.0-33.0); MCHC 31.9 % (32.0-36.0); MCV 111 fL (80-95); MPV 9.9 fL (8.0-11.0); Monocytes % 5.6 %; Neutrophils % 81.5 %; RBC 2.91 10^6/uL (4.36-5.78); RDW 15.9 % (11.8-14.1); RDW-SD 65.4 fL; WBC 4.48 10^3/uL (4.4-10.8)
--- NOTE | 2024-08-06 10:30 | DI.CT_ITS ---
Exam(s) CT CHEST PE CTA EXAM: CT CHEST PE CTA CLINICAL HISTORY: left chest pain, SOB. TECHNIQUE: Imaging Protocol: Axial CT angiography was performed with multi-slice acquisition and mu lti-planar and/or 3D reconstructions. Computer aided detection (CAD) was utilized. CONTRAST MATERIAL: Intravenous: Omnipaque 350 contrast volume:100 mL COMPARISON: CT CT CHEST WO from 01/27/2024 FINDINGS: The examination is limited due to patient motion artifact. Tracheobronchial tree: Patent where visualized. No bronchiectasis. Pulmonary parenchyma: Centrilobular emphysematous changes are present. There is an infiltrate in the right upper lobe. Dependent atelectatic changes are seen in the lung bases. No architectural disto rtion. There are stable pulmonary nodules. No new pulmonary nodules are seen. Pulmonary Arteries: No evidence of filling defect to suggest pulmonary emboli. Mediastinum and Minnie: Stable mediastinal lymph nodes. The esophagus is unremarkable. Pleura: Pleural calcification on the right is again seen. There are small bilateral pleural effusion s, right greater than left. No pneumothorax. Heart: The heart is not dilated. Coronary artery calcification is present. No pericardial effusion. Aorta: Thoracic aorta non-dilated. No evidence of dissection. Atherosclerotic calcification is presen t. Upper abdomen: Unremarkable. Soft tissues: Unremarkable. Bones: Within normal limits for the patient's age.Stable T5 and T6 compression fracture deformities. IMPRESSION: 1. No evidence of pulmonary embolism, thoracic aortic dissection or aneurysm. 2. Right upper lobe infiltrate. This may represent pneumonia or atelectasis. Please correlate clini [place]. 3. Small bilateral pleural effusions, right greater than left. RADIATION DOSE DELIVERED: 92.71mGy.cm Total DLP DATA REPOSITORY: All CT scans at this facility are submitted to the National Radiology Data Registry (NRDR) Dose Index Registry (DIR) with the [employer] (A[employer]). RADIATION OPTIMIZATION: All CT scans at this facility use at least one of these dose optimization te chniques: automated exposure control; mA and/or kV adjustment per patient size (includes targeted exa ms where dose is matched to clinical indication); or iterative reconstruction.
--- NOTE | 2024-08-06 10:35 | W.ED.GENAD ---
Discharge Plan Disposition Patient Disposition: Admit to [facility] Condition: Serious Discharge Details Chief Complaint: SOB Clinical Impression: Acute CHF (congestive heart failure), Anemia, Thrombocytopenia, Right upper lobe pulmonary infiltrate, Chronic kidney disease Primary Care Provider: Annette Moreno ED Provider: Tad Reid Home Meds and New Rx's Prescriptions: No Action rosuvastatin 20 mg tablet 20 mg PO DAILY Qty: 90 3RF Eliquis 5 mg tablet 5 mg PO BID Qty: 60 1RF Rx Instructions: Trial 2' new Afib & (mod-high) TANGELA/CH2DS2 scores.. TBD w/ Card/Vasc re: PLAVIX metoprolol succinate [Toprol XL] 200 mg tablet extended release 24 hr 200 mg PO HS Rx Instructions: Continue w/ increase of 200mg per Card 12/2021 ([facility] [place]) nitroglycerin 0.4 mg tablet, sublingual 0.4 mg Sublingual PRN Qty: 25 3RF Rx Instructions: for chest pain. sildenafil [Viagra] 50 mg tablet 50 mg PO DAILY PRN (Reason: sexual activity) 10 Days Qty: 10 6RF Patient Comments: pt states he doesn't take this anymore Rx Instructions: as directed for erectile dysfunction dabigatran etexilate [Pradaxa] 150 mg capsule 150 mg PO BID tramadol 50 mg tablet 50 mg PO DAILY PRN (Reason: severe back pain or claudication pain) Qty: 30 2RF Rx Instructions: Increased to daily use while awaiting evaluation vitamin B complex [B Complex-Vitamin B12] 1 cap PO .qd Patient Comments: Pt reports he is no longer taking 08/02/19 TR aspirin 81 mg tablet,chewable 81 mg PO DAILY Qty: 90 3RF Rx Instructions: As best dispensed (OTC vs Rx?) Combivent Respimat 20-100 mcg/actuation mist 1 puff inhalation Q6H PRN (Reason: chest congestion; cold symptoms) Qty: 4 6RF Rx Instructions: Trial in the morning (with spacer) to help clear phlegm acetaminophen [Tylenol Extra Strength] 500 MG tablet 1,000 mg PO PRN PRN Patient Comments: Pt reports taking 1500mg Acetaminophen TID, MD made aware of Pt exceeding recommended dosage. TR 08/02/19. benzonatate 100 mg capsule 100 mg PO TID PRN (Reason: cough) Qty: 90 6RF Breztri Aerosphere 160-9-4.8 mcg/actuation HFA aerosol inhaler 2 inh inhalation BID Qty: 10.7 12RF losartan 50 mg tablet 50 mg PO DAILY Patient Comments: Increased Per [facility] [place] Cardio note 10/18/23 Dr. Moreno.HE Trelegy Ellipta 100-62.5-25 mcg blister with device 1 inh inhalation DAILY Qty: 60 11RF furosemide 20 mg tablet 20 mg PO DAILY Qty: 90 3RF pantoprazole 20 mg tablet,delayed release (DR/EC) 20 mg PO DAILY Qty: 90 3RF Rx Instructions: Continue with lower dose PPI 2' malabsorption risks clopidogrel [Plavix] 75 mg tablet 75 mg PO DAILY Qty: 90 3RF Rx Instructions: 01/20/24--pt restarted on his own-LH 12/28/23- stop plavix, start eliquis 5mg BID, cont asa 81mg; (per [facility] [place] Cardiology; Dr. Peralta) dabigatran etexilate 150 mg capsule 150 mg PO BID torsemide 20 mg tablet 20 mg PO ONCE PRN (Reason: once every other day) HPI General Mode of arrival: ambulatory. Date/Time Provider Initiated Documentation: 08/06/24 10:04. Limitations to Documentation: no limitations. Information obtained by: patient and family. HPI Narrative: 69-year-old male with multiple medical problems presents with shortness of breath. Patient notes shortness of breath over the past few days. Symptoms were worse last night when trying to sleep. He does generally not feeling well over the past 1 week. He has associated left-sided chest discomfort described as a heaviness over the past 3 days. No leg swelling or calf pain. Related Data Home Medications ?Medication ?Instructions ?Recorded ?Confirmed acetaminophen 500 mg tablet 1,000 mg PO PRN PRN 04/25/15 08/06/24 (Tylenol Extra Strength) vitamin B complex [B 1 cap PO .qd 04/24/19 08/06/24 Complex-Vitamin B12] aspirin 81 mg chewable tablet 81 mg PO DAILY #90 tab-caps 09/16/22 08/06/24 benzonatate 100 mg capsule 100 mg PO TID PRN cough #90 caps 09/01/23 08/06/24 budesonide 160 mcg-glycopyr 9 2 inh inhalation BID #10.7 grams 09/01/23 08/06/24 mcg-formot 4.8 mcg/actuation HFA inhaler (Breztri Aerosphere) rosuvastatin 20 mg tablet 20 mg PO DAILY #90 tabs 11/10/23 08/06/24 losartan 50 mg tablet 50 mg PO DAILY 11/17/23 08/06/24 fluticasone fur. 100 mcg-umeclid 1 inh inhalation DAILY #60 ea 12/05/23 08/06/24 62.5 mcg-vilant 25 mcg inhalat.powder (Trelegy Ellipta) apixaban 5 mg tablet (Eliquis) 5 mg PO BID new atrial 12/25/23 08/06/24 fibrillation & stroke risk #60 tabs metoprolol succinate 200 mg 200 mg PO HS 12/25/23 08/06/24 tablet,extended release 24 hr (Toprol XL) nitroglycerin 0.4 mg sublingual 0.4 mg sublingual PRN #25 tabs 12/25/23 08/06/24 tablet sildenafil 50 mg tablet (Viagra) 50 mg PO DAILY PRN sexual activity 12/25/23 08/06/24 10 days #10 tab-caps furosemide 20 mg tablet 20 mg PO DAILY #90 tabs 01/06/24 08/06/24 ipratropium 20 mcg-albuterol 100 1 puff inhalation Q6H PRN chest 02/03/24 08/06/24 mcg/actuation mist for inhalation congestion; cold symptoms #4 grams (Combivent Respimat) pantoprazole 20 mg tablet,delayed 20 mg PO DAILY #90 tab-caps 04/20/24 08/06/24 release clopidogrel 75 mg tablet (Plavix) 75 mg PO DAILY #90 tabs 04/26/24 08/06/24 dabigatran etexilate 150 mg capsule 150 mg PO BID 05/28/24 08/06/24 dabigatran etexilate 150 mg 150 mg PO BID 07/19/24 08/06/24 capsule (Pradaxa) tramadol 50 mg tablet 50 mg PO DAILY PRN severe back 07/19/24 08/06/24 pain or claudication pain #30 tabs torsemide 20 mg tablet 20 mg PO ONCE PRN once every other 08/06/24 08/06/24 day Previous Rx's ?Medication ?Instructions ?Recorded aspirin 81 mg chewable tablet 81 mg PO DAILY #90 tab-caps 09/16/22 benzonatate 100 mg capsule 100 mg PO TID PRN cough #90 caps 09/01/23 budesonide 160 mcg-glycopyr 9 2 inh inhalation BID #10.7 grams 09/01/23 mcg-formot 4.8 mcg/actuation HFA inhaler (Breztri Aerosphere) rosuvastatin 20 mg tablet 20 mg PO DAILY #90 tabs 11/10/23 fluticasone fur. 100 mcg-umeclid 1 inh inhalation DAILY #60 ea 12/05/23 62.5 mcg-vilant 25 mcg inhalat.powder (Trelegy Ellipta) apixaban 5 mg tablet (Eliquis) 5 mg PO BID new atrial 12/25/23 fibrillation & stroke risk #60 tabs nitroglycerin 0.4 mg sublingual 0.4 mg sublingual PRN #25 tabs 12/25/23 tablet sildenafil 50 mg tablet (Viagra) 50 mg PO DAILY PRN sexual activity 12/25/23 10 days #10 tab-caps furosemide 20 mg tablet 20 mg PO DAILY #90 tabs 01/06/24 ipratropium 20 mcg-albuterol 100 1 puff inhalation Q6H PRN chest 02/03/24 mcg/actuation mist for inhalation congestion; cold symptoms #4 grams (Combivent Respimat) pantoprazole 20 mg tablet,delayed 20 mg PO DAILY #90 tab-caps 04/20/24 release clopidogrel 75 mg tablet (Plavix) 75 mg PO DAILY #90 tabs 04/26/24 tramadol 50 mg tablet 50 mg PO DAILY PRN severe back 07/19/24 pain or claudication pain #30 tabs Allergies Allergy/AdvReac Type Severity Reaction Status Date / Time atorvastatin AdvReac Intermediate Diarrhea Verified 08/06/24 10:24 General Stated Complaint: SOB SHE: 3 Review of Systems All systems reviewed & are unremarkable except as noted in HPI and below Constitutional Constitutional: Denies fever(s) Respiratory Respiratory: Reports cough (Intermittent over the past week) Exam Const General: cooperative and no acute distress HENMT Mouth: moist mucous membranes Eyes Conjunctivae: normal conjunctivae Sclera: normal sclerae Neck Neck: trachea midline and supple Resp Effort & Inspection: labored and tachypneic Auscultation: clear to auscultation bilaterally, no rales, no rhonchi and no wheezes Cardio Rate: regular rate and not tachycardic Rhythm: regular rhythm Heart Sounds: murmur systolic II/ and at the right sternal border GI Palpation: soft, not firm, no guarding, no masses, not rigid and nontender Skin General skin exam: no rashes or lesions noted Neuro General: patient alert, patient awake and tone normal Extrem General: no calf tenderness and no edema Psych Appearance: grossly normal Mental Status: mental status grossly normal Course Vital Signs Vital signs: Vital Signs Temperature 36.6 C 08/06/24 09:58 Pulse 84 08/06/24 09:58 Respiratory Rate 32 H 08/06/24 09:58 Blood Pressure 205/92 H 08/06/24 09:58 Pulse Oximetry 93 08/06/24 09:58 Temperature 36.6 C 08/06/24 10:09 Temperature Source Oral 08/06/24 10:09 Pulse 74 08/06/24 10:09 Respiratory Rate 24 08/06/24 10:09 Respiratory Effort Short of Breath, Labored 08/06/24 10:11 Respiratory Depth Shallow 08/06/24 10:11 Respiratory Pattern Normal 08/06/24 10:11 Blood Pressure 203/62 H 08/06/24 10:09 Blood Pressure Position Supine 08/06/24 10:09 Pulse Oximetry 94 08/06/24 10:09 Oxygen Delivery Method Room Air 08/06/24 10:09 Oxygen Flow Rate 0 08/06/24 09:58 Pain Level 4 08/06/24 10:09 Lab/Test Results Lab/Test Results: Laboratory Tests Range/Units 08/06/24 10:10 VBG Lactate (0.6-1.4) mmol/L 2.1 H Medical Decision Making 1035 --69-year-old male with multimedical problems including history of coronary artery disease, status post stent, CHF, pulmonary fibrosis, peripheral arterial disease, thrombocytopenia, anemia, cirrhosis, A-fib, here with shortness of breath over the past 3 days, associated left-sided chest discomfort, generally not feeling well over the past week with intermittent cough. Patient is afebrile, saturating in the upper 80s to low 90s on room air, with tachypnea and labored breathing. He is not typically on oxygen. Supplemental oxygen was applied, nasal cannula 2 L and oxygen saturation improved in the mid 90s. Patient is hypertensive. Patient is in critical condition on arrival. Concern for acute CHF exacerbation versus acute pulmonary embolism. Suspect pulmonary fibrosis is contributing. Screening EKG was reviewed and interpreted by me: Please report, sinus rhythm 88 bpm, normal axis, low voltage precordial leads, PVCs noted. I will check labs including VBG. Plan to obtain CT of the chest to assess for acute life-threatening pulmonary embolism. 1218 --CT of the chest was interpreted by radiology:1. No evidence of pulmonary embolism, thoracic aortic dissection or aneurysm. 2. Right upper lobe infiltrate. This may represent pneumonia or atelectasis. Please correlate clinically. 3. Small bilateral pleural effusions, right greater than left. Labs reviewed: Chronic anemia, improved; chronic thrombocytopenia with platelets 91, chronic kidney disease with creatinine 1.7 noted. BNP is significantly elevated 8340. Initial troponin negative. VBG reviewed and consistent with likely respiratory alkalosis. Plan to initiate treatment for acute CHF exacerbation. I will give Lasix [address] findings of infiltrate and recent cough, I will cover with antibiotic for atypical presentation of pneumonia. Patient will require hospitalization. 1304 -- I spoke with Dr. Contreras, communications station manager hospitalist, discussed ED presention and course he will admit the patient. Echo order to be placed and followed by hospitalist. Lab Data Lab results reviewed: Yes I reviewed the patient's lab results. Labs: Laboratory Tests Range/Units 08/06/24 08/06/24 10:10 10:45 WBC (4.4-10.8) 10^3/uL 4.48 RBC (4.36-5.78) 10^6/uL 2.91 L Hgb (13.5-17.5) g/dL 10.3 L Hct (40.0-50.0) % 32.3 L MCV (80-95) fL 111 H MCH (27.0-33.0) pg 35.4 H MCHC (32.0-36.0) % 31.9 L RDW (11.8-14.1) % 15.9 H Plt Count (130-400) 10^3/uL 91 L MPV (8.0-11.0) fL 9.9 Immature Gran % % 0.7 Neutrophils % % 81.5 Lymphocytes % % 11.6 Monocytes % % 5.6 Eosinophils % % 0.2 Basophils % % 0.4 Nucleated RBC % (0.0-0.3) % 0.0 Absolute Neutrophils (1.2-6.7) 10^3/uL 3.65 Absolute Lymphocytes (1.2-3.4) 10^3/uL 0.52 L Absolute Monocytes (0.1-0.8) 10^3/uL 0.25 Absolute Eosinophils (0.0-0.7) 10^3/uL 0.01 Absolute Basophils (0.0-0.2) 10^3/uL 0.02 RBC Morphology See Below Polychromasia Present Macrocytosis 1+ Stomatocytes 2+ VBG pH (7.31-7.41) 7.45 H VBG pCO2 (41-51) mmHg 34 L VBG pO2 mmHg 30 VBG HCO3 (23-28) mmol/L 24 VBG Total CO2 (24-29) mmol/L 22 L VBG O2 Saturation % 53 VBG Base Excess (-2-3) mmol/L 0 VBG Lactate (0.6-1.4) mmol/L 2.1 H Sodium (136-145) mmol/L 138 Potassium (3.5-5.1) mmol/L 4.6 Chloride (98-107) mmol/L 106 Carbon Dioxide (21.0-32.0) mmol/L 22.6 Anion Gap (3-11) mmol/L 9.4 BUN (7-18) mg/dL 21 H Creatinine (0.70-1.30) mg/dL 1.7 H Est GFR (CKD-EPI 2020) (mL/min/1.73m2) 42.83 Glucose (74-106) mg/dL 92 Calcium (8.5-10.1) mg/dL 8.2 L Magnesium (1.8-2.4) mg/dL 2.0 Total Bilirubin (0.2-1.0) mg/dL 1.72 H AST (15-37) U/L 146 H ALT (16-63) U/L 54 Alkaline Phosphatase (46-116) U/L 629 H Troponin I (<or=76) ng/L 40 NT-Pro-B Natriuret Pep (<300) pg/mL 8340 H Total Protein (6.4-8.2) g/dL 6.6 Albumin (3.4-5.0) g/dL 2.0 L COVID-19 Source Nasopharynx SARS-CoV-2 (PCR) (Negative) Negative Influenza Type A (PCR) (Negative) Negative Influenza Type B (PCR) (Negative) Negative RSV (PCR) (Negative) Negative Quality:SDOH Health Related Social Needs: No Data to Display PFSH All Active Problems (Updated 08/06/24 @ 13:07 by Tad Reid MD) Chronic kidney disease (Chronic) Right upper lobe pulmonary infiltrate (Acute) Thrombocytopenia (Chronic) Anemia (Chronic) Acute CHF (congestive heart failure) (Acute) Disability affecting daily living (Acute) Lumbosacral stenosis with neurogenic claudication (Acute) per [facility] tele consult & 06/05/24 MRI Radiculopathy due to disorder of intervertebral disc of lumbar spine (Acute) Pancytopenia (Acute) 02/17/24 f/u Hem/Onc At risk for stroke (Acute) New AFib: CHAD2 12/16.. [id number] 02/18 .. so, med-high risk (9.7% stroke risk; 13.6% TIA risk).. Atrial fibrillation, new onset (Acute) Asymptomatic, just took medications.. some improvement in HR while resting [allowing meds to act? ik) in exam room, 12/23/23. Thrombocytopenia (Chronic) Acute, with Hx chronic ITP .. new pathology? or active ITP? or hepatic dz? Atherosclerosis of [place] coronary artery of [place] heart without angina pectoris (Acute 10/24/09) stent 2009; re-occluded stented 11/2015 along with second site Cx.; dual platelet rx until 12/2016-06/2018; Dr. Mcnulty; [facility] 07/30/16 neg for ischemia, EF 51% (< AFTER 2021 stenting?) Cirrhosis of liver without ascites (Acute) Heart failure with reduced ejection fraction (Acute) EF 33% (11/11/23) .. 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 Rt Calf, resolves w/in minutes of rest Other specified nonscarring hair loss (Acute) LE, b/l (no problem, but notable to pt who is wondering) .. 2' PAD? ik, 03/2023 [ ] MEET Pulmonary fibrosis (Acute) Emphysema lung (Acute) Restrictive lung disease (Acute) Chronic ITP (idiopathic thrombocytopenia) (Chronic 07/25/17) Per rvw of Heme consult of 07/2019: RTC if pltlts<70,000, 12/17/23, ik...Heme consult Dr. Nolen 07/2017, likely slowly progressive chronic going back to 2006; re-consult if drops below 50,000 Hypertension (Chronic 12/11/00) avoid hypotension due to cerebral vascular disease; cardilogy: Dr Camara; goal 130-140 systolic, sens to thiazide Hyperlipidemia (Chronic 11/10/02) goal LDL 70 or best able Sensorineural hearing loss, bilateral (Chronic 06/24/14) R hearing aid 07/2014 Splenomegaly (Chronic 08/02/17) 14 cm on US 06/2017; ? due to chronic ITP Cervical radiculitis (Chronic) Osteoarthritis of lower back (Acute 12/11/01) Macrocytic anemia (Acute) Chronic low back pain (Chronic) Acute episodes, 2020-. Mild DJD on LS film 04/2014; Hx daily Aleve. Hepatic steatosis (Chronic) Abdominal US in 2016 Muscle spasm (Acute) Acute ... improves with PT, but re-spasms .. Need rest, anti-inflamm then abd/core mm strengthening. Possible PSOAS (?) Hx of atherosclerotic cardiovascular disease (Acute) Stents Patent per Cath, 02/2022 (Dr. Camara, [facility] [place]). Stents placed, 2009 .. re-occluded, stented 11/2015 along with second site Cx.; dual platelet Rx 12/2016-06/2018; Dr. Mcnulty; [facility] 07/30/16 neg for ischemia, EF 51% COPD (chronic obstructive pulmonary disease) (Chronic) NEG COPD per pt rpt s/p Pulm OV, 03/2023. Per CT (2016), Hx smoking. Weight gain (Acute) 15 lbs per chart, no diet change per pt Anemia (Chronic) Low HGB. Hx Macrocytic anemia, B12 WNL ().. [ ] iron suppl, po review Compression fracture of L2 lumbar vertebra (Acute) per MRI (03/08/22), w/ acute/subacute signal. Fx lines extend towards pedicles..20% ht loss..intraosseous edema.. Spinal stenosis at L4-L5 level (Acute) per MRI (03/08/22). .. moderate ctl canal stenosis .. disc protrusion caudally, 5mm behind L5.. MRI LSpine 04/2022 no nerve compressin or central stenosis Sacroiliac joint dysfunction of left side (Acute) Hyponatremia (Chronic) CHRONIC? Asymptomatic, 08/05/22 Lung nodule seen on imaging study (Acute) Per 10/19/22 CTA: Neg PE. (+) pleural base nodule, RML, 4mm.. & sessile pleural plaque (RUL) measuring 1 cm x 0.3 cm. Pleuritic chest pain (Acute) Pleural plaque (Acute) Medical History Absent breath sounds on left side of chest much lower than rt base .. seems new.. Hx of arterial ischemic stroke 2006, cerebral infarction Hemoptysis COVID-30 March 2022, home test Tenderness of back Prominent mm; lft paraspinal tenderness (L2-L4), rad into left buttock Left buttock pain Helped focus on SI Joint vs lower bk. Feeling great, 09/2022. Left-sided back pain Acute on chronic .. barely walking, tenderness out of proportion .. 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 Cerebral artery occlusion with cerebral infarction (01/13/07) Convulsions (01/25/08) Pt. denies Abnormal findings on diagnostic imaging of lung (11/25/06) Old notes, CXR since then show cardiomegaly, possible atelectasis or scarring.. nothing acute. Carpal tunnel syndrome (10/24/11) Headache (08/01/09) Sudden hearing loss (12/15/12) assoc with CVA?? 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 Camara [facility] [place] Coronary Stent (12/11/15) LAD POBA for in-stent restenosis, November 2015 AND left circumflex 3-mm drug-eluting stent, November 2015, Dr Camara Appendectomy 2006 Family History Father , Pneumonia at age 68. Tobacco use disorder Pneumonia Other Heart disease Stroke Social History Smoking/Tobacco Use Status: Former Tobacco Use Quit Date: 09/12/02 Tobacco: How many years used: 15 Second Hand Exposure: Yes Smoking risk assessment performed?: Yes Alcohol Intake: current Alcohol Intake frequency: 0-2 drinks per day Alcohol type: hard liquor Drug use: Never Substance use type: does not use Adopted: No Foster care: No Household members: spouse and family Housing: house Number of Children: 2 number of grandchildren: 3 Communication Needs: Hard of Hearing and Corrective Lenses Education Level: high school Do you need help understanding health information?: Never current occupation: [employer] Pets and animals: No Do you think of yourself as: straight/heterosexual Current gender identity: male What is your relationship status?: How often do you get together with friends or relatives?: once per week Panel score (0-1 are the most socially isolated patients): 1 What type of physical activity do you participate in: other Details: active lifestyle-LH Duration: 15-30 minutes/day Frequency: daily Shannan/Adventist: Yazidi Seatbelt use: sometimes Drive intox or ride w/intox goat driver: No Do you feel safe at home: Yes Do you feel safe in your relationship?: Yes PAWSS Have you Been Recently Intoxicated or Drunk Within the Last 30 days?: No Have you Ever Experienced Previous Episodes of Alcohol Withdrawal?: No Have you ever Experienced Withdrawal Seizures?: No Have you ever Experienced Delirium Tremens(DT)s?: No Have you ever undergone Alcohol Rehabilitation Treatment (i.e, inpt ot outpatient treatment programs)?: No Have you ever Experienced Blackouts?: No Have you ever Combined Alcohol with other Downers within the last 90 days?: No Have you ever Combined Alcohol with any other Substance of Abuse during the last 90 days?: No Positive Blood Alcohol level on Presentation? [PCS.BAL]: No Evidence of Increased Autonomic Activity (i.e. HR>120, tremor, sweating, agitation, nausea)?: No Result: 0
[2024-08-06 10:38] LABS: Diff Comment RBC Morph Reviewed; Macrocytosis 1+; Platelet Count 91 10^3/uL (130-400); Polychromasia Present
[2024-08-06 10:39] LABS: Stomatocytes 2+
[2024-08-06 10:43] LABS: BE (Venous) 0 mmol/L (-2-3); HCO3 (Venous) 24 mmol/L (23-28); O2 Sat (Venous) 53 %; TCO2 (Venous) 22 mmol/L (24-29); pCO2 (Venous) 34 mmHg (41-51); pH (Venous) 7.45 (7.31-7.41); pO2 (Venous) 30 mmHg
[2024-08-06 10:49] LABS: ALT 54 U/L (16-63); AST 146 U/L (15-37); Alkaline Phosphatase 629 U/L (46-116); Anion Gap 9.4 mmol/L (3-11); BUN 21 mg/dL (7-18); Bilirubin, Total 1.72 mg/dL (0.2-1.0); CO2 22.6 mmol/L (21.0-32.0); CREATININE 1.7 mg/dL (0.70-1.30); Calcium 8.2 mg/dL (8.5-10.1); Chloride 106 mmol/L (98-107); Estimated GFR 42.83 (mL/min/1.73m2); Glucose 92 mg/dL (74-106); NT-proBNP 8340 pg/mL (<300); Potassium 4.6 mmol/L (3.5-5.1); Sodium 138 mmol/L (136-145); Total Protein 6.6 g/dL (6.4-8.2); Troponin I 40 ng/L (<or=76)
[2024-08-06 11:32] LABS: COVID-19 PCR Negative (Negative); Influenza A PCR Negative (Negative); Influenza B PCR Negative (Negative); RSV PCR Negative (Negative)
[2024-08-06] MEDS: Normal Saline - Diluent 50 ML VIAL IJ (11:35)
[2024-08-06] MEDS: Omnipaque 350 MG/ML 100 ML BTL IJ (11:35)
[2024-08-06 11:59] LABS: Source Nasopharynx
[2024-08-06 12:36] LABS: Troponin I 37 ng/L (<or=76)
[2024-08-06] MEDS: cefTRIAXone 1 GM/50 ML BAG IVPB (12:42)
[2024-08-06] MEDS: Furosemide 20 MG/2 ML VIAL IVP (12:42)
[2024-08-06 13:49] LABS: Troponin I 46 ng/L (<or=76)
--- NOTE | 2024-08-06 15:01 | HPE_ITS ---
Date of service: 08/06/24 Time of Service: 15:01 Assessment and Plan Assessment and plan (1) Acute CHF (congestive heart failure): Status: Acute Assessment and plan: I think this is the primary cause of his hypoxic respirotory failure, given timing of stopping his torsemide with onset of symptoms, elevated BNaP Weight gain per note, but not clear on our record. He is typically on torsemide 40mg, given 20mg furosmide IV in ED, will give higher dose 80mg IV, monitor I/Os H/o ischemic heart disease with HFrEF with LVEF around 30% in December of 2023, repeat echo He on beta vero and ARB (holding now due to orthostasis) but not SGLT2i or MRA. Qualifiers: Heart failure type: systolic Qualified Code(s): I50.21 - Acute systolic (congestive) heart failure (2) Community acquired pneumonia: Status: Acute Assessment and plan: This may be contributing with new cough/sputum and infiltrate on CT. Cover with ceftriaxone/azithro sputum culture ordered Qualifiers: Laterality: right Lung location: upper lobe of lung Qualified Code(s): J18.9 - Pneumonia, unspecified organism (3) Hx of atherosclerotic cardiovascular disease: Status: Acute Assessment and plan: Continue aspirin and high intensity statin. No chest pain. EKG/troponins reassuring. (4) Hypertension: Status: Chronic Assessment and plan: BP high, holding losartan, continue metoprolol as also rate control. Resume losartan if not getting orthstasis. Qualifiers: Hypertension type: primary hypertension Qualified Code(s): I10 - Essential (primary) hypertension (5) PAD (peripheral artery disease): Status: Acute Assessment and plan: Continue ASA, DOAC, statin. (6) Atrial fibrillation, new onset: Status: Acute Assessment and plan: Metoprolol for rate control, now in sinus (was cardioverted earlier this year at ). On Pradaxa, continue. 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 CT earlier this year showed cirrhosis, h/o large spleen, I wonder if this hasn't been the cause all along. (8) Liver dysfunction: Status: Acute Assessment and plan: Cirrhosis seen on contrast CT in December 2023. He is not aware of this. I recommended he no drink alcohol. Avoid acetaminophen doses above 2g/day. (9) Abnormal involuntary movements: Status: Acute Assessment and plan: Per this started after stroke. He is on tramadol, which may make this worse, try oxycodone instead. Ca++ low, may simply be hypoalbuminemia related but will get ionized to confirm this isn't contributing. (10) Chronic kidney disease: Status: Chronic Assessment and plan: Near recent baseline between stage 3a and 3b. Continue to monitor. Possibly contributing to anemia? Qualifiers: Chronic kidney disease stage 3 subtype: unspecified whether 3a or 3b (11) Anemia: Status: Chronic Assessment and plan: H/h higher today than in the last few months, though may be contributing to CHF symptoms. Sees hematology. No clear blood loss. Monitor. Qualifiers: Anemia type: unspecified type Qualified Code(s): D64.9 - Anemia, unspecified History of Present Illness History of Present Illness Chief Complaint: SOB Narrative: 69 yo M with history of CAD s/p PCI to LAD/LCX, HFrEF, CKD, PAD with LE stenting, h/o L hemispheric CVA 2006 a/w aleida carotid stenosis, atrial fibrillation on dibagatran who is presenting with shortness of breath over the past 2 weeks that worsened with associated cough over the past 2 days. He states he has been dizzy and weak for a long time. He was seen 07/26/24 by his neighborhood conservation officer Dr. Craig who noted orthostasis with BP dropping from 160/82 to 82/52 standing. Told him to hold losartan (dose given as 25mg) and only take torsemide 40mg every other day. The torsemide had been increased to 60mg daily on previous visit in June. The patient and state he was told to stop it and he hasn't taken the torsemide since then. Per notes his weight was up that visit from 180lbs to 198lbs, though the patient hasn't noted clear weight gain. Since then he has continued to feel fatigued but more short of breath. He has noted increased orthopnea and PND, even sleeping in a recliner. Over the weekend he started to cough and has started to cough up thick sputum at times. He has not had fevers, though he has felt more cold. He has not noted BRBPR or melena or other bleeding, just bruising that is chronic. Review of Systems All systems reviewed & are unremarkable except as noted in HPI and below Constitutional Constitutional: Denies headache(s) and Reports weakness (legs get weak, no focal) ENT Ears, Nose, Mouth, and Throat: Denies vertigo, Denies headache(s), Denies nasal congestion, Denies nasal discharge and Denies sore throat Cardiovascular Cardiovascular: Reports as per HPI, Denies chest pain, Denies chest pain with activity, Denies leg edema, Reports lightheadedness and Denies palpitations Musculoskeletal Musculoskeletal: Reports back pain (chronic, takes tramadol) Integumentary/Breasts Skin/Breast: Reports change in hair (has lost hair on his body), Denies lesions and Denies rash Neurologic Neurologic: Denies confusion, Denies vertigo, Denies headache(s), Denies localized weakness, Denies convulsions, Denies sensory deficit and Reports weakness (legs get weak, no focal) Psychiatric Psychiatric: Denies confusion Endocrine Endocrine: Denies palpitations PFSH All Active Problems (Updated 08/06/24 @ 16:16 by Long Contreras) Abnormal involuntary movements (Acute) Community acquired pneumonia (Acute) Liver dysfunction (Acute) Chronic kidney disease (Chronic) Right upper lobe pulmonary infiltrate (Acute) Thrombocytopenia (Chronic) Anemia (Chronic) Acute CHF (congestive heart failure) (Acute) Disability affecting daily living (Acute) Lumbosacral stenosis with neurogenic claudication (Acute) per [facility] tele consult & 06/05/24 MRI Radiculopathy due to disorder of intervertebral disc of lumbar spine (Acute) Pancytopenia (Acute) 02/17/24 f/u [facility] Hem/Onc At risk for stroke (Acute) New AFib: CHAD2 12/16.. [id number] 02/18 .. so, med-high risk (9.7% stroke risk; 13.6% TIA risk).. Atrial fibrillation, new onset (Acute) Asymptomatic, just took medications.. some improvement in HR while resting [allowing meds to act? ik) in exam room, 12/23/23. Thrombocytopenia (Chronic) Acute, with Hx chronic ITP .. new pathology? or active ITP? or hepatic dz? Cirrhosis of liver without ascites (Acute) Heart failure with reduced ejection fraction (Acute) EF 33% (11/11/23) .. EF 51% post-cath (01/2022) EF 33% (12/2021) Impaired quality of life (Acute) Femoro-popliteal artery disease (Acute) Atherosclerosis of lower extremity with claudication (Acute) PAD (peripheral artery disease) (Acute) Rt LE, per MEET, [facility] (03/18/23) Diarrhea (Acute) Daily x months, managed with OTC (loperamide?) Claudication of calf muscles (Acute) Worsening, 10/2023, affecting ADLs and ability to work! Rt Calf, resolves w/in minutes of rest Other specified nonscarring hair loss (Acute) LE, b/l (no problem, but notable to pt who is wondering) .. 2' PAD? ik, 03/2023 [ ] MEET Pulmonary fibrosis (Acute) Emphysema lung (Acute) Restrictive lung disease (Acute) Pleural plaque (Acute) Pleuritic chest pain (Acute) Lung nodule seen on imaging study (Acute) Per 10/19/22 CTA: Neg PE. (+) pleural base nodule, RML, 4mm.. & sessile pleural plaque (RUL) measuring 1 cm x 0.3 cm. Hyponatremia (Chronic) CHRONIC? Asymptomatic, 08/05/22 Sacroiliac joint dysfunction of left side (Acute) Spinal stenosis at L4-L5 level (Acute) per MRI (03/08/22). .. moderate ctl canal stenosis .. disc protrusion caudally, 5mm behind L5.. MRI LSpine 04/2022 no nerve compressin or central stenosis Compression fracture of L2 lumbar vertebra (Acute) per MRI (03/08/22), w/ acute/subacute signal. Fx lines extend towards pedicles..20% ht loss..intraosseous edema.. Anemia (Chronic) Low HGB. Hx Macrocytic anemia, B12 WNL ().. [ ] iron suppl, po review Weight gain (Acute) 15 lbs per chart, no diet change per pt COPD (chronic obstructive pulmonary disease) (Chronic) NEG COPD per pt rpt s/p Pulm OV, 03/2023. Per CT (2016), Hx smoking. Hx of atherosclerotic cardiovascular disease (Acute) Stents Patent per Cath, 02/2022 (Dr. Camara, [facility] Stents placed, 2009 .. re- occluded, stented 11/2015 along with second site Cx.; dual platelet Rx 12/2016-06/2018; Dr. Mcnulty; [facility] 07/30/16 neg for ischemia, EF 51% Muscle spasm (Acute) Acute ... improves with PT, but re-spasms .. Need rest, anti-inflamm then abd/core mm strengthening. Possible PSOAS (?) Hepatic steatosis (Chronic) Abdominal US in 2016 Chronic low back pain (Chronic) Acute episodes, 2020-. Mild DJD on LS film 04/2014; Hx daily Aleve. Macrocytic anemia (Acute) Osteoarthritis of lower back (Acute 12/11/01) Cervical radiculitis (Chronic) Splenomegaly (Chronic 08/02/17) 14 cm on US 06/2017; ? due to chronic ITP Sensorineural hearing loss, bilateral (Chronic 06/24/14) R hearing aid 07/2014 Hyperlipidemia (Chronic 11/10/02) goal LDL 70 or best able Hypertension (Chronic 12/11/00) avoid hypotension due to cerebral vascular disease; cardilogy: Dr Camara; goal 130-140 systolic, sens to thiazide Chronic ITP (idiopathic thrombocytopenia) (Chronic 07/25/17) Per rvw of Heme consult of 07/2019: RTC if pltlts<70,000, 12/17/23, ik...Heme consult Dr. Nolen 07/2017, likely slowly progressive chronic going back to 2006; re-consult if drops below 50,000 Carotid artery occlusion (Acute 04/12/07) bilateral; L PARIETAL CVA Atherosclerosis of [place] coronary artery of [place] heart without angina pectoris (Acute 10/24/09) stent 2009; re-occluded stented 11/2015 along with second site Cx.; dual platelet rx until 12/2016-06/2018; Dr. Mcnulty; [facility] 07/30/16 neg for ischemia, EF 51% (< AFTER 2021 stenting?) Medical History Hx of arterial ischemic stroke 2006, cerebral infarction Hemoptysis COVID-30 March 2022, home test Tenderness of back Prominent mm; lft paraspinal tenderness (L2-L4), rad into left buttock Left buttock pain Helped focus on SI Joint vs lower bk. Feeling great, 09/2022. Absent breath sounds on left side of chest much lower than rt base .. seems new.. Left-sided back pain Acute on chronic .. barely walking, tenderness out of proportion .. Carcinoma in situ, unspecified 11/28/2019 [facility] Derm: squamous cell left forearm with biopsy and destroyed by curettage and electrodesiccation. Cerebral artery occlusion with cerebral infarction (01/13/07) Convulsions (01/25/08) Pt. denies Abnormal findings on diagnostic imaging of lung (11/25/06) Old notes, CXR since then show cardiomegaly, possible atelectasis or scarring.. nothing acute. Carpal tunnel syndrome (07/05/11) Headache (08/01/09) Sudden hearing loss (12/15/12) assoc with CVA?? 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 Camara [facility] Coronary Stent (12/11/15) LAD POBA for in-stent restenosis, November 2015 AND left circumflex 3-mm drug-eluting stent, November 2015, Dr Camara Appendectomy 2006 Family History Father , Pneumonia at age 68. Tobacco use disorder Pneumonia Other Heart disease Stroke Social History (Updated 08/06/24 @ 15:39 by Long Contreras) Smoking/Tobacco Use Status: Former Tobacco Use Quit Date: 09/12/02 Tobacco: How many years used: 15 Second Hand Exposure: Yes Smoking risk assessment performed?: Yes Alcohol Intake: current Alcohol Intake frequency: 0-2 drinks per day Alcohol type: hard liquor Drug use: Never Substance use type: does not use Adopted: No Foster care: No Household members: spouse and family Housing: house Number of Children: 2 number of grandchildren: 3 Communication Needs: Hard of Hearing and Corrective Lenses Education Level: high school Do you need help understanding health information?: Never current occupation: [employer] Pets and animals: No Do you think of yourself as: straight/heterosexual Current gender identity: male What is your relationship status?: How often do you get together with friends or relatives?: once per week Panel score (0-1 are the most socially isolated patients): 1 What type of physical activity do you participate in: other Details: active lifestyle- Duration: 15-30 minutes/day Frequency: daily Shannan/Lutheran: Hoahaoism Seatbelt use: sometimes Drive intox or ride w/intox certified driver examiner: No Do you feel safe at home: Yes Do you feel safe in your relationship?: Yes Additional Social history: 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 works at [employer]. Meds Allergies and Home Medications Allergies Allergy/AdvReac Type Severity Reaction Status Date / Time atorvastatin AdvReac Intermediate Diarrhea Verified 08/06/24 10:24 Home Medications ?Medication ?Instructions ?Recorded ?Confirmed ?Type acetaminophen 500 mg tablet 1,000 mg PO PRN PRN 04/25/15 08/06/24 History (Tylenol Extra Strength) vitamin B complex [B 1 cap PO .qd 04/24/19 08/06/24 History Complex-Vitamin B12] aspirin 81 mg chewable tablet 81 mg PO DAILY #90 tab-caps 09/16/22 08/06/24 Rx benzonatate 100 mg capsule 100 mg PO TID PRN cough #90 caps 09/01/23 08/06/24 Rx budesonide 160 mcg-glycopyr 9 2 inh inhalation BID #10.7 grams 09/01/23 08/06/24 Rx mcg-formot 4.8 mcg/actuation HFA inhaler (Breztri Aerosphere) rosuvastatin 20 mg tablet 20 mg PO DAILY #90 tabs 11/10/23 08/06/24 Rx losartan 50 mg tablet 50 mg PO DAILY 11/17/23 08/06/24 History fluticasone fur. 100 mcg-umeclid 1 inh inhalation DAILY #60 ea 12/05/23 08/06/24 Rx 62.5 mcg-vilant 25 mcg inhalat.powder (Trelegy Ellipta) apixaban 5 mg tablet (Eliquis) 5 mg PO BID new atrial 12/25/23 08/06/24 Rx fibrillation & stroke risk #60 tabs metoprolol succinate 200 mg 200 mg PO HS 12/25/23 08/06/24 History tablet,extended release 24 hr (Toprol XL) nitroglycerin 0.4 mg sublingual 0.4 mg sublingual PRN #25 tabs 12/25/23 08/06/24 Rx tablet sildenafil 50 mg tablet (Viagra) 50 mg PO DAILY PRN sexual activity 12/25/23 08/06/24 Rx 10 days #10 tab-caps furosemide 20 mg tablet 20 mg PO DAILY #90 tabs 01/06/24 08/06/24 Rx ipratropium 20 mcg-albuterol 100 1 puff inhalation Q6H PRN chest 02/03/24 08/06/24 Rx mcg/actuation mist for inhalation congestion; cold symptoms #4 grams (Combivent Respimat) pantoprazole 20 mg tablet,delayed 20 mg PO DAILY #90 tab-caps 04/20/24 08/06/24 Rx release clopidogrel 75 mg tablet (Plavix) 75 mg PO DAILY #90 tabs 04/26/24 08/06/24 Rx dabigatran etexilate 150 mg capsule 150 mg PO BID 05/28/24 08/06/24 History dabigatran etexilate 150 mg 150 mg PO BID 07/19/24 08/06/24 History capsule (Pradaxa) tramadol 50 mg tablet 50 mg PO DAILY PRN severe back 07/19/24 08/06/24 Rx pain or claudication pain #30 tabs torsemide 20 mg tablet 20 mg PO ONCE PRN once every other 08/06/24 08/06/24 History day Exam Narrative Exam Narrative: GEN: Alert and oriented x 4, pleasant and cooperative, gives linear history. No acute distress at rest. HEENT: Head atraumatic. Conjunctiva clear, no icterus. PEERL, EOMI. no rhinorrhea. MMM, OP benign. Neck is supple with no masses or lymphadenopathy, trachea midline. I could not appreciate elevated JVP LUNGS: Rales at bases bilaterally, no wheezes, no distress at rest. CV: RRR with no murmurs, gallops, or rubs. ABD: active bowel sounds, soft, nontender and nondistended. No masses. No fluid wave. EXT: no cyanosis, clubbing. Warm. 1+ aleida edema to shins MSK: No joint redness or swelling. Left 2nd toe shortened. NEURO: CN 2-12 grossly intact. Normal movement and symmetric strength of 4 extremities. Normal speech and coordination. irregular twitching/jerking movements of extremities, no real tremor. SKIN: No rashes or open wounds. bruising on forearms. PSYCH: normal mood and affect, normal thought process. Results Imaging CT scan - chest: report reviewed EKG: report reviewed and image reviewed (sinus with PACs and PVC, no ischemic change) Imaging Studies: CT chest: 1. No evidence of pulmonary embolism, thoracic aortic dissection or aneurysm. 2. Right upper lobe infiltrate. This may represent pneumonia or atelectasis. Please correlate clinically. 3. Small bilateral pleural effusions, right greater than left. Labs 08/06/24 10:10 08/06/24 10:10 Labs: Laboratory Results - last 24 hr 08/06/24 08/06/24 08/06/24 10:10 10:45 11:15 WBC 4.48 RBC 2.91 L Hgb 10.3 L Hct 32.3 L MCV 111 H MCH 35.4 H MCHC 31.9 L RDW 15.9 H Plt Count 91 L MPV 9.9 Immature Gran % 0.7 Neutrophils % 81.5 Lymphocytes % 11.6 Monocytes % 5.6 Eosinophils % 0.2 Basophils % 0.4 Nucleated RBC % 0.0 Absolute Neutrophils 3.65 Absolute Lymphocytes 0.52 L Absolute Monocytes 0.25 Absolute Eosinophils 0.01 Absolute Basophils 0.02 RBC Morphology See Below Polychromasia Present Macrocytosis 1+ Stomatocytes 2+ VBG pH 7.45 H VBG pCO2 34 L VBG pO2 30 VBG HCO3 24 VBG Total CO2 22 L VBG O2 Saturation 53 VBG Base Excess 0 VBG Lactate 2.1 H Sodium 138 Potassium 4.6 Chloride 106 Carbon Dioxide 22.6 Anion Gap 9.4 BUN 21 H Creatinine 1.7 H Est GFR (CKD-EPI 2020) 42.83 Glucose 92 Calcium 8.2 L Magnesium 2.0 Total Bilirubin 1.72 H AST 146 H ALT 54 Alkaline Phosphatase 629 H Troponin I 40 37 NT-Pro-B Natriuret Pep 8340 H Total Protein 6.6 Albumin 2.0 L COVID-19 Source Nasopharynx SARS-CoV-2 (PCR) Negative Influenza Type A (PCR) Negative Influenza Type B (PCR) Negative RSV (PCR) Negative 08/06/24 13:20 WBC RBC Hgb Hct MCV MCH MCHC RDW Plt Count MPV Immature Gran % Neutrophils % Lymphocytes % Monocytes % Eosinophils % Basophils % Nucleated RBC % Absolute Neutrophils Absolute Lymphocytes Absolute Monocytes Absolute Eosinophils Absolute Basophils RBC Morphology Polychromasia Macrocytosis Stomatocytes VBG pH VBG pCO2 VBG pO2 VBG HCO3 VBG Total CO2 VBG O2 Saturation VBG Base Excess VBG Lactate Sodium Potassium Chloride Carbon Dioxide Anion Gap BUN Creatinine Est GFR (CKD-EPI 2020) Glucose Calcium Magnesium Total Bilirubin AST ALT Alkaline Phosphatase Troponin I 46 NT-Pro-B Natriuret Pep Total Protein Albumin COVID-19 Source SARS-CoV-2 (PCR) Influenza Type A (PCR) Influenza Type B (PCR) RSV (PCR) Last Vital Signs Temp 36.6 C 08/06/24 10:09 Pulse 68 08/06/24 10:46 Resp 22 08/06/24 10:50 BP 171/67 H 08/06/24 10:46 Pulse Ox 95 08/06/24 10:50 PAWSS Have you Been Recently Intoxicated or Drunk Within the Last 30 days?: No Have you Ever Experienced Previous Episodes of Alcohol Withdrawal?: No Have you ever Experienced Withdrawal Seizures?: No Have you ever Experienced Delirium Tremens(DT)s?: No Have you ever undergone Alcohol Rehabilitation Treatment (i.e, inpt ot outpatient treatment programs)?: No Have you ever Experienced Blackouts?: No Have you ever Combined Alcohol with other Downers within the last 90 days?: No Have you ever Combined Alcohol with any other Substance of Abuse during the last 90 days?: No Positive Blood Alcohol level on Presentation? [PCS.BAL]: No Evidence of Increased Autonomic Activity (i.e. HR>120, tremor, sweating, agitation, nausea)?: No Result: 0 Time Spent Time spent with Patient: >75 minutes Time was spent: preparing to see the patient(eg.review tests), obtaining and/or reviewing separately otained hiistory, ordering medications,tests, procedures, referring, communicating with other health care administrative tech, indepentently interpreting results, counseling the patient and care coordination
--- NOTE | 2024-08-06 15:05 | W.PC.ACHO ---
Registration Status: Primary Language: Preferred Language: ED Information & Data Chief Complaint SOB 08/06/24 10:37 Triage Note patient state he has SOB and 08/06/24 09:58 chest pain since Tuesday, state it is difficult for him to tie his shoe recently . Difficulty sleeping lastnight because he feels as if he cannot breathe Medical / Surgical History (Last Reviewed 08/06/24 @ 10:37 by Tad Reid MD) Absent breath sounds on left side of chest Hx of arterial ischemic stroke Hemoptysis COVID-19 Tenderness of back Left buttock pain Left-sided back pain Carcinoma in situ, unspecified Cerebral artery occlusion with cerebral infarction (01/13/07) Convulsions (01/25/08) Abnormal findings on diagnostic imaging of lung (11/25/06) Carpal tunnel syndrome (07/05/11) Headache (08/01/09) Sudden hearing loss (12/15/12) History of tobacco use (10/12/11) Vertigo (05/09/17) 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) Anxiety disorder, unspecified (03/22/17) Erectile dysfunction (Last Reviewed 08/06/24 @ 10:37 by Tad Reid MD) History of biopsy Hx of cardiac cath Coronary Stent (12/11/15) Appendectomy Most Recent Vital Signs Temperature 36.6 C 08/06/24 10:09 Temperature Source Oral 08/06/24 10:09 Pulse 75 08/06/24 11:16 Pulse 75 08/06/24 15:00 Respiratory Rate 25 H 08/06/24 15:00 Respiratory Effort Short of Breath, Labored 08/06/24 10:11 Respiratory Depth Shallow 08/06/24 10:11 Respiratory Pattern Normal 08/06/24 10:11 Blood Pressure 168/76 H 08/06/24 11:16 Blood Pressure Mean 106 08/06/24 11:16 Blood Pressure Position Supine 08/06/24 10:09 Pulse Oximetry 92 08/06/24 15:00 Oxygen Delivery Method Room Air 08/06/24 10:09 Oxygen Flow Rate 0 08/06/24 09:58 Pain Level 4 08/06/24 10:09 Allergies atorvastatin Adverse Reaction (Intermediate, Verified 08/06/24 10:24) Diarrhea begun 11/2015; persistent diarrhea for 5 mos; relieved on D/C 04/2016 Active Medications Generic Name Dose Route Start Last Admin Trade Name Ghada PRN Reason Stop Dose Admin Iohexol 100 ml 08/06/24 11:45 08/06/24 11:35 Omnipaque 350 Mg/Ml 100 Ml Btl IJ 09/05/24 23:59 100 ml DIRECTED SULEIMAN Administration Sodium Chloride 50 ml 08/06/24 11:45 08/06/24 11:35 Normal Saline - Diluent 50 Ml Vial IJ 50 ml .FOR DI USE SULEIMAN Administration IV IV Catheter Type [Right Saline Lock Antecubital] IV Catheter Gauge [Right 18 Antecubital] Diet Orders Category Date Time Status Heart Healthy Eating [DIET] Nutrition 08/06/24 Dinner Active Diagnostics 08/06/24 08/06/24 08/06/24 Range/Units 13:20 11:15 10:45 WBC (4.4-10.8) 10^3/uL RBC (4.36-5.78) 10^6/uL Hgb (13.5-17.5) g/dL Hct (40.0-50.0) % MCV (80-95) fL MCH (27.0-33.0) pg MCHC (32.0-36.0) % RDW (11.8-14.1) % Plt Count (130-400) 10^3/uL MPV (8.0-11.0) fL Immature Gran % % Neutrophils % % Lymphocytes % % Monocytes % % Eosinophils % % Basophils % % Nucleated RBC % (0.0-0.3) % Absolute Neutrophils (1.2-6.7) 10^3/uL Absolute Lymphocytes (1.2-3.4) 10^3/uL Absolute Monocytes (0.1-0.8) 10^3/uL Absolute Eosinophils (0.0-0.7) 10^3/uL Absolute Basophils (0.0-0.2) 10^3/uL RBC Morphology Polychromasia Macrocytosis Stomatocytes VBG pH (7.31-7.41) VBG pCO2 (41-51) mmHg VBG pO2 mmHg VBG HCO3 (23-28) mmol/L VBG Total CO2 (24-29) mmol/L VBG O2 Saturation % VBG Base Excess (-2-3) mmol/L VBG Lactate (0.6-1.4) mmol/L Sodium (136-145) mmol/L Potassium (3.5-5.1) mmol/L Chloride (98-107) mmol/L Carbon Dioxide (21.0-32.0) mmol/L Anion Gap (3-11) mmol/L BUN (7-18) mg/dL Creatinine (0.70-1.30) mg/dL Est GFR (CKD-EPI 2020) (mL/min/1.73m2) Glucose (74-106) mg/dL Calcium (8.5-10.1) mg/dL Magnesium (1.8-2.4) mg/dL Total Bilirubin (0.2-1.0) mg/dL AST (15-37) U/L ALT (16-63) U/L Alkaline Phosphatase (46-116) U/L Troponin I 46 37 (<or=76) ng/L NT-Pro-B Natriuret Pep (<300) pg/mL Total Protein (6.4-8.2) g/dL Albumin (3.4-5.0) g/dL COVID-19 Source Nasopharynx SARS-CoV-2 (PCR) Negative (Negative) Influenza Type A (PCR) Negative (Negative) Influenza Type B (PCR) Negative (Negative) RSV (PCR) Negative (Negative) 08/06/24 Range/Units 10:10 WBC 4.48 (4.4-10.8) 10^3/uL RBC 2.91 L (4.36-5.78) 10^6/uL Hgb 10.3 L (13.5-17.5) g/dL Hct 32.3 L (40.0-50.0) % MCV 111 H (80-95) fL MCH 35.4 H (27.0-33.0) pg MCHC 31.9 L (32.0-36.0) % RDW 15.9 H (11.8-14.1) % Plt Count 91 L (130-400) 10^3/uL MPV 9.9 (8.0-11.0) fL Immature Gran % 0.7 % Neutrophils % 81.5 % Lymphocytes % 11.6 % Monocytes % 5.6 % Eosinophils % 0.2 % Basophils % 0.4 % Nucleated RBC % 0.0 (0.0-0.3) % Absolute Neutrophils 3.65 (1.2-6.7) 10^3/uL Absolute Lymphocytes 0.52 L (1.2-3.4) 10^3/uL Absolute Monocytes 0.25 (0.1-0.8) 10^3/uL Absolute Eosinophils 0.01 (0.0-0.7) 10^3/uL Absolute Basophils 0.02 (0.0-0.2) 10^3/uL RBC Morphology See Below Polychromasia Present Macrocytosis 1+ Stomatocytes 2+ VBG pH 7.45 H (7.31-7.41) VBG pCO2 34 L (41-51) mmHg VBG pO2 30 mmHg VBG HCO3 24 (23-28) mmol/L VBG Total CO2 22 L (24-29) mmol/L VBG O2 Saturation 53 % VBG Base Excess 0 (-2-3) mmol/L VBG Lactate 2.1 H (0.6-1.4) mmol/L Sodium 138 (136-145) mmol/L Potassium 4.6 (3.5-5.1) mmol/L Chloride 106 (98-107) mmol/L Carbon Dioxide 22.6 (21.0-32.0) mmol/L Anion Gap 9.4 (3-11) mmol/L BUN 21 H (7-18) mg/dL Creatinine 1.7 H (0.70-1.30) mg/dL Est GFR (CKD-EPI 2020) 42.83 (mL/min/1.73m2) Glucose 92 (74-106) mg/dL Calcium 8.2 L (8.5-10.1) mg/dL Magnesium 2.0 (1.8-2.4) mg/dL Total Bilirubin 1.72 H (0.2-1.0) mg/dL AST 146 H (15-37) U/L ALT 54 (16-63) U/L Alkaline Phosphatase 629 H (46-116) U/L Troponin I 40 (<or=76) ng/L NT-Pro-B Natriuret Pep 8340 H (<300) pg/mL Total Protein 6.6 (6.4-8.2) g/dL Albumin 2.0 L (3.4-5.0) g/dL COVID-19 Source SARS-CoV-2 (PCR) (Negative) Influenza Type A (PCR) (Negative) Influenza Type B (PCR) (Negative) RSV (PCR) (Negative) Intake and Output - 24 Hour Total 08/06/24 09:54 thru 08/06/24 13:33 Intake Total 50 Output Total 250 Balance -200 Weight 91 kg Intake: IV 50 Output: Urine 250 Other: Urine Color Pale Urine Appearance Clear Falls Risk Assessment History of Falls No History 08/06/24 10:13 Contributing Factors Incontinence,Medications 08/06/24 10:13 Ambulatory Aids Independent 08/06/24 10:13 Tubes/Lines None 08/06/24 10:13 Gait Evaluation No gait disturbance 08/06/24 10:13 Cognition No cognitive impairment 08/06/24 10:13 Fall Total Score 6 08/06/24 10:13 Level of Risk Standard/Low Risk 08/06/24 10:13 v v v v v v v v v Sending and/or Receiving Nurses: Please use comment section below to note any information pertinent to the patient hand-off not included above. Information / Comments: Report received from: Jannette at 1504 given to Harriett. going into room 216
[2024-08-06] MEDS: oxyCODONE 5 MG TAB PO (15:54)
[2024-08-06] MEDS: Acetaminophen 325 MG TAB PO (15:54)
[2024-08-06] MEDS: Furosemide 100 MG/10 ML VIAL 80 MG IVP (16:18)
[2024-08-06] MEDS: AZITHROMYCIN 500 MG in Normal Saline 250 ML 250 MG IVPB (16:19)
[2024-08-06] MEDS: Metoprolol CR 100 MG TABCR 200 MG PO (19:48)
[2024-08-06] MEDS: Normal Saline Flush 10 ML SYR IVP (19:52)
[2024-08-07] VITALS (14 sets, daily range): BP systolic 93–166; BP diastolic 60–83; PULSE 62–95; RESP 16–19; TEMP 36.2–37; O2SAT 90–96
[2024-08-07 06:00] LABS: Abs Immature Grans 0.01 10^3/uL (0.0-0.06); Absolute Basophil Count 0.02 10^3/uL (0.0-0.2); Absolute Eosinophil Count 0.03 10^3/uL (0.0-0.7); Absolute Lymphocyte Count 0.48 10^3/uL (1.2-3.4); Absolute Monocyte Count 0.22 10^3/uL (0.1-0.8); Absolute Neutrophil Count 2.01 10^3/uL (1.2-6.7); Basophils % 0.7 %; Eosinophils % 1.1 %; HCT 29.5 % (40.0-50.0); HGB 9.4 g/dL (13.5-17.5); Immature Grans % 0.4 %; Lymphocytes % 17.3 %; MCH 35.1 pg (27.0-33.0); MCHC 31.9 % (32.0-36.0); MCV 110 fL (80-95); MPV 10.4 fL (8.0-11.0); Monocytes % 7.9 %; Neutrophils % 72.6 %; RBC 2.68 10^6/uL (4.36-5.78); RDW 15.8 % (11.8-14.1); RDW-SD 64.8 fL; WBC 2.77 10^3/uL (4.4-10.8)
[2024-08-07 06:21] LABS: ALT 47 U/L (16-63); AST 116 U/L (15-37); Albumin 1.9 g/dL (3.4-5.0); Alkaline Phosphatase 581 U/L (46-116); Anion Gap 7.3 mmol/L (3-11); BUN 21 mg/dL (7-18); Bilirubin, Total 1.55 mg/dL (0.2-1.0); CO2 25.7 mmol/L (21.0-32.0); CREATININE 1.8 mg/dL (0.70-1.30); Calcium 8.1 mg/dL (8.5-10.1); Chloride 102 mmol/L (98-107); Estimated GFR 39.99 (mL/min/1.73m2); Glucose 79 mg/dL (74-106); Magnesium 2.1 mg/dL (1.8-2.4); Potassium 3.4 mmol/L (3.5-5.1); Sodium 135 mmol/L (136-145); Total Protein 6.3 g/dL (6.4-8.2)
[2024-08-07 06:27] LABS: Platelet Count 67 10^3/uL (130-400)
[2024-08-07 06:28] LABS: Diff Comment Diff Reviewed; Macrocytosis 2+
[2024-08-07] MEDS: Rosuvastatin 20 MG TAB PO (08:16)
[2024-08-07] MEDS: Vitamins B Comp w/C TAB 1 TAB PO (08:16)
[2024-08-07] MEDS: Pantoprazole 20 MG TABCR PO (08:17)
[2024-08-07] MEDS: Normal Saline Flush 10 ML SYR IVP ×2 (08:23→20:51)
[2024-08-07] MEDS: Tiotropium Bromide-Respimat 10 PUFF INH 2 PUFF IH (08:42)
[2024-08-07] MEDS: Budesonide/Formoterol 80/4.5 6.9 GM 60 PUFF INH IH ×2 (08:43→20:50)
--- NOTE | 2024-08-07 09:04 | PDOC.CMIN ---
Date of service: 08/07/24 Time of Service: 09:04 Care Management Initial Assmt Initial Assessment Reason for Hospitalization: CAP, CHF Functional Status/Living Situation Patient Presentation: Long is sitting in a chair when CM met with him. He is polite and easy to engage in conversation during this CM assessment. Hospitalist is ready to meet with patient, CM will meet with patient at a later time. Town of Residence: [place] Resides with: Alone Significant Other/Family: Local Instrumental Activities of Daily Living (ADLs): Independent Medications Medication Management: No Issues/Barriers identified Physical Functioning/Mobility Assistive Device: None Advance Directives Advance Directives: Do you have an Advance Directive: N 03/07/15 10:12 AD On File at [facility]: N 12/01/12 08:27 Date Asked 08/06/24 08/06/24 10:00 AD Date Reviewed COLST On File at [facility] COLST Date Scanned Code Status Resuscitation Status Full Code Insurance Coverage/Financial Issues Insurance: [facility] Health Plans ([facility] Only) Care Team Visit Care Team Role Provider Type Annette Moreno DO Primary Care Provider OSTEOPATHIC DOCTOR Tad Reid MD Emergency Provider [facility] STAFF PHYSICIAN Long Contreras Admit Provider [facility] STAFF PHYSICIAN Attending Provider Discharge Potential Discharge Needs: PCP F/U Appt Anticipated Barriers to Discharge: Medical Status Patient/Family Education Needs: Review discharge instructions, discuss Ask Me Three Transportation: Private vehicle Plan: Long is being closely monitored and treated for CAP/CHF. Anticipate pt will return home with no new services when medically ready. Does not have home O2 at baseline. Pt will follow up with community providers and discharge plan of care. CM will follow. PFSH All Active Problems (Updated 08/07/24 @ 14:38 by Miriam Delaney RN) Spinal stenosis, lumbar region with neurogenic claudication (Acute ~07/30/24) [facility] Ctr Pain/Spine-note from 07/30/24.HE Acute HFrEF (heart failure with reduced ejection fraction) (Acute ~07/26/24) [facility] Cardiology note from 07/26/24 visit.HE Bilateral carotid artery occlusion (Acute ~07/17/24) [facility] Vascular Surg. note from 07/17/24.HE Abnormal involuntary movements (Acute) Community acquired pneumonia (Acute) Liver dysfunction (Acute) Chronic kidney disease (Chronic) Right upper lobe pulmonary infiltrate (Acute) Thrombocytopenia (Chronic) Anemia (Chronic) Acute CHF (congestive heart failure) (Acute) Disability affecting daily living (Acute) Lumbosacral stenosis with neurogenic claudication (Acute) per [facility] tele consult & 06/05/24 MRI Radiculopathy due to disorder of intervertebral disc of lumbar spine (Acute) Pancytopenia (Acute) 02/17/24 f/u [facility] Hem/Onc At risk for stroke (Acute) New AFib: CHAD2 12/16.. [id number] 02/18 .. so, med-high risk (9.7% stroke risk; 13.6% TIA risk).. Atrial fibrillation, new onset (Acute) Asymptomatic, just took medications.. some improvement in HR while resting [allowing meds to act? ik) in exam room, 12/23/23. Thrombocytopenia (Chronic) Acute, with Hx chronic ITP .. new pathology? or active ITP? or hepatic dz? Atherosclerosis of [place] coronary artery of [place] heart without angina pectoris (Acute 10/24/09) stent 2009; re-occluded stented 11/2015 along with second site Cx.; dual platelet rx until 12/2016-06/2018; Dr. Mcnulty; [facility] 07/30/16 neg for ischemia, EF 51% (< AFTER 2021 stenting?) Cirrhosis of liver without ascites (Acute) Heart failure with reduced ejection fraction (Acute) EF 33% (11/11/23) .. 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 Rt Calf, resolves w/in minutes of rest Other specified nonscarring hair loss (Acute) LE, b/l (no problem, but notable to pt who is wondering) .. 2' PAD? ik, 03/2023 [ ] MEET Pulmonary fibrosis (Acute) Emphysema lung (Acute) Restrictive lung disease (Acute) Chronic ITP (idiopathic thrombocytopenia) (Chronic 07/25/17) Per rvw of Heme consult of 07/2019: RTC if pltlts<70,000, 12/17/23, ik...Heme consult Dr. Nolen 07/2017, likely slowly progressive chronic going back to 2006; re-consult if drops below 50,000 Hypertension (Chronic 12/11/00) avoid hypotension due to cerebral vascular disease; cardilogy: Dr Camara; goal 130-140 systolic, sens to thiazide Hyperlipidemia (Chronic 11/10/02) goal LDL 70 or best able Sensorineural hearing loss, bilateral (Chronic 06/24/14) R hearing aid 07/2014 Splenomegaly (Chronic 08/02/17) 14 cm on US 06/2017; ? due to chronic ITP Cervical radiculitis (Chronic) Osteoarthritis of lower back (Acute 12/11/01) Macrocytic anemia (Acute) Chronic low back pain (Chronic) Acute episodes, . Mild DJD on LS film 04/2014; Hx daily Aleve. Hepatic steatosis (Chronic) Abdominal US in 2016 Muscle spasm (Acute) Acute ... improves with PT, but re-spasms .. Need rest, anti-inflamm then abd/core mm strengthening. Possible PSOAS (?) Hx of atherosclerotic cardiovascular disease (Acute) Stents Patent per Cath, 02/2022 (Dr. Camara, [facility]). Stents placed, 2009 .. re-occluded, stented 11/2015 along with second site Cx.; dual platelet Rx 12/2016-06/2018; Dr. Mcnulty; [facility] 07/30/16 neg for ischemia, EF 51% COPD (chronic obstructive pulmonary disease) (Chronic) NEG COPD per pt rpt s/p Pulm OV, 03/2023. Per CT (2016), Hx smoking. Weight gain (Acute) 15 lbs per chart, no diet change per pt Anemia (Chronic) Low HGB. Hx Macrocytic anemia, B12 WNL ().. [ ] iron suppl, po review Compression fracture of L2 lumbar vertebra (Acute) per MRI (03/08/22), w/ acute/subacute signal. Fx lines extend towards pedicles..20% ht loss..intraosseous edema.. Spinal stenosis at L4-L5 level (Acute) per MRI (03/08/22). .. moderate ctl canal stenosis .. disc protrusion caudally, 5mm behind L5.. MRI LSpine 04/2022 no nerve compressin or central stenosis Sacroiliac joint dysfunction of left side (Acute) Hyponatremia (Chronic) CHRONIC? Asymptomatic, 08/05/22 Lung nodule seen on imaging study (Acute) Per 10/19/22 CTA: Neg PE. (+) pleural base nodule, RML, 4mm.. & sessile pleural plaque (RUL) measuring 1 cm x 0.3 cm. Pleuritic chest pain (Acute) Pleural plaque (Acute) Medical History Hx of arterial ischemic stroke 2006, cerebral infarction Hemoptysis COVID-30 March 2022, home test Tenderness of back Prominent mm; lft paraspinal tenderness (L2-L4), rad into left buttock Left buttock pain Helped focus on SI Joint vs lower bk. Feeling great, 09/2022. Absent breath sounds on left side of chest much lower than rt base .. seems new.. Left-sided back pain Acute on chronic .. barely walking, tenderness out of proportion .. Carcinoma in situ, unspecified 11/28/2019 [facility] Derm: squamous cell left forearm with biopsy and destroyed by curettage and electrodesiccation. Cerebral artery occlusion with cerebral infarction (01/13/07) Convulsions (01/25/08) Pt. denies Abnormal findings on diagnostic imaging of lung (11/25/06) Old notes, CXR since then show cardiomegaly, possible atelectasis or scarring.. nothing acute. Carpal tunnel syndrome (07/05/11) Headache (08/01/09) Sudden hearing loss (12/15/12) assoc with CVA?? 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 Camara [facility] Coronary Stent (12/11/15) LAD POBA for in-stent restenosis, November 2015 AND left circumflex 3-mm drug-eluting stent, November 2015, Dr Camara Appendectomy 2006 Family History Father , Pneumonia at age 68. Tobacco use disorder Pneumonia Other Heart disease Stroke Social History (Updated 08/06/24 @ 15:39 by Long Contreras) Smoking/Tobacco Use Status: Former Tobacco Use Quit Date: 09/12/02 Tobacco: How many years used: 15 Second Hand Exposure: Yes Smoking risk assessment performed?: Yes Alcohol Intake: current Alcohol Intake frequency: 0-2 drinks per day Alcohol type: hard liquor Drug use: Never Substance use type: does not use Adopted: No Foster care: No Household members: spouse and family Housing: house Number of Children: 2 number of grandchildren: 3 Communication Needs: Hard of Hearing and Corrective Lenses Education Level: high school Do you need help understanding health information?: Never current occupation: [employer] Pets and animals: No Do you think of yourself as: straight/heterosexual Current gender identity: male What is your relationship status?: How often do you get together with friends or relatives?: once per week Panel score (0-1 are the most socially isolated patients): 1 What type of physical activity do you participate in: other Details: active lifestyle- Duration: 15-30 minutes/day Frequency: daily Shannan/Oriental Orthodox: Yazidi Seatbelt use: sometimes Drive intox or ride w/intox test driver: No Do you feel safe at home: Yes Do you feel safe in your relationship?: Yes Additional Social history: 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 works at [employer]. SDOH(Care Management) Screening Will the Patient Participate in the Screening?: Yes Do you worry about having a steady place to live?: no Problems where you live: no known problems In the past 12 months, have you had to go without electric, gas, oil or water in your home?: no Have you or anyone in your house had to go without enough food to eat?: no Has lack of transportation kept you from medical appointments or from doing things needed for daily living?: no Has anyone in your support network made you feel unsafe for any reason?: no
[2024-08-07] MEDS: oxyCODONE 5 MG TAB PO (10:24)
[2024-08-07] MEDS: Aspirin 81 MG CHEW PO (11:19)
[2024-08-07] MEDS: Furosemide 100 MG/10 ML VIAL 80 MG IVP ×2 (11:20→18:30)
[2024-08-07] MEDS: Potassium Chloride 20 MEQ TABCR 40 MEQ PO (11:20)
[2024-08-07] MEDS: cefTRIAXone 1 GM/50 ML BAG IVPB (12:07)
--- NOTE | 2024-08-07 13:44 | DI.US_ITS ---
APPROVED REPORT EXAM: Comprehensive 2D, Doppler, and color-flow Echocardiogram Patient Location: In-Patient Habilitation Training Specialist: Lisa Davenport RDCS (AE) Indications: CHF, SOB Other Information Study Quality: Adequate Conclusion Normal left ventricular wall thickness and chamber size. Ejection fraction is 42%. The anteroapical segment is akinetic. The remainder of the ventricle is hypokinetic Normal right ventricular size and function Mildly dilated left atrium. Right atrial size is normal Aortic valve is calcified with mild regurgitation. There is no hemodynamically significant aortic st enosis Normal mitral valve with mild regurgitation Estimated right ventricular systolic pressure is 37 mmHg Compared to an echocardiogram from November 2023, LV function is similar. Right ventricular systolic pr essure has decreased Wall motion Left Ventricle The left ventricle is normal size. Left ventricular systolic function is mild to moderately decreased . There is normal left ventricular wall thickness. Anteroapical segment is akinetic. Remainder is hyp ocontractile There is no ventricular septal defect visualized. LVEF is 42%. Right Ventricle The right ventricle is normal size. Right ventricle is mildly hypokinetic. Atria Mildly dilated left atrium The right atrium size is normal. The interatrial septum is intact with no evidence for an atrial septal defect. Aortic Valve Aortic valve is calcified. No hemodynamically significant valvular aortic stenosis. Mild aortic regur gitation. Mitral Valve The mitral valve is normal in structure. No evidence of mitral valve stenosis. Mild mitral regurgitat ion. Tricuspid Valve The tricuspid valve is normal in structure. There is no tricuspid valve stenosis. Mild tricuspid regu rgitation. The RVSP is 36.9mmHg. Pulmonic Valve The pulmonary valve is normal in structure. There is no pulmonic valvular stenosis. There is no pulmo nilson valvular regurgitation. Great Vessels The aortic root is normal in size. The ascending aorta is normal in size. Aortic arch is not well vis ualized. IVC is normal in size and collapses >50% with inspiration. Pericardium There is no pericardial effusion. 2D Dimensions IVSD d PLAX 1.12 cm M: 0.6-1.2 Ao Root d 3.30 cm M: 3.1 - 3.7 LVPW d PLAX 1.10 cm M: 0.6 - 1.2 Ao Asc Diam d 3.48 cm M: 2.6 - 3.4 LVID d PLAX 4.82 cm M: 4.2 - 5.8 LVDs 3.82 cm M: 2.5 - 4.0 LV EF Teichholz 42.4 % FS 20.85 % LV EDV (Teich) 108.6 mL LV ESV (Teich) 62.6 mL M-Mode TAPSE 2.28 cm (M/F) >1.7 Auto EF LV EDV A4C 156.5 mL LV EDV A2C 150.6 mL LV EDV BP 152.2 mL LV ESV A4C 91.2 mL LV ESV A2C 87.5 mL LV ESV BP 89.0 mL LVEF(%) A4C 41.7 % LVEF(%) A2C 41.9 % LVEF(%) BP 41.5 % LV SV A4C 65.3 ml LV SV A2C 63.0 ml LV SV BP 63.2 ml LV CO A4C 4.7 L/min LV CO A2C 4.7 L/min LV CO BP 4.7 L/min HR A4C 72.73 BPM HR A2C 74.54 BPM LV EDV Index (BP) LA Volume LA Length A4C 5.0 cm LA Length A2C 4.9 cm LA Area A4C s 18.23 cm2 LA Area A2C s 19.07 cm2 LA Vol A4C A-L 55.94 mL LA Vol A2C A-L 63.55 mL LA Vol Biplane A-L 60.7 mL LA Vol/BSA A4C A-L LA Vol/BSA A2C A-L LA Vol/BSA BP A-L 29.3 mL/m2 LA Vol A4C MOD 52.0 mL LA Vol A2C MOD 57.3 mL LA Vol BP MOD 55.5 mL RA Volume RA Area A4C 14.9 cm2 RA ESV A4C (A-L) 39.3mL RA Vol/BSA A4C A-L RA Length A4C 4.8 cm RA ESV A4C (MOD) 36.9mL LV Diastology MV E' medial 0.046 (>0.07 m/s) MV E Vmax 0.81 (0.4-1.3 m/s) MV E/E' MED 17.37 (<14) MV A Vmax 0.95 (0.4-1.3 m/s) MV E' lateral 0.082 (>0.1 m/s) E/A Ratio 0.9 MV E/E' LAT 9.81 (<14) MV E' Average 0.064 m/s MV E/E'(average) 12.54 Aortic Valve AoV Vmax 1.99 m/s LVOT Vmax 1.10 m/s AoV Peak Grad 39.9 mmHg LVOT Peak Grad 4.8 mmHg AoV Area (Vmax) 1.86 cm2 LVOT VTI 0.249 m AoV VTI 0.397 m LVOT Mean Grad 2.7 mmHg AoV Mean Dejuan. 1.35 m/s LVOT SV 83.86 mL AoV Mean Grad 8.1 mmHg LVOT Diam s 2.05 cm AoV Area (VTI) 2.11 cm2 AV Regurg Peak Gr. 15.76 mmHg Velocity Ratio 0.55 AR Decel Carroll 2.4m/sec2 AR DT 1642 msec AR PHT 476 msec AR Vmax 4.00 m/s Mitral Valve MV DT 164 (160-240 msec) MV Vmax TIPS 0.92 m/s MV Mean Grad 1.8 (<2mmHg) MV VTI 0.319 m Pulmonary Valve PV Vmax 1.03 (0.5-1.5 m/s) RVOT Vmax 0.68 m/s PV Peak Grad 4.2 mmHg RVOT Peak Gr. 1.9 mmHg PV Mean Dejuan 0.72 m/s RVOT VTI 0.168 m PV Mean Grad 2.4 mmHg RVOT Mean Gr. 1.1 mmHg Tricuspid Valve RA Pressure 3.00 mmHg TR Vmax 2.91 m/s TV S' 0.18 m/s TR Peak Grad 33.9 mmHg RVSP (TR) 36.9 mmHg
--- NOTE | 2024-08-07 14:41 | W.PM.PROGNOT ---
Date of Service Date of service: 08/07/24 Time of Service: 14:41 Assessment and Plan Assessment and plan (1) Acute CHF (congestive heart failure): Status: Acute Assessment and plan: Causing hypoxic respirotory failure, associated with stopping his torsemide Weight down 2.7kg, fluid negative 2 liters since admission. Continue 80mg IV furosemide BID H/o ischemic heart disease with HFrEF with LVEF around 30% in December of 2023, imrpoved to 42% on repeat echo He on beta vero and ARB (holding now due to orthostasis) but not SGLT2i or MRA Will trial on SLGT2i as would help CHF and CKD. Qualifiers: Heart failure type: systolic Qualified Code(s): I50.21 - Acute systolic (congestive) heart failure (2) Community acquired pneumonia: Status: Acute Assessment and plan: This may be contributing with new cough/sputum and infiltrate on CT. Covering with ceftriaxone/azithro sputum culture ordered Qualifiers: Laterality: right Lung location: upper lobe of lung Qualified Code(s): J18.9 - Pneumonia, unspecified organism (3) Hx of atherosclerotic cardiovascular disease: Status: Acute Assessment and plan: Continue aspirin and high intensity statin. No chest pain. EKG/troponins reassuring on admission. (4) Hypertension: Status: Chronic Assessment and plan: BP lower today. holding losartan, continue metoprolol as also rate control. Continue holding for now, but I would like to resume losartan at low dose before discharge if not getting orthstasis. Qualifiers: Hypertension type: primary hypertension Qualified Code(s): I10 - Essential (primary) hypertension (5) PAD (peripheral artery disease): Status: Acute Assessment and plan: Continue ASA, DOAC, statin. (6) Atrial fibrillation, new onset: Status: Acute Assessment and plan: Metoprolol for rate control, continues in sinus (was cardioverted earlier this year at ). On Pradaxa, continue. 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 CT earlier this year showed cirrhosis, h/o large spleen, I wonder if this hasn't been the cause all along. (8) Liver dysfunction: Status: Acute Assessment and plan: Acute on chronic, likely a/w heaptic congestion He does have cirrhosis seen on contrast CT in May of 2024. Diagnosis added to his list in December 2023 but not clearly documented in notes. He was not aware of this until told on admission. I recommended he no drink alcohol. Avoid acetaminophen doses above 2g/day. (9) Abnormal involuntary movements: Status: Acute Assessment and plan: Per this started after stroke. He is on tramadol, which may make this worse, though no better on oxycode. Ca++ low, may simply be hypoalbuminemia related but will get ionized to confirm this isn't contributing. With cirrhosis [place] could be considered. This presents in early middle age but he has had movements since he was younger and cirrhosis for who knows how long so reasonable to check. (10) Chronic kidney disease: Status: Chronic Assessment and plan: Near recent baseline between stage 3a and 3b. Continue to monitor. Possibly contributing to anemia? Qualifiers: Chronic kidney disease stage 3 subtype: unspecified whether 3a or 3b (11) Anemia: Status: Chronic Assessment and plan: H/h similar to the last few months, anemia may be contributing to CHF symptoms. Sees hematology. No clear blood loss. Monitor. Last iron studies in November, repeat with labs Qualifiers: Anemia type: unspecified type Qualified Code(s): D64.9 - Anemia, unspecified Subjective Subjective Patient reports: feels better, tolerating a regular diet and voiding w/o difficulty; denies blood in stool, nausea, vomiting or fever Interval history since last seen: He is feeling better in terms of breathing. Still more SOB than normal. Feels like less swollen. He would like to go home. Still has jerky movements, states he has had this since he was young. He also admits he used to take large amounts of acetaminophen when he was young like 8-10 at a time. Exam Narrative Exam Narrative: GEN: Alert and oriented x 4, pleasant and cooperative, gives linear history. No acute distress at rest. LUNGS: Rales at bases bilaterally, no wheezes, no distress at rest. CV: distant, RRR with no murmurs, gallops, or rubs. ABD: active bowel sounds, soft, nontender and nondistended. EXT: no cyanosis, clubbing. Warm. trace to 1+ aleida edema to shins NEURO: irregular twitching/jerking movements of extremities, no tremor or asterixis. Objective Last Vital Signs Temp 36.6 C 08/07/24 12:43 Pulse 83 08/07/24 12:43 Resp 16 08/07/24 12:43 BP 93/61 L 08/07/24 12:43 Pulse Ox 93 08/07/24 12:43 Laboratory Results - last 24 hr 08/07/24 05:49 WBC 2.77 L RBC 2.68 L Hgb 9.4 L Hct 29.5 L MCV 110 H MCH 35.1 H MCHC 31.9 L RDW 15.8 H Plt Count 67 L MPV 10.4 Immature Gran % 0.4 Neutrophils % 72.6 Lymphocytes % 17.3 Monocytes % 7.9 Eosinophils % 1.1 Basophils % 0.7 Nucleated RBC % 0.0 Absolute Neutrophils 2.01 Absolute Lymphocytes 0.48 L Absolute Monocytes 0.22 Absolute Eosinophils 0.03 Absolute Basophils 0.02 RBC Morphology See Below Macrocytosis 2+ Sodium 135 L Potassium 3.4 L D Chloride 102 Carbon Dioxide 25.7 Anion Gap 7.3 BUN 21 H Creatinine 1.8 H Est GFR (CKD-EPI 2020) 39.99 Glucose 79 Calcium 8.1 L Magnesium 2.1 Total Bilirubin 1.55 H AST 116 H ALT 47 Alkaline Phosphatase 581 H Total Protein 6.3 L Albumin 1.9 L PAWSS Have you Been Recently Intoxicated or Drunk Within the Last 30 days?: No Have you Ever Experienced Previous Episodes of Alcohol Withdrawal?: No Have you ever Experienced Withdrawal Seizures?: No Have you ever Experienced Delirium Tremens(DT)s?: No Have you ever undergone Alcohol Rehabilitation Treatment (i.e, inpt ot outpatient treatment programs)?: No Have you ever Experienced Blackouts?: No Have you ever Combined Alcohol with other Downers within the last 90 days?: No Have you ever Combined Alcohol with any other Substance of Abuse during the last 90 days?: No Positive Blood Alcohol level on Presentation? [PCS.BAL]: No Evidence of Increased Autonomic Activity (i.e. HR>120, tremor, sweating, agitation, nausea)?: No Result: 0 Time Spent with Patient Time Spent with Patient: 35-49 minutes Time was spent: preparing to see the patient(eg.review tests), obtaining and/or reviewing separately [facility], ordering medications,tests, procedures, referring, communicating with other health adult care provider, indepentently interpreting results, counseling the patient and care coordination
[2024-08-07] MEDS: AZITHROMYCIN 500 MG in Normal Saline 250 ML 250 MG IVPB (16:24)
[2024-08-07 17:08] LABS: Ionized Calcium 1.07 mmol/L (1.14-1.35)
[2024-08-07] MEDS: Empaglifozin 10 MG TAB PO (17:21)
[2024-08-07] MEDS: Doxycycline Hyclate 100 MG CAP PO ×2 (18:30→20:51)
[2024-08-07] MEDS: Benzonatate 100 MG CAP PO (20:51)
[2024-08-07] MEDS: Potassium Chloride 20 MEQ TABCR PO (20:51)
[2024-08-07] MEDS: Metoprolol CR 100 MG TABCR 200 MG PO (20:51)
[2024-08-07] MEDS: Melatonin 3 MG TAB 6 MG PO (21:51)
[2024-08-08 03:38] VITALS: BP 132/69; PULSE 78; RESP 18; TEMP 36.8; O2SAT 93
[2024-08-08 06:52] LABS: HCT 29.1 % (40.0-50.0); HGB 9.6 g/dL (13.5-17.5); MCH 35.3 pg (27.0-33.0); MCV 107 fL (80-95); MPV 10.4 fL (8.0-11.0); RBC 2.72 10^6/uL (4.36-5.78); RDW-SD 63.2 fL; WBC 2.66 10^3/uL (4.4-10.8)
[2024-08-08 07:02] LABS: Anion Gap 7.9 mmol/L (3-11); BUN 25 mg/dL (7-18); CO2 25.1 mmol/L (21.0-32.0); CREATININE 2.1 mg/dL (0.70-1.30); Calcium 8.3 mg/dL (8.5-10.1); Chloride 100 mmol/L (98-107); Estimated GFR 33.24 (mL/min/1.73m2); Glucose 90 mg/dL (74-106); Potassium 3.4 mmol/L (3.5-5.1); Sodium 133 mmol/L (136-145)
[2024-08-08 07:32] LABS: Platelet Count 62 10^3/uL (130-400)
[2024-08-08] MEDS: Doxycycline Hyclate 100 MG CAP PO (07:35)
[2024-08-08] MEDS: Potassium Chloride 20 MEQ TABCR PO (07:35)
[2024-08-08] MEDS: Pantoprazole 20 MG TABCR PO (07:36)
[2024-08-08] MEDS: Vitamins B Comp w/C TAB 1 TAB PO (07:36)
[2024-08-08] MEDS: Rosuvastatin 20 MG TAB PO (07:36)
[2024-08-08] MEDS: Aspirin 81 MG CHEW PO (07:36)
[2024-08-08] MEDS: Furosemide 100 MG/10 ML VIAL 80 MG IVP (07:36)
[2024-08-08] MEDS: Normal Saline Flush 10 ML SYR IVP ×2 (07:37→12:20)
[2024-08-08 07:39] VITALS: BP 128/64; PULSE 89; RESP 18; TEMP 36.5; O2SAT 94
[2024-08-08 08:01] LABS: Iron 37 ug/dL (65-175); Total Iron Binding Capacity 221 ug/dL (250-450); Transferrin Sat 17 % (20-55)
[2024-08-08 08:05] VITALS: O2SAT 96
[2024-08-08] MEDS: Budesonide/Formoterol 80/4.5 6.9 GM 60 PUFF INH IH (08:05)
[2024-08-08] MEDS: Tiotropium Bromide-Respimat 10 PUFF INH 2 PUFF IH (08:05)
[2024-08-08 08:09] VITALS: O2SAT 94
[2024-08-08] MEDS: Empaglifozin 10 MG TAB PO (08:54)
[2024-08-08 11:43] VITALS: BP 112/69; BP 70/59; BP 92/77; PULSE 124; PULSE 84; PULSE 98
[2024-08-08 11:54] VITALS: PULSE 90; RESP 18; TEMP 36.5; O2SAT 92
--- NOTE | 2024-08-08 12:07 | PDOC.CMDIS ---
Date of service: 08/08/24 Time of Service: 12:07 LACE Index Scoring Tool Questions: Length of Stay (in days): 2 Was the patient admitted via the E.D.?: Yes Comorbidities: Congestive Heart Failure, Chronic Pulmonary Disease (Emplysemia) and Liver or Renal Disease E.D. Visits: 2 Answers: Total Score: 12 Risk of Readmission: High Risk Care Management Discharge Plan Reason for Hospitalization: CAP/CHF Discharge Plan: Discharge home via private vehicle with family. Follow up with community providers and discharge plan of care as recommended. No new services are ordered prior to this discharge. Patient/Family Education Needs: Review discharge instructions, limitations, medications and plan to follow up with community providers. SDOH Health Related Social Needs: No Data to Display
[2024-08-08] MEDS: cefTRIAXone 1 GM/50 ML BAG IVPB (12:19)
--- NOTE | 2024-08-08 12:36 | W.PM.DS.N ---
Date of service: 08/08/24 Time of Service: 12:36 DS: Diagnosis Discharge Diagnosis (1) Acute CHF (congestive heart failure): Status: Acute (2) Community acquired pneumonia: Status: Acute (3) Hx of atherosclerotic cardiovascular disease: Status: Acute (4) Hypertension: Status: Chronic (5) PAD (peripheral artery disease): Status: Acute (6) Atrial fibrillation, new onset: Status: Acute (7) Thrombocytopenia: Status: Chronic (8) Liver dysfunction: Status: Acute (9) Abnormal involuntary movements: Status: Acute (10) Chronic kidney disease: Status: Chronic (11) Anemia: Status: Chronic Discharge Plan Disposition Patient Disposition: Home Condition: Fair Discharge Details Reason For Visit: Community acquired pneumonia, CHF Admit Date/Time: 08/06/24 13:08 Admit Provider: Long Contreras Attending Provider: Long Contreras [facility] Course: 69 yo M with history of CAD and HFrEF, h/o CVA a/w bilateral carotid occlusion, PAD, CKD3, pAfib s/p cardioversion, and chronic pancytopenia presented with 2 weeks of increased SOB and leg edema and 2 days of cough and sputum production. He had stopped his torsemide at the advise of his rn critical care prior to symptom onset due to dizziness and orthostatic hypotension during his last cardiology visit. ED evaluation was significant for basilar rales on lung exam, LE edema, hypoxia requiring 2 liters NC, BNaP of 8340, troponins 37-46 without at trend, and CTA that was negative for PE but positive for RUL infilitrate and small pleural effusions. He was admitted and given IV furosemide 80mg BID and treated for community acquired pneumonia with ceftriaxone and azithromycin. He was not wheezy. He used his trelegy inhaler (per pulm should be Trelegy OR Breztri) but not given steroids. He was orthostatic on admission. He was still orthostatic per vital signs on discharge, though his lightheadedness improved with diuresis. His losartan was held, but his metoprolol was continued due to history of atrial fibrillation and HFrEF. His orthostasis may be related to his bilateral carotid stenosis. He should follow up with cardiology and PCP to establish a clear goal blood pressure. Echocardiogram showed LVEF of 42%, which was an imrpovement since his last one in November. He was given empaglaflozin 10mg to treat the heart failure and CKD risk. He diuresed over the first 2 days and his weight weight down 3kg and was 3L fluid negative. He was discharged on his previous dose of torsemide and should have follow up BMP in the next week. Mg was normal. His cough improved. He was getting some facial fullness and blurred with azithromycin infusion and this was stopped 08/07 and replaced with doxycycline. He was sent home with 3 more days of amox/clav and doxycycine to finish a 5 day course. Worse elevation of AST/ALT and alk phos was noted on admission, which was felt to be related to hepatic congestion on top of baseline liver dysfunction. Note was made of CT angiogram of abdomen and pelvis from May that showed a cirrhotic liver. His labs are consistent with cirrhosis, though this is complicated by possible ITP vs MDS per hematology. He was told he likely has cirrhosis, he should have a fibroscan to clarify and likely a hepatology consult. He was cautioned to avoid alcohol and NSAIDs completely and limit acetaminophen to 2 grams a day. He was noted to have frequent irregular jerky involuntary movements, which he reports is chronic. Tramadol was held and pain treated with oxycodone prn, but this didn't help so he was discharged back on his tramadol. His calcium was low, which can cause nerve hyperactivity. His albumin was also, but given unreliable nature of corrected calcium, ionized calcium was sent and did confirm low calcium. He did have a recent normal vitamin D level this year, and was given a supplement of calcium and vitamin D. He should have full renal labs with PTH and phosphorus as an outpatient. Because of the chronic abnormal movements he has had since he was younger and cirrhosis of uncertain etiology, ceruloplasm was sent. If this is low, he should have a 24 hour urine copper. His eye doctor should also check him for Latoya Jasbir rings. Home Meds and New Rx's Prescriptions: New acetaminophen 325 mg Tablet 650 mg PO Q4H PRN PRN (Reason: fever or pain) Qty: 0 0RF Rx Instructions: max dose 2000mg per day doxycycline hyclate 100 mg Capsule 100 mg PO BID 3 Days Qty: 6 0RF potassium chloride [Klor-Con M20] 20 mEq Tablet,Er Particles/Crystals 20 meq PO DAILY Qty: 30 0RF Jardiance 10 mg Tablet 10 mg PO QAM Qty: 30 0RF calcium carbonate-vitamin D3 [Calcium 500 With D] 500 mg-10 mcg (400 unit) tablet 1 tab PO BID Qty: 60 3RF amoxicillin-pot clavulanate 875-125 mg tablet 1 tab PO BID 3 Days Qty: 6 0RF Continued rosuvastatin 20 mg tablet 20 mg PO DAILY Qty: 90 3RF metoprolol succinate [Toprol XL] 200 mg tablet extended release 24 hr 200 mg PO HS Rx Instructions: Continue w/ increase of 200mg per Card 12/2021 [place] [place] nitroglycerin 0.4 mg tablet, sublingual 0.4 mg Sublingual PRN Qty: 25 3RF Rx Instructions: for chest pain. tramadol 50 mg tablet 50 mg PO DAILY PRN (Reason: severe back pain or claudication pain) Qty: 30 2RF Rx Instructions: Increased to daily use while awaiting evaluation vitamin B complex [B Complex-Vitamin B12] 1 cap PO .qd Patient Comments: Pt reports he is no longer taking 08/02/19 TR aspirin 81 mg tablet,chewable 81 mg PO DAILY Qty: 90 3RF Rx Instructions: As best dispensed (OTC vs Rx?) Combivent Respimat 20-100 mcg/actuation mist 1 puff inhalation Q6H PRN (Reason: chest congestion; cold symptoms) Qty: 4 6RF Rx Instructions: Trial in the morning (with spacer) to help clear phlegm benzonatate 100 mg capsule 100 mg PO TID PRN (Reason: cough) Qty: 90 6RF Trelegy Ellipta 100-62.5-25 mcg blister with device 1 inh inhalation DAILY Qty: 60 11RF pantoprazole 20 mg tablet,delayed release (DR/EC) 20 mg PO DAILY Qty: 90 3RF Rx Instructions: Continue with lower dose PPI 2' malabsorption risks dabigatran etexilate 150 mg capsule 150 mg PO BID torsemide 20 mg tablet 20 mg PO ONCE PRN (Reason: once every other day) Qty: 30 0RF Discontinued sildenafil [Viagra] 50 mg tablet 50 mg PO DAILY PRN (Reason: sexual activity) 10 Days Qty: 10 6RF Patient Comments: pt states he doesn't take this anymore Rx Instructions: as directed for erectile dysfunction acetaminophen [Tylenol Extra Strength] 500 MG tablet 1,000 mg PO PRN PRN Patient Comments: Pt reports taking 1500mg Acetaminophen TID, MD made aware of Pt exceeding recommended dosage. TR 08/02/19. Hyacinthi Aerosphere 160-9-4.8 mcg/actuation HFA aerosol inhaler 2 inh inhalation BID Qty: 10.7 12RF losartan 50 mg tablet 50 mg PO DAILY Patient Comments: Increased Per [facility] Cardio note 10/18/23 Dr. Moreno.HE Discharge Instructions Instructions: Heart Failure, Adult (DC) Additional Instructions: You should resume the water pill torsemide 20mg per day to keep the fluid off. You should weight yourself daily and call you doctor if the weight is up by more than 3lbs is a day or 5 lbs in a week. Your calcium is low, which can make your nerves more shakey. You should take a calcium/vitamin D supplement twice daily You should not take the losartan for now due to blood pressure dropping when standing. We did prescribed a new medication Jardiance (empagliflozin). This should help your heart and kidneys. This makes there be sugar in your urine, so be careful with hygeine. You have liver scarring and abnormal liver function. You should totally avoid alcohol and ibuprofen. You should not take more than 2000mg of acetaminophen (Tyelenol) per day. You should take 3 more days of the two antibiotics to finish treatment of your pneumonia. Activity:: Activity as Tolerated Equipment/Supplies:: No Equipment Needed Diet:: Low Sodium Discharge Orders Discharge Orders: Discharge Order (Routine); Ordered 08/08/24 Ordered By: Long Contreras DS: Summary Time Spent with Patient providing and/or coordinating discharge services: Greater than 30 minutes Status at Discharge Functional status at discharge: independent ambulation Overall status at discharge: patient is back to baseline Mental Status: mental status grossly normal Speech and Movement: speech and movement normal (twitches) Mood: congruent mood Affect: normal affect Quality:SDOH Health Related Social Needs: No Data to Display Exam Narrative Exam Narrative: GEN: Alert and oriented x 4, pleasant and cooperative, gives linear history. No acute distress at rest. LUNGS: Rales at bases bilaterally, no wheezes, no distress at rest. CV: distant, RRR with no murmurs, gallops, or rubs. ABD: active bowel sounds, soft, nontender and nondistended. EXT: no cyanosis, clubbing. Warm. trace edema to shins NEURO: irregular twitching/jerking movements of extremities, no tremor or asterixis. Psych Mental Status: mental status grossly normal Speech and Movement: speech and movement normal (twitches) Mood: congruent mood Affect: normal affect DS: Data Vitals/I&O Vitals and I&O: Vital Signs Temperature 36.5 C 08/08/24 11:54 Temperature Source Tympanic 08/08/24 11:54 Pulse 90 08/08/24 11:54 Pulse Rhythm Irregular 08/06/24 15:34 Pulse 75 08/06/24 15:00 Respiratory Rate 18 08/08/24 11:54 Respiratory Effort Short of Breath 08/06/24 15:34 Respiratory Depth Normal 08/06/24 15:34 Respiratory Pattern Normal 08/06/24 15:34 Blood Pressure 112/69 08/08/24 11:43 Blood Pressure Mean 106 08/06/24 11:16 Blood Pressure Position Supine 08/06/24 10:09 Pulse Oximetry 92 08/08/24 11:54 Oxygen Delivery Method Room Air 08/08/24 11:54 Oxygen Flow Rate 0 08/08/24 11:54 Pain Level 0 08/08/24 07:36 Comment Correction to previous vitals, he is on 1 L NC, not 2L NC 08/07/24 23:18 Intake & Output 08/07/24 08/08/24 08/08/24 23:59 11:59 23:59 Intake Total 408 / 1148 880 / 880 Output Total 1425 / 2350 725 / 725 Balance -1017 / -1202 155 / 155 Weight 84.368 kg Intake: IV 308 / 328 Oral 100 / 820 880 / 880 Output: Urine 1425 / 2350 725 / 725 Other: Urine Color Yellow Yellow Urine Appearance Clear Clear Urine Odor None Normal Stool Size Large Stool Characteristics Formed Data Completed and Pending Labs on day of discharge: Labs from last 24 hours 08/08/24 08/07/24 06:40 05:49 WBC 2.66 L RBC 2.72 L Hgb 9.6 L Hct 29.1 L MCV 107 H MCH 35.3 H MCHC 33.0 RDW 16.0 H Plt Count 62 L MPV 10.4 Sodium 133 L Potassium 3.4 L Chloride 100 Carbon Dioxide 25.1 Anion Gap 7.9 BUN 25 H Creatinine 2.1 H Est GFR (CKD-EPI 2020) 33.24 Glucose 90 Calcium 8.3 L Ionized Calcium 1.07 L Iron 37 L TIBC 221 L Transferrin % Sat 17 L Ceruloplasmin Pending Preliminary micro results at discharge 08/07/24 11:00 Sputum Culture - Preliminary Sputum Normal [place] PFSH All Active Problems (Updated 08/07/24 @ 14:38 by Miriam Delaney RN) Spinal stenosis, lumbar region with neurogenic claudication (Acute ~07/30/24) [facility] Pain/Spine-note from 07/30/24.HE Acute HFrEF (heart failure with reduced ejection fraction) (Acute ~07/26/24) [facility] [place]iology [place] from 07/26/24 visit.HE Bilateral carotid artery occlusion (Acute ~07/17/24) [facility] [place] Vascular Surg. note from 07/17/24.HE Abnormal involuntary movements (Acute) Community acquired pneumonia (Acute) Liver dysfunction (Acute) Chronic kidney disease (Chronic) Right upper lobe pulmonary infiltrate (Acute) Thrombocytopenia (Chronic) Anemia (Chronic) Acute CHF (congestive heart failure) (Acute) Disability affecting daily living (Acute) Lumbosacral stenosis with neurogenic claudication (Acute) per [facility] tele consult & 06/05/24 MRI Radiculopathy due to disorder of intervertebral disc of lumbar spine (Acute) Pancytopenia (Acute) 02/17/24 f/u Hem/Onc At risk for stroke (Acute) New AFib: CHAD2 6.. [id number] 02/18 .. so, med-high risk (9.7% stroke risk; 13.6% TIA risk).. Atrial fibrillation, new onset (Acute) Asymptomatic, just took medications.. some improvement in HR while resting [allowing meds to act? ik) in exam room, 12/23/23. Thrombocytopenia (Chronic) Acute, with Hx chronic ITP .. new pathology? or active ITP? or hepatic dz? Cirrhosis of liver without ascites (Acute) Heart failure with reduced ejection fraction (Acute) EF 33% (11/11/23) .. EF 51% post-cath (01/2022) EF 33% (12/2021) Impaired quality of life (Acute) Femoro-popliteal artery disease (Acute) Atherosclerosis of lower extremity with claudication (Acute) PAD (peripheral artery disease) (Acute) Rt LE, per MEET, [facility] (03/18/23) Diarrhea (Acute) Daily x months, managed with OTC (loperamide?) Claudication of calf muscles (Acute) Worsening, 10/2023, affecting ADLs and ability to work! Rt Calf, resolves w/in minutes of rest Other specified nonscarring hair loss (Acute) LE, b/l (no problem, but notable to pt who is wondering) .. 2' PAD? ik, 03/2023 [ ] MEET Pulmonary fibrosis (Acute) Emphysema lung (Acute) Restrictive lung disease (Acute) Pleural plaque (Acute) Pleuritic chest pain (Acute) Lung nodule seen on imaging study (Acute) Per 10/19/22 CTA: Neg PE. (+) pleural base nodule, RML, 4mm.. & sessile pleural plaque (RUL) measuring 1 cm x 0.3 cm. Hyponatremia (Chronic) CHRONIC? Asymptomatic, 08/05/22 Sacroiliac joint dysfunction of left side (Acute) Spinal stenosis at L4-L5 level (Acute) per MRI (03/08/22). .. moderate ctl canal stenosis .. disc protrusion caudally, 5mm behind L5.. MRI LSpine 04/2022 no nerve compressin or central stenosis Compression fracture of L2 lumbar vertebra (Acute) per MRI (03/08/22), w/ acute/subacute signal. Fx lines extend towards pedicles..20% ht loss..intraosseous edema.. Anemia (Chronic) Low HGB. Hx Macrocytic anemia, B12 WNL ().. [ ] iron suppl, po review Weight gain (Acute) 15 lbs per chart, no diet change per pt COPD (chronic obstructive pulmonary disease) (Chronic) NEG COPD per pt rpt s/p Pulm OV, 03/2023. Per CT (2016), Hx smoking. Hx of atherosclerotic cardiovascular disease (Acute) Stents Patent per Cath, 02/2022 (Dr. Camara, [facility] Stents placed, 2009 .. re-occluded, stented 11/2015 along with second site Cx.; dual platelet Rx 12/2016-06/2018; Dr. Mcnulty; [facility] 07/30/16 neg for ischemia, EF 51% Muscle spasm (Acute) Acute ... improves with PT, but re-spasms .. Need rest, anti-inflamm then abd/core mm strengthening. Possible PSOAS (?) Hepatic steatosis (Chronic) Abdominal US in 2016 Chronic low back pain (Chronic) Acute episodes, 2020-. Mild DJD on LS film 04/2014; Hx daily Aleve. Macrocytic anemia (Acute) Osteoarthritis of lower back (Acute 12/11/01) Cervical radiculitis (Chronic) Splenomegaly (Chronic 08/02/17) 14 cm on US 06/2017; ? due to chronic ITP Sensorineural hearing loss, bilateral (Chronic 06/24/14) R hearing aid 07/2014 Hyperlipidemia (Chronic 11/10/02) goal LDL 70 or best able Hypertension (Chronic 12/11/00) avoid hypotension due to cerebral vascular disease; cardilogy: Dr Camara; goal 130-140 systolic, sens to thiazide Chronic ITP (idiopathic thrombocytopenia) (Chronic 07/25/17) Per rvw of Heme consult of 07/2019: RTC if pltlts<70,000, 12/17/23, ik...Heme consult Dr. Nolen 07/2017, likely slowly progressive chronic going back to 2006; re-consult if drops below 50,000 Carotid artery occlusion (Acute 04/12/07) bilateral; L PARIETAL CVA Atherosclerosis of [place] coronary artery of [place] heart without angina pectoris (Acute 10/24/09) stent 2009; re-occluded stented 11/2015 along with second site Cx.; dual platelet rx until 12/2016-06/2018; Dr. Mcnulty; [facility] 07/30/16 neg for ischemia, EF 51% (< AFTER 2021 stenting?) Medical History Hx of arterial ischemic stroke 2006, cerebral infarction Hemoptysis COVID-30 March 2022, home test Tenderness of back Prominent mm; lft paraspinal tenderness (L2-L4), rad into left buttock Left buttock pain Helped focus on SI Joint vs lower bk. Feeling great, 09/2022. Absent breath sounds on left side of chest much lower than rt base .. seems new.. Left-sided back pain Acute on chronic .. barely walking, tenderness out of proportion .. Carcinoma in situ, unspecified 11/28/2019 [facility] [place]erm: squamous cell left forearm with biopsy and destroyed by curettage and electrodesiccation. Cerebral artery occlusion with cerebral infarction (01/13/07) Convulsions (01/25/08) Pt. denies Abnormal findings on diagnostic imaging of lung (11/25/06) Old notes, CXR since then show cardiomegaly, possible atelectasis or scarring.. nothing acute. Carpal tunnel syndrome (07/05/11) Headache (08/01/09) Sudden hearing loss (12/15/12) assoc with CVA?? 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 Camara [facility] Coronary Stent (12/11/15) LAD POBA for in-stent restenosis, November 2015 AND left circumflex 3-mm drug-eluting stent, November 2015, Dr Camara Appendectomy 2006 Family History Father , Pneumonia at age 68. Tobacco use disorder Pneumonia Other Heart disease Stroke Social History (Updated 08/06/24 @ 15:39 by Long Contreras) Smoking/Tobacco Use Status: Former Tobacco Use Quit Date: 09/12/02 Tobacco: How many years used: 15 Second Hand Exposure: Yes Smoking risk assessment performed?: Yes Alcohol Intake: current Alcohol Intake frequency: 0-2 drinks per day Alcohol type: hard liquor Drug use: Never Substance use type: does not use Adopted: No Foster care: No Household members: spouse and family Housing: house Number of Children: 2 number of grandchildren: 3 Communication Needs: Hard of Hearing and Corrective Lenses Education Level: high school Do you need help understanding health information?: Never current occupation: [employer] Pets and animals: No Do you think of yourself as: straight/heterosexual Current gender identity: male What is your relationship status?: How often do you get together with friends or relatives?: once per week Panel score (0-1 are the most socially isolated patients): 1 What type of physical activity do you participate in: other Details: active lifestyle- Duration: 15-30 minutes/day Frequency: daily Shannan/Taoism: Mandaeism Seatbelt use: sometimes Drive intox or ride w/intox haulpak driver: No Do you feel safe at home: Yes Do you feel safe in your relationship?: Yes Additional Social history: still works two jobs [employer] and doing [employer] for [employer]. works at [employer]. Time Spent with Patient Time Spent with Patient: 45-69 minutes Time was spent: preparing to see the patient(eg.review tests), obtaining and/or reviewing separately otained hiistory, ordering medications,tests, procedures, referring, communicating with other health ambulatory care coordinator, indepentently interpreting results, counseling the patient and care coordination
--- NOTE | 2024-08-08 13:45 | CHAPLAIN ---
Long was in bed when I visited. I explained my role and offered support. Long said he expects to be discharge around noon today. He's in touch with family and looking forward to being home.
[2024-08-10 12:45] LABS: Ceruloplasmin 34.8 mg/dL
== END 2024-08-08 13:44 | disposition home or self-care (01) | DRG 291 ==
LOC: ER 13:07 → MS 15:11
PROVIDERS: Admitting Provider Family Medicine; Emergency Provider Student in an Organized Health Care Education/Training Program; PCP Student in an Organized Health Care Education/Training Program; Visit Provider Family Medicine
DX: I13.0 Hypertensive heart and chronic kidney disease with heart failure and stage 1 through stage 4 chronic kidney disease, or unspecified chronic kidney disease (principal); I50.23 Acute on chronic systolic (congestive) heart failure; J96.01 Acute respiratory failure with hypoxia; J18.9 Pneumonia, unspecified organism; E87.1 Hypo-osmolality and hyponatremia; I48.91 Unspecified atrial fibrillation; D69.6 Thrombocytopenia, unspecified; R25.9 Unspecified abnormal involuntary movements; K74.60 Unspecified cirrhosis of liver; N18.30 Chronic kidney disease, stage 3 unspecified; M48.062 Spinal stenosis, lumbar region with neurogenic claudication; I70.211 Atherosclerosis of native arteries of extremities with intermittent claudication, right leg; J84.10 Pulmonary fibrosis, unspecified; J43.9 Emphysema, unspecified; J98.4 Other disorders of lung; M54.50 Low back pain, unspecified; G89.29 Other chronic pain; I65.23 Occlusion and stenosis of bilateral carotid arteries; D53.9 Nutritional anemia, unspecified; Z79.01 Long term (current) use of anticoagulants; Z79.02 Long term (current) use of antithrombotics/antiplatelets; Z86.73 Personal history of transient ischemic attack (TIA), and cerebral infarction without residual deficits; Z95.828 Presence of other vascular implants and grafts; Z95.5 Presence of coronary angioplasty implant and graft; Z87.891 Personal history of nicotine dependence
CPT/HCPCS: 00123; 36415; 71275; 80048; 80053; 82390; 82805; 85027; 87637; 93005; 94640; 96365; 96375; 99285; 82330; 83540; 83550; 83605; 83735; 83880; 84484; 85025; 87070; 87205; 93010; 93306; 94664; 94760; 99223; 99232; 99239; J0456; J0696; J1940; J1941; J3490

== ENCOUNTER 2024-08-30 13:46 | Outpatient (CLI) | payer OTHER, SELFPAY ==
--- NOTE | 2024-08-30 11:28 | DI.RAD_ITS ---
Exam(s) XR CHEST 2V PA LATERAL EXAM: XR CHEST 2V PA LATERAL CLINICAL HISTORY: decreased breath sounds at left lung base, R06.89-other abnormalities of TECHNIQUE: 2D digital imaging was performed of the chest. Two images were obtained. PA and lateral views were obtained. COMPARISON: CR XR CHEST 2V PA LATERAL from 12/25/2021 CR,XR XR CHEST 2V PA LATERAL from 08/30/[address] CHEST PE CTA from 08/06/2024 FINDINGS: MEDIASTINUM: Normal. HEART: Normal. PULMONARY VASCULATURE: Normal. LUNGS: There is residual right upper lobe infiltrate. It is shown improvement compared to the CT sca n of the chest from 08/06/2024. No evidence of a left lung infiltrate is seen. Chronic changes are seen in the right lung base. PLEURAL SPACE: No pleural effusion or pneumothorax. BONE:Within normal limits for the patient's age. OTHER FINDINGS:There is unchanged elevation of the left hemidiaphragm. IMPRESSION: 1. There is a small persistent residual infiltrate in the right upper lobe. This has significantly i mproved compared to the examination from 08/06/2024. 2. No left lung infiltrate. DATA REPOSITORY: RADIATION DOSE DELIVERED:
== END 2024-08-30 14:06 ==
LOC: DI 13:47
PROVIDERS: PCP Nurse Practitioner Family; Visit Provider Emergency Medicine
DX: R06.89 Other abnormalities of breathing (principal)
CPT/HCPCS: 71046

== ENCOUNTER 2024-08-31 12:44 | Outpatient (CLI) | payer OTHER, SELFPAY ==
[2024-08-31 08:23] LABS: HCT 27.8 % (40.0-50.0); HGB 8.8 g/dL (13.5-17.5); MCH 33.5 pg (27.0-33.0); MCHC 31.7 % (32.0-36.0); MPV 10.9 fL (8.0-11.0); RBC 2.63 10^6/uL (4.36-5.78); RDW-SD 58.7 fL; WBC 3.15 10^3/uL (4.4-10.8)
[2024-08-31 08:32] LABS: Platelet Count 83 10^3/uL (130-400); Prothrombin Time 13.2 sec (9.1-11.1)
[2024-08-31 08:33] LABS: MCV 106 fL (80-95)
[2024-08-31 08:34] LABS: ALT 32 U/L (16-63); AST 61 U/L (15-37); Albumin 2.6 g/dL (3.4-5.0); Alkaline Phosphatase 344 U/L (46-116); Anion Gap 8.5 mmol/L (3-11); BUN 10 mg/dL (7-18); Bilirubin, Direct 0.3 mg/dL (0.0-0.2); Bilirubin, Total 0.67 mg/dL (0.2-1.0); CO2 26.5 mmol/L (21.0-32.0); CREATININE 1.1 mg/dL (0.70-1.30); Calcium 8.7 mg/dL (8.5-10.1); Chloride 101 mmol/L (98-107); Estimated GFR 72.22 (mL/min/1.73m2); Glucose 116 mg/dL (74-106); INR 1.3 (0.9-1.1); Potassium 4.7 mmol/L (3.5-5.1); Sodium 136 mmol/L (136-145); Total Protein 7.2 g/dL (6.4-8.2)
[2024-08-31 09:01] LABS: Ferritin 54 ng/mL (26-388)
[2024-09-04 08:47] LABS: HBs Antibody, Qual Negative (See Note); HBs Antibody, Quant <3.1 mIU/mL (See Note); Hepatitis B Core Antibody Negative (Negative); Hepatitis B surface Ag Negative (Negative); Hepatitis C Ab w Rflx HCV PCR Negative (Negative)
== END 2024-08-31 12:45 | disposition home or self-care (01) ==
LOC: LBO 12:46
PROVIDERS: PCP Nurse Practitioner Family; Visit Provider Emergency Medicine
DX: I50.21 Acute systolic (congestive) heart failure (principal); R25.9 Unspecified abnormal involuntary movements; K76.89 Other specified diseases of liver; N18.9 Chronic kidney disease, unspecified; D69.6 Thrombocytopenia, unspecified; K74.60 Unspecified cirrhosis of liver
CPT/HCPCS: 36415; 80053; 80076; 85027; 86704; 86706; 86803; 87340; 82728; 85610

== ENCOUNTER 2024-09-03 08:27 | Emergency (ER) | payer OTHER, SELFPAY ==
[2024-09-03 08:32] VITALS: BP 106/63; PULSE 71; RESP 18; TEMP 35.9; O2SAT 100
--- NOTE | 2024-09-03 08:45 | DI.CT_ITS ---
Exam(s) CT HEAD WO EXAM: CT HEAD WO CLINICAL HISTORY: fall on thinners. TECHNIQUE: Imaging Protocol: Axial computed tomography images with coronal and sagittal reformatted images were created and reviewed COMPARISON: CT CT HEAD WO from 06/05/2024 FINDINGS: Ventricles and Extra axial spaces: Normal in size and morphology for the patient's age. Hemorrhage: None. Cerebral parenchyma: Large area of decreased attenuation again noted in the left parietal lobe consis tent with old infarct. No evidence of acute infarct or mass. Midline shift: None. Brainstem/Cerebellum: Normal. Calvarium: Normal. Visualized Paranasal sinuses:Clear. Mastoids: Opacification of a few bilateral mastoid air cells, unchanged from prior. Soft Tissues: Unremarkable. ORBITS: Unremarkable. PITUITARY: Not enlarged. IMPRESSION: No acute intracranial process. Old left parietal infarct. RADIATION DOSE DELIVERED: 906.94mGy.cm Total DLP DATA REPOSITORY: All CT scans at this facility are submitted to the National Radiology Data Registry (NRDR) Dose Index Registry (DIR) with the [employer] (ACR). RADIATION OPTIMIZATION: All CT scans at this facility use at least one of these dose optimization te chniques: automated exposure control; mA and/or kV adjustment per patient size (includes targeted exa ms where dose is matched to clinical indication); or iterative reconstruction.
--- NOTE | 2024-09-03 08:45 | ED.GENADUL_ITS ---
Discharge Plan Disposition Patient Disposition: Home Condition: Stable Discharge Details Clinical Impression: Fall Primary Care Provider: Gladys Jonas ED Provider: Madhav Maradiaga Home Meds and New Rx's Prescriptions: Continued rosuvastatin 20 mg tablet 20 mg PO DAILY Qty: 90 3RF nitroglycerin 0.4 mg tablet, sublingual 0.4 mg Sublingual PRN Qty: 25 3RF Rx Instructions: for chest pain. torsemide 20 mg tablet 20 mg PO ONCE PRN (Reason: once every other day) Qty: 90 3RF potassium chloride [Klor-Con M20] 20 mEq tablet,ER particles/crystals 20 meq PO DAILY Qty: 90 3RF tramadol 50 mg tablet 50 mg PO DAILY PRN (Reason: severe back pain or claudication pain) Qty: 30 2RF Rx Instructions: Increased to daily use while awaiting evaluation metoprolol succinate [Toprol XL] 200 mg tablet extended release 24 hr 200 mg PO HS Qty: 90 3RF Rx Instructions: Continue w/ increase [place] 200[place] [place] vitamin B complex [B Complex-Vitamin B12] 1 cap PO .qd Patient Comments: Pt reports he is no longer taking 08/02/19 TR aspirin 81 mg tablet,chewable 81 mg PO DAILY Qty: 90 3RF Rx Instructions: As best dispensed (OTC vs Rx?) Combivent Respimat 20-100 mcg/actuation mist 1 puff inhalation Q6H PRN (Reason: chest congestion; cold symptoms) Qty: 4 6RF Rx Instructions: Trial in the morning (with spacer) to help clear phlegm Trelegy Ellipta 100-62.5-25 mcg blister with device 1 inh inhalation DAILY Qty: 60 11RF pantoprazole 20 mg tablet,delayed release (DR/EC) 20 mg PO DAILY Qty: 90 3RF Rx Instructions: Continue with lower dose PPI 2' malabsorption risks dabigatran etexilate 150 mg capsule 150 mg PO BID acetaminophen 325 mg Tablet 650 mg PO Q4H PRN PRN (Reason: fever or pain) Qty: 0 0RF Rx Instructions: max dose 2000mg per day calcium carbonate-vitamin D3 [Calcium 500 With D] 500 mg-10 mcg (400 unit) tablet 1 tab PO BID Qty: 60 3RF No Action Jardiance 10 mg tablet 10 mg PO QAM Qty: 30 0RF Discharge Instructions Instructions: Preventing Falls ED Additional Instructions: You were seen in the emergency department for your fall at home with left knee pain, minor right finger abrasion and minor bump to the head, your CT scan shows no intracranial bleeding, your x-ray of your knee shows no acute fracture. Please obtain an [id number] Velcro or a neoprene knee brace to help support this, please ice and elevate any areas of pain frequently over the next few days and take Tylenol as needed for pain. Please return to the emergency department for any neurologic abnormality, severe increase in knee pain despite treatment, please follow-up with orthopedics for further knee pain lasting longer than 2 weeks for possible evaluation of internal knee injury Referrals: Gladys Jonas APRN [Primary Care Provider] - Discharge Data Discharge Date/Time-TO BE ENTERED AT DEPARTURE: 09/03/24 10:19 HPI General Date/Time Provider Initiated Documentation: 09/03/24 08:44 . HPI Narrative: 69 year-old male presents to ED today by POV/ambulating with his daughter with a chief complaint of fall from bottom step on a ladder, with injury to R hand, L knee, and a minor bump on the head - on blood thinners with onset just prior to arrival. Quality described as L knee pain most severe, no radiation to headache, visual changes, LOC, neck pain, numbness/tingling, endorses minor bruise to L knee. Severity is described as moderate. Palliating factors include nothing attempted yet. Provoking factors include nothing specific. Patient not anticoagulated. Related Data Home Medications ?Medication ?Instructions ?Recorded ?Confirmed vitamin B complex [B 1 cap PO .qd 04/24/19 09/03/24 Complex-Vitamin B12] aspirin 81 mg chewable tablet 81 mg PO DAILY #90 tab-caps 09/16/22 09/03/24 rosuvastatin 20 mg tablet 20 mg PO DAILY #90 tabs 11/10/23 09/03/24 fluticasone fur. 100 mcg-umeclid 1 inh inhalation DAILY #60 ea 12/05/23 09/03/24 62.5 mcg-vilant 25 mcg inhalat.powder (Trelegy Ellipta) nitroglycerin 0.4 mg sublingual 0.4 mg sublingual PRN #25 tabs 12/25/23 09/03/24 tablet ipratropium 20 mcg-albuterol 100 1 puff inhalation Q6H PRN chest 02/03/24 09/03/24 mcg/actuation mist for inhalation congestion; cold symptoms #4 grams (Combivent Respimat) pantoprazole 20 mg tablet,delayed 20 mg PO DAILY #90 tab-caps 04/20/24 09/03/24 release dabigatran etexilate 150 mg capsule 150 mg PO BID 05/28/24 09/03/24 acetaminophen 325 mg tablet 650 mg (2 x 325 mg) PO Q4H PRN PRN 08/08/24 09/03/24 fever or pain #0 tabs calcium 500 mg (as 1 tab PO BID #60 tabs 08/08/24 09/03/24 carbonate)-vitamin D3 10 mcg (400 unit) tablet (Calcium 500 With D) metoprolol succinate 200 mg 200 mg PO HS #90 tabs 08/30/24 09/03/24 tablet,extended release 24 hr (Toprol XL) potassium chloride 20 mEq 20 meq PO DAILY #90 tabs 08/30/24 09/03/24 tablet,extended release(part/cryst) (Klor-Con M) torsemide 20 mg tablet 20 mg PO ONCE PRN once every other 08/30/24 09/03/24 day #90 tabs tramadol 50 mg tablet 50 mg PO DAILY PRN severe back 08/30/24 09/03/24 pain or claudication pain #30 tabs empagliflozin 10 mg tablet 10 mg PO QAM #30 tabs 09/04/24 (Jardiance) Previous Rx's ?Medication ?Instructions ?Recorded aspirin 81 mg chewable tablet 81 mg PO DAILY #90 tab-caps 09/16/22 rosuvastatin 20 mg tablet 20 mg PO DAILY #90 tabs 11/10/23 fluticasone fur. 100 mcg-umeclid 1 inh inhalation DAILY #60 ea 12/05/23 62.5 mcg-vilant 25 mcg inhalat.powder (Trelegy Ellipta) nitroglycerin 0.4 mg sublingual 0.4 mg sublingual PRN #25 tabs 12/25/23 tablet ipratropium 20 mcg-albuterol 100 1 puff inhalation Q6H PRN chest 02/03/24 mcg/actuation mist for inhalation congestion; cold symptoms #4 grams (Combivent Respimat) pantoprazole 20 mg tablet,delayed 20 mg PO DAILY #90 tab-caps 04/20/24 release acetaminophen 325 mg tablet 650 mg (2 x 325 mg) PO Q4H PRN PRN 08/08/24 fever or pain #0 tabs calcium 500 mg (as 1 tab PO BID #60 tabs 08/08/24 carbonate)-vitamin D3 10 mcg (400 unit) tablet (Calcium 500 With D) metoprolol succinate 200 mg 200 mg PO HS #90 tabs 08/30/24 tablet,extended release 24 hr (Toprol XL) potassium chloride 20 mEq 20 meq PO DAILY #90 tabs 08/30/24 tablet,extended release(part/cryst) (Klor-Con M) torsemide 20 mg tablet 20 mg PO ONCE PRN once every other 08/30/24 day #90 tabs tramadol 50 mg tablet 50 mg PO DAILY PRN severe back 08/30/24 pain or claudication pain #30 tabs empagliflozin 10 mg tablet 10 mg PO QAM #30 tabs 09/04/24 (Jardiance) Allergies Allergy/AdvReac Type Severity Reaction Status Date / Time azithromycin AdvReac Severe Other (See Verified 09/03/24 08:46 Comment) atorvastatin AdvReac Intermediate Diarrhea Verified 09/03/24 08:46 General Stated Complaint: Fall/Non TraumaCriteria SHE: 3 Review of Systems All systems reviewed & are unremarkable except as noted in HPI and below Exam Narrative Exam Narrative: GENERAL APPEARANCE: Well-nourished, non-toxic, awake and alert, atraumatic, no acute distress. SKIN: Warm, pink, dry, minor 0.25cm abrasion to R fourth finger HEAD: Normocephalic, atraumatic- no scalp hematoma, no urena's sign, no periorbital ecchymosis, normal hair distribution for gender/age. EYES: Normal conjunctiva, no exudates on lids/lashes. ENT: Nares patent, no circumoral cyanosis, no facial swelling NECK: Supple, trachea midline, painless cervical ROM. LUNGS/CHEST: Non-labored respirations, normal A/P diameter, symmetrical expansion, no chest wall deformity HEART (CV/PV): No peripheral edema, no JVD. ABDOMEN: Soft, non-distended, no guarding. MSK: Normal ROM, no swelling/deformity to bilateral UEs or LEs, moving all extremities without weakness, no cyanosis, spine midline without tenderness, normal curvature, L knee swelling without crepitus/deformity, minor ecchymosis NEURO: Mental Status AAOx4 - alert to person, place, time, events No facial droop, no forehead involvement. Motor: No focal weakness - strength 5/5 in bilateral UEs and LEs, proximal and distal, symmetric. Sensory: sensation intact to light touch globally. Gait antalgic. PSYCH: euthymic, cooperative, pleasant, appropriate speech Course Vital Signs Vital signs: Vital Signs Temperature 35.9 C L 09/03/24 08:32 Pulse 71 09/03/24 08:32 Respiratory Rate 18 09/03/24 08:32 Blood Pressure 106/63 09/03/24 08:32 Pulse Oximetry 100 09/03/24 08:32 Temperature 35.9 C L 09/03/24 08:32 Pulse 71 09/03/24 08:32 Respiratory Rate 18 09/03/24 08:32 Blood Pressure 106/63 09/03/24 08:32 Pulse Oximetry 100 09/03/24 08:32 Oxygen Delivery Method Room Air 09/03/24 08:32 Oxygen Flow Rate 0 09/03/24 08:32 Pain Level 0 09/03/24 08:32 Medical Decision Making This dictation utilizes [id number] dictation software and may contain unedited grammatical errors. 69 year-old male presents to ED today by POV/ambulating with his daughter with a chief complaint of fall from bottom step on a ladder, with injury to R hand, L knee, and a minor bump on the head - on blood thinners with onset just prior to arrival. Quality described as L knee pain most severe, no radiation to headache, visual changes, LOC, neck pain, numbness/tingling, endorses minor bruise to L knee. Severity is described as moderate. Palliating factors include nothing attempted yet. Provoking factors include nothing specific. Patients' medical history: Atrial fibrillation, history of CVA, vertigo, CHF, spinal stenosis, cirrhosis, peripheral artery disease, pulmonary fibrosis, emphysema, chronic ITP, hypertension. Family and social history: Works at [employer], non- smoker quit many years ago. Pertinent exam findings / vital signs include tenderness mild bruising to knee, tib-fib stable, neurovascularly intact distally, minor abrasion to right ring finger not requiring repair, no cervical tenderness, benign cardiopulmonary status, no rib tenderness, no midline spinal tenderness, no scalp hematoma or signs of head trauma. Differential / pathologies of concern include intracranial hemorrhage, fracture, contusion, sprain/strain, abrasion. Diagnostic studies of: -CT head without, x-ray left knee. -CT head shows no ICH -X-ray of the knee shows no acute fracture no significant effusion Interventions of: -Given Tylenol. ED Course/Assessment/Plan: 69-year-old male presents with left knee pain and a minor abrasion to right hand and a small bump on the head from falling on a bottom rung of the ladder on anticoagulants, imaging is all completely negative, I did state that he should put some ice on his knee and get a neoprene knee sleeve to help with relief but that he could likely return to Plavix no. Recommended regular dose of Tylenol, patient's daughter was in exam room and verbalized understanding of plan and return to ED criteria for any neurologic changes, inability to ambulate, signs of infection of minor abrasions. Findings not consistent with intracranial hemorrhage, fracture, neurovascular compromise. Disposition of fall. Patient verbalized understanding of the plan and return to ED criteria and engaged in shared decision making. Medical Records Medical records reviewed: Yes I reviewed the patient's medical records. Imaging Data Radiologic Study: Attestation: I personally reviewed and interpreted this imaging study as follows: Imaging: CT Scan Radiologist's impression: EXAM: CT HEAD WO CLINICAL HISTORY: fall on thinners. TECHNIQUE: Imaging Protocol: Axial computed tomography images with coronal and sagittal reformatted images were created and reviewed COMPARISON: CT CT HEAD WO from 06/05/2024 FINDINGS: Ventricles and Extra axial spaces: Normal in size and morphology for the patient's age. Hemorrhage: None. Cerebral parenchyma: Large area of decreased attenuation again noted in the left parietal lobe consistent with old infarct. No evidence of acute infarct or mass. Midline shift: None. Brainstem/Cerebellum: Normal. Calvarium: Normal. Visualized Paranasal sinuses:Clear. Mastoids: Opacification of a few bilateral mastoid air cells, unchanged from prior. Soft Tissues: Unremarkable. ORBITS: Unremarkable. PITUITARY: Not enlarged. IMPRESSION: No acute intracranial process. Old left parietal infarct. Radiologic Study #2: Attestation: I personally reviewed and interpreted this imaging study as follows: Imaging: X-Ray Radiologist's impression: EXAM: XR KNEE LT 3V AP,LAT,KIANA CLINICAL HISTORY: L knee pain. TECHNIQUE: 2D digital imaging was performed. Three views. COMPARISON: No exams were available for comparison FINDINGS: BONES: No acute fracture is present. No bony destructive lesion is seen. Enthesophyte at quadriceps insertion. JOINTS: Joint spaces are maintained. The knee is normally aligned. No joint effusion is seen. SOFT TISSUE: Vascular calcifications. IMPRESSION: No acute abnormality. Quality:[facility] Health Related Social Needs: No Data to Display PFSH All Active Problems (Updated 09/03/24 @ 10:00 by MELISSA Salas) Fall (Acute) Lumbar radiculitis (Acute) Spinal stenosis, lumbar region with neurogenic claudication (Acute ~07/30/24) [facility] [place]Spine-[place] from 07/30/24.HE Acute HFrEF (heart failure with reduced ejection fraction) (Acute ~07/26/24) [facility] [place] 07/26/24 visit.HE Bilateral carotid artery occlusion (Acute ~07/17/24) [facility] [place] from 07/17/24.HE Abnormal involuntary movements (Acute) Community acquired pneumonia (Acute) Liver dysfunction (Acute) Chronic kidney disease (Chronic) Right upper lobe pulmonary infiltrate (Acute) Thrombocytopenia (Chronic) Anemia (Chronic) Disability affecting daily living (Acute) Lumbosacral stenosis with neurogenic claudication (Acute) per [facility]UR[facility] tele consult & 06/05/24 MRI Radiculopathy due to disorder of intervertebral disc of lumbar spine (Acute) Pancytopenia (Acute) 02/17/24 f/u Hem/Onc At risk for stroke (Acute) New AFib: CHAD2 12/16.. WCF2RH4 02/18 .. so, med-high risk (9.7% stroke risk; 13.6% TIA risk).. Thrombocytopenia (Chronic) Acute, with Hx chronic ITP .. new pathology? or active ITP? or hepatic dz? Atherosclerosis of [place] coronary artery of [place] heart without angina pectoris (Acute 10/24/09) stent 2009; re-occluded stented 11/2015 along with second site Cx.; dual platelet rx until 12/2016-06/2018; Dr. Mcnulty; [facility] 07/30/16 neg for ischemia, EF 51% (< AFTER 2021 stenting?) Cirrhosis of liver without ascites (Acute) Heart failure with reduced ejection fraction (Acute) EF 33% (11/11/23) .. 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 Rt Calf, resolves w/in minutes of rest Other specified nonscarring hair loss (Acute) LE, b/l (no problem, but notable to pt who is wondering) .. 2' PAD? ik, 03/2023 [ ] MEET Pulmonary fibrosis (Acute) Emphysema lung (Acute) Restrictive lung disease (Acute) Chronic ITP (idiopathic thrombocytopenia) (Chronic 07/25/17) Per rvw of Heme consult of 07/2019: RTC if pltlts<70,000, 12/17/23, ik...Heme consult Dr. Nolen 07/2017, likely slowly progressive chronic going back to 2006; re-consult if drops below 50,000 Hypertension (Chronic 12/11/00) avoid hypotension due to cerebral vascular disease; cardilogy: Dr Camara; goal 130-140 systolic, sens to thiazide Hyperlipidemia (Chronic 11/10/02) goal LDL 70 or best able Sensorineural hearing loss, bilateral (Chronic 06/24/14) R hearing aid 07/2014 Splenomegaly (Chronic 08/02/17) 14 cm on US 06/2017; ? due to chronic ITP Cervical radiculitis (Chronic) Osteoarthritis of lower back (Acute 12/11/01) Macrocytic anemia (Acute) Chronic low back pain (Chronic) Acute episodes, 2020-. Mild DJD on LS film 04/2014; Hx daily Aleve. Hepatic steatosis (Chronic) Abdominal US in 2016 Muscle spasm (Acute) Acute ... improves with PT, but re-spasms .. Need rest, anti-inflamm then abd/core mm strengthening. Possible PSOAS (?) COPD (chronic obstructive pulmonary disease) (Chronic) NEG COPD per pt rpt s/p Pulm OV, 03/2023. Per CT (2016), Hx smoking. Weight gain (Acute) 15 lbs per chart, no diet change per pt Anemia (Chronic) Low HGB. Hx Macrocytic anemia, B12 WNL ().. [ ] iron suppl, po review Compression fracture of L2 lumbar vertebra (Acute) per MRI (03/08/22), w/ acute/subacute signal. Fx lines extend towards pedicles..20% ht loss..intraosseous edema.. Spinal stenosis at L4-L5 level (Acute) per MRI (03/08/22). .. moderate ctl canal stenosis .. disc protrusion caudally, 5mm behind L5.. MRI LSpine 04/2022 no nerve compressin or central stenosis Sacroiliac joint dysfunction of left side (Acute) Hyponatremia (Chronic) CHRONIC? Asymptomatic, 08/05/22 Lung nodule seen on imaging study (Acute) Per 10/19/22 CTA: Neg PE. (+) pleural base nodule, RML, 4mm.. & sessile pleural plaque (RUL) measuring 1 cm x 0.3 cm. Pleuritic chest pain (Acute) Pleural plaque (Acute) Medical History Hx of arterial ischemic stroke 2006, cerebral infarction Hemoptysis COVID-30 March 2022, home test Tenderness of back Prominent mm; lft paraspinal tenderness (L2-L4), rad into left buttock Left buttock pain Helped focus on SI Joint vs lower bk. Feeling great, 09/2022. Absent breath sounds on left side of chest much lower than rt base .. seems new.. Left-sided back pain Acute on chronic .. barely walking, tenderness out of proportion .. 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: squamous cell left forearm with biopsy and destroyed by curettage and electrodesiccation. Cerebral artery occlusion with cerebral infarction (01/13/07) Convulsions (01/25/08) Pt. denies Abnormal findings on diagnostic imaging of lung (11/25/06) Old notes, CXR since then show cardiomegaly, possible atelectasis or scarring.. nothing acute. Carpal tunnel syndrome (07/05/11) Headache (08/01/09) Sudden hearing loss (12/15/12) assoc with CVA?? 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 [facility] [place]ary Stent (12/11/15) LAD POBA for in-stent restenosis, November 2015 AND left circumflex 3-mm drug-eluting stent, November 2015, Dr Camara Appendectomy 2006 Family History Father , Pneumonia at age 68. Tobacco use disorder Pneumonia Other Heart disease Stroke Social History (Updated 08/06/24 @ 15:39 by Long Contreras) Smoking/Tobacco Use Status: Former Tobacco Use Quit Date: 09/12/02 Tobacco: How many years used: 15 Second Hand Exposure: Yes Smoking risk assessment performed?: Yes Alcohol Intake: current Alcohol Intake frequency: 0-2 drinks per day Alcohol type: hard liquor Drug use: Never Substance use type: does not use Adopted: No Foster care: No Household members: spouse and family Housing: house Number of Children: 2 number of grandchildren: 3 Communication Needs: Hard of Hearing and Corrective Lenses Education Level: high school Do you need help understanding health information?: Never current occupation: [employer] Pets and animals: No Do you think of yourself as: straight/heterosexual Current gender identity: male What is your relationship status?: How often do you get together with friends or relatives?: once per week Panel score (0-1 are the most socially isolated patients): 1 What type of physical activity do you participate in: other Details: active lifestyle-LH Duration: 15-30 minutes/day Frequency: daily Shannan/Hinduism: Orthodoxy Seatbelt use: sometimes Drive intox or ride w/intox bottom hoop driver: No Do you feel safe at home: Yes Do you feel safe in your relationship?: Yes Additional Social history: 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 works at [employer]. PAWSS Have you Been Recently Intoxicated or Drunk Within the Last 30 days?: No Have you Ever Experienced Previous Episodes of Alcohol Withdrawal?: No Have you ever Experienced Withdrawal Seizures?: No Have you ever Experienced Delirium Tremens(DT)s?: No Have you ever undergone Alcohol Rehabilitation Treatment (i.e, inpt ot outpatient treatment programs)?: No Have you ever Experienced Blackouts?: No Have you ever Combined Alcohol with other Downers within the last 90 days?: No Have you ever Combined Alcohol with any other Substance of Abuse during the last 90 days?: No Positive Blood Alcohol level on Presentation? [PCS.BAL]: No Evidence of Increased Autonomic Activity (i.e. HR>120, tremor, sweating, agitation, nausea)?: No Result: 0
[2024-09-03 10:11] VITALS: BP 125/71; PULSE 83; RESP 16; TEMP 35.6; O2SAT 96
== END 2024-09-03 10:19 | disposition home or self-care (01) ==
PROVIDERS: Emergency Provider Physician Assistant; PCP Nurse Practitioner Family
DX: S69.91XA Unspecified injury of right wrist, hand and finger(s), initial encounter; S89.91XA Unspecified injury of right lower leg, initial encounter; W11.XXXA Fall on and from ladder, initial encounter; Z79.01 Long term (current) use of anticoagulants; S00.03XA Contusion of scalp, initial encounter; M25.562 Pain in left knee; S60.414A Abrasion of right ring finger, initial encounter
CPT/HCPCS: 73562; 99284; 70450

== ENCOUNTER 2024-09-14 13:37 | Outpatient (CLI) | payer OTHER, SELFPAY ==
[2024-09-14 09:32] LABS: Abs Immature Grans 0.02 10^3/uL (0.0-0.06); Absolute Basophil Count 0.02 10^3/uL (0.0-0.2); Absolute Eosinophil Count 0.04 10^3/uL (0.0-0.7); Absolute Lymphocyte Count 0.89 10^3/uL (1.2-3.4); Absolute Monocyte Count 0.48 10^3/uL (0.1-0.8); Absolute Neutrophil Count 1.91 10^3/uL (1.2-6.7); Basophils % 0.6 %; Eosinophils % 1.2 %; HCT 29.2 % (40.0-50.0); Immature Grans % 0.6 %; Lymphocytes % 26.5 %; MCH 31.8 pg (27.0-33.0); MCHC 30.8 % (32.0-36.0); MCV 103 fL (80-95); MPV 10.2 fL (8.0-11.0); Monocytes % 14.3 %; Neutrophils % 56.8 %; RBC 2.83 10^6/uL (4.36-5.78); RDW 14.7 % (11.8-14.1); RDW-SD 56.5 fL; WBC 3.36 10^3/uL (4.4-10.8)
[2024-09-14 09:51] LABS: ALT 40 U/L (16-63); AST 93 U/L (15-37); Albumin 2.9 g/dL (3.4-5.0); Alkaline Phosphatase 276 U/L (46-116); BUN 11 mg/dL (7-18); Bilirubin, Total 0.78 mg/dL (0.2-1.0); CREATININE 1.2 mg/dL (0.70-1.30); Calcium 8.5 mg/dL (8.5-10.1); Chloride 102 mmol/L (98-107); Estimated GFR 65.06 (mL/min/1.73m2); Glucose 91 mg/dL (74-106); LDH 246 U/L (85-227); Platelet Count 91 10^3/uL (130-400); Potassium 4.2 mmol/L (3.5-5.1); Sodium 136 mmol/L (136-145); Total Protein 7.1 g/dL (6.4-8.2)
== END 2024-09-14 13:38 | disposition home or self-care (01) ==
LOC: LBO 13:38
PROVIDERS: PCP Nurse Practitioner Adult Health; Visit Provider Internal Medicine
DX: D61.818 Other pancytopenia (principal)
CPT/HCPCS: 36415; 80053; 83615; 85025

== ENCOUNTER 2024-09-25 04:02 | Outpatient (CLI) | payer OTHER, SELFPAY ==
[2024-09-25 07:34] LABS: Platelet Count 66 10^3/uL (130-400)
== END 2024-09-25 04:03 | disposition home or self-care (01) ==
LOC: LBO 04:02
PROVIDERS: PCP Nurse Practitioner Adult Health; Visit Provider Nurse Practitioner Family
DX: D69.3 Immune thrombocytopenic purpura (principal)
CPT/HCPCS: 85049

== ENCOUNTER 2024-10-01 11:15 | Outpatient (CLI) | payer OTHER, SELFPAY ==
[2024-10-01 09:31] LABS: Platelet Count 72 10^3/uL (130-400)
== END 2024-10-01 11:16 | disposition home or self-care (01) ==
LOC: LBO 11:16
PROVIDERS: PCP Nurse Practitioner Adult Health; Visit Provider Nurse Practitioner Family
DX: D69.3 Immune thrombocytopenic purpura (principal)
CPT/HCPCS: 85049

== ENCOUNTER 2024-10-21 17:29 | Outpatient (REF) | payer OTHER, SELFPAY ==
[2024-10-21 17:40] LABS: Platelet Count 73 10^3/uL (130-400)
== END 2024-10-21 17:30 | disposition home or self-care (01) ==
LOC: LBO 17:29
PROVIDERS: PCP Nurse Practitioner Adult Health; Visit Provider Anesthesiology Pain Medicine
DX: D69.6 Thrombocytopenia, unspecified (principal)
CPT/HCPCS: 85049

== ENCOUNTER 2024-10-29 11:55 | Outpatient (CLI) | payer OTHER, SELFPAY ==
[2024-10-29 13:05] LABS: Platelet Count 73 10^3/uL (130-400)
== END 2024-10-29 11:56 | disposition home or self-care (01) ==
LOC: LBO 11:55
PROVIDERS: PCP Nurse Practitioner Family; Visit Provider Anesthesiology Pain Medicine
DX: D69.3 Immune thrombocytopenic purpura (principal)
CPT/HCPCS: 85049

== ENCOUNTER 2024-11-09 07:25 | Inpatient (IN) | payer OTHER, SELFPAY ==
[2024-11-09] VITALS (57 sets, daily range): BP systolic 100–151; BP diastolic 47–93; PULSE 77–102; RESP 16–31; TEMP 36.2–36.8; O2SAT 89–100
--- NOTE | 2024-11-09 07:15 | RT.EKG_ITS ---
APPROVED REPORT Exam: Resting ECG Reason for Exam: Dyspnea Patient Location: E HR:90 bpm ECG Measurements Heart Rate 90 AXIS HI 204 P 66 QRSd 78 QRS 8 QT 385 T 98 QTc 472 Conclusion Sinus rhythm...normal P axis, V-rate 60- 99 Low voltage, precordial leads...precordial leads <1.0mV I have reviewed and interpreted ECG and agree with software generated interpretation.
--- NOTE | 2024-11-09 07:41 | W.ED.GENAD ---
Discharge Plan Disposition Patient Disposition: Admit to [facility] Condition: Good Discharge Details Chief Complaint: SOB Clinical Impression: Anemia, Congestive heart failure, Non-ST elevation MD (NSTEMI) Primary Care Provider: Gladys Jonas ED Provider: Madhav Burgos Home Meds and New Rx's Prescriptions: No Action rosuvastatin 20 mg tablet 20 mg PO DAILY Qty: 90 3RF nitroglycerin 0.4 mg tablet, sublingual 0.4 mg Sublingual PRN Qty: 25 3RF Rx Instructions: for chest pain. potassium chloride [Klor-Con M20] 20 mEq tablet,ER particles/crystals 20 meq PO DAILY Qty: 90 3RF metoprolol succinate 100 mg tablet extended release 24 hr 100 mg PO DAILY vitamin B complex [B Complex-Vitamin B12] 1 cap PO .qd Patient Comments: Pt reports he is no longer taking 08/02/19 TR aspirin 81 mg tablet,chewable 81 mg PO DAILY Qty: 90 3RF Rx Instructions: As best dispensed (OTC vs Rx?) Combivent Respimat 20-100 mcg/actuation mist 1 puff inhalation Q6H PRN (Reason: chest congestion; cold symptoms) Qty: 4 6RF Rx Instructions: Trial in the morning (with spacer) to help clear phlegm gabapentin 100 mg capsule 100 mg PO TID trazodone 50 mg tablet 50 mg PO QHS PRN (Reason: sleep) Qty: 30 3RF Trelegy Ellipta 100-62.5-25 mcg blister with device 1 inh inhalation DAILY Qty: 60 11RF pantoprazole 20 mg tablet,delayed release (DR/EC) 20 mg PO DAILY Qty: 90 3RF Rx Instructions: Continue with lower dose PPI 2' malabsorption risks dabigatran etexilate 150 mg capsule 150 mg PO BID Jardiance 10 mg tablet 10 mg PO QAM Qty: 90 3RF torsemide 20 mg tablet 20 mg PO Q OTHER DAY Rx Instructions: decr dose from 07/26/25 but pt just started that week of 10/29/24 per Jose who spoke w/cardiology recently- acetaminophen 325 mg Tablet 650 mg PO Q4H PRN PRN (Reason: fever or pain) Qty: 0 0RF Rx Instructions: max dose 2000mg per day calcium carbonate-vitamin D3 [Calcium 500 With D] 500 mg-10 mcg (400 unit) tablet 1 tab PO BID Qty: 60 3RF dabigatran etexilate [Pradaxa] 150 mg capsule 150 mg PO BID HPI General Date/Time Provider Initiated Documentation: 11/09/24 07:30. HPI Narrative: A pleasant 69-year-old male with a past medical history of heart failure, previous pneumonia, previous cardiac disease with stenting, appendectomy, previous tobacco use in the past, atrial fibrillation on Pradaxa, who presents today for evaluation of shortness of breath. Patient states he has had some difficulty breathing for the past week or so, it is worse with exertion. He has had a mild cough but it has been nonproductive. He has noticed increased swelling in his lower extremities. He denies any chest pain, chest tightness or tearing or ripping sensation. No history of PEs. He feels more short of breath when lying down flat, feels better when sitting upright. He feels more short of breath when he is walking around. He has been taking his diuretic furosemide. No hemoptysis. No other complaints at this time. Related Data Home Medications ?Medication ?Instructions ?Recorded ?Confirmed vitamin B complex [B 1 cap PO .qd 04/24/19 10/24/24 Complex-Vitamin B12] aspirin 81 mg chewable tablet 81 mg PO DAILY #90 tab-caps 09/16/22 10/24/24 rosuvastatin 20 mg tablet 20 mg PO DAILY #90 tabs 11/10/23 10/24/24 fluticasone fur. 100 mcg-umeclid 1 inh inhalation DAILY #60 ea 12/05/23 10/24/24 62.5 mcg-vilant 25 mcg inhalat.powder (Trelegy Ellipta) nitroglycerin 0.4 mg sublingual 0.4 mg sublingual PRN #25 tabs 12/25/23 10/24/24 tablet ipratropium 20 mcg-albuterol 100 1 puff inhalation Q6H PRN chest 02/03/24 10/24/24 mcg/actuation mist for inhalation congestion; cold symptoms #4 grams (Combivent Respimat) pantoprazole 20 mg tablet,delayed 20 mg PO DAILY #90 tab-caps 04/20/24 10/24/24 release dabigatran etexilate 150 mg capsule 150 mg PO BID 05/28/24 10/24/24 acetaminophen 325 mg tablet 650 mg (2 x 325 mg) PO Q4H PRN PRN 08/08/24 10/24/24 fever or pain #0 tabs calcium 500 mg (as 1 tab PO BID #60 tabs 08/08/24 10/24/24 carbonate)-vitamin D3 10 mcg (400 unit) tablet (Calcium 500 With D) potassium chloride 20 mEq 20 meq PO DAILY #90 tabs 08/30/24 10/24/24 tablet,extended release(part/cryst) (Klor-Con M) metoprolol succinate 100 mg 100 mg PO DAILY 09/11/24 10/24/24 tablet,extended release 24 hr gabapentin 100 mg capsule 100 mg PO TID 10/05/24 10/24/24 trazodone 50 mg tablet 50 mg PO QHS PRN sleep #30 tabs 10/05/24 10/24/24 empagliflozin 10 mg tablet 10 mg PO QAM #90 tabs 10/15/24 10/24/24 (Jardiance) dabigatran etexilate 150 mg 150 mg PO BID 10/17/24 10/24/24 capsule (Pradaxa) torsemide 20 mg tablet 20 mg PO Q OTHER DAY 11/02/24 Previous Rx's ?Medication ?Instructions ?Recorded aspirin 81 mg chewable tablet 81 mg PO DAILY #90 tab-caps 09/16/22 rosuvastatin 20 mg tablet 20 mg PO DAILY #90 tabs 11/10/23 fluticasone fur. 100 mcg-umeclid 1 inh inhalation DAILY #60 ea 12/05/23 62.5 mcg-vilant 25 mcg inhalat.powder (Trelegy Ellipta) nitroglycerin 0.4 mg sublingual 0.4 mg sublingual PRN #25 tabs 12/25/23 tablet ipratropium 20 mcg-albuterol 100 1 puff inhalation Q6H PRN chest 02/03/24 mcg/actuation mist for inhalation congestion; cold symptoms #4 grams (Combivent Respimat) pantoprazole 20 mg tablet,delayed 20 mg PO DAILY #90 tab-caps 04/20/24 release acetaminophen 325 mg tablet 650 mg (2 x 325 mg) PO Q4H PRN PRN 08/08/24 fever or pain #0 tabs calcium 500 mg (as 1 tab PO BID #60 tabs 08/08/24 carbonate)-vitamin D3 10 mcg (400 unit) tablet (Calcium 500 With D) potassium chloride 20 mEq 20 meq PO DAILY #90 tabs 08/30/24 tablet,extended release(part/cryst) (Klor-Con M) trazodone 50 mg tablet 50 mg PO QHS PRN sleep #30 tabs 10/05/24 empagliflozin 10 mg tablet 10 mg PO QAM #90 tabs 10/15/24 (Jardiance) Allergies Allergy/AdvReac Type Severity Reaction Status Date / Time azithromycin AdvReac Severe Other (See Verified 11/09/24 07:39 Comment) atorvastatin AdvReac Intermediate Diarrhea Verified 11/09/24 07:39 General Stated Complaint: SOB SHE: 2 Exam Narrative Exam Narrative: 1.Const: Well-nourished, Well-developed, appearing stated age 2.Eyes: PERRL, no conjunctival injection, and symmetrical lids. 3.ENT: Atraumatic external nose and ears. Moist MM. Neck: Symmetric, trachea midline, No thyromegaly. 4.CVS: +S1/S2, Peripheral pulses 2+ and equal in all extremities. Brisk capillary refill in all extremities. 5.RESP: No wheezes rales or rhonchi, except for a minimal expiratory wheeze in the upper right lung field 6.GI: Soft, Nontender/Nondistended, No hepatosplenomegaly. No guarding or rebound. 7.MSK: Normocephalic/Atraumatic, Extremities w/o deformity or ttp No cyanosis or clubbing, Normal movement of all extremities. +1 pitting edema bilaterally. No calf tenderness 8.Skin: Warm, Dry. No rashes or lesions. 9.Neuro: hand box coverer II-XII grossly intact. Sensation grossly intact, no focal neurologic deficits. 10.Psych: (AAO) x3. Appropriate mood and affect Course Vital Signs Vital signs: Vital Signs Pulse 94 H 11/09/24 07:27 Respiratory Rate 27 H 11/09/24 07:27 Blood Pressure 141/65 H 11/09/24 07:27 Pulse Oximetry 89 L 11/09/24 07:27 Pulse 94 H 11/09/24 07:27 Respiratory Rate 27 H 11/09/24 07:27 Blood Pressure 141/65 H 11/09/24 07:27 Pulse Oximetry 89 L 11/09/24 07:27 Oxygen Delivery Method Room Air 11/09/24 07:27 Oxygen Flow Rate 0 11/09/24 07:27 Pain Level 0 11/09/24 07:27 Comment placed on oxygen 11/09/24 07:27 Medical Decision Making A pleasant 69-year-old male with a past medical history of heart failure, previous pneumonia, previous cardiac disease with stenting, appendectomy, previous tobacco use in the past, atrial fibrillation on Pradaxa, who presents today for evaluation of shortness of breath. Patient states he has had some difficulty breathing for the past week or so, it is worse with exertion. He has had a mild cough but it has been nonproductive. He has noticed increased swelling in his lower extremities. He denies any chest pain, chest tightness or tearing or ripping sensation. No history of PEs. He feels more short of breath when lying down flat, feels better when sitting upright. He feels more short of breath when he is walking around. He has been taking his diuretic furosemide. No hemoptysis. No other complaints at this time. Exam demonstrates well-appearing male. Relatively clear lung sounds except for minimal right upper respiratory wheeze. Oxygen is at 89%, however with deep breathing he came up to the mid to high 90s. Differential is highest for CHF, PE unlikely with his anticoagulant use. Cardiac etiology of concern, but no evidence of ACS or STEMI on EKG. Pneumonia is on the differential with this cough, but I feel that this is more likely to be congestive heart failure. We will gently diurese, will monitor closely and reassess. We will gently diurese at 20 mg of Lasix. 10:08 AM Chest x-ray read as negative per radiology, but I do feel there is evidence of mild CHF components. Bedside echo shows mild reduction in cardiac function, however ejection fraction still remains greater than 50% in appearance. Unfortunately laboratory workup shows evidence of a notably dropping hemoglobin at 6.3 compared to prior levels, where his hemoglobin was 9 just a month ago. Rectal exam was performed, no gross blood, however Hemoccult is notably positive. Platelets are 49 which appears to be stable for the patient. Patient states that he has had a colonoscopy before and there were polyps, but this was over 5 to 10 years ago. Electrolytes stable, BUN 27, creatinine 1.6, doubt upper GI bleed. proBNP is higher than normal at 10,800, additionally the troponin is 210, concerning for an acute cardiac component. Suspect it is related to a combination of generalized heart failure, anemia, and his chronic disease. EKG shows no STEMI. COVID flu and RSV negative. We will reach out to [facility] for further assessment. 2:42 PM Discussed the case with [facility] cardiology both nurse practitioner Casie and Dr. Vogt, at this time they feel that the NSTEMI is secondary to demand ischemia is a type II NSTEMI. Will recommend continued medical management and trending of the troponins. Troponin has been steadily but very shallowly trending upward at 210, to 220, to 230. Patient remains chest pain-free. We discussed risks and benefits of heparinization, and cardiology does not recommend heparinization at this time. They do feel that it would be reasonable to hold on the Pradaxa, but do recommend weighing the risks and benefits. They recommend having the patient be medically stabilized from the bleed and CHF components, having surgery evaluate for potential sources of bleed, and then reassessing this patient becomes more stable. I did reach out to surgery, Dr. Horton and discussed the case with him. He is quite hesitant to perform any colonoscopy or endoscopy until the patient's platelets and hemoglobin and NSTEMI improved. He recommends medical idealization at this time. He does not recommend emergent endoscopy or colonoscopy until those other components improved. I did speak with the hospitalist Dr. García, and he accepts the patient for admission for continued blood medical management, trending of troponins, surgical consult as stability improves. Patient remains notably hemodynamically stable here. No tachycardia or hypotension or dysrhythmia. We did give Protonix and famotidine IV. Repeat hemoglobin after initial unit has gone up to 6.8, we will add a second unit at this time. Patient states that he does feel somewhat better. I have extensively reviewed the treatment plan with the patient. I have addressed all patient concerns at this time. I have also discussed the plan with the admitting physician and they agree with the current assessment and plan and have agreed to assume responsibility for the patient. All parties demonstrate verbal understanding and agreement with our assessment and plan at this time. The documentation in this chart was dictated using [employer] dictation software. Please excuse any dictation errors. FINDINGS: LUNGS: Clear. No pleural abnormality seen. HEART: Normal size. AORTA: Normal diameter. BONES: Unremarkable for age. Soft tissues: Unremarkable. IMPRESSION: No acute findings. Quality:SDOH Health Related Social Needs: No Data to Display Critical Care Time Critical Care Time Critical Care Time: Yes Total Critical Care Time: 100 Attestation: Upon my evaluation, this patient had a high probability of imminent or life-threatening deterioration, which required my direct attention, intervention, and personal management. I have personally provided 100 minutes of critical care time exclusive of time spent on separately billable procedures. Time includes review of laboratory data, radiology results, discussion with consultants, and monitoring for potential decompensation. Interventions were performed as documented. PFSH All Active Problems (Updated 11/09/24 @ 14:47 by Madhav Burgos DO) Non-ST elevation MD (NSTEMI) (Acute) Congestive heart failure (Chronic) Anemia (Chronic) Sleep difficulties (Acute) Knee pain, left (Acute) Insomnia (Acute) Lumbar radiculitis (Acute) Spinal stenosis, lumbar region with neurogenic claudication (Acute ~07/30/24) [facility] [place]Spine-[place]/30/24.HE Acute HFrEF (heart failure with reduced ejection fraction) (Acute ~07/26/24) [facility] [place]26[place]24 visit.HE Bilateral carotid artery occlusion (Acute ~07/17/24) [facility] [place] [place] from 07/17/24.HE Abnormal involuntary movements (Acute) Community acquired pneumonia (Acute) Liver dysfunction (Acute) Chronic kidney disease (Chronic) Right upper lobe pulmonary infiltrate (Acute) Thrombocytopenia (Chronic) Anemia (Chronic) Disability affecting daily living (Acute) Lumbosacral stenosis with neurogenic claudication (Acute) per [facility] tele consult & 06/05/24 MRI Radiculopathy due to disorder of intervertebral disc of lumbar spine (Acute) Pancytopenia (Acute) 02/17/24 f/u Hem/Onc At risk for stroke (Acute) New AFib: CHAD2 12/16.. [id number] 02/18 .. so, med-high risk (9.7% stroke risk; 13.6% TIA risk).. Thrombocytopenia (Chronic) Acute, with Hx chronic ITP .. new pathology? or active ITP? or hepatic dz? Atherosclerosis of [place] coronary artery of [place] heart without angina pectoris (Acute 10/24/09) stent 2009; re-occluded stented 11/2015 along with second site Cx.; dual platelet rx until 12/2016-06/2018; Dr. Mcnulty; [facility] 07/30/16 neg for ischemia, EF 51% (< AFTER 2021 stenting?) Cirrhosis of liver without ascites (Acute) Heart failure with reduced ejection fraction (Acute) EF 33% (11/11/23) .. 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 Rt Calf, resolves w/in minutes of rest Other specified nonscarring hair loss (Acute) LE, b/l (no problem, but notable to pt who is wondering) .. 2' PAD? ik, 03/2023 [ ] MEET Pulmonary fibrosis (Acute) Emphysema lung (Acute) Restrictive lung disease (Acute) Chronic ITP (idiopathic thrombocytopenia) (Chronic 07/25/17) Per rvw of Heme consult of 07/2019: RTC if pltlts<70,000, 12/17/23, ik...Heme consult Dr. Nolen 07/2017, likely slowly progressive chronic going back to 2006; re-consult if drops below 50,000 Hypertension (Chronic 12/11/00) avoid hypotension due to cerebral vascular disease; cardilogy: Dr Camara; goal 130-140 systolic, sens to thiazide Hyperlipidemia (Chronic 11/10/02) goal LDL 70 or best able Sensorineural hearing loss, bilateral (Chronic 06/24/14) R hearing aid 07/2014 Splenomegaly (Chronic 08/02/17) 14 cm on US 06/2017; ? due to chronic ITP Cervical radiculitis (Chronic) Osteoarthritis of lower back (Acute 12/11/01) Macrocytic anemia (Acute) Chronic low back pain (Chronic) Acute episodes, . Mild DJD on LS film 04/2014; Hx daily Aleve. Hepatic steatosis (Chronic) Abdominal US in 2016 Muscle spasm (Acute) Acute ... improves with PT, but re-spasms .. Need rest, anti-inflamm then abd/core mm strengthening. Possible PSOAS (?) COPD (chronic obstructive pulmonary disease) (Chronic) NEG COPD per pt rpt s/p Pulm OV, 03/2023. Per CT (2016), Hx smoking. Weight gain (Acute) 15 lbs per chart, no diet change per pt Anemia (Chronic) Low HGB. Hx Macrocytic anemia, B12 WNL ().. [ ] iron suppl, po review Compression fracture of L2 lumbar vertebra (Acute) per MRI (03/08/22), w/ acute/subacute signal. Fx lines extend towards pedicles..20% ht loss..intraosseous edema.. Spinal stenosis at L4-L5 level (Acute) per MRI (03/08/22). .. moderate ctl canal stenosis .. disc protrusion caudally, 5mm behind L5.. MRI LSpine 04/2022 no nerve compressin or central stenosis Sacroiliac joint dysfunction of left side (Acute) Hyponatremia (Chronic) CHRONIC? Asymptomatic, 08/05/22 Lung nodule seen on imaging study (Acute) Per 10/19/22 CTA: Neg PE. (+) pleural base nodule, RML, 4mm.. & sessile pleural plaque (RUL) measuring 1 cm x 0.3 cm. Pleuritic chest pain (Acute) Pleural plaque (Acute) Medical History Hx of arterial ischemic stroke 2006, cerebral infarction Hemoptysis COVID-30 March 2022, home test Tenderness of back Prominent mm; lft paraspinal tenderness (L2-L4), rad into left buttock Left buttock pain Helped focus on SI Joint vs lower bk. Feeling great, 09/2022. Absent breath sounds on left side of chest much lower than rt base .. seems new.. Left-sided back pain Acute on chronic .. barely walking, tenderness out of proportion .. Carcinoma in situ, unspecified [place]28/[place] [facility] [place]: squamous cell left forearm with biopsy and destroyed by curettage and electrodesiccation. Cerebral artery occlusion with cerebral infarction (01/13/07) Convulsions (01/25/08) Pt. denies Abnormal findings on diagnostic imaging of lung (11/25/06) Old notes, CXR since then show cardiomegaly, possible atelectasis or scarring.. nothing acute. Carpal tunnel syndrome (07/05/11) Headache (08/01/09) Sudden hearing loss (12/15/12) assoc with CVA?? 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 Camara [facility] [place] Stent (12/11/15) LAD POBA for in-stent restenosis, November 2015 AND left circumflex 3-mm drug-eluting stent, November 2015, Dr Camara Appendectomy 2006 Family History Father , Pneumonia at age 68. Tobacco use disorder Pneumonia Other Heart disease Stroke Social History (Updated 08/06/24 @ 15:39 by Long Contreras) Smoking/Tobacco Use Status: Former Tobacco Use Quit Date: 09/12/02 Tobacco: How many years used: 15 Second Hand Exposure: Yes Smoking risk assessment performed?: Yes Alcohol Intake: current Alcohol Intake frequency: 0-2 drinks per day Alcohol type: hard liquor Drug use: Never Substance use type: does not use Adopted: No Foster care: No Household members: spouse and family Housing: house Number of Children: 2 number of grandchildren: 3 Communication Needs: Hard of Hearing and Corrective Lenses Education Level: high school Do you need help understanding health information?: Never current occupation: [employer] Pets and animals: No Do you think of yourself as: straight/heterosexual Current gender identity: male What is your relationship status?: How often do you get together with friends or relatives?: once per week Panel score (0-1 are the most socially isolated patients): 1 What type of physical activity do you participate in: other Details: active lifestyle- Duration: 15-30 minutes/day Frequency: daily Shannan/Muslim: Latter-Day Seatbelt use: sometimes Drive intox or ride w/intox petroleum transport driver: No Do you feel safe at home: Yes Do you feel safe in your relationship?: Yes Additional Social history: 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 works at [employer]. POCUS Exam (ED) Limited Cardiac Exam DATE OF EXAM: 11/09/24 TIME OF EXAM: 09:03 PROVIDER THAT PERFORMED THE STUDY: Madhav Burgos IS THIS A REPEAT EXAM DURING THIS ENCOUNTER: no REASON FOR EXAM: Dyspnea VISUALIZED STRUCTURES: Left atrium, Left ventricle and Interventricular septum VIEW OBTAINED: Parasternal long-axis PERTINENT FINDINGS/IMPRESSION: LV dysfunction :mild Exam complete
--- NOTE | 2024-11-09 07:51 | DI.RAD_ITS ---
Exam(s) XR PORTABLE CHEST AP EXAM: XR PORTABLE CHEST AP CLINICAL HISTORY: sob, cough TECHNIQUE: 2D digital imaging was performed. COMPARISON: CR XR CHEST 2V PA LATERAL from 08/30/2024 FINDINGS: LUNGS: Clear. No pleural abnormality seen. HEART: Normal size. AORTA: Normal diameter. BONES: Unremarkable for age. Soft tissues: Unremarkable. IMPRESSION: No acute findings. DATA REPOSITORY: RADIATION DOSE DELIVERED:
[2024-11-09 08:02] LABS: BE (Venous) -2 mmol/L (-2-3); HCO3 (Venous) 24 mmol/L (23-28); O2 Sat (Venous) 45 %; TCO2 (Venous) 23 mmol/L (24-29); pCO2 (Venous) 42 mmHg (41-51); pH (Venous) 7.35 (7.31-7.41); pO2 (Venous) 30 mmHg
[2024-11-09 08:03] LABS: Abs Immature Grans 0.03 10^3/uL (0.0-0.06); Absolute Basophil Count 0.01 10^3/uL (0.0-0.2); Absolute Eosinophil Count 0.03 10^3/uL (0.0-0.7); Absolute Lymphocyte Count 0.37 10^3/uL (1.2-3.4); Absolute Monocyte Count 0.31 10^3/uL (0.1-0.8); Absolute Neutrophil Count 3.44 10^3/uL (1.2-6.7); Basophils % 0.2 %; Eosinophils % 0.7 %; HCT 22.9 % (40.0-50.0); Immature Grans % 0.7 %; Lymphocytes % 8.8 %; MCH 26.7 pg (27.0-33.0); MCHC 27.5 % (32.0-36.0); MCV 97 fL (80-95); MPV 11.9 fL (8.0-11.0); Monocytes % 7.4 %; Neutrophils % 82.2 %; RBC 2.36 10^6/uL (4.36-5.78); RDW-SD 59.2 fL; WBC 4.19 10^3/uL (4.4-10.8)
[2024-11-09] MEDS: Furosemide 20 MG/2 ML VIAL IVP (08:16)
[2024-11-09 08:21] LABS: HGB 6.3 g/dL (13.5-17.5); INR 1.7 (0.9-1.1); PTT Activated 37.2 sec (20.6-30.2); Platelet Count 49 10^3/uL (130-400); Prothrombin Time 16.1 sec (9.1-11.1)
[2024-11-09 08:22] LABS: Anisocytosis 1+; Diff Comment RBC Morph Reviewed; Hypochromasia 1+; Poikilocytes 1+; Polychromasia Present
[2024-11-09 08:27] LABS: ALT 52 U/L (16-63); AST 52 U/L (15-37); Alkaline Phosphatase 189 U/L (46-116); BUN 27 mg/dL (7-18); Bilirubin, Total 1.41 mg/dL (0.2-1.0); CREATININE 1.6 mg/dL (0.70-1.30); Calcium 8.5 mg/dL (8.5-10.1); Chloride 104 mmol/L (98-107); Estimated GFR 46.06 (mL/min/1.73m2); Glucose 118 mg/dL (74-106); NT-proBNP 10853 pg/mL (<300); Potassium 4.8 mmol/L (3.5-5.1); Sodium 139 mmol/L (136-145); Total Protein 6.4 g/dL (6.4-8.2)
[2024-11-09 08:28] LABS: Troponin I 210 ng/L (<or=76)
[2024-11-09 08:55] LABS: COVID-19 PCR Negative (Negative); Influenza A PCR Negative (Negative); Influenza B PCR Negative (Negative); RSV PCR Negative (Negative)
[2024-11-09 08:57] LABS: Source Nasopharynx
--- NOTE | 2024-11-09 08:57 | DI.VRAD_ITS ---
PROCEDURE INFORMATION: Exam: XR Chest Exam date and time: 11/09/2024 7:48 AM Age: 69 years old Clinical indication: Shortness of breath; SOB TECHNIQUE: Imaging protocol: Radiologic exam of the chest. Views: 1 view. COMPARISON: CR XR CHEST 2V PA LATERAL 08/30/2024 11:19 AM FINDINGS: Lungs: Unremarkable. No consolidation. Pleural spaces: Unremarkable. No pleural effusion. No pneumothorax. Heart/Mediastinum: Unremarkable. No cardiomegaly. Bones/joints: Unremarkable. IMPRESSION: No acute findings. Dictated and Authenticated by: Jackelin Nelson MD. Orderin Aubrey Corey MD
[2024-11-09 09:27] LABS: Troponin I 220 ng/L (<or=76)
[2024-11-09 11:22] LABS: Troponin I 234 ng/L (<or=76)
--- NOTE | 2024-11-09 12:03 | W.SURGCON ---
Date of service: 11/09/24 Time of Service: 12:03 Assessment and Plan Assessment and plan (1) Anemia: Status: Acute Assessment and plan: 69-year-old man who has acute on chronic anemia. Unclear etiology. Presumably from the GI tract in setting of anticoagulation/antiplatelet therapies. He has very significant thrombocytopenia on top of all of this. My recommendation is to NOT admit him to [facility] and transfer him to a facility that has access to platelet transfusion if becomes necessary and also has access to IR intervention if becomes necessary. We will not be performing endoscopy or surgery on him at this facility with elevated troponins and severe thrombocytopenia(and have no platelets to transfuse). I understand that the patient is hemodynamically stable and that he has chronic anemia, however, if he were to decompensate, we do not have what he would need at this facility. Endoscopy control of upper GI bleeding would be attempted in the setting of having the ability to supplement the effort with massive transfusion protocol(including platelets) and IR backup if endoscopy fails. This is not an option here and for these reasons I do not recommend admission of this particular GI bleed patient. I relayed my concerns to the emergency room physician and recommended consultation with a hospitalist/GI service at a facility that has those above?mentioned services and products. History of Present Illness Narrative: The patient is a 69-year-old man who reportedly has acute blood loss anemia. I am consulted to consider performing EGD and colonoscopy in the setting of GI bleeding. At the bedside asked the patient why he came to the hospital and he reports I could not breathe anymore. He denies any abdominal pain. He has CHF, currently has elevated troponins and has a platelet count under 50. He clearly has chronic anemia but his hemoglobin today is in the 6 range and he has been given a unit of blood. Unclear - possibly has cirrhosis of liver [facility] All Active Problems (Updated 11/09/24 @ 17:07 by Rachid Horton MD) Paroxysmal atrial fibrillation (Acute) Non-ST elevation [place] (NSTEMI) (Acute) Congestive heart failure (Chronic) Anemia (Acute) Sleep difficulties (Acute) Knee pain, left (Acute) Insomnia (Acute) Lumbar radiculitis (Acute) Spinal stenosis, lumbar region with neurogenic claudication (Acute ~07/30/24) [facility] Pain/Spine-note from 07/30/24.HE Acute HFrEF (heart failure with reduced ejection fraction) (Acute ~07/26/24) [facility] Cardiology note from 07/26/24 visit.HE Bilateral carotid artery occlusion (Acute ~07/17/24) [facility] Vascular Surg. note from 07/17/24.HE Abnormal involuntary movements (Acute) Community acquired pneumonia (Acute) Liver dysfunction (Acute) Chronic kidney disease (Chronic) Right upper lobe pulmonary infiltrate (Acute) Thrombocytopenia (Chronic) Anemia (Chronic) Disability affecting daily living (Acute) Lumbosacral stenosis with neurogenic claudication (Acute) per [facility] tele consult & 06/05/24 MRI Radiculopathy due to disorder of intervertebral disc of lumbar spine (Acute) Pancytopenia (Acute) 02/17/24 f/u Hem/Onc At risk for stroke (Acute) New AFib: CHAD2 12/16.. HAE5BP6 02/18 .. so, med-high risk (9.7% stroke risk; 13.6% TIA risk).. Thrombocytopenia (Chronic) Acute, with Hx chronic ITP .. new pathology? or active ITP? or hepatic dz? Atherosclerosis of [place] coronary artery of [place] heart without angina pectoris (Acute 10/24/09) stent 2009; re-occluded stented 11/2015 along with second site Cx.; dual platelet rx until 12/2016-06/2018; Dr. Mcnulty; [facility] 07/30/16 neg for ischemia, EF 51% (< AFTER 2021 stenting?) Cirrhosis of liver without ascites (Acute) Heart failure with reduced ejection fraction (Acute) EF 33% (11/11/23) .. 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 Rt Calf, resolves w/in minutes of rest Other specified nonscarring hair loss (Acute) LE, b/l (no problem, but notable to pt who is wondering) .. 2' PAD? ik, 03/2023 [ ] MEET Pulmonary fibrosis (Acute) Emphysema lung (Acute) Restrictive lung disease (Acute) Chronic ITP (idiopathic thrombocytopenia) (Chronic 07/25/17) Per rvw of Heme consult of 07/2019: RTC if pltlts<70,000, 12/17/23, ik...Heme consult Dr. Nolen 07/2017, likely slowly progressive chronic going back to 2006; re-consult if drops below 50,000 Hypertension (Chronic 12/11/00) avoid hypotension due to cerebral vascular disease; cardilogy: Dr Camara; goal 130-140 systolic, sens to thiazide Hyperlipidemia (Chronic 11/10/02) goal LDL 70 or best able Sensorineural hearing loss, bilateral (Chronic 06/24/14) R hearing aid 07/2014 Splenomegaly (Chronic 08/02/17) 14 cm on US 06/2017; ? due to chronic ITP Cervical radiculitis (Chronic) Osteoarthritis of lower back (Acute 12/11/01) Macrocytic anemia (Acute) Chronic low back pain (Chronic) Acute episodes, . Mild DJD on LS film 04/2014; Hx daily Aleve. Hepatic steatosis (Chronic) Abdominal US in 2016 Muscle spasm (Acute) Acute ... improves with PT, but re-spasms .. Need rest, anti-inflamm then abd/core mm strengthening. Possible PSOAS (?) COPD (chronic obstructive pulmonary disease) (Chronic) NEG COPD per pt rpt s/p Pulm OV, 03/2023. Per CT (2016), Hx smoking. Weight gain (Acute) 15 lbs per chart, no diet change per pt Anemia (Chronic) Low HGB. Hx Macrocytic anemia, B12 WNL ().. [ ] iron suppl, po review Compression fracture of L2 lumbar vertebra (Acute) per MRI (03/08/22), w/ acute/subacute signal. Fx lines extend towards pedicles..20% ht loss..intraosseous edema.. Spinal stenosis at L4-L5 level (Acute) per MRI (03/08/22). .. moderate ctl canal stenosis .. disc protrusion caudally, 5mm behind L5.. MRI LSpine 04/2022 no nerve compressin or central stenosis Sacroiliac joint dysfunction of left side (Acute) Hyponatremia (Chronic) CHRONIC? Asymptomatic, 08/05/22 Lung nodule seen on imaging study (Acute) Per 10/19/22 CTA: Neg PE. (+) pleural base nodule, RML, 4mm.. & sessile pleural plaque (RUL) measuring 1 cm x 0.3 cm. Pleuritic chest pain (Acute) Pleural plaque (Acute) Medical History Hx of arterial ischemic stroke 2006, cerebral infarction Hemoptysis COVID-30 March 2022, home test Tenderness of back Prominent mm; lft paraspinal tenderness (L2-L4), rad into left buttock Left buttock pain Helped focus on SI Joint vs lower bk. Feeling great, 09/2022. Absent breath sounds on left side of chest much lower than rt base .. seems new.. Left-sided back pain Acute on chronic .. barely walking, tenderness out of proportion .. Carcinoma in situ, unspecified 11/28/2019 [facility] Derm: squamous cell left forearm with biopsy and destroyed by curettage and electrodesiccation. Cerebral artery occlusion with cerebral infarction (01/13/07) Convulsions (01/25/08) Pt. denies Abnormal findings on diagnostic imaging of lung (11/25/06) Old notes, CXR since then show cardiomegaly, possible atelectasis or scarring.. nothing acute. Carpal tunnel syndrome (07/05/11) Headache (08/01/09) Sudden hearing loss (12/15/12) assoc with CVA?? 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 Camara [facility] Coronary Stent (12/11/15) LAD POBA for in-stent restenosis, November 2015 AND left circumflex 3-mm drug-eluting stent, November 2015, Dr Camara Appendectomy 2006 Family History Father , Pneumonia at age 68. Tobacco use disorder Pneumonia Other Heart disease Stroke Social History (Updated 08/06/24 @ 15:39 by Long Contreras) Smoking/Tobacco Use Status: Former Tobacco Use Quit Date: 09/12/02 Tobacco: How many years used: 15 Second Hand Exposure: Yes Smoking risk assessment performed?: Yes Alcohol Intake: current Alcohol Intake frequency: 0-2 drinks per day Alcohol type: hard liquor Drug use: Never Substance use type: does not use Adopted: No Foster care: No Household members: spouse and family Housing: house Number of Children: 2 number of grandchildren: 3 Communication Needs: Hard of Hearing and Corrective Lenses Education Level: high school Do you need help understanding health information?: Never current occupation: [employer] Pets and animals: No Do you think of yourself as: straight/heterosexual Current gender identity: male What is your relationship status?: How often do you get together with friends or relatives?: once per week Panel score (0-1 are the most socially isolated patients): 1 What type of physical activity do you participate in: other Details: active lifestyle- Duration: 15-30 minutes/day Frequency: daily Shannan/Church: Buddhism Seatbelt use: sometimes Drive intox or ride w/intox bookmobile driver: No Do you feel safe at home: Yes Do you feel safe in your relationship?: Yes Additional Social history: 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 works at [employer]. Exam Narrative Exam Narrative: Gen: Non-toxic, comfortable and interactive Neuro: Alert and oriented x3 Psych: Good mood and affect. Reasonable insight and understanding into condition. Chest: Non-labored breathing, no wheezing, no visible shortness of breath. Heart: Irregular at 85 Abdomen: Soft, mildly distended, nontender. Results Last Vital Signs Temp 97.2 F L 11/09/24 11:13 Pulse 102 H 11/09/24 11:13 Resp 16 11/09/24 11:13 BP 108/53 L 11/09/24 11:13 Pulse Ox 98 11/09/24 11:13 Labs 11/09/24 13:44 11/09/24 07:53 Labs: Laboratory Results - last 24 hr 11/09/24 11/09/24 11/09/24 07:53 08:03 08:47 WBC 4.19 L RBC 2.36 L Hgb 6.3 L* Hct 22.9 L MCV 97 H MCH 26.7 L MCHC 27.5 L RDW 18.0 H Plt Count 49 L MPV 11.9 H Immature Gran % 0.7 Neutrophils % 82.2 Lymphocytes % 8.8 Monocytes % 7.4 Eosinophils % 0.7 Basophils % 0.2 Nucleated RBC % 0.0 Absolute Neutrophils 3.44 Absolute Lymphocytes 0.37 L Absolute Monocytes 0.31 Absolute Eosinophils 0.03 Absolute Basophils 0.01 RBC Morphology See Below Polychromasia Present Hypochromasia 1+ Poikilocytosis 1+ Anisocytosis 1+ PT 16.1 H INR 1.7 H APTT 37.2 H VBG pH 7.35 VBG pCO2 42 VBG pO2 30 VBG HCO3 24 VBG Total CO2 23 L VBG O2 Saturation 45 VBG Base Excess -2 Sodium 139 Potassium 4.8 Chloride 104 Carbon Dioxide 24.0 Anion Gap 11.0 BUN 27 H Creatinine 1.6 H Est GFR (CKD-EPI 2020) 46.06 Glucose 118 H Calcium 8.5 Total Bilirubin 1.41 H AST 52 H ALT 52 Alkaline Phosphatase 189 H Troponin I 210 H* 220 H* NT-Pro-B Natriuret Pep 12143 H Total Protein 6.4 Albumin 3.0 L COVID-19 Source Nasopharynx SARS-CoV-2 (PCR) Negative Influenza Type A (PCR) Negative Influenza Type B (PCR) Negative RSV (PCR) Negative ABO/Rh A Positive Blood Type Recheck A Positive Antibody Screen NEGATIVE Crossmatch See Detail 11/09/24 10:57 WBC RBC Hgb Hct MCV MCH MCHC RDW Plt Count MPV Immature Gran % Neutrophils % Lymphocytes % Monocytes % Eosinophils % Basophils % Nucleated RBC % Absolute Neutrophils Absolute Lymphocytes Absolute Monocytes Absolute Eosinophils Absolute Basophils RBC Morphology Polychromasia Hypochromasia Poikilocytosis Anisocytosis PT INR APTT VBG pH VBG pCO2 VBG pO2 VBG HCO3 VBG Total CO2 VBG O2 Saturation VBG Base Excess Sodium Potassium Chloride Carbon Dioxide Anion Gap BUN Creatinine Est GFR (CKD-EPI 2020) Glucose Calcium Total Bilirubin AST ALT Alkaline Phosphatase Troponin I 234 H* NT-Pro-B Natriuret Pep Total Protein Albumin COVID-19 Source SARS-CoV-2 (PCR) Influenza Type A (PCR) Influenza Type B (PCR) RSV (PCR) ABO/Rh Blood Type Recheck Antibody Screen Crossmatch
[2024-11-09 13:52] LABS: HCT 24.2 % (40.0-50.0); MCH 26.5 pg (27.0-33.0); MCHC 28.1 % (32.0-36.0); MCV 94 fL (80-95); Platelet Count 40 10^3/uL (130-400); RBC 2.57 10^6/uL (4.36-5.78); RDW 18.6 % (11.8-14.1); RDW-SD 59.8 fL; WBC 3.59 10^3/uL (4.4-10.8)
[2024-11-09 14:03] LABS: HGB 6.8 g/dL (13.5-17.5)
[2024-11-09 14:04] LABS: MPV 10.9 fL (8.0-11.0)
--- NOTE | 2024-11-09 15:20 | HPE_ITS ---
Date of service: 11/09/24 Time of Service: 15:20 Assessment and Plan Assessment and plan (1) Anemia: Status: Chronic Assessment and plan: - normocytic anemia of unclear etiology, consider chronic GI losses - agree with 2 unit prbc transfusion, recheck CBC and monitor for improvement of symptoms - will check Fe/TIBC, b12, folate - start Protonix 40mg PO daily - hold Pradaxa for now - appreciate gen surg consult, no need for inpatient colonoscopy but should get this scheduled soon after discharge (2) Acute HFrEF (heart failure with reduced ejection fraction): Status: Acute Assessment and plan: - last echo in our system dated 12/03, notes EF of 33% with generalized hypokinesis and akinesis of anterior apical segment - today, may heve small amount of acute CHF, can also consider high output failure as dignosis - lasix 20mg IV x 1 given in ER, will continue outpatient dosing of torsemide 20mg PO daily - continue other meds ---> metoprolol, Crestor, Jardiance, low dose ASA (3) Paroxysmal atrial fibrillation: Status: Acute Assessment and plan: - currently in NSR - continue metoprolol as above - hold Pradaxa as noted (4) Thrombocytopenia: Status: Chronic Assessment and plan: - plts somewhat lower than baseline ----> ? liver disease - continue to monitor counts as well as for any bleeding History of Present Illness History of Present Illness Chief Complaint: SOB Narrative: This is a 69 yo male with pmhx: CAD/NSTEMI, HFrEF, b/l carotid occlusion, pAF on PRadaxa, chronic thrombocytopenia, previous EtOHism that presents today with SOB/WOODARD. Patient is pleasant and a decent historian. Patient tells me that he was doing well without any issues until learlie this week when he started to notice some mild WOODARD. This seemed to slowly worsen during the course of the week. He denied any CP or palpitations. Did think he was getting a little LE edema. No change to bowel or bladder habits or abd girth. Denied any gross bleeding from GI tract. Weight has been stable per patient. Did admit to occasional dry cough. Compliant with meds. On eval in the ER, he was found to have H/H of 6.3/22.9, likely the etiology of his symptoms. Hemeoccult positive. Was given 1 unit prbc in the ER with a second unit ordered. Review of Systems Constitutional Constitutional: Denies body ache(s), Denies chills, Denies daytime sleepiness, Denies fever(s), Denies headache(s), Reports lethargy and Reports weakness ENT Ears, Nose, Mouth, and Throat: Denies headache(s) Cardiovascular Cardiovascular: Denies chest pain, Denies rapid heart rate, Denies irregular heart rhythm, Reports leg edema, Reports dyspnea on exertion and Denies orthopnea Respiratory Respiratory: Denies chest congestion, Reports cough, Denies hemoptysis, Denies pain with cough, Reports dyspnea on exertion and Denies stridor Gastrointestinal Gastrointestinal: Denies abdominal pain, Denies melena, Denies hematochezia, Denies change in bowel habits, Denies change in stool character, Denies constipation, Denies dyspepsia, Denies heartburn, Denies diarrhea, Denies nausea and Denies vomiting Musculoskeletal Musculoskeletal: Denies abnormal gait, Denies back pain, Denies muscle cramps and Denies muscle weakness Neurologic Neurologic: Reports system reviewed and no additional complaints, except as documented, Denies abnormal gait, Denies headache(s) and Reports weakness Endocrine Endocrine: Reports system reviewed and no additional complaints, except as documented PFSH All Active Problems (Updated 11/09/24 @ 15:30 by Donnell Sarah DO) Paroxysmal atrial fibrillation (Acute) Non-ST elevation TX (NSTEMI) (Acute) Congestive heart failure (Chronic) Anemia (Chronic) Sleep difficulties (Acute) Knee pain, left (Acute) Insomnia (Acute) Lumbar radiculitis (Acute) Spinal stenosis, lumbar region with neurogenic claudication (Acute ~07/30/24) [facility] Pain/Spine-note from 07/30/24.HE Acute HFrEF (heart failure with reduced ejection fraction) (Acute ~07/26/24) [facility] Cardiology note from 07/26/24 visit.HE Bilateral carotid artery occlusion (Acute ~07/17/24) [facility] Vascular Surg. note from 07/17/24.HE Abnormal involuntary movements (Acute) Community acquired pneumonia (Acute) Liver dysfunction (Acute) Chronic kidney disease (Chronic) Right upper lobe pulmonary infiltrate (Acute) Thrombocytopenia (Chronic) Anemia (Chronic) Disability affecting daily living (Acute) Lumbosacral stenosis with neurogenic claudication (Acute) per [facility] tele consult & 06/05/24 MRI Radiculopathy due to disorder of intervertebral disc of lumbar spine (Acute) Pancytopenia (Acute) 02/17/24 f/u Hem/Onc At risk for stroke (Acute) New AFib: CHAD2 12/16.. [id number] 02/18 .. so, med-high risk (9.7% stroke risk; 13.6% TIA risk).. Thrombocytopenia (Chronic) Acute, with Hx chronic ITP .. new pathology? or active ITP? or hepatic dz? Atherosclerosis of [place] coronary artery of [place] heart without angina pectoris (Acute 10/24/09) stent 2009; re-occluded stented 11/2015 along with second site Cx.; dual platelet rx until 12/2016-06/2018; Dr. Mcnulty; [facility] 07/30/16 neg for ischemia, EF 51% (< AFTER 2021 stenting?) Cirrhosis of liver without ascites (Acute) Heart failure with reduced ejection fraction (Acute) EF 33% (11/11/23) .. 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 Rt Calf, resolves w/in minutes of rest Other specified nonscarring hair loss (Acute) LE, b/l (no problem, but notable to pt who is wondering) .. 2' PAD? ik, 03/2023 [ ] MEET Pulmonary fibrosis (Acute) Emphysema lung (Acute) Restrictive lung disease (Acute) Chronic ITP (idiopathic thrombocytopenia) (Chronic 07/25/17) Per rvw of Heme consult of 07/2019: RTC if pltlts<70,000, 12/17/23, ik...Heme consult Dr. Nolen 07/2017, likely slowly progressive chronic going back to 2006; re-consult if drops below 50,000 Hypertension (Chronic 12/11/00) avoid hypotension due to cerebral vascular disease; cardilogy: Dr Camara; goal 130-140 systolic, sens to thiazide Hyperlipidemia (Chronic 11/10/02) goal LDL 70 or best able Sensorineural hearing loss, bilateral (Chronic 06/24/14) R hearing aid 07/2014 Splenomegaly (Chronic 08/02/17) 14 cm on US 06/2017; ? due to chronic ITP Cervical radiculitis (Chronic) Osteoarthritis of lower back (Acute 12/11/01) Macrocytic anemia (Acute) Chronic low back pain (Chronic) Acute episodes, . Mild DJD on LS film 04/2014; Hx daily Aleve. Hepatic steatosis (Chronic) Abdominal US in 2016 Muscle spasm (Acute) Acute ... improves with PT, but re-spasms .. Need rest, anti-inflamm then abd/core mm strengthening. Possible PSOAS (?) COPD (chronic obstructive pulmonary disease) (Chronic) NEG COPD per pt rpt s/p Pulm OV, 03/2023. Per CT (2016), Hx smoking. Weight gain (Acute) 15 lbs per chart, no diet change per pt Anemia (Chronic) Low HGB. Hx Macrocytic anemia, B12 WNL ().. [ ] iron suppl, po review Compression fracture of L2 lumbar vertebra (Acute) per MRI (03/08/22), w/ acute/subacute signal. Fx lines extend towards pedicles..20% ht loss..intraosseous edema.. Spinal stenosis at L4-L5 level (Acute) per MRI (03/08/22). .. moderate ctl canal stenosis .. disc protrusion caudally, 5mm behind L5.. MRI LSpine 04/2022 no nerve compressin or central stenosis Sacroiliac joint dysfunction of left side (Acute) Hyponatremia (Chronic) CHRONIC? Asymptomatic, 08/05/22 Lung nodule seen on imaging study (Acute) Per 10/19/22 CTA: Neg PE. (+) pleural base nodule, RML, 4mm.. & sessile pleural plaque (RUL) measuring 1 cm x 0.3 cm. Pleuritic chest pain (Acute) Pleural plaque (Acute) Medical History Hx of arterial ischemic stroke 2007, cerebral infarction Hemoptysis COVID-30 March 2022, home test Tenderness of back Prominent mm; lft paraspinal tenderness (L2-L4), rad into left buttock Left buttock pain Helped focus on SI Joint vs lower bk. Feeling great, 09/2022. Absent breath sounds on left side of chest much lower than rt base .. seems new.. Left-sided back pain Acute on chronic .. barely walking, tenderness out of proportion .. Carcinoma in situ, unspecified 11/28/2019 [facility] Derm: squamous cell left forearm with biopsy and destroyed by curettage and electrodesiccation. Cerebral artery occlusion with cerebral infarction (01/13/07) Convulsions (01/25/08) Pt. denies Abnormal findings on diagnostic imaging of lung (11/25/06) Old notes, CXR since then show cardiomegaly, possible atelectasis or scarring.. nothing acute. Carpal tunnel syndrome (07/05/11) Headache (08/01/09) Sudden hearing loss (12/15/12) assoc with CVA?? 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 Camara [facility] Coronary Stent (12/11/15) LAD POBA for in-stent restenosis, November 2015 AND left circumflex 3-mm drug-eluting stent, November 2015, Dr Camara Appendectomy 2006 Family History Father , Pneumonia at age 68. Tobacco use disorder Pneumonia Other Heart disease Stroke Social History (Updated 08/06/24 @ 15:39 by Long Contreras) Smoking/Tobacco Use Status: Former Tobacco Use Quit Date: 09/12/02 Tobacco: How many years used: 15 Second Hand Exposure: Yes Smoking risk assessment performed?: Yes Alcohol Intake: current Alcohol Intake frequency: 0-2 drinks per day Alcohol type: hard liquor Drug use: Never Substance use type: does not use Adopted: No Foster care: No Household members: spouse and family Housing: house Number of Children: 2 number of grandchildren: 3 Communication Needs: Hard of Hearing and Corrective Lenses Education Level: high school Do you need help understanding health information?: Never current occupation: [employer] Pets and animals: No Do you think of yourself as: straight/heterosexual Current gender identity: male What is your relationship status?: How often do you get together with friends or relatives?: once per week Panel score (0-1 are the most socially isolated patients): 1 What type of physical activity do you participate in: other Details: active lifestyle- Duration: 15-30 minutes/day Frequency: daily Shannan/Hinduism: Confucianism Seatbelt use: sometimes Drive intox or ride w/intox services delivery driver: No Do you feel safe at home: Yes Do you feel safe in your relationship?: Yes Additional Social history: still works two jobs [employer] and doing [employer] for [employer]. works at [employer]. Meds Allergies and Home Medications Allergies Allergy/AdvReac Type Severity Reaction Status Date / Time azithromycin AdvReac Severe Other (See Verified 11/09/24 07:39 Comment) atorvastatin AdvReac Intermediate Diarrhea Verified 11/09/24 07:39 Home Medications ?Medication ?Instructions ?Recorded ?Confirmed ?Type vitamin B complex [B 1 cap PO .qd 04/24/19 10/24/24 History Complex-Vitamin B12] aspirin 81 mg chewable tablet 81 mg PO DAILY #90 tab-caps 09/16/22 10/24/24 Rx rosuvastatin 20 mg tablet 20 mg PO DAILY #90 tabs 11/10/23 10/24/24 Rx fluticasone fur. 100 mcg-umeclid 1 inh inhalation DAILY #60 ea 12/05/23 10/24/24 Rx 62.5 mcg-vilant 25 mcg inhalat.powder (Trelegy Ellipta) nitroglycerin 0.4 mg sublingual 0.4 mg sublingual PRN #25 tabs 12/25/23 10/24/24 Rx tablet ipratropium 20 mcg-albuterol 100 1 puff inhalation Q6H PRN chest 02/03/24 10/24/24 Rx mcg/actuation mist for inhalation congestion; cold symptoms #4 grams (Combivent Respimat) pantoprazole 20 mg tablet,delayed 20 mg PO DAILY #90 tab-caps 04/20/24 10/24/24 Rx release dabigatran etexilate 150 mg capsule 150 mg PO BID 05/28/24 10/24/24 History acetaminophen 325 mg tablet 650 mg (2 x 325 mg) PO Q4H PRN PRN 08/08/24 10/24/24 Rx fever or pain #0 tabs calcium 500 mg (as 1 tab PO BID #60 tabs 08/08/24 10/24/24 Rx carbonate)-vitamin D3 10 mcg (400 unit) tablet (Calcium 500 With D) potassium chloride 20 mEq 20 meq PO DAILY #90 tabs 08/30/24 10/24/24 Rx tablet,extended release(part/cryst) (Klor-Con M) metoprolol succinate 100 mg 100 mg PO DAILY 09/11/24 10/24/24 History tablet,extended release 24 hr gabapentin 100 mg capsule 100 mg PO TID 10/05/24 10/24/24 History trazodone 50 mg tablet 50 mg PO QHS PRN sleep #30 tabs 10/05/24 10/24/24 Rx empagliflozin 10 mg tablet 10 mg PO QAM #90 tabs 10/15/24 10/24/24 Rx (Jardiance) dabigatran etexilate 150 mg 150 mg PO BID 10/17/24 10/24/24 History capsule (Pradaxa) torsemide 20 mg tablet 20 mg PO Q OTHER DAY 11/02/24 History Exam Const General: cooperative, comfortable, no acute distress and well developed Nutritional Appearance: obese Orientation: alert, awake and oriented x3 Chest Chest: normal inspection of the chest Resp Effort & Inspection: normal respiratory effort Auscultation: clear to auscultation bilaterally, no rales, no rhonchi and no wheezes Cardio Rate: regular rate Rhythm: regular rhythm Heart Sounds: S1 normal and S2 normal GI Inspection: normal to inspection and edema (trace pedal edema) Palpation: soft and nontender Neuro Cranial Nerves: CN's II-XI intact bilaterally Results Labs 11/09/24 13:44 11/09/24 07:53 Labs: Laboratory Results - last 24 hr 0211/09/24 11/09/24 07:53 08:03 08:47 WBC 4.19 L RBC 2.36 L Hgb 6.3 L* Hct 22.9 L MCV 97 H MCH 26.7 L MCHC 27.5 L RDW 18.0 H Plt Count 49 L MPV 11.9 H Immature Gran % 0.7 Neutrophils % 82.2 Lymphocytes % 8.8 Monocytes % 7.4 Eosinophils % 0.7 Basophils % 0.2 Nucleated RBC % 0.0 Absolute Neutrophils 3.44 Absolute Lymphocytes 0.37 L Absolute Monocytes 0.31 Absolute Eosinophils 0.03 Absolute Basophils 0.01 RBC Morphology See Below Polychromasia Present Hypochromasia 1+ Poikilocytosis 1+ Anisocytosis 1+ PT 16.1 H INR 1.7 H APTT 37.2 H VBG pH 7.35 VBG pCO2 42 VBG pO2 30 VBG HCO3 24 VBG Total CO2 23 L VBG O2 Saturation 45 VBG Base Excess -2 Sodium 139 Potassium 4.8 Chloride 104 Carbon Dioxide 24.0 Anion Gap 11.0 BUN 27 H Creatinine 1.6 H Est GFR (CKD-EPI 2020) 46.06 Glucose 118 H Calcium 8.5 Total Bilirubin 1.41 H AST 52 H ALT 52 Alkaline Phosphatase 189 H Troponin I 210 H* 220 H* NT-Pro-B Natriuret Pep 69216 H Total Protein 6.4 Albumin 3.0 L COVID-19 Source Nasopharynx SARS-CoV-2 (PCR) Negative Influenza Type A (PCR) Negative Influenza Type B (PCR) Negative RSV (PCR) Negative ABO/Rh A Positive Blood Type Recheck A Positive Antibody Screen NEGATIVE Crossmatch See Detail 11/09/24 11/09/24 10:57 13:44 WBC 3.59 L RBC 2.57 L Hgb 6.8 L* Hct 24.2 L MCV 94 MCH 26.5 L MCHC 28.1 L RDW 18.6 H Plt Count 40 L MPV 10.9 Immature Gran % Neutrophils % Lymphocytes % Monocytes % Eosinophils % Basophils % Nucleated RBC % Absolute Neutrophils Absolute Lymphocytes Absolute Monocytes Absolute Eosinophils Absolute Basophils RBC Morphology Polychromasia Hypochromasia Poikilocytosis Anisocytosis PT INR APTT VBG pH VBG pCO2 VBG pO2 VBG HCO3 VBG Total CO2 VBG O2 Saturation VBG Base Excess Sodium Potassium Chloride Carbon Dioxide Anion Gap BUN Creatinine Est GFR (CKD-EPI 2020) Glucose Calcium Total Bilirubin AST ALT Alkaline Phosphatase Troponin I 234 H* NT-Pro-B Natriuret Pep Total Protein Albumin COVID-19 Source SARS-CoV-2 (PCR) Influenza Type A (PCR) Influenza Type B (PCR) RSV (PCR) ABO/Rh Blood Type Recheck Antibody Screen Crossmatch Last Vital Signs Temp 36.8 C 11/09/24 15:16 Pulse 86 11/09/24 15:16 Resp 18 11/09/24 15:16 BP 134/70 11/09/24 15:16 Pulse Ox 96 11/09/24 15:16 Time Spent Time spent with Patient: <40 minutes Time was spent: preparing to see the patient(eg.review tests), ordering medications,tests, procedures, indepentently interpreting results, counseling the patient and care coordination
[2024-11-09] MEDS: Pantoprazole 40 MG VIAL IVP (15:31)
[2024-11-09] MEDS: Famotidine 20 MG/2 ML VIAL IVP (15:31)
--- NOTE | 2024-11-09 17:01 | W.PC.ACHO ---
Registration Status: Primary Language: Preferred Language: ED Information & Data Chief Complaint SOB 11/09/24 07:48 Triage Note SOB x1 week. denies covid or 11/09/24 07:27 flu testing. feels like he is retaining fluid - feet are swelling. hx CHF. has been using his inhalers but they don't help. increased WOODARD. denies fever or chills. Medical / Surgical History (Last Reviewed 08/06/24 @ 15:38 by Long Contreras) Atrial fibrillation, new onset Hx of atherosclerotic cardiovascular disease Absent breath sounds on left side of chest Hx of arterial ischemic stroke Hemoptysis COVID-19 Tenderness of back Left buttock pain Left-sided back pain Carcinoma in situ, unspecified Cerebral artery occlusion with cerebral infarction (01/13/07) Convulsions (01/25/08) Abnormal findings on diagnostic imaging of lung (11/25/06) Carpal tunnel syndrome (07/05/11) Headache (08/01/09) Sudden hearing loss (12/15/12) History of tobacco use (10/12/11) Vertigo (05/09/17) 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) Anxiety disorder, unspecified (03/22/17) Erectile dysfunction (Last Reviewed 08/06/24 @ 15:38 by Long Contreras) History of biopsy Hx of cardiac cath Coronary Stent (12/11/15) Appendectomy Most Recent Vital Signs Temperature 36.3 C L 11/09/24 16:44 Pulse 85 11/09/24 16:44 Pulse 84 11/09/24 16:30 Respiratory Rate 16 11/09/24 16:44 Respiratory Effort Normal, Non-Labored 11/09/24 08:17 Respiratory Depth Normal 11/09/24 08:17 Respiratory Pattern Normal 11/09/24 08:17 Blood Pressure 150/74 H 11/09/24 16:44 Blood Pressure Mean 102 11/09/24 16:30 Pulse Oximetry 95 11/09/24 16:44 Oxygen Delivery Method Room Air 11/09/24 16:44 Oxygen Flow Rate 0 11/09/24 16:44 Pain Level 0 11/09/24 07:27 Comment placed on oxygen 11/09/24 07:27 Allergies azithromycin Adverse Reaction (Severe, Verified 11/09/24 07:39) Other (See Comment) Blurred vision atorvastatin Adverse Reaction (Intermediate, Verified 11/09/24 07:39) Diarrhea begun 11/2015; persistent diarrhea for 5 mos; relieved on D/C 04/2016 IV IV Catheter Type [Left Saline Lock Antecubital] IV Catheter Gauge [Left 20 Antecubital] Diagnostics 11/09/24 11/09/24 11/09/24 Range/Units 13:44 10:57 08:47 WBC 3.59 L (4.4-10.8) 10^3/uL RBC 2.57 L (4.36-5.78) 10^6/uL Hgb 6.8 L* (13.5-17.5) g/dL Hct 24.2 L (40.0-50.0) % MCV 94 (80-95) fL MCH 26.5 L (27.0-33.0) pg MCHC 28.1 L (32.0-36.0) % RDW 18.6 H (11.8-14.1) % Plt Count 40 L (130-400) 10^3/uL MPV 10.9 (8.0-11.0) fL Immature Gran % % Neutrophils % % Lymphocytes % % Monocytes % % Eosinophils % % Basophils % % Nucleated RBC % (0.0-0.3) % Absolute Neutrophils (1.2-6.7) 10^3/uL Absolute Lymphocytes (1.2-3.4) 10^3/uL Absolute Monocytes (0.1-0.8) 10^3/uL Absolute Eosinophils (0.0-0.7) 10^3/uL Absolute Basophils (0.0-0.2) 10^3/uL RBC Morphology Polychromasia Hypochromasia Poikilocytosis Anisocytosis PT (9.1-11.1) sec INR (0.9-1.1) APTT (20.6-30.2) sec VBG pH (7.31-7.41) VBG pCO2 (41-51) mmHg VBG pO2 mmHg VBG HCO3 (23-28) mmol/L VBG Total CO2 (24-29) mmol/L VBG O2 Saturation % VBG Base Excess (-2-3) mmol/L Sodium (136-145) mmol/L Potassium (3.5-5.1) mmol/L Chloride (98-107) mmol/L Carbon Dioxide (21.0-32.0) mmol/L Anion Gap (3-11) mmol/L BUN (7-18) mg/dL Creatinine (0.70-1.30) mg/dL Est GFR (CKD-EPI 2020) (mL/min/1.73m2) Glucose (74-106) mg/dL Calcium (8.5-10.1) mg/dL Total Bilirubin (0.2-1.0) mg/dL AST (15-37) U/L ALT (16-63) U/L Alkaline Phosphatase (46-116) U/L Troponin I 234 H* 220 H* (<or=76) ng/L NT-Pro-B Natriuret Pep (<300) pg/mL Total Protein (6.4-8.2) g/dL Albumin (3.4-5.0) g/dL COVID-19 Source SARS-CoV-2 (PCR) (Negative) Influenza Type A (PCR) (Negative) Influenza Type B (PCR) (Negative) RSV (PCR) (Negative) ABO/Rh A Positive Blood Type Recheck Antibody Screen NEGATIVE Crossmatch See Detail 11/09/24 11/09/24 Range/Units 08:03 07:53 WBC 4.19 L (4.4-10.8) 10^3/uL RBC 2.36 L (4.36-5.78) 10^6/uL Hgb 6.3 L* (13.5-17.5) g/dL Hct 22.9 L (40.0-50.0) % MCV 97 H (80-95) fL MCH 26.7 L (27.0-33.0) pg MCHC 27.5 L (32.0-36.0) % RDW 18.0 H (11.8-14.1) % Plt Count 49 L (130-400) 10^3/uL MPV 11.9 H (8.0-11.0) fL Immature Gran % 0.7 % Neutrophils % 82.2 % Lymphocytes % 8.8 % Monocytes % 7.4 % Eosinophils % 0.7 % Basophils % 0.2 % Nucleated RBC % 0.0 (0.0-0.3) % Absolute Neutrophils 3.44 (1.2-6.7) 10^3/uL Absolute Lymphocytes 0.37 L (1.2-3.4) 10^3/uL Absolute Monocytes 0.31 (0.1-0.8) 10^3/uL Absolute Eosinophils 0.03 (0.0-0.7) 10^3/uL Absolute Basophils 0.01 (0.0-0.2) 10^3/uL RBC Morphology See Below Polychromasia Present Hypochromasia 1+ Poikilocytosis 1+ Anisocytosis 1+ PT 16.1 H (9.1-11.1) sec INR 1.7 H (0.9-1.1) APTT 37.2 H (20.6-30.2) sec VBG pH 7.35 (7.31-7.41) VBG pCO2 42 (41-51) mmHg VBG pO2 30 mmHg VBG HCO3 24 (23-28) mmol/L VBG Total CO2 23 L (24-29) mmol/L VBG O2 Saturation 45 % VBG Base Excess -2 (-2-3) mmol/L Sodium 139 (136-145) mmol/L Potassium 4.8 (3.5-5.1) mmol/L Chloride 104 (98-107) mmol/L Carbon Dioxide 24.0 (21.0-32.0) mmol/L Anion Gap 11.0 (3-11) mmol/L BUN 27 H (7-18) mg/dL Creatinine 1.6 H (0.70-1.30) mg/dL Est GFR (CKD-EPI 2020) 46.06 (mL/min/1.73m2) Glucose 118 H (74-106) mg/dL Calcium 8.5 (8.5-10.1) mg/dL Total Bilirubin 1.41 H (0.2-1.0) mg/dL AST 52 H (15-37) U/L ALT 52 (16-63) U/L Alkaline Phosphatase 189 H (46-116) U/L Troponin I 210 H* (<or=76) ng/L NT-Pro-B Natriuret Pep 65817 H (<300) pg/mL Total Protein 6.4 (6.4-8.2) g/dL Albumin 3.0 L (3.4-5.0) g/dL COVID-19 Source Nasopharynx SARS-CoV-2 (PCR) Negative (Negative) Influenza Type A (PCR) Negative (Negative) Influenza Type B (PCR) Negative (Negative) RSV (PCR) Negative (Negative) ABO/Rh Blood Type Recheck A Positive Antibody Screen Crossmatch Intake and Output - 24 Hour Total 11/09/24 07:25 thru 11/09/24 12:24 Intake Total 270 Output Total 300 Balance -30 Weight 94.347 kg Intake: IV 20 Blood Product 250 Rbc Leuko Reduced Unit 250 [id number] Output: Urine 300 Falls Risk Assessment History of Falls No History 11/09/24 08:01 Contributing Factors No Factors 11/09/24 08:01 Ambulatory Aids Independent 11/09/24 08:01 Tubes/Lines None 11/09/24 08:01 Gait Evaluation No gait disturbance 11/09/24 08:01 Cognition No cognitive impairment 11/09/24 08:01 Fall Total Score 0 11/09/24 08:01 Level of Risk Standard/Low Risk 11/09/24 08:01 Problems (Last Reviewed 08/06/24 @ 15:38 by Long Contreras) Paroxysmal atrial fibrillation (Acute) Anemia (Chronic) Acute HFrEF (heart failure with reduced ejection fraction) (Acute ~07/26/24) Thrombocytopenia (Chronic) v v v v v v v v v Sending and/or Receiving Nurses: Please use comment section below to note any information pertinent to the patient hand-off not included above. Information / Comments: Report received from: ousmane armas to manohar KERN at 1702
[2024-11-09] MEDS: Calcium 600mg/Vit D 200U TAB 1 TAB PO (19:38)
[2024-11-09] MEDS: traZODone 50 MG TAB PO (19:38)
[2024-11-09] MEDS: Gabapentin 100 MG CAP PO (19:38)
[2024-11-09] MEDS: Acetaminophen 325 MG TAB 650 MG PO (19:38)
[2024-11-09] MEDS: Normal Saline Flush 10 ML SYR IVP (19:39)
[2024-11-10 00:07] VITALS: BP 107/65; PULSE 89; RESP 17; TEMP 36; O2SAT 91
[2024-11-10] MEDS: Acetaminophen 325 MG TAB 650 MG PO (03:07)
[2024-11-10 03:34] VITALS: BP 99/63; PULSE 86; RESP 18; TEMP 36.8; O2SAT 95
[2024-11-10 07:17] LABS: Abs Immature Grans 0.02 10^3/uL (0.0-0.06); Absolute Basophil Count 0.02 10^3/uL (0.0-0.2); Absolute Eosinophil Count 0.03 10^3/uL (0.0-0.7); Absolute Lymphocyte Count 0.38 10^3/uL (1.2-3.4); Absolute Monocyte Count 0.25 10^3/uL (0.1-0.8); Basophils % 0.7 %; Eosinophils % 1.1 %; HCT 26.2 % (40.0-50.0); HGB 7.7 g/dL (13.5-17.5); Immature Grans % 0.7 %; Lymphocytes % 14.1 %; MCH 27.2 pg (27.0-33.0); MCHC 29.4 % (32.0-36.0); MCV 93 fL (80-95); MPV 12.3 fL (8.0-11.0); Monocytes % 9.3 %; Neutrophils % 74.1 %; RBC 2.83 10^6/uL (4.36-5.78); RDW 18.6 % (11.8-14.1); RDW-SD 58.4 fL
[2024-11-10 07:31] LABS: BUN 25 mg/dL (7-18); CREATININE 1.2 mg/dL (0.70-1.30); Calcium 8.8 mg/dL (8.5-10.1); Chloride 107 mmol/L (98-107); Estimated GFR 65.06 (mL/min/1.73m2); Glucose 110 mg/dL (74-106); Magnesium 2.1 mg/dL (1.8-2.4); Potassium 4.1 mmol/L (3.5-5.1); Sodium 139 mmol/L (136-145)
[2024-11-10] MEDS: Normal Saline Flush 10 ML SYR IVP (07:36)
[2024-11-10] MEDS: Gabapentin 100 MG CAP PO (07:36)
[2024-11-10] MEDS: Pantoprazole 20 MG TABCR 40 MG PO (07:36)
[2024-11-10] MEDS: Calcium 600mg/Vit D 200U TAB 1 TAB PO (07:36)
[2024-11-10 07:45] LABS: Diff Comment PLT Morph Reviewed; Platelet Count 38 10^3/uL (130-400); RBC Morphology Normal
[2024-11-10 07:47] VITALS: BP 121/74; PULSE 85; RESP 18; TEMP 36.4; O2SAT 95
[2024-11-10] MEDS: Rosuvastatin 20 MG TAB PO (08:40)
[2024-11-10] MEDS: Empaglifozin 10 MG TAB PO (08:40)
[2024-11-10] MEDS: Potassium Chloride 20 MEQ TABCR PO (08:40)
[2024-11-10] MEDS: Vitamins B Comp w/C TAB 1 TAB PO (08:40)
[2024-11-10 11:12] VITALS: BP 117/76; PULSE 97; RESP 16; TEMP 36.8; O2SAT 94
--- NOTE | 2024-11-10 11:30 | W.PM.DS.N ---
Date of service: 11/10/24 Time of Service: 11:30 DS: Diagnosis Discharge Diagnosis (1) Anemia: Status: Acute Discharge Plan Disposition Patient Disposition: Home Condition: Stable Discharge Details Reason For Visit: anemia Admit Date/Time: 11/09/24 15:42 Admit Provider: Donnell Saarh Attending Provider: Donnell aSrah Primary Care Provider: Gladys Jonas Hospital Course Hospital Course: Per H+P: This is a 69 yo male with pmhx: CAD/NSTEMI, HFrEF, b/l carotid occlusion, pAF on PRadaxa, chronic thrombocytopenia, previous EtOHism that presents today with SOB/WOODARD. Patient is pleasant and a decent historian. Patient tells me that he was doing well without any issues until learlie this week when he started to notice some mild WOODARD. This seemed to slowly worsen during the course of the week. He denied any CP or palpitations. Did think he was getting a little LE edema. No change to bowel or bladder habits or abd girth. Denied any gross bleeding from GI tract. Weight has been stable per patient. Did admit to occasional dry cough. Compliant with meds. On eval in the ER, he was found to have H/H of 6.3/22.9, likely the etiology of his symptoms. Hemeoccult positive. Was given 1 unit prbc in the ER with a second unit ordered. Patitent was monitored overnight. His Pradaxa and ASA were held. He ultimately received 2 units prbc. Repeat labs in the AM showed h/h up to 7.7/26.2. Of concern, he had thrombocytopenia. While this had been noted as an outpatient, it was somewhat worse today and was down to 38 at time of discharge. I did d/w patient and suggested he remain another night to ensure his CBC remained stable. Patient elected to be discharged home. Therefore, we will discharge home in stable condition. I advised stopping Pradaxa and ASA until he could be seen at his PCP (has appt 11/15) and discuss colonoscopy as next step. Of note, he has previously been treated with steroids for potenial ITP as a cause of his thrombocytopenia and can continue this as well. Would also add ful dose PPI for now. Home Meds and New Rx's Prescriptions: New pantoprazole 20 mg Tablet,Delayed Release (Dr/Ec) 40 mg PO DAILY@0730 30 Days Qty: 30 0RF Continued rosuvastatin 20 mg tablet 20 mg PO DAILY Qty: 90 3RF nitroglycerin 0.4 mg tablet, sublingual 0.4 mg Sublingual PRN Qty: 25 3RF Rx Instructions: for chest pain. potassium chloride [Klor-Con M20] 20 mEq tablet,ER particles/crystals 20 meq PO DAILY Qty: 90 3RF metoprolol succinate 100 mg tablet extended release 24 hr 100 mg PO DAILY vitamin B complex [B Complex-Vitamin B12] 1 cap PO .qd Combivent Respimat 20-100 mcg/actuation mist 1 puff inhalation Q6H PRN (Reason: chest congestion; cold symptoms) Qty: 4 6RF Rx Instructions: Trial in the morning (with spacer) to help clear phlegm gabapentin 100 mg capsule 100 mg PO TID trazodone 50 mg tablet 50 mg PO QHS PRN (Reason: sleep) Qty: 30 3RF Trelegy Ellipta 100-62.5-25 mcg blister with device 1 inh inhalation DAILY Qty: 60 11RF Jardiance 10 mg tablet 10 mg PO QAM Qty: 90 3RF torsemide 20 mg tablet 20 mg PO Q OTHER DAY Rx Instructions: decr dose from 07/26/25 but pt just started that week of 10/29/24 per Jose who spoke w/cardiology recently- acetaminophen 325 mg Tablet 650 mg PO Q4H PRN PRN (Reason: fever or pain) Qty: 0 0RF Rx Instructions: max dose 2000mg per day calcium carbonate-vitamin D3 [Calcium 500 With D] 500 mg-10 mcg (400 unit) tablet 1 tab PO BID Qty: 60 3RF Discontinued aspirin 81 mg tablet,chewable 81 mg PO DAILY Qty: 90 3RF Rx Instructions: As best dispensed (OTC vs Rx?) pantoprazole 20 mg tablet,delayed release (DR/EC) 20 mg PO DAILY Qty: 90 3RF Rx Instructions: Continue with lower dose PPI 2' malabsorption risks dabigatran etexilate 150 mg capsule 150 mg PO BID Discharge Instructions Referrals: Gladys Jonas APRN [Primary Care Provider] - 11/15/24 Activity:: Activity as Tolerated Equipment/Supplies:: No Equipment Needed Diet:: Low Sodium Discharge Orders Discharge Orders: Discharge Order (Routine); Ordered 11/10/24 Ordered By: Donnell Sarah DS: Summary Time Spent with Patient providing and/or coordinating discharge services: Greater than 30 minutes Status at Discharge Functional status at discharge: independent ambulation Overall status at discharge: patient is back to baseline Mental Status: mental status grossly normal Speech and Movement: speech and movement normal Mood: congruent mood Affect: normal affect Quality:SDOH Health Related Social Needs: No Data to Display Exam Psych Mental Status: mental status grossly normal Speech and Movement: speech and movement normal Mood: congruent mood Affect: normal affect DS: Data Vitals/I&O Vitals and I&O: Vital Signs Temperature 36.8 C 11/10/24 11:12 Temperature Source Tympanic 11/10/24 11:12 Pulse 97 H 11/10/24 11:12 Pulse 85 11/09/24 16:46 Respiratory Rate 16 11/10/24 11:12 Respiratory Effort Short of Breath 11/09/24 17:18 Respiratory Depth Normal 11/09/24 17:18 Respiratory Pattern Normal 11/09/24 17:18 Blood Pressure 117/76 11/10/24 11:12 Blood Pressure Mean 90 11/09/24 16:46 Pulse Oximetry 94 11/10/24 11:12 Oxygen Delivery Method Room Air 11/10/24 11:12 Oxygen Flow Rate 0 11/10/24 11:12 Pain Level 0 11/10/24 11:12 Comment map of 74 11/10/24 03:34 Intake & Output 11/09/24 11/09/24 11/10/24 11:59 23:59 11:59 Intake Total 20 / 530 510 / 530 480 / 480 Output Total 300 / 300 Balance -280 / 230 510 / 230 480 / 480 Weight 94.347 kg 96.627 kg Intake: IV 20 / 30 10 / 30 Oral 480 / 480 Blood Product 500 / 500 Rbc Leuko Reduced Unit 250 / 250 [id number] Rbc Leuko Reduced Unit 250 / 250 [id number] Output: Urine 300 / 300 Other: Urine Color Yellow Urine Appearance Clear Urine Odor None Comment pt voids in toilet- no hat to measure but no complaints from pt independent in room Data Completed and Pending Labs on day of discharge: Labs from last 24 hours 11/10/24 11/09/24 11/09/24 06:55 13:44 08:47 WBC 2.70 L 3.59 L RBC 2.83 L 2.57 L Hgb 7.7 L 6.8 L* Hct 26.2 L 24.2 L MCV 93 94 MCH 27.2 26.5 L MCHC 29.4 L 28.1 L RDW 18.6 H 18.6 H Plt Count 38 L 40 L MPV 12.3 H 10.9 Immature Gran % 0.7 Neutrophils % 74.1 Lymphocytes % 14.1 Monocytes % 9.3 Eosinophils % 1.1 Basophils % 0.7 Nucleated RBC % 0.0 Absolute Neutrophils 2.00 Absolute Lymphocytes 0.38 L Absolute Monocytes 0.25 Absolute Eosinophils 0.03 Absolute Basophils 0.02 RBC Morphology Normal Sodium 139 Potassium 4.1 Chloride 107 Carbon Dioxide 26.0 Anion Gap 6.0 BUN 25 H Creatinine 1.2 Est GFR (CKD-EPI 2020) 65.06 Glucose 110 H Calcium 8.8 Magnesium 2.1 ABO/Rh A Positive Antibody Screen NEGATIVE Crossmatch See Detail PFSH All Active Problems (Updated 11/09/24 @ 17:07 by Rachid Horton MD) Paroxysmal atrial fibrillation (Acute) Non-ST elevation CO (NSTEMI) (Acute) Congestive heart failure (Chronic) Anemia (Acute) Sleep difficulties (Acute) Knee pain, left (Acute) Insomnia (Acute) Lumbar radiculitis (Acute) Spinal stenosis, lumbar region with neurogenic claudication (Acute ~07/30/24) [facility] Ctr Pain/Spine-note from 07/30/24.HE Acute HFrEF (heart failure with reduced ejection fraction) (Acute ~07/26/24) [facility] Cardiology note from 07/26/24 visit.HE Bilateral carotid artery occlusion (Acute ~07/17/24) [facility] Vascular Surg. note from 07/17/24.HE Abnormal involuntary movements (Acute) Community acquired pneumonia (Acute) Liver dysfunction (Acute) Chronic kidney disease (Chronic) Right upper lobe pulmonary infiltrate (Acute) Thrombocytopenia (Chronic) Anemia (Chronic) Disability affecting daily living (Acute) Lumbosacral stenosis with neurogenic claudication (Acute) per [facility] tele consult & 06/05/24 MRI Radiculopathy due to disorder of intervertebral disc of lumbar spine (Acute) Pancytopenia (Acute) 02/17/24 f/u Hem/Onc At risk for stroke (Acute) New AFib: CHAD2 12/16.. [id number] 02/18 .. so, med-high risk (9.7% stroke risk; 13.6% TIA risk).. Thrombocytopenia (Chronic) Acute, with Hx chronic ITP .. new pathology? or active ITP? or hepatic dz? Atherosclerosis of [place] coronary artery of [place] heart without angina pectoris (Acute 10/24/09) stent 2009; re-occluded stented 11/2015 along with second site Cx.; dual platelet rx until 12/2016-06/2018; Dr. Mcnulty; [facility] 07/30/16 neg for ischemia, EF 51% (< AFTER 2021 stenting?) Cirrhosis of liver without ascites (Acute) Heart failure with reduced ejection fraction (Acute) EF 33% (11/11/23) .. 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 Rt Calf, resolves w/in minutes of rest Other specified nonscarring hair loss (Acute) LE, b/l (no problem, but notable to pt who is wondering) .. 2' PAD? ik, 03/2023 [ ] MEET Pulmonary fibrosis (Acute) Emphysema lung (Acute) Restrictive lung disease (Acute) Chronic ITP (idiopathic thrombocytopenia) (Chronic 07/25/17) Per rvw of Heme consult of 07/2019: RTC if pltlts<70,000, 12/17/23, ik...Heme consult Dr. Nolen 07/2017, likely slowly progressive chronic going back to 2006; re-consult if drops below 50,000 Hypertension (Chronic 12/11/00) avoid hypotension due to cerebral vascular disease; cardilogy: Dr Camaar; goal 130-140 systolic, sens to thiazide Hyperlipidemia (Chronic 11/10/02) goal LDL 70 or best able Sensorineural hearing loss, bilateral (Chronic 06/24/14) R hearing aid 07/2014 Splenomegaly (Chronic 08/02/17) 14 cm on US 06/2017; ? due to chronic ITP Cervical radiculitis (Chronic) Osteoarthritis of lower back (Acute 12/11/01) Macrocytic anemia (Acute) Chronic low back pain (Chronic) Acute episodes, . Mild DJD on LS film 04/2014; Hx daily Aleve. Hepatic steatosis (Chronic) Abdominal US in 2016 Muscle spasm (Acute) Acute ... improves with PT, but re-spasms .. Need rest, anti-inflamm then abd/core mm strengthening. Possible PSOAS (?) COPD (chronic obstructive pulmonary disease) (Chronic) NEG COPD per pt rpt s/p Pulm OV, 03/2023. Per CT (2016), Hx smoking. Weight gain (Acute) 15 lbs per chart, no diet change per pt Anemia (Chronic) Low HGB. Hx Macrocytic anemia, B12 WNL ().. [ ] iron suppl, po review Compression fracture of L2 lumbar vertebra (Acute) per MRI (03/08/22), w/ acute/subacute signal. Fx lines extend towards pedicles..20% ht loss..intraosseous edema.. Spinal stenosis at L4-L5 level (Acute) per MRI (03/08/22). .. moderate ctl canal stenosis .. disc protrusion caudally, 5mm behind L5.. MRI LSpine 04/2022 no nerve compressin or central stenosis Sacroiliac joint dysfunction of left side (Acute) Hyponatremia (Chronic) CHRONIC? Asymptomatic, 08/05/22 Lung nodule seen on imaging study (Acute) Per 10/19/22 CTA: Neg PE. (+) pleural base nodule, RML, 4mm.. & sessile pleural plaque (RUL) measuring 1 cm x 0.3 cm. Pleuritic chest pain (Acute) Pleural plaque (Acute) Medical History Hx of arterial ischemic stroke 2006, cerebral infarction Hemoptysis COVID-30 March 2022, home test Tenderness of back Prominent mm; lft paraspinal tenderness (L2-L4), rad into left buttock Left buttock pain Helped focus on SI Joint vs lower bk. Feeling great, 09/2022. Absent breath sounds on left side of chest much lower than rt base .. seems new.. Left-sided back pain Acute on chronic .. barely walking, tenderness out of proportion .. Carcinoma in situ, unspecified 11/28/2019 [facility] Derm: squamous cell left forearm with biopsy and destroyed by curettage and electrodesiccation. Cerebral artery occlusion with cerebral infarction (01/13/07) Convulsions (01/25/08) Pt. denies Abnormal findings on diagnostic imaging of lung (11/25/06) Old notes, CXR since then show cardiomegaly, possible atelectasis or scarring.. nothing acute. Carpal tunnel syndrome (07/05/11) Headache (08/01/09) Sudden hearing loss (12/15/12) assoc with CVA?? 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 Camara [facility] Coronary Stent (12/11/15) LAD POBA for in-stent restenosis, November 2015 AND left circumflex 3-mm drug-eluting stent, November 2015, Dr Camara Appendectomy 2006 Family History Father , Pneumonia at age 68. Tobacco use disorder Pneumonia Other Heart disease Stroke Social History (Updated 08/06/24 @ 15:39 by Long Contreras) Smoking/Tobacco Use Status: Former Tobacco Use Quit Date: 09/12/02 Tobacco: How many years used: 15 Second Hand Exposure: Yes Smoking risk assessment performed?: Yes Alcohol Intake: current Alcohol Intake frequency: 0-2 drinks per day Alcohol type: hard liquor Drug use: Never Substance use type: does not use Adopted: No Foster care: No Household members: spouse and family Housing: house Number of Children: 2 number of grandchildren: 3 Communication Needs: Hard of Hearing and Corrective Lenses Education Level: high school Do you need help understanding health information?: Never current occupation: [employer],lawn [employer] Pets and animals: No Do you think of yourself as: straight/heterosexual Current gender identity: male What is your relationship status?: How often do you get together with friends or relatives?: once per week Panel score (0-1 are the most socially isolated patients): 1 What type of physical activity do you participate in: other Details: active lifestyle- Duration: 15-30 minutes/day Frequency: daily Shannan/Muslim: Oriental Orthodox Seatbelt use: sometimes Drive intox or ride w/intox entry driver operator: No Do you feel safe at home: Yes Do you feel safe in your relationship?: Yes Additional Social history: 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 works at [employer]. Time Spent with Patient Time Spent with Patient: <45 minutes Time was spent: preparing to see the patient(eg.review tests), indepentently interpreting results, counseling the patient and care coordination
[2024-11-10 12:53] VITALS: BP 140/92; PULSE 114; RESP 17; TEMP 36.7; O2SAT 94
--- NOTE | 2024-11-10 16:16 | CMPROGNOTE_ITS ---
Date of service: 11/10/24 Time of Service: 16:17 Care Management Progress Note Progress Note Text Progress Note Text: Long was admitted with symptomatic (SOB) anemia with H&H of 6.3/22.9. He was transfused with 2 units of blood and his anticoagulants were held. Repeat H&H this morning was 7.7/26.2. The provider recommended that Long remain hospitalized until tomorrow but he elected to discharge home today. Long left before was able to meet with him. He will follow up with his community providers and plan of care. He will likely need GI followup for a possible OP colonoscopy. Discharge Potential Discharge Needs: PCP F/U Appt and Other (possible colonoscopy) Anticipated Barriers to Discharge: None Identified Patient/Family Education Needs: Review discharge instructions, discuss Ask Me Three Transportation: Private vehicle Plan: Long will discharge home with no new services. He wiil followup with his community providers and plan of care and transport with family. Social Determinants of Health Screening Social Determinants of Health last assessed: 11/10/24 Will the Patient Participate in the Screening?: Yes Do you worry about having a steady place to live?: no Problems where you live: no known problems In the past 12 months, have you had to go without electric, gas, oil or water in your home?: no Have you or anyone in your house had to go without enough food to eat?: no Has lack of transportation kept you from medical appointments or from doing thin gs needed for daily living?: no Has anyone in your life made you feel unsafe or unsupported?: no How hard is it for you to pay for the very basics like food, housing, medical care, and heating? Would you say it is:: Not hard at all Do you want help finding or keeping work or a job?: I do not need or want help If for any reason you need help with day-to-day activities such as bathing, preparing meals, shopping, managing finances, etc., do you get the help you need?: I get all the help I need How often do you feel lonely or isolated from those around you?: Never Do you speak a language other than Armenian at home?: No
== END 2024-11-10 12:53 | disposition home or self-care (01) | DRG 811 ==
LOC: ER 15:11 → MS 17:12
PROVIDERS: Admitting Provider Hospitalist; Emergency Provider Student in an Organized Health Care Education/Training Program; PCP Nurse Practitioner Family; Responsible Provider Hospitalist; Visit Provider Hospitalist
DX: D64.9 Anemia, unspecified; I50.21 Acute systolic (congestive) heart failure; D69.3 Immune thrombocytopenic purpura; I13.0 Hypertensive heart and chronic kidney disease with heart failure and stage 1 through stage 4 chronic kidney disease, or unspecified chronic kidney disease; E87.1 Hypo-osmolality and hyponatremia; I48.0 Paroxysmal atrial fibrillation; G47.00 Insomnia, unspecified; M48.062 Spinal stenosis, lumbar region with neurogenic claudication; M54.16 Radiculopathy, lumbar region; I65.23 Occlusion and stenosis of bilateral carotid arteries; N18.9 Chronic kidney disease, unspecified; I25.10 Atherosclerotic heart disease of native coronary artery without angina pectoris; Z95.5 Presence of coronary angioplasty implant and graft; K74.60 Unspecified cirrhosis of liver; I70.203 Unspecified atherosclerosis of native arteries of extremities, bilateral legs; E78.5 Hyperlipidemia, unspecified; H90.3 Sensorineural hearing loss, bilateral; R16.1 Splenomegaly, not elsewhere classified; M54.12 Radiculopathy, cervical region; Z87.891 Personal history of nicotine dependence; R91.1 Solitary pulmonary nodule; Z86.73 Personal history of transient ischemic attack (TIA), and cerebral infarction without residual deficits; F41.9 Anxiety disorder, unspecified; I25.2 Old myocardial infarction; F10.21 Alcohol dependence, in remission; Z79.02 Long term (current) use of antithrombotics/antiplatelets; R19.5 Other fecal abnormalities
CPT/HCPCS: 00123; 36415; 36430; 80048; 80053; 82805; 85027; 86850; 86900; 86901; 86920; 87637; 93005; 93308; 96374; 96375; 99291; 71045; 83735; 83880; 84484; 85025; 85610; 85730; 93010; 99223; 99239; J1941; J2470; J3490; P9016

== ENCOUNTER 2024-11-15 07:36 | Outpatient (RCR) | payer OTHER, SELFPAY ==
[2024-11-15 09:19] LABS: HCT 33.4 % (40.0-50.0); HGB 9.5 g/dL (13.5-17.5); MCH 26.9 pg (27.0-33.0); MCHC 28.4 % (32.0-36.0); MCV 95 fL (80-95); RBC 3.53 10^6/uL (4.36-5.78); RDW 18.6 % (11.8-14.1); RDW-SD 62.1 fL; WBC 3.64 10^3/uL (4.4-10.8)
[2024-11-15 09:27] LABS: Platelet Count 93 10^3/uL (130-400)
[2024-11-15] MEDS: Normal Saline Flush 10 ML SYR IVP (09:28)
== END 2024-12-10 23:59 | disposition home or self-care (01) ==
LOC: INF 07:36
PROVIDERS: PCP Nurse Practitioner Family; Visit Provider Nurse Practitioner Family
DX: D69.3 Immune thrombocytopenic purpura (principal)
CPT/HCPCS: 36415; 85027; 86850; 86900; 86901

== ENCOUNTER 2024-11-20 11:33 | Outpatient (CLI) | payer OTHER, SELFPAY ==
[2024-11-20 10:31] LABS: HCT 31.6 % (40.0-50.0); MCH 26.5 pg (27.0-33.0); MCHC 28.5 % (32.0-36.0); MCV 93 fL (80-95); MPV 10.4 fL (8.0-11.0); Platelet Count 100 10^3/uL (130-400); RBC 3.39 10^6/uL (4.36-5.78); RDW 18.1 % (11.8-14.1); RDW-SD 61.2 fL; WBC 2.51 10^3/uL (4.4-10.8)
== END 2024-11-20 11:34 | disposition home or self-care (01) ==
LOC: LBO 11:35
PROVIDERS: PCP Nurse Practitioner Family; Visit Provider Nurse Practitioner Family
DX: I48.0 Paroxysmal atrial fibrillation (principal)
CPT/HCPCS: 85027

== ENCOUNTER 2024-11-23 08:29 | Outpatient (CLI) | payer OTHER, SELFPAY ==
[2024-11-23 08:34] LABS: HCT 29.6 % (40.0-50.0); HGB 8.7 g/dL (13.5-17.5); MCHC 29.4 % (32.0-36.0); MCV 92 fL (80-95); RBC 3.22 10^6/uL (4.36-5.78); RDW-SD 60.3 fL
[2024-11-23 08:48] LABS: Platelet Count 86 10^3/uL (130-400)
== END 2024-11-23 08:30 | disposition home or self-care (01) ==
PROVIDERS: PCP Nurse Practitioner Family; Visit Provider Nurse Practitioner Family
DX: I48.91 Unspecified atrial fibrillation (principal)
CPT/HCPCS: 36415; 85027

== ENCOUNTER 2024-12-05 13:19 | Outpatient (CLI) | payer OTHER, SELFPAY ==
--- NOTE | 2024-12-05 13:15 | RT.EKG_ITS ---
APPROVED REPORT Exam: Resting ECG Reason for Exam: Tachycardia Patient Location: O HR:149 bpm ECG Measurements Heart Rate 149 AXIS CA [id number] P [id number] QRSd 82 QRS -3 QT 316 T 99 QTc 498 Conclusion Atrial fibrillation...V-rate 117-174, irreg A-activity Repolarization abnormality, prob rate related...ST dep, T neg, tachycardia
== END 2024-12-05 13:20 | disposition home or self-care (01) ==
LOC: DI.KIM 13:20
PROVIDERS: PCP Nurse Practitioner Family; Visit Provider Nurse Practitioner Family
DX: R00.0 Tachycardia, unspecified (principal)
CPT/HCPCS: 93010

== ENCOUNTER 2024-12-05 13:52 | Inpatient (IN) | payer OTHER, SELFPAY ==
[2024-12-05] VITALS (78 sets, daily range): BP systolic 105–224; BP diastolic 49–115; PULSE 81–170; RESP 14–39; TEMP 36.6; O2SAT 87–99
--- NOTE | 2024-12-05 13:45 | RT.EKG_ITS ---
APPROVED REPORT Exam: Resting ECG Reason for Exam: Rapid Heart Rate Patient Location: E HR:167 bpm ECG Measurements Heart Rate 167 AXIS MT [id number] P [id number] QRSd 78 QRS 12 QT 304 T 102 QTc 498 Conclusion Atrial fibrillation with rapid V-rate, rate 167 No interval abnormalities No STEMI Diffuse non-specific T-wave abnormalities, likely rate related. No significant change from prior
--- NOTE | 2024-12-05 14:07 | ED.GENADUL_ITS ---
Discharge Plan Disposition Patient Disposition: Admit to [facility] Condition: Improving Discharge Details Chief Complaint: Chest Pain Clinical Impression: Atrial fibrillation with rapid ventricular response, Chronic ITP (idiopathic thrombocytopenia), Bilateral carotid artery occlusion, Anemia, Paroxysmal atrial fibrillation, Esophageal varices determined by endoscopy, Portal hypertensive gastropathy, Henrandez's esophagus determined by endoscopy, Hypertension, Hyperlipidemia, COPD (chronic obstructive pulmonary disease), Restrictive lung disease, Pulmonary fibrosis, PAD (peripheral artery disease) Primary Care Provider: Gladys Jonas ED Provider: Marcia Obrien Home Meds and New Rx's Prescriptions: No Action rosuvastatin 20 mg tablet 20 mg PO DAILY Qty: 90 3RF nitroglycerin 0.4 mg tablet, sublingual 0.4 mg Sublingual PRN Qty: 25 3RF Rx Instructions: for chest pain. potassium chloride [Klor-Con M20] 20 mEq tablet,ER particles/crystals 20 meq PO DAILY Qty: 90 3RF vitamin B complex [B Complex-Vitamin B12] 1 cap PO .qd Combivent Respimat 20-100 mcg/actuation mist 1 puff inhalation Q6H PRN (Reason: chest congestion; cold symptoms) Qty: 4 6RF Rx Instructions: Trial in the morning (with spacer) to help clear phlegm trazodone 50 mg tablet 50 mg PO QHS PRN (Reason: sleep) Qty: 30 3RF gabapentin 100 mg capsule 200 mg PO TID Qty: 180 2RF Trelegy Ellipta 100-62.5-25 mcg blister with device 1 inh inhalation DAILY Qty: 60 11RF Jardiance 10 mg tablet 10 mg PO QAM Qty: 90 3RF torsemide 20 mg tablet 20 mg PO Q OTHER DAY Rx Instructions: decr dose from 07/26/25 but pt just started that week of 10/29/24 per Jose who spoke w/cardiology recently- dabigatran etexilate [Pradaxa] 150 mg capsule 150 mg PO BID Qty: 60 3RF pantoprazole 20 mg Tablet,Delayed Release (Dr/Ec) 40 mg PO DAILY@0730 30 Days Qty: 30 0RF acetaminophen 325 mg Tablet 650 mg PO Q4H PRN PRN (Reason: fever or pain) Qty: 0 0RF Rx Instructions: max dose 2000mg per day calcium carbonate-vitamin D3 [Calcium 500 With D] 500 mg-10 mcg (400 unit) tablet 1 tab PO BID Qty: 60 3RF HPI General Mode of arrival: ambulatory . Date/Time Provider Initiated Documentation: 12/05/24 13:53 . Limitations to Documentation: no limitations . Information obtained by: patient, family and old records reviewed . HPI Narrative: HPI: This is a 69-year-old male patient with a past medical history significant for paroxysmal atrial fibrillation on Pradaxa, history of cirrhosis and portal hypertension with esophageal varices, history of congestive heart failure, CAD, coronary carotid artery occlusion, CKD, anemia requiring recent transfusions, thrombocytopenia, pulmonary fibrosis, hypertension, and COPD who is presenting for evaluation of rapid heart rate. The patient states that 3 days ago he was getting ready for work and was getting out of a vehicle when he began to experience shortness of breath, exacerbated by walking or activity. He does endorse pain in the center of his chest that has been persistent since that time, and states he could feel that he transitioned into atrial fibrillation at that time. He was concerned given the shortness of breath that he was developing a cough or a pneumonia, and was seen at his primary care providers today, though noted him to be in atrial fibrillation with RVR and sent him to our facility for further evaluation. The patient has been taking all his medications as prescribed, including his anticoagulant. He was recently taken off of his metoprolol due to his carotid artery stenosis and the need for permissive hypertension. He was admitted to the hospital at the beginning of this month for anemia requiring transfusion likely due to a GI bleed, states that since that time he has had a GI scope. In the past he has required medical management as well as cardioversion for his atrial fibrillation. When seated, he states that his lightheadedness and dizziness is resolved, and his shortness of breath is much improved. Exam: Gen: Awake and alert, in no apparent distress HEENT: Non-icteric sclera Neck: Supple Lungs: No apparent respiratory distress, normal respiratory effort. Lung sounds clear and equal bilaterally CV: Appears well perfused, heart with tachycardic rate and irregularly irregular rhythm, strong and symmetrical distal pulses, chest wall nontender to palpation., Soft, nontender Abdomen: Non-distended, soft, nontender without rigidity, rebound, or guarding MSK: Moves 4 extremities without apparent limitation in ROM. No peripheral edema noted, no unilateral calf swelling or tenderness Skin: Visualized skin without rashes, cyanosis. Neuro: Normal Gait, no obvious focal deficits or facial asymmetry. Speaks in full, clear sentences. Psych: Appropriate for situation. MDM: This is a 69-year-old male patient presenting for evaluation of A-fib with RVR. Differential includes but is not limited to ACS, arrhythmia, heart failure exacerbation, certainly considered anemia, metabolic and electrolyte derangement, kidney injury, liver disease, medication effect, hyperthyroidism, dehydration, infectious etiologies including pulmonary infections such as URI, pneumonia. At this time, the patient is mentating appropriately and is hemodynamically appropriate. It is reasonable to trial a rate control medication, and for this reason he was provided with 15 mg of diltiazem. ED Course: I reviewed the patient's laboratory studies, which show no leukocytosis, and improved anemia from prior studies at 9.2, and persistent thrombocytopenia with a platelet count of 66. Chemistry panel is most notable for a low potassium at 3.2 which was repleted intravenously and orally. No evidence for kidney dysfunction, no liver enzyme abnormalities other than a mild elevation in alkaline phosphatase to 2-3. Initial troponin is elevated to 146. BNP slightly elevated to 3600, though this is actually downtrending from priors. TSH is within normal limits. After diltiazem dosing the patient's heart rate is noted to decrease into the 110's, and the patient reports that he feels improvement in his symptoms. Blood pressures remain appropriate. Repeat troponins remain elevated at 150 and then 155. COVID and influenza screen negative. I discussed the patient's case with cardiology at [facility], who recommend rate control with digoxin given the patient's multiple comorbidities and admission for echo in the morning to evaluate ventricular function. Last echo with an EF of 33, and for this reason we will hold on further AV ann blockers. The patient was taken off of his Pradaxa in the last 21 days and for this reason we would not electively cardiovert this patient in the last he had a preop ALISON per cardiology, for which she could be transferred to [facility] if this was indicated. I consulted pharmacy, and the maximum dose of digoxin that should be given over the next 24 hours is 825 mcg based on this patient's lean body weight. He received 0.5 mg here in the emergency department. I discussed the patient's case with the hospitalist who is graciously accepted this patient for admission to their service. The patient remained hemodynamically improved while under my care and was transferred to the hospitalist department without incident. Marcia Obrien MD Related Data Home Medications ?Medication ?Instructions ?Recorded ?Confirmed vitamin B complex [B 1 cap PO .qd 04/24/19 12/05/24 Complex-Vitamin B12] rosuvastatin 20 mg tablet 20 mg PO DAILY #90 tabs 11/10/23 12/05/24 fluticasone fur. 100 mcg-umeclid 1 inh inhalation DAILY #60 ea 12/05/23 12/05/24 62.5 mcg-vilant 25 mcg inhalat.powder (Trelegy Ellipta) nitroglycerin 0.4 mg sublingual 0.4 mg sublingual PRN #25 tabs 12/25/23 12/05/24 tablet ipratropium 20 mcg-albuterol 100 1 puff inhalation Q6H PRN chest 02/03/24 12/05/24 mcg/actuation mist for inhalation congestion; cold symptoms #4 grams (Combivent Respimat) acetaminophen 325 mg tablet 650 mg (2 x 325 mg) PO Q4H PRN PRN 08/08/24 12/05/24 fever or pain #0 tabs calcium 500 mg (as 1 tab PO BID #60 tabs 08/08/24 12/05/24 carbonate)-vitamin D3 10 mcg (400 unit) tablet (Calcium 500 With D) potassium chloride 20 mEq 20 meq PO DAILY #90 tabs 08/30/24 12/05/24 tablet,extended release(part/cryst) (Klor-Con M) trazodone 50 mg tablet 50 mg PO QHS PRN sleep #30 tabs 10/05/24 12/05/24 empagliflozin 10 mg tablet 10 mg PO QAM #90 tabs 10/15/24 12/05/24 (Jardiance) torsemide 20 mg tablet 20 mg PO Q OTHER DAY 11/02/24 12/05/24 pantoprazole 20 mg tablet,delayed 40 mg (2 x 20 mg) PO DAILY@0730 30 11/10/24 12/05/24 release days #30 tabs gabapentin 100 mg capsule 200 mg (2 x 100 mg) PO TID #180 11/14/24 12/05/24 caplets dabigatran etexilate 150 mg 150 mg PO BID #60 caps 11/20/24 12/05/24 capsule (Pradaxa) Previous Rx's ?Medication ?Instructions ?Recorded rosuvastatin 20 mg tablet 20 mg PO DAILY #90 tabs 11/10/23 fluticasone fur. 100 mcg-umeclid 1 inh inhalation DAILY #60 ea 12/05/23 62.5 mcg-vilant 25 mcg inhalat.powder (Trelegy Ellipta) nitroglycerin 0.4 mg sublingual 0.4 mg sublingual PRN #25 tabs 12/25/23 tablet ipratropium 20 mcg-albuterol 100 1 puff inhalation Q6H PRN chest 02/03/24 mcg/actuation mist for inhalation congestion; cold symptoms #4 grams (Combivent Respimat) acetaminophen 325 mg tablet 650 mg (2 x 325 mg) PO Q4H PRN PRN 08/08/24 fever or pain #0 tabs calcium 500 mg (as 1 tab PO BID #60 tabs 08/08/24 carbonate)-vitamin D3 10 mcg (400 unit) tablet (Calcium 500 With D) potassium chloride 20 mEq 20 meq PO DAILY #90 tabs 08/30/24 tablet,extended release(part/cryst) (Klor-Con M) trazodone 50 mg tablet 50 mg PO QHS PRN sleep #30 tabs 10/05/24 empagliflozin 10 mg tablet 10 mg PO QAM #90 tabs 10/15/24 (Jardiance) pantoprazole 20 mg tablet,delayed 40 mg (2 x 20 mg) PO DAILY@0730 30 11/10/24 release days #30 tabs gabapentin 100 mg capsule 200 mg (2 x 100 mg) PO TID #180 11/14/24 caplets dabigatran etexilate 150 mg 150 mg PO BID #60 caps 11/20/24 capsule (Pradaxa) Allergies Allergy/AdvReac Type Severity Reaction Status Date / Time azithromycin AdvReac Severe Other (See Verified 12/05/24 14:06 Comment) atorvastatin AdvReac Intermediate Diarrhea Verified 12/05/24 14:06 General Stated Complaint: Chest Pain SHE: 3 Course Vital Signs Vital signs: Vital Signs Pulse 170 H 12/05/24 13:57 Respiratory Rate 14 12/05/24 13:57 Pulse Oximetry 99 12/05/24 13:57 Pulse 158 H 12/05/24 14:01 Pulse 162 H 12/05/24 14:01 Respiratory Rate 24 12/05/24 14:01 Blood Pressure 224/115 H 12/05/24 14:01 Blood Pressure Mean 154 12/05/24 14:01 Pulse Oximetry 98 12/05/24 14:01 Oxygen Delivery Method Room Air 12/05/24 14:00 Oxygen Flow Rate 0 12/05/24 14:00 Medical Decision Making Quality:SDOH Health Related Social Needs: No Data to Display Critical Care Time Critical Care Time Critical Care Time: Yes Total Critical Care Time: 40 Attestation: Upon my evaluation, this patient had a high probability of imminent or life- threatening deterioration due to A-fib with RVR requiring rate control, which required my direct attention, intervention, and personal management. I have personally provided 45 minutes of critical care time exclusive of time spent on separately billable procedures. Time includes review of laboratory data, radiology results, discussion with consultants, and monitoring for potential decompensation. Interventions were performed as documented above. Marcia Obrien MD [facility] All Active Problems (Updated 12/05/24 @ 13:51 by Gladys Jonas APRN) Cirrhosis (Acute) Hemorrhoids (Acute ~11/2024) EGD at [facility] internal and external possible sm rectal varices Diverticulosis of colon (Acute ~11/2024) [facility] Colonoscopy sigmoid and 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 (Acute ~11/2024) [facility] Stage C0-M2 per [place] criteria Portal hypertensive gastropathy (Acute ~11/2024) Esophageal varices determined by endoscopy (Acute ~11/2024) Grade 1, Type 2 gastroesophageal varices Paroxysmal atrial fibrillation (Acute) Non-ST elevation CT (NSTEMI) (Acute) Congestive heart failure (Chronic) Anemia (Acute) Sleep difficulties (Acute) Knee pain, left (Acute) Insomnia (Acute) Lumbar radiculitis (Acute) Spinal stenosis, lumbar region with neurogenic claudication (Acute ~07/30/24) [facility] Ctr Pain/Spine-note from 07/30/24.HE Acute HFrEF (heart failure with reduced ejection fraction) (Acute ~07/26/24) [facility] Cardiology note from 07/26/24 visit.HE Bilateral carotid artery occlusion (Acute ~07/17/24) [facility] Vascular Surg. note from 07/17/24.HE Abnormal involuntary movements (Acute) Community acquired pneumonia (Acute) Liver dysfunction (Acute) Chronic kidney disease (Chronic) Right upper lobe pulmonary infiltrate (Acute) Thrombocytopenia (Chronic) Anemia (Chronic) Disability affecting daily living (Acute) Lumbosacral stenosis with neurogenic claudication (Acute) per [facility] tele consult & 06/05/24 MRI Radiculopathy due to disorder of intervertebral disc of lumbar spine (Acute) Pancytopenia (Acute) 02/17/24 f/u Hem/Onc At risk for stroke (Acute) New AFib: CHAD2 12/16.. [id number] 02/18 .. so, med-high risk (9.7% stroke risk; 13.6% TIA risk).. Thrombocytopenia (Chronic) Acute, with Hx chronic ITP .. new pathology? or active ITP? or hepatic dz? Atherosclerosis of [place] coronary artery of ch[place]koot heart without angina pectoris (Acute 10/24/09) stent 2009; re-occluded stented 11/2015 along with second site Cx.; dual platelet rx until 12/2016-06/2018; Dr. Mcnulty; [facility] 07/30/16 neg for ischemia, EF 51% (< AFTER 2021 stenting?) Cirrhosis of liver without ascites (Acute) Heart failure with reduced ejection fraction (Acute) EF 33% (11/11/23) .. 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 Rt Calf, resolves w/in minutes of rest Other specified nonscarring hair loss (Acute) LE, b/l (no problem, but notable to pt who is wondering) .. 2' PAD? ik, 03/2023 [ ] MEET Pulmonary fibrosis (Acute) Emphysema lung (Acute) Restrictive lung disease (Acute) Chronic ITP (idiopathic thrombocytopenia) (Chronic 07/25/17) Per rvw of Heme consult of 07/2019: RTC if pltlts<70,000, 12/17/23, ik...Heme consult Dr. Nolen 07/2017, likely slowly progressive chronic going back to 2006; re-consult if drops below 50,000 Hypertension (Chronic 12/11/00) avoid hypotension due to cerebral vascular disease; cardilogy: Dr Camara; goal 130-140 systolic, sens to thiazide Hyperlipidemia (Chronic 11/10/02) goal LDL 70 or best able Sensorineural hearing loss, bilateral (Chronic 06/24/14) R hearing aid 07/2014 Splenomegaly (Chronic 08/02/17) 14 cm on US 06/2017; ? due to chronic ITP Cervical radiculitis (Chronic) Osteoarthritis of lower back (Acute 12/11/01) Macrocytic anemia (Acute) Chronic low back pain (Chronic) Acute episodes, . Mild DJD on LS film 04/2014; Hx daily Aleve. Hepatic steatosis (Chronic) Abdominal US in 2016 Muscle spasm (Acute) Acute ... improves with PT, but re-spasms .. Need rest, anti-inflamm then abd/core mm strengthening. Possible PSOAS (?) COPD (chronic obstructive pulmonary disease) (Chronic) NEG COPD per pt rpt s/p Pulm OV, 03/2023. Per CT (2016), Hx smoking. Weight gain (Acute) 15 lbs per chart, no diet change per pt Anemia (Chronic) Low HGB. Hx Macrocytic anemia, B12 WNL ().. [ ] iron suppl, po review Compression fracture of L2 lumbar vertebra (Acute) per MRI (03/08/22), w/ acute/subacute signal. Fx lines extend towards pedicles..20% ht loss..intraosseous edema.. Spinal stenosis at L4-L5 level (Acute) per MRI (03/08/22). .. moderate ctl canal stenosis .. disc protrusion caudally, 5mm behind L5.. MRI LSpine 04/2022 no nerve compressin or central stenosis Sacroiliac joint dysfunction of left side (Acute) Hyponatremia (Chronic) CHRONIC? Asymptomatic, 08/05/22 Lung nodule seen on imaging study (Acute) Per 2/7/23 CTA: Neg PE. (+) pleural base nodule, RML, 4mm.. & sessile pleural plaque (RUL) measuring 1 cm x 0.3 cm. Pleuritic chest pain (Acute) Pleural plaque (Acute) Medical History (Updated 12/05/24 @ 13:51 by Gladys Jonas APRN) Skin tag of perianal region (~11/2024) Atrial fibrillation, new onset Asymptomatic, just took medications.. some improvement in HR while resting [allowing meds to act? ik) in exam room, 12/23/23. Hx of atherosclerotic cardiovascular disease Stents Patent per Cath, 02/2022 (Dr. Camara, [facility]). Stents placed, 2009 .. re- occluded, stented 11/2015 along with second site Cx.; dual platelet Rx 12/2016-06/2018; Dr. Mcnulty; [facility] 07/30/16 neg for ischemia, EF 51% Absent breath sounds on left side of chest much lower than rt base .. seems new.. Hx of arterial ischemic stroke 2006, cerebral infarction Hemoptysis COVID-30 March 2022, home test Tenderness of back Prominent mm; lft paraspinal tenderness (L2-L4), rad into left buttock Left buttock pain Helped focus on SI Joint vs lower bk. Feeling great, 09/2022. Left-sided back pain Acute on chronic .. barely walking, tenderness out of proportion .. 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 Cerebral artery occlusion with cerebral infarction (01/13/07) Convulsions (01/25/08) Pt. denies Abnormal findings on diagnostic imaging of lung (11/25/06) Old notes, CXR since then show cardiomegaly, possible atelectasis or scarring.. nothing acute. Carpal tunnel syndrome (07/05/11) Headache (08/01/09) Sudden hearing loss (12/15/12) assoc with CVA?? History of tobacco use (10/12/11) quit over 25 yrs ago, 09/2022 Vertigo (05/09/17) ER 05/09/17: CT neg, MRI old cva, good flow [place] [facility] [place]; rx Meclizine 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) Anxiety disorder, unspecified (03/22/17) Erectile dysfunction Surgical History (Updated 11/29/24 @ 17:55 by Mindy Abreu RN) History of colonoscopy (11/27/24) [facility], no specimens History of esophagogastroduodenoscopy (EGD) (11/27/24) [facility] esophageal plaques suspicious for candidiasis History of biopsy Biopsy at [facility] in 2019 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 Camara [facility] Coronary Stent (12/11/15) LAD POBA for in-stent restenosis, November 2015 AND left circumflex 3-mm drug-eluting stent, November 2015, Dr Camara Appendectomy 2006 Family History Father , Pneumonia at age 68. Tobacco use disorder Pneumonia Other Heart disease Stroke Social History (Updated 08/06/24 @ 15:39 by Long Contreras) Smoking/Tobacco Use Status: Former Tobacco Use Quit Date: 09/12/02 Tobacco: How many years used: 15 Second Hand Exposure: Yes Smoking risk assessment performed?: Yes Alcohol Intake: current Alcohol Intake frequency: 0-2 drinks per day Alcohol type: hard liquor Drug use: Never Substance use type: does not use Adopted: No Foster care: No Household members: spouse and family Housing: house Number of Children: 2 number of grandchildren: 3 Communication Needs: Hard of Hearing and Corrective Lenses Education Level: high school Do you need help understanding health information?: Never current occupation: [employer] Pets and animals: No Do you think of yourself as: straight/heterosexual Current gender identity: male What is your relationship status?: How often do you get together with friends or relatives?: once per week Panel score (0-1 are the most socially isolated patients): 1 What type of physical activity do you participate in: other Details: active lifestyle- Duration: 15-30 minutes/day Frequency: daily Shannan/Congregation: [employer] Seatbelt use: sometimes Drive intox or ride w/intox funeral limousine driver: No Do you feel safe at home: Yes Do you feel safe in your relationship?: Yes Additional Social history: 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 works at [employer].
[2024-12-05 14:12] LABS: Abs Immature Grans 0.01 10^3/uL (0.0-0.06); Absolute Basophil Count 0.02 10^3/uL (0.0-0.2); Absolute Eosinophil Count 0.01 10^3/uL (0.0-0.7); Absolute Lymphocyte Count 0.49 10^3/uL (1.2-3.4); Absolute Monocyte Count 0.44 10^3/uL (0.1-0.8); Absolute Neutrophil Count 2.96 10^3/uL (1.2-6.7); Basophils % 0.5 %; Eosinophils % 0.3 %; HCT 32.1 % (40.0-50.0); HGB 9.2 g/dL (13.5-17.5); Immature Grans % 0.3 %; Lymphocytes % 12.5 %; MCH 25.9 pg (27.0-33.0); MCHC 28.7 % (32.0-36.0); MCV 90 fL (80-95); Monocytes % 11.2 %; Neutrophils % 75.2 %; RBC 3.55 10^6/uL (4.36-5.78); RDW 18.6 % (11.8-14.1); WBC 3.93 10^3/uL (4.4-10.8)
--- NOTE | 2024-12-05 14:14 | DI.RAD_ITS ---
Exam(s) XR PORTABLE CHEST AP EXAM: XR PORTABLE CHEST AP CLINICAL HISTORY: Chest pain. TECHNIQUE: 2D digital imaging was performed. COMPARISON: CR,XR XR PORTABLE CHEST AP from 11/09/2024 FINDINGS: Single AP portable view. There are chest leads in place Cardiomegaly again noted. The mediastinum is unchanged. There increased interstitial markings throughout both lung meneses. Probable pulmonary venous hyperte nsion borderline interstitial pulmonary edema. There are no obvious pleural effusions. Elevated lef t hemidiaphragm again noted. IMPRESSION: Cardiomegaly and bilateral increased interstitiallung markings. Suspect element of pulmonary edema h ere. No obvious pleural effusions on this single AP portable view. DATA REPOSITORY: RADIATION DOSE DELIVERED:
[2024-12-05] MEDS: dilTIAZem 25 MG/5 ML VIAL 15 MG IVP (14:18)
[2024-12-05 14:28] LABS: Prothrombin Time 13.3 sec (9.1-11.1)
[2024-12-05 14:31] LABS: Diff Comment PLT Morph Reviewed; Platelet Count 66 10^3/uL (130-400); RBC Morphology Normal
[2024-12-05 14:34] LABS: INR 1.3 (0.9-1.1)
[2024-12-05 14:44] LABS: ALT 24 U/L (16-63); AST 40 U/L (15-37); Albumin 3.5 g/dL (3.4-5.0); Alkaline Phosphatase 223 U/L (46-116); Anion Gap 12.7 mmol/L (3-11); BUN 13 mg/dL (7-18); CO2 27.3 mmol/L (21.0-32.0); CREATININE 1.2 mg/dL (0.70-1.30); Calcium 8.7 mg/dL (8.5-10.1); Chloride 102 mmol/L (98-107); Estimated GFR 65.06 (mL/min/1.73m2); Glucose 110 mg/dL (74-106); Magnesium 1.8 mg/dL; Potassium 3.2 mmol/L (3.5-5.1); Sodium 142 mmol/L (136-145); TSH (W/Ref FT4) 2.93 uIU/mL (0.36-3.74); Total Protein 7.6 g/dL (6.4-8.2)
[2024-12-05 14:49] LABS: Troponin I 146 ng/L (<or=76)
[2024-12-05 15:07] LABS: NT-proBNP 3636 pg/mL (<300)
[2024-12-05] MEDS: POTASSIUM CHLORIDE 10 MEQ/100 ML BAG 100 MEQ IV_INF ×2 (15:31→18:51)
[2024-12-05] MEDS: Normal Saline 250 ML 200 ML (15:32)
[2024-12-05] MEDS: Potassium Chloride 20 MEQ TABCR 40 MEQ PO (15:32)
[2024-12-05] MEDS: Normal Saline Flush 10 ML SYR IVP ×3 (15:33→19:17)
[2024-12-05 16:25] LABS: Troponin I 150 ng/L (<or=76)
[2024-12-05 16:30] LABS: COVID-19 PCR Negative (Negative); Influenza A PCR Negative (Negative); Influenza B PCR Negative (Negative); RSV PCR Negative (Negative)
[2024-12-05 16:31] LABS: Source Nasopharynx
[2024-12-05] MEDS: Digoxin 0.5 MG/2 ML AMP IVP (17:03)
[2024-12-05 17:27] LABS: Troponin I 155 ng/L (<or=76)
--- NOTE | 2024-12-05 17:59 | W.PC.ACHO ---
Registration Status: Primary Language: Preferred Language: ED Information & Data Chief Complaint Chest Pain 12/05/24 14:07 Other Complaint Palpitatns 12/05/24 14:00 Triage Note Began experiencing mild 12/05/24 14:00 shortness of breath and palpitations approx 3 days ago while he was getting ready for work. PT states that he was struggling to to his work and has been experiencing shortness of breath with walking or activity. Mild non-radiating chest pain. Medical / Surgical History (Last Updated 11/29/24 @ 17:51 by Mindy Abreu RN) Skin tag of perianal region (~11/2024) Atrial fibrillation, new onset Hx of atherosclerotic cardiovascular disease Absent breath sounds on left side of chest Hx of arterial ischemic stroke Hemoptysis COVID-19 Tenderness of back Left buttock pain Left-sided back pain Carcinoma in situ, unspecified Cerebral artery occlusion with cerebral infarction (01/13/07) Convulsions (01/25/08) Abnormal findings on diagnostic imaging of lung (11/25/06) Carpal tunnel syndrome (07/05/11) Headache (08/01/09) Sudden hearing loss (12/15/12) History of tobacco use (10/12/11) Vertigo (05/09/17) 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) Anxiety disorder, unspecified (03/22/17) Erectile dysfunction (Last Updated 11/29/24 @ 17:55 by Mindy Abreu RN) History of colonoscopy (11/27/24) History of esophagogastroduodenoscopy (EGD) (11/27/24) History of biopsy Hx of cardiac cath Coronary Stent (12/11/15) Appendectomy Most Recent Vital Signs Pulse 132 H 12/05/24 17:03 Pulse 162 H 12/05/24 14:01 Respiratory Rate 24 12/05/24 14:01 Blood Pressure 224/115 H 12/05/24 14:01 Blood Pressure Mean 154 12/05/24 14:01 Pulse Oximetry 98 12/05/24 14:01 Oxygen Delivery Method Room Air 12/05/24 14:00 Oxygen Flow Rate 0 12/05/24 14:00 Allergies azithromycin Adverse Reaction (Severe, Verified 12/05/24 14:06) Other (See Comment) Blurred vision atorvastatin Adverse Reaction (Intermediate, Verified 12/05/24 14:06) Diarrhea begun 11/2015; persistent diarrhea for 5 mos; relieved on D/C 04/2016 Active Medications Generic Name Dose Route Start Last Admin Trade Name Ghada PRN Reason Stop Dose Admin Sodium Chloride 0 ml 12/05/24 13:57 12/05/24 15:33 Normal Saline Flush 10 Ml Syr IVP 20 ml PRN PRN Administration IV IV Catheter Type [Right Saline Lock Antecubital] IV Catheter Gauge [Right 18 Antecubital] Diet Orders Category Date Time Status Heart Healthy Eating [DIET] Nutrition 12/06/24 Breakfast Ordered Diagnostics 12/05/24 12/05/24 12/05/24 Range/Units 16:57 15:45 14:30 WBC (4.4-10.8) 10^3/uL RBC (4.36-5.78) 10^6/uL Hgb (13.5-17.5) g/dL Hct (40.0-50.0) % MCV (80-95) fL MCH (27.0-33.0) pg MCHC (32.0-36.0) % RDW (11.8-14.1) % Plt Count (130-400) 10^3/uL MPV (8.0-11.0) fL Immature Gran % % Neutrophils % % Lymphocytes % % Monocytes % % Eosinophils % % Basophils % % Nucleated RBC % (0.0-0.3) % Absolute Neutrophils (1.2-6.7) 10^3/uL Absolute Lymphocytes (1.2-3.4) 10^3/uL Absolute Monocytes (0.1-0.8) 10^3/uL Absolute Eosinophils (0.0-0.7) 10^3/uL Absolute Basophils (0.0-0.2) 10^3/uL RBC Morphology PT (9.1-11.1) sec INR (0.9-1.1) Sodium (136-145) mmol/L Potassium (3.5-5.1) mmol/L Chloride (98-107) mmol/L Carbon Dioxide (21.0-32.0) mmol/L Anion Gap (3-11) mmol/L BUN (7-18) mg/dL Creatinine (0.70-1.30) mg/dL Est GFR (CKD-EPI 2020) (mL/min/1.73m2) Glucose (74-106) mg/dL Calcium (8.5-10.1) mg/dL Magnesium mg/dL Total Bilirubin (0.2-1.0) mg/dL AST (15-37) U/L ALT (16-63) U/L Alkaline Phosphatase (46-116) U/L Troponin I 155 H* 150 H* (<or=76) ng/L NT-Pro-B Natriuret Pep (<300) pg/mL Total Protein (6.4-8.2) g/dL Albumin (3.4-5.0) g/dL TSH (0.36-3.74) uIU/mL COVID-19 Source Nasopharynx SARS-CoV-2 (PCR) Negative (Negative) Influenza Type A (PCR) Negative (Negative) Influenza Type B (PCR) Negative (Negative) RSV (PCR) Negative (Negative) 12/05/24 Range/Units 14:02 WBC 3.93 L (4.4-10.8) 10^3/uL RBC 3.55 L (4.36-5.78) 10^6/uL Hgb 9.2 L (13.5-17.5) g/dL Hct 32.1 L (40.0-50.0) % MCV 90 (80-95) fL MCH 25.9 L (27.0-33.0) pg MCHC 28.7 L (32.0-36.0) % RDW 18.6 H (11.8-14.1) % Plt Count 66 L (130-400) 10^3/uL MPV 11.0 (8.0-11.0) fL Immature Gran % 0.3 % Neutrophils % 75.2 % Lymphocytes % 12.5 % Monocytes % 11.2 % Eosinophils % 0.3 % Basophils % 0.5 % Nucleated RBC % 0.0 (0.0-0.3) % Absolute Neutrophils 2.96 (1.2-6.7) 10^3/uL Absolute Lymphocytes 0.49 L (1.2-3.4) 10^3/uL Absolute Monocytes 0.44 (0.1-0.8) 10^3/uL Absolute Eosinophils 0.01 (0.0-0.7) 10^3/uL Absolute Basophils 0.02 (0.0-0.2) 10^3/uL RBC Morphology Normal PT 13.3 H (9.1-11.1) sec INR 1.3 H (0.9-1.1) Sodium 142 (136-145) mmol/L Potassium 3.2 L (3.5-5.1) mmol/L Chloride 102 (98-107) mmol/L Carbon Dioxide 27.3 (21.0-32.0) mmol/L Anion Gap 12.7 H (3-11) mmol/L BUN 13 (7-18) mg/dL Creatinine 1.2 (0.70-1.30) mg/dL Est GFR (CKD-EPI 2020) 65.06 (mL/min/1.73m2) Glucose 110 H (74-106) mg/dL Calcium 8.7 (8.5-10.1) mg/dL Magnesium 1.8 mg/dL Total Bilirubin 1.0 (0.2-1.0) mg/dL AST 40 H (15-37) U/L ALT 24 (16-63) U/L Alkaline Phosphatase 223 H (46-116) U/L Troponin I 146 H* (<or=76) ng/L NT-Pro-B Natriuret Pep 3636 H (<300) pg/mL Total Protein 7.6 (6.4-8.2) g/dL Albumin 3.5 (3.4-5.0) g/dL TSH 2.93 (0.36-3.74) uIU/mL COVID-19 Source SARS-CoV-2 (PCR) (Negative) Influenza Type A (PCR) (Negative) Influenza Type B (PCR) (Negative) RSV (PCR) (Negative) Intake and Output - 24 Hour Total 12/05/24 13:52 thru 12/05/24 16:41 Intake Total 100 Balance 100 Weight 96.1 kg Intake: IV 100 Falls Risk Assessment History of Falls No History 12/05/24 14:04 Contributing Factors No Factors 12/05/24 14:04 Ambulatory Aids Independent 12/05/24 14:04 Tubes/Lines None 12/05/24 14:04 Gait Evaluation No gait disturbance 12/05/24 14:04 Cognition No cognitive impairment 12/05/24 14:04 Fall Total Score 0 12/05/24 14:04 Level of Risk Standard/Low Risk 12/05/24 14:04 v v v v v v v v v Sending and/or Receiving Nurses: Please use comment section below to note any information pertinent to the patient hand-off not included above. Information / Comments: Report received from: Hafsa KERN
[2024-12-05] MEDS: Budesonide/Formoterol 80/4.5 6.9 GM 60 PUFF INH IH (19:15)
[2024-12-05] MEDS: Gabapentin 100 MG CAP 200 MG PO (19:15)
[2024-12-05] MEDS: Calcium 600mg/Vit D 200U TAB 1 TAB PO (19:15)
[2024-12-05] MEDS: traZODone 50 MG TAB PO (19:49)
[2024-12-05] MEDS: Acetaminophen 325 MG TAB PO (19:49)
--- NOTE | 2024-12-05 21:49 | W.PM.HP.N ---
Date of service: 12/05/24 Time of Service: 21:50 Assessment and Plan Assessment and plan (1) Atrial fibrillation with rapid ventricular response: Start date: 12/05/24 Status: Acute Assessment and plan: This is a 69-year-old gentleman with rapid trickle response to atrial fibrillation now less tachycardic on loading dose of digoxin. He did have a short run of wide-complex tachycardia with his second dose of loading digoxin and he will have his digoxin level checked prior to any further treatment. He has permissive hypertension because of his poor circulation. Patient's troponin level was slightly elevated and this may be secondary to strain does not appear to be an acute ischemic event. These will be trended. He was also slightly hypokalemic and magnesium was on the low normal range which may make him more sensitive to digoxin and these were repleted. He is asymptomatic at this time. His chest x-ray does suggest fluid overload and he is not on torsemide at this time but this could be reinitiated if his blood pressure tolerates. There is an element of pulmonary hypertension as well. Patient will not be cardioverted in the near future this does not appear to be a necessity at this time. He is improving. He is a full code. (2) Heart failure with reduced ejection fraction: Status: Chronic Assessment and plan: Continue torsemide every other day and consider converting from metoprolol to carvedilol. Both are for rate control but carvedilol may be better for reduced ejection fraction CHF. This can be discussed with cardiology. (3) Hypokalemia: Status: Chronic Assessment and plan: Continue supplementation and trend labs. Patient also had low magnesium level which will be repeated. He is chronically on potassium supplement. (4) Paroxysmal atrial fibrillation: Status: Chronic Assessment and plan: Continue digoxin for rate control avoiding suppression of blood pressure. Patient is on Pradaxa which was restarted. Consider cardioversion once patient is adequately anticoagulated for appropriate time. ALISON may be necessary if he requires more urgent cardioversion. This does not appear to be problematic at this time. (5) Esophageal varices determined by endoscopy: Status: Chronic Assessment and plan: With low platelet count and on Pradaxa, watch closely for bleeding. (6) Pancytopenia: Status: Chronic Assessment and plan: Monitor labs. (7) Cirrhosis of liver without ascites: Status: Chronic Assessment and plan: Monitor labs. Patient is not presently drinking alcohol. (8) PAD (peripheral artery disease): Status: Chronic Assessment and plan: Extensive disease with patient on appropriate medical therapy. He is active. (9) Pulmonary fibrosis: Status: Chronic Assessment and plan: Continue inhalers long-term with nebulizer treatment aggressively during hospital stay. (10) Hypertension: Status: Chronic Assessment and plan: Hold metoprolol and adjust medical therapy to maintain systolic blood pressure above 140. (11) COPD (chronic obstructive pulmonary disease): Status: Chronic Assessment and plan: Nebulizer treatments while hospitalized and converted back to inhaler therapy for control and rescue treatment with which patient has not been compliant in the past. (12) Hyperlipidemia: Status: Chronic Assessment and plan: Continue statin therapy. (13) Spinal stenosis at L4-L5 level: Status: Chronic Assessment and plan: Patient does not appear to be disabled by this problem and has chronic back pain. He has been on tramadol recently with VPMS reviewed. No indication for urine drug screen. History of Present Illness History of Present Illness Chief Complaint: Progressive dyspnea upon exertion for 3 days with palpitations. Narrative: This is a 69-year-old male patient with history of paroxysmal atrial fibrillation on Pradaxa recently held for endoscopy now being restarted upon this admission, presenting with sudden onset of dyspnea upon exertion though he was having increased shortness of breath for a week or 2 with activity. He also felt palpitations and had rapid heart rate reporting to the ED with atrial fibrillation and rapid ventricular response. He also has history of CHF with reduced left-ventricular ejection fraction, cirrhosis with portal hypertension esophageal varices along with CAD with stenting in the past and carotid artery stenosis and peripheral vascular disease with permissive hypertension because of circulation problems. He also has COPD and pulmonary fibrosis on inhalers which he does not take routinely. He was at drinking alcohol previously but none recently. He also has not smoked recently. In the ED he was found to have an elevated troponin but no evidence of acute coronary syndrome and was not initiated on heparin but Pradaxa was reinitiated. He was admitted to the ICU for close observation with his rapid ventricular response responding to IV digoxin loading as recommended by [facility] cardiology. He was given metoprolol but his blood pressure did slightly decreased which was not desirable because of his poor circulation. He denied any chest pain. His palpitations subsided and he was sleeping well with his second loading dose of digoxin he did have a short run of wide-complex tachycardia with irregular with a shorter run and more regular with a longer run. This was asymptomatic. He was hypokalemic and this will be repleted and he was also given IV magnesium. He had no further ectopy. He continued to be in atrial fibrillation. He was admitted for trending troponins and watching closely as he was treated with digoxin IV loading dose and reinitiated on Pradaxa along with cardiac monitoring because of his acute dysrhythmia. Patient is a poor historian and minimizes his medical problems and is somewhat noncompliant with his inhaler therapy. He does not have hypoxemia or need for oxygen supplementation at home. He is overweight. Patient denied any recent peripheral edema. He is a full code. Review of Systems Narrative: 13 point review of systems otherwise unrevealing or stable. 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 (Acute ~11/2024) [facility] Stage C0-M2 per [place] criteria Portal hypertensive gastropathy (Acute ~11/2024) Esophageal varices determined by endoscopy (Chronic ~11/2024) Grade 1, Type 2 gastroesophageal varices Paroxysmal atrial fibrillation (Chronic) Non-ST elevation MD (NSTEMI) (Acute) Congestive heart failure (Chronic) Anemia (Acute) Sleep difficulties (Acute) Knee pain, left (Acute) Insomnia (Acute) Lumbar radiculitis (Acute) Spinal stenosis, lumbar region with neurogenic claudication (Acute ~07/30/24) [facility] Ctr Pain/Spine-note from 07/30/24.HE Acute HFrEF (heart failure with reduced ejection fraction) (Acute ~07/26/24) [facility] Cardiology note from 07/26/24 visit.HE Bilateral carotid artery occlusion (Acute ~07/17/24) [facility] Vascular Surg. note from 07/17/24.HE Abnormal involuntary movements (Acute) Community acquired pneumonia (Acute) Liver dysfunction (Acute) Chronic kidney disease (Chronic) Right upper lobe pulmonary infiltrate (Acute) Thrombocytopenia (Chronic) Anemia (Chronic) Disability affecting daily living (Acute) Lumbosacral stenosis with neurogenic claudication (Acute) per [facility] tele consult & 06/05/24 MRI Radiculopathy due to disorder of intervertebral disc of lumbar spine (Acute) Pancytopenia (Chronic) 02/17/24 f/u Hem/Onc At risk for stroke (Acute) New AFib: CHAD2 12/16.. [id number] 02/18 .. so, med-high risk (9.7% stroke risk; 13.6% TIA risk).. Thrombocytopenia (Chronic) Acute, with Hx chronic ITP .. new pathology? or active ITP? or hepatic dz? Atherosclerosis of [place] coronary artery of [place] heart without angina pectoris (Acute 10/24/09) stent 2009; re-occluded stented 11/2015 along with second site Cx.; dual platelet rx until 12/2016-06/2018; Dr. Mcnulty; [facility] 07/30/16 neg for ischemia, EF 51% (< AFTER 2021 stenting?) Cirrhosis of liver without ascites (Chronic) Heart failure with reduced ejection fraction (Chronic) EF 33% (11/11/23) .. EF 51% post-cath (01/2022) EF 33% (12/2021) Impaired quality of life (Acute) Femoro-popliteal artery disease (Acute) Atherosclerosis of lower extremity with claudication (Acute) PAD (peripheral artery disease) (Chronic) Rt LE, per MEET, [facility] (03/18/23) Carotid artery occlusion (Acute 04/12/07) bilateral; L PARIETAL CVA Diarrhea (Acute) Daily x months, managed with OTC (loperamide?) Claudication of calf muscles (Acute) Worsening, 10/2023, affecting ADLs and ability to work! Rt Calf, resolves w/in minutes of rest Other specified nonscarring hair loss (Acute) LE, b/l (no problem, but notable to pt who is wondering) .. 2' PAD? ik, 03/2023 [ ] MEET Pulmonary fibrosis (Chronic) Emphysema lung (Acute) Restrictive lung disease (Acute) Chronic ITP (idiopathic thrombocytopenia) (Chronic 07/25/17) Per rvw of Heme consult of 07/2019: RTC if pltlts<70,000, 12/17/23, ik...Heme consult Dr. Nolen 07/2017, likely slowly progressive chronic going back to 2006; re-consult if drops below 50,000 Hypertension (Chronic 12/11/00) avoid hypotension due to cerebral vascular disease; cardilogy: Dr Camara; goal 130-140 systolic, sens to thiazide Hyperlipidemia (Chronic 11/10/02) goal LDL 70 or best able Sensorineural hearing loss, bilateral (Chronic 06/24/14) R hearing aid 07/2014 Splenomegaly (Chronic 08/02/17) 14 cm on US 06/2017; ? due to chronic ITP Cervical radiculitis (Chronic) Osteoarthritis of lower back (Acute 12/11/01) Macrocytic anemia (Acute) Chronic low back pain (Chronic) Acute episodes, . Mild DJD on LS film 04/2014; Hx daily Aleve. Hepatic steatosis (Chronic) Abdominal US in 2016 Muscle spasm (Acute) Acute ... improves with PT, but re-spasms .. Need rest, anti-inflamm then abd/core mm strengthening. Possible PSOAS (?) COPD (chronic obstructive pulmonary disease) (Chronic) NEG COPD per pt rpt s/p Pulm OV, 03/2023. Per CT (2016), Hx smoking. Weight gain (Acute) 15 lbs per chart, no diet change per pt Anemia (Chronic) Low HGB. Hx Macrocytic anemia, B12 WNL ().. [ ] iron suppl, po review Compression fracture of L2 lumbar vertebra (Acute) per MRI (03/08/22), w/ acute/subacute signal. Fx lines extend towards pedicles..20% ht loss..intraosseous edema.. Spinal stenosis at L4-L5 level (Chronic) per MRI (03/08/22). .. moderate ctl canal stenosis .. disc protrusion caudally, 5mm behind L5.. MRI LSpine 04/2022 no nerve compressin or central stenosis Sacroiliac joint dysfunction of left side (Acute) Hyponatremia (Chronic) CHRONIC? Asymptomatic, 08/05/22 Lung nodule seen on imaging study (Acute) Per 10/19/22 CTA: Neg PE. (+) pleural base nodule, RML, 4mm.. & sessile pleural plaque (RUL) measuring 1 cm x 0.3 cm. Pleuritic chest pain (Acute) Pleural plaque (Acute) Medical History (Updated 12/06/24 @ 09:23 by Gian Stanley) Skin tag of perianal region (~11/2024) Atrial fibrillation, new onset Asymptomatic, just took medications.. some improvement in HR while resting [allowing meds to act? ik) in exam room, 12/23/23. Hx of atherosclerotic cardiovascular disease Stents Patent per Cath, 02/2022 (Dr. Camara, [facility]). Stents placed, 2009 .. re-occluded, stented 11/2015 along with second site Cx.; dual platelet Rx 12/2016-06/2018; Dr. Mcnulty; [facility] 07/30/16 neg for ischemia, EF 51% Absent breath sounds on left side of chest much lower than rt base .. seems new.. Hx of arterial ischemic stroke 2006, cerebral infarction Hemoptysis COVID-30 March 2022, home test Tenderness of back Prominent mm; lft paraspinal tenderness (L2-L4), rad into left buttock Left buttock pain Helped focus on SI Joint vs lower bk. Feeling great, 09/2022. Left-sided back pain Acute on chronic .. barely walking, tenderness out of proportion .. 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 Cerebral artery occlusion with cerebral infarction (01/13/07) Convulsions (01/25/08) Pt. denies Abnormal findings on diagnostic imaging of lung (11/25/06) Old notes, CXR since then show cardiomegaly, possible atelectasis or scarring.. nothing acute. Carpal tunnel syndrome (07/05/11) Headache (08/01/09) Sudden hearing loss (12/15/12) assoc with CVA?? History of tobacco use (10/12/11) quit over 25 yrs ago, 09/2022 Vertigo (05/09/17) ER 05/09/17: CT neg, MRI old cva, good flow [place]; rx Meclizine 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) Anxiety disorder, unspecified (03/22/17) Erectile dysfunction Surgical History (Updated 11/29/24 @ 17:55 by Mindy Abreu RN) History of colonoscopy (11/27/24) [facility], no specimens History of esophagogastroduodenoscopy (EGD) (11/27/24) [facility] esophageal plaques suspicious for candidiasis History of biopsy Biopsy at [facility] in 2019 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 Camara [facility] Coronary Stent (12/11/15) LAD POBA for in-stent restenosis, November 2015 AND left circumflex 3-mm drug-eluting stent, November 2015, Dr Camara Appendectomy 2006 Family History Father , Pneumonia at age 68. Tobacco use disorder Pneumonia Other Heart disease Stroke Social History (Updated 08/06/24 @ 15:39 by Long Contreras) Smoking/Tobacco Use Status: Former Tobacco Use Quit Date: 09/12/02 Tobacco: How many years used: 15 Second Hand Exposure: Yes Smoking risk assessment performed?: Yes Alcohol Intake: current Alcohol Intake frequency: 0-2 drinks per day Alcohol type: hard liquor Drug use: Never Substance use type: does not use Adopted: No Foster care: No Household members: spouse and family Housing: house Number of Children: 2 number of grandchildren: 3 Communication Needs: Hard of Hearing and Corrective Lenses Education Level: high school Do you need help understanding health information?: Never current occupation: [employer] Pets and animals: No Do you think of yourself as: straight/heterosexual Current gender identity: male What is your relationship status?: How often do you get together with friends or relatives?: once per week Panel score (0-1 are the most socially isolated patients): 1 What type of physical activity do you participate in: other Details: active lifestyle- Duration: 15-30 minutes/day Frequency: daily Shannan/Worship: Worship Seatbelt use: sometimes Drive intox or ride w/intox driver education road instructor: No Do you feel safe at home: Yes Do you feel safe in your relationship?: Yes Additional Social history: 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 works at [employer]. Meds Allergies and Home Medications Allergies Allergy/AdvReac Type Severity Reaction Status Date / Time azithromycin AdvReac Severe Other (See Verified 12/05/24 14:06 Comment) atorvastatin AdvReac Intermediate Diarrhea Verified 12/05/24 14:06 Home Medications ?Medication ?Instructions ?Recorded ?Confirmed ?Type vitamin B complex [B 1 cap PO .qd 04/24/19 12/05/24 History Complex-Vitamin B12] rosuvastatin 20 mg tablet 20 mg PO DAILY #90 tabs 11/10/23 12/05/24 Rx fluticasone fur. 100 mcg-umeclid 1 inh inhalation DAILY #60 ea 12/05/23 12/05/24 Rx 62.5 mcg-vilant 25 mcg inhalat.powder (Trelegy Ellipta) nitroglycerin 0.4 mg sublingual 0.4 mg sublingual PRN #25 tabs 12/25/23 12/05/24 Rx tablet ipratropium 20 mcg-albuterol 100 1 puff inhalation Q6H PRN chest 02/03/24 12/05/24 Rx mcg/actuation mist for inhalation congestion; cold symptoms #4 grams (Combivent Respimat) acetaminophen 325 mg tablet 650 mg (2 x 325 mg) PO Q4H PRN PRN 08/08/24 12/05/24 Rx fever or pain #0 tabs calcium 500 mg (as 1 tab PO BID #60 tabs 08/08/24 12/05/24 Rx carbonate)-vitamin D3 10 mcg (400 unit) tablet (Calcium 500 With D) potassium chloride 20 mEq 20 meq PO DAILY #90 tabs 08/30/24 12/05/24 Rx tablet,extended release(part/cryst) (Klor-Con M) trazodone 50 mg tablet 50 mg PO QHS PRN sleep #30 tabs 10/05/24 12/05/24 Rx empagliflozin 10 mg tablet 10 mg PO QAM #90 tabs 10/15/24 12/05/24 Rx (Jardiance) torsemide 20 mg tablet 20 mg PO Q OTHER DAY 11/02/24 12/05/24 History pantoprazole 20 mg tablet,delayed 40 mg (2 x 20 mg) PO DAILY@0730 30 11/10/24 12/05/24 Rx release days #30 tabs gabapentin 100 mg capsule 200 mg (2 x 100 mg) PO TID #180 11/14/24 12/05/24 Rx caplets dabigatran etexilate 150 mg 150 mg PO BID #60 caps 11/20/24 12/05/24 Rx capsule (Pradaxa) Exam Narrative Exam Narrative: General: Patient appears slightly older than stated age, moderately obese, alert and oriented x 3 and in no acute distress. He was sleeping when I approached him in the ICU. HEENT: Normocephalic, eyes with pupils equal and react to light specially, extraocular movement intact and sclera anicteric. Oropharynx with normal mucosa and fair dentition. Neck: Supple. Back: Stooped posture without CVA tenderness. Lungs: Bronchovesicular breath sounds diffusely with coarse crackles bilaterally without focalizing no true rales. No expiratory wheeze. Fair aeration. Heart: Irregular irregular rhythm with tachycardic rate, 3/6 systolic murmur over left sternal border best heard with expiration. No gallops or rubs. Abdomen: Obese contour, soft and nontender palpation with no palpable hepatosplenomegaly. Bowel sounds positive all quadrants. Genitalia/rectal: Exam deferred. Extremities: No clubbing, cyanosis or grossly pitting edema. Fair capillary refill. Skin: Normal color, warm and dry. Neuro: 150 progress intact, no focalized motor deficits or tremor. Patient is hard of hearing. Psych: Normal affect and mood. No abnormal thought processes. Remote and recent memory grossly intact. As stated, patient minimizes his medical problems. Results Imaging Imaging Studies: EXAM: XR PORTABLE CHEST AP CLINICAL HISTORY: Chest pain. TECHNIQUE: 2D digital imaging was performed. COMPARISON: CR,XR XR PORTABLE CHEST AP from 11/09/2024 FINDINGS: Single AP portable view. There are chest leads in place Cardiomegaly again noted. The mediastinum is unchanged. There increased interstitial markings throughout both lung meneses. Probable pulmonary venous hypertension borderline interstitial pulmonary edema. There are no obvious pleural effusions. Elevated left hemidiaphragm again noted. IMPRESSION: Cardiomegaly and bilateral increased interstitiallung markings. Suspect element of pulmonary edema here. No obvious pleural effusions on this single AP portable view. EXAM: Comprehensive 2D, Doppler, and color-flow Echocardiogram Date of Exam: 08/07/24 Indications: CHF, SOB Other Information Study Quality: Adequate Conclusion Normal left ventricular wall thickness and chamber size. Ejection fraction is 42%. The anteroapical segment is akinetic. The remainder of the ventricle is hypokinetic Normal right ventricular size and function Mildly dilated left atrium. Right atrial size is normal Aortic valve is calcified with mild regurgitation. There is no hemodynamically significant aortic stenosis Normal mitral valve with mild regurgitation Estimated right ventricular systolic pressure is 37 mmHg Compared to an echocardiogram from November 2023, LV function is similar. Right ventricular systolic pressure has decreased Labs 12/06/24 05:38 12/06/24 05:38 Labs: Laboratory Results - last 24 hr 12/05/24 12/05/24 12/05/24 14:02 14:30 15:45 WBC 3.93 L RBC 3.55 L Hgb 9.2 L Hct 32.1 L MCV 90 MCH 25.9 L MCHC 28.7 L RDW 18.6 H Plt Count 66 L MPV 11.0 Immature Gran % 0.3 Neutrophils % 75.2 Lymphocytes % 12.5 Monocytes % 11.2 Eosinophils % 0.3 Basophils % 0.5 Nucleated RBC % 0.0 Absolute Neutrophils 2.96 Absolute Lymphocytes 0.49 L Absolute Monocytes 0.44 Absolute Eosinophils 0.01 Absolute Basophils 0.02 RBC Morphology Normal PT 13.3 H INR 1.3 H Sodium 142 Potassium 3.2 L Chloride 102 Carbon Dioxide 27.3 Anion Gap 12.7 H BUN 13 Creatinine 1.2 Est GFR (CKD-EPI 2020) 65.06 Glucose 110 H Calcium 8.7 Magnesium 1.8 Total Bilirubin 1.0 AST 40 H ALT 24 Alkaline Phosphatase 223 H Troponin I 146 H* 150 H* NT-Pro-B Natriuret Pep 3636 H Total Protein 7.6 Albumin 3.5 TSH 2.93 COVID-19 Source Nasopharynx SARS-CoV-2 (PCR) Negative Influenza Type A (PCR) Negative Influenza Type B (PCR) Negative RSV (PCR) Negative 12/05/24 16:57 WBC RBC Hgb Hct MCV MCH MCHC RDW Plt Count MPV Immature Gran % Neutrophils % Lymphocytes % Monocytes % Eosinophils % Basophils % Nucleated RBC % Absolute Neutrophils Absolute Lymphocytes Absolute Monocytes Absolute Eosinophils Absolute Basophils RBC Morphology PT INR Sodium Potassium Chloride Carbon Dioxide Anion Gap BUN Creatinine Est GFR (CKD-EPI 2020) Glucose Calcium Magnesium Total Bilirubin AST ALT Alkaline Phosphatase Troponin I 155 H* NT-Pro-B Natriuret Pep Total Protein Albumin TSH COVID-19 Source SARS-CoV-2 (PCR) Influenza Type A (PCR) Influenza Type B (PCR) RSV (PCR) Last Vital Signs Pulse 124 H 12/05/24 18:01 Resp 18 12/05/24 18:29 BP 142/82 H 12/05/24 18:01 Pulse Ox 95 12/05/24 18:01 Time Spent Time spent with Patient: >75 minutes Time was spent: preparing to see the patient(eg.review tests), obtaining and/or reviewing separately otained hiistory, ordering medications,tests, procedures, referring, communicating with other health resident care supervisor, indepentently interpreting results, counseling the patient and care coordination
[2024-12-05 23:21] LABS: Anion Gap 6.5 mmol/L (3-11); BUN 13 mg/dL (7-18); CO2 26.5 mmol/L (21.0-32.0); Calcium 8.4 mg/dL (8.5-10.1); Chloride 106 mmol/L (98-107); Estimated GFR 80.97 (mL/min/1.73m2); Glucose 105 mg/dL (74-106); Magnesium 1.7 mg/dL; Potassium 3.7 mmol/L (3.5-5.1); Sodium 139 mmol/L (136-145)
[2024-12-05] MEDS: Digoxin 0.5 MG/2 ML AMP 0.125 MG IVP (23:40)
[2024-12-06] VITALS (112 sets, daily range): BP systolic 105–155; BP diastolic 52–89; PULSE 81–150; RESP 12–38; TEMP 36.3–37; O2SAT 88–99
[2024-12-06] MEDS: MAGNESIUM SULFATE 2 GM/50 ML BAG IV_INF (01:13)
[2024-12-06] MEDS: POTASSIUM CHLORIDE 10 MEQ/100 ML BAG 100 MEQ IV_INF (01:30)
[2024-12-06 05:54] LABS: HCT 27.6 % (40.0-50.0); MCH 25.8 pg (27.0-33.0); MCHC 28.6 % (32.0-36.0); MCV 90 fL (80-95); MPV 11.2 fL (8.0-11.0); RBC 3.06 10^6/uL (4.36-5.78); RDW 18.5 % (11.8-14.1); RDW-SD 60.6 fL; WBC 2.04 10^3/uL (4.4-10.8)
[2024-12-06 06:08] LABS: ALT 20 U/L (16-63); AST 30 U/L (15-37); Albumin 2.9 g/dL (3.4-5.0); Alkaline Phosphatase 189 U/L (46-116); Anion Gap 7.4 mmol/L (3-11); BUN 12 mg/dL (7-18); CO2 27.6 mmol/L (21.0-32.0); CREATININE 0.9 mg/dL (0.70-1.30); Calcium 8.5 mg/dL (8.5-10.1); Chloride 107 mmol/L (98-107); Estimated GFR 91.88 (mL/min/1.73m2); Glucose 104 mg/dL (74-106); Potassium 4.1 mmol/L (3.5-5.1); Sodium 142 mmol/L (136-145); Total Protein 6.2 g/dL (6.4-8.2)
[2024-12-06 06:13] LABS: Troponin I 125 ng/L (<or=76)
[2024-12-06 06:30] LABS: Digoxin 0.85 ng/mL (0.90-2.00)
[2024-12-06 06:36] LABS: HGB 7.9 g/dL (13.5-17.5)
[2024-12-06 06:37] LABS: Platelet Count 41 10^3/uL (130-400)
[2024-12-06] MEDS: Tiotropium Bromide-Respimat 10 PUFF INH 2 PUFF IH (07:59)
[2024-12-06] MEDS: Budesonide/Formoterol 80/4.5 6.9 GM 60 PUFF INH IH ×2 (08:00→20:32)
[2024-12-06] MEDS: Torsemide 20 MG TAB PO (09:25)
[2024-12-06] MEDS: Acetaminophen 325 MG TAB PO ×3 (09:25→22:14)
[2024-12-06] MEDS: Pantoprazole 20 MG TABCR 40 MG PO (09:25)
[2024-12-06] MEDS: Gabapentin 100 MG CAP 200 MG PO ×3 (09:26→20:28)
[2024-12-06] MEDS: Rosuvastatin 20 MG TAB PO (09:26)
[2024-12-06] MEDS: Empaglifozin 10 MG TAB PO (09:27)
[2024-12-06] MEDS: Potassium Chloride 20 MEQ TABCR PO (09:46)
[2024-12-06] MEDS: Calcium 600mg/Vit D 200U TAB 1 TAB PO ×2 (09:46→20:31)
[2024-12-06] MEDS: Normal Saline Flush 10 ML SYR IVP (09:46)
[2024-12-06] MEDS: Vitamins B Comp w/C TAB 1 TAB PO (09:46)
[2024-12-06] MEDS: Digoxin 0.5 MG/2 ML AMP 0.25 MG IVP (09:47)
--- NOTE | 2024-12-06 10:45 | RT.EKG_ITS ---
APPROVED REPORT Exam: Resting ECG Reason for Exam: chest pain Patient Location: I HR:117 bpm ECG Measurements Heart Rate [address] [id number] P [id number] QRSd 75 QRS 7 QT 327 T 114 QTc 457 Conclusion Atrial fibrillation...V-rate 90-136, irreg A-activity Ventricular premature complex...V complex w/ short R-R interval Borderline low voltage, extremity leads...all extremity leads <0.6mV Nonspecific T abnormalities, lateral leads...T <-0.10mV, I aVL V5 V6
--- NOTE | 2024-12-06 10:47 | PHA.REVIEW2 ---
Pharmacy Admission Review Admission Clinical Review Admission Pharmacy Review: Atrial fibrillation with rapid ventricular response (Acute) azithromycin Adverse Reaction (Severe, Verified 12/05/24 14:06) Other (See Comment) atorvastatin Adverse Reaction (Intermediate, Verified 12/05/24 14:06) Diarrhea Resuscitation Status Full Code Height 5 ft 11 in Weight 93.1 kg Pharmacy Admission Review Renal Dosing Renal Dosing: BUN 12 mg/dL (7-18) 12/06/24 05:38 Creatinine 0.9 mg/dL (0.70-1.30) 12/06/24 05:38 Medications needing adjustments: Reviewed (CrCl 80.13 mL/min) List of meds needing interventions: Current medications are okay Anticoagulation Anticoagulation: Hgb 7.9 g/dL (13.5-17.5) L 12/06/24 05:38 Hct 27.6 % (40.0-50.0) L 12/06/24 05:38 Plt Count 41 10^3/uL (130-400) L 12/06/24 05:38 INR 1.3 (0.9-1.1) H 12/05/24 14:02 Creatinine 0.9 mg/dL (0.70-1.30) 12/06/24 05:38 DVT Prophylaxis: Reviewed (Hgb decreased from 9.2 and PLT decreased from 66) Medications: Dabigatran (150mg BID) Relevant Labs Relevant Labs: Sodium 142 mmol/L (136-145) 12/06/24 05:38 Potassium 4.1 mmol/L (3.5-5.1) 12/06/24 05:38 Chloride 107 mmol/L (98-107) 12/06/24 05:38 Magnesium 1.7 mg/dL 12/05/24 23:00 Electrolytes, C-Reactive P, ESR: Reviewed (WBC decreased from 3.93 to 2.04) Cardiac Review Cardiac Review: Troponin I 125 ng/L (<or=76) H* 12/06/24 05:38 NT-Pro-B Natriuret Pep 3636 pg/mL (<300) H 12/05/24 14:02 Blood Pressure 143/68 1000 Heart Rate 134 1001 Blood Pressure 117/62 0901 Heart Rate 115 1000 Blood Pressure 134/69 0801 Heart Rate 114 0930 Blood Pressure 147/85 0701 Heart Rate 124 0901 Blood Pressure 145/81 0601 Heart Rate 125 0900 Blood Pressure 130/64 0501 Heart Rate 120 0800 BP, HR, EF%: Reviewed List meds needing interventions: Has order for torsemide 20mg PO q48h. Received digoxin 0.5mg and 0.125mg IVP yesterday and another 0.25mg IVP this morning. Digoxin level this morning was 0.85 at 0538. Per provider patient may require cardioversion. QTc Review QTc: Reviewed (498 from 12/05/24) IV to PO Switch IV Medications: Reviewed Home Meds Home Med List reviewed: Reviewed Relevent Home Meds Not ordered & why?: Trelegy (substituted with Symbicort and Spiriva per pharmacy protocol) and nitroglycerin (PRN) Current Meds Current Medication Order Review: Intervened Comments: Changed IV ED access order
--- NOTE | 2024-12-06 15:22 | PDOC.CMIN ---
Date of service: 12/06/24 Time of Service: 14:00 Care Management Initial Assmt Initial Assessment Reason for Hospitalization: afib with RVR Functional Status/Living Situation Patient Presentation: Long was seen at his PCP office yesterday with c/o shortness of breath. He was found to be in rapid A- fib by EKG in office, with HR at 149, and was sent to [facility] ER. This was confirmed in the ER. He was given IVP digoxin x 2 without much effect. Long was admitted to the ICU. He may need transfer to [facility] for cardioversion. Long was sitting up in the bed when CM met with him. He was very pleasant and easily engaged. He looked well, but stated that he is feeling very anxious waiting to hear if he will be transferred to [facility] for cardioversion. He stated that he is too anxious to watch TV and declined the offer of word search or crosswords, as he feels he can't focus. Long has a complex medical history. He is a full code and a Palliative Care consult was placed. Long and his ,Robyn, are planning to fly to [place] on 12/17 to visit her daughter and new baby. He is really hoping to be able to get there. Town of Residence: [place] Resides with: Spouse (Elver Hall) Significant Other/Family: Local (2 children and 3 grandchildren) Natural Supports: family, work friends Employment Status: Employed (works 2 jobs. 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 Medications Medication Management: No Issues/Barriers identified Advance Directives Advance Directives: Do you have an Advance Directive: AD On File at [facility]: N 12/01/12 08:27 Date Asked 12/05/24 12/05/24 18:49 AD Date Reviewed COLST On File at [facility] COLST Date Scanned Code Status Resuscitation Status Full Code Insurance Coverage/Financial Issues Insurance: Health Plans ([facility] ONLY!) Financial Issues: denies Care Team Visit Care Team Role Provider Type Gladys Jonas APRN Primary Care Provider NURSE PRACTITIONER Marcia Obrien MD Emergency Provider [facility] STAFF PHYSICIAN Long Contreras Admit Provider [facility] STAFF PHYSICIAN Attending Provider Discharge Potential Discharge Needs: PCP F/U Appt and Other (cardiology f/u) Anticipated Barriers to Discharge: None Identified Patient/Family Education Needs: Review discharge instructions, discuss Ask Me Three Transportation: Other (dependent on disposition - EMS if transfer to [facility], private vehicle if home) Plan: Anticipate that Long will be transferred to a tertiary facility for cardioversion, vs. home once medically cleared. Regardless, he will need to follow up with his PCP and likely cardiology. He will transport to a tertiary facility via EMS as coordinated by the nursing shipyard supervisor, or home in a private vehicle. CM will continue to follow and update the plan accordingly. 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 (Acute ~11/2024) [facility] Stage C0-M2 per [place] criteria Portal hypertensive gastropathy (Acute ~11/2024) Esophageal varices determined by endoscopy (Chronic ~11/2024) Grade 1, Type 2 gastroesophageal varices Paroxysmal atrial fibrillation (Chronic) Non-ST elevation SD (NSTEMI) (Acute) Congestive heart failure (Chronic) Anemia (Acute) Sleep difficulties (Acute) Knee pain, left (Acute) Insomnia (Acute) Lumbar radiculitis (Acute) Spinal stenosis, lumbar region with neurogenic claudication (Acute ~07/30/24) [facility] Ctr Pain/Spine-note from 07/30/24.HE Acute HFrEF (heart failure with reduced ejection fraction) (Acute ~07/26/24) [facility] Cardiology note from 07/26/24 visit.HE Bilateral carotid artery occlusion (Acute ~07/17/24) [facility] Vascular Surg. note from 07/17/24.HE Abnormal involuntary movements (Acute) Community acquired pneumonia (Acute) Liver dysfunction (Acute) Chronic kidney disease (Chronic) Right upper lobe pulmonary infiltrate (Acute) Thrombocytopenia (Chronic) Anemia (Chronic) Disability affecting daily living (Acute) Lumbosacral stenosis with neurogenic claudication (Acute) per [facility] tele consult & 06/05/24 MRI Radiculopathy due to disorder of intervertebral disc of lumbar spine (Acute) Pancytopenia (Chronic) 02/17/24 f/u Hem/Onc At risk for stroke (Acute) New AFib: CHAD2 12/16.. [id number] 02/18 .. so, med-high risk (9.7% stroke risk; 13.6% TIA risk).. Thrombocytopenia (Chronic) Acute, with Hx chronic ITP .. new pathology? or active ITP? or hepatic dz? Atherosclerosis of [place] coronary artery of [place] heart without angina pectoris (Acute 10/24/09) stent 2009; re-occluded stented 11/2015 along with second site Cx.; dual platelet rx until 12/2016-06/2018; Dr. Mcnulty; [facility] 07/30/16 neg for ischemia, EF 51% (< AFTER 2021 stenting?) Cirrhosis of liver without ascites (Chronic) Heart failure with reduced ejection fraction (Chronic) EF 33% (11/11/23) .. EF 51% post-cath (01/2022) EF 33% (12/2021) Impaired quality of life (Acute) Femoro-popliteal artery disease (Acute) Atherosclerosis of lower extremity with claudication (Acute) PAD (peripheral artery disease) (Chronic) Rt LE, per MEET, [facility] (03/18/23) Carotid artery occlusion (Acute 04/12/07) bilateral; L PARIETAL CVA Diarrhea (Acute) Daily x months, managed with OTC (loperamide?) Claudication of calf muscles (Acute) Worsening, 10/2023, affecting ADLs and ability to work! Rt Calf, resolves w/in minutes of rest Other specified nonscarring hair loss (Acute) LE, b/l (no problem, but notable to pt who is wondering) .. 2' PAD? ik, 03/2023 [ ] MEET Pulmonary fibrosis (Chronic) Emphysema lung (Acute) Restrictive lung disease (Acute) Chronic ITP (idiopathic thrombocytopenia) (Chronic 07/25/17) Per rvw of Heme consult of 07/2019: RTC if pltlts<70,000, 12/17/23, ik...Heme consult Dr. Nolen 07/2017, likely slowly progressive chronic going back to 2006; re-consult if drops below 50,000 Hypertension (Chronic 12/11/00) avoid hypotension due to cerebral vascular disease; cardilogy: Dr Camara; goal 130-140 systolic, sens to thiazide Hyperlipidemia (Chronic 11/10/02) goal LDL 70 or best able Sensorineural hearing loss, bilateral (Chronic 06/24/14) R hearing aid 07/2014 Splenomegaly (Chronic 08/02/17) 14 cm on US 06/2017; ? due to chronic ITP Cervical radiculitis (Chronic) Osteoarthritis of lower back (Acute 12/11/01) Macrocytic anemia (Acute) Chronic low back pain (Chronic) Acute episodes, . Mild DJD on LS film 04/2014; Hx daily Aleve. Hepatic steatosis (Chronic) Abdominal US in 2016 Muscle spasm (Acute) Acute ... improves with PT, but re-spasms .. Need rest, anti-inflamm then abd/core mm strengthening. Possible PSOAS (?) COPD (chronic obstructive pulmonary disease) (Chronic) NEG COPD per pt rpt s/p Pulm OV, 03/2023. Per CT (2016), Hx smoking. Weight gain (Acute) 15 lbs per chart, no diet change per pt Anemia (Chronic) Low HGB. Hx Macrocytic anemia, B12 WNL ().. [ ] iron suppl, po review Compression fracture of L2 lumbar vertebra (Acute) per MRI (03/08/22), w/ acute/subacute signal. Fx lines extend towards pedicles..20% ht loss..intraosseous edema.. Spinal stenosis at L4-L5 level (Chronic) per MRI (03/08/22). .. moderate ctl canal stenosis .. disc protrusion caudally, 5mm behind L5.. MRI LSpine 04/2022 no nerve compressin or central stenosis Sacroiliac joint dysfunction of left side (Acute) Hyponatremia (Chronic) CHRONIC? Asymptomatic, 08/05/22 Lung nodule seen on imaging study (Acute) Per 10/19/22 CTA: Neg PE. (+) pleural base nodule, RML, 4mm.. & sessile pleural plaque (RUL) measuring 1 cm x 0.3 cm. Pleuritic chest pain (Acute) Pleural plaque (Acute) Medical History (Updated 12/06/24 @ 09:23 by Gian Stanley) Skin tag of perianal region (~11/2024) Atrial fibrillation, new onset Asymptomatic, just took medications.. some improvement in HR while resting [allowing meds to act? ik) in exam room, 12/23/23. Hx of atherosclerotic cardiovascular disease Stents Patent per Cath, 02/2022 (Dr. Camara, [facility]). Stents placed, 2009 .. re-occluded, stented 11/2015 along with second site Cx.; dual platelet Rx 12/2016-06/2018; Dr. Mcnulty; [facility] 07/30/16 neg for ischemia, EF 51% Absent breath sounds on left side of chest much lower than rt base .. seems new.. Hx of arterial ischemic stroke 2006, cerebral infarction Hemoptysis COVID-30 March 2022, home test Tenderness of back Prominent mm; lft paraspinal tenderness (L2-L4), rad into left buttock Left buttock pain Helped focus on SI Joint vs lower bk. Feeling great, 09/2022. Left-sided back pain Acute on chronic .. barely walking, tenderness out of proportion .. Carcinoma in situ, unspecified 11/28/2019 [facility] Derm: squamous cell left forearm with biopsy and destroyed by curettage and electrodesiccation. Cerebral artery occlusion with cerebral infarction (01/13/07) Convulsions (01/25/08) Pt. denies Abnormal findings on diagnostic imaging of lung (11/25/06) Old notes, CXR since then show cardiomegaly, possible atelectasis or scarring.. nothing acute. Carpal tunnel syndrome (07/05/11) Headache (08/01/09) Sudden hearing loss (12/15/12) assoc with CVA?? 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 Camara [facility] Coronary Stent (12/11/15) LAD POBA for in-stent restenosis, November 2015 AND left circumflex 3-mm drug-eluting stent, November 2015, Dr Camara Appendectomy 2006 Family History Father , Pneumonia at age 68. Tobacco use disorder Pneumonia Other Heart disease Stroke Social History (Updated 08/06/24 @ 15:39 by Long Contreras) Smoking/Tobacco Use Status: Former Tobacco Use Quit Date: 09/12/02 Tobacco: How many years used: 15 Second Hand Exposure: Yes Smoking risk assessment performed?: Yes Alcohol Intake: current Alcohol Intake frequency: 0-2 drinks per day Alcohol type: hard liquor Drug use: Never Substance use type: does not use Adopted: No Foster care: No Household members: spouse and family Housing: house Number of Children: 2 number of grandchildren: 3 Communication Needs: Hard of Hearing and Corrective Lenses Education Level: high school Do you need help understanding health information?: Never current occupation: [employer] Pets and animals: No Do you think of yourself as: straight/heterosexual Current gender identity: male What is your relationship status?: How often do you get together with friends or relatives?: once per week Panel score (0-1 are the most socially isolated patients): 1 What type of physical activity do you participate in: other Details: active lifestyle- Duration: 15-30 minutes/day Frequency: daily Shannan/Holiness: Rastafarian Seatbelt use: sometimes Drive intox or ride w/intox local company refrigerated truck driver: No Do you feel safe at home: Yes Do you feel safe in your relationship?: Yes Additional Social history: 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 works at [employer] [facility]. Readmission Within the Past 30 Days Yes or No: Yes Date of First Admission Date of 1st Admission: 11/09/24 Date of this Admission Date of Admission: 12/05/24 This admission was: Through ED (sent by PCP) Office Visit Since 1st Admission Have you seen your PCP in the office since discharge?: Yes Date of PCP Appointment: hospital f/u on 11/14, acute 12/05 Had an appointment Been Scheduled?: Yes Speicalist Appointments Have you seen any other specialist since your 1st Admission?: No I. Interview patient and/or Family Difficulty reaching your doctor or getting an office appt?: No Have you had trouble purchasing/ or taking medication?: No Have you had trouble with getting meals at home?: No Did you feel ready for discharge when you left the last time: Yes Why weren't services received?: none ordered Reason there were no orders at discharge: Did not require services. Is not homebound. Had appropriate f/u. Did you call your physician beore you came to the ED?: Yes (presented to PCP for acute visit for SOB) Did your physician tell you to come in?: Yes (sent by physician) ED visits How many ED visits in the past 12 months: 5 Assessment for Readmission Summary of readmission circumstances, based upon interviews: First admission was due to anemia secondary to GIB. This admission is for rapid afib. Unrelated.
[2024-12-06] MEDS: Metoprolol 25 MG TAB PO ×2 (16:15→22:15)
--- NOTE | 2024-12-06 16:16 | W.PM.PROGNOT ---
Date of Service Date of service: 12/06/24 Time of Service: 16:16 Assessment and Plan Assessment and plan (1) Atrial fibrillation with rapid ventricular response: Start date: 12/05/24 Status: Acute Assessment and plan: Atrial fibrillation with RVR. He had discontinued metoprolol because of concern for low blood pressure causing dizziness in setting of aleida carotid artery stenosis. Treated with digoxin overnight and this am, but I am concern with digoxin causing ventricular ectopy and not controlling rate well. I reviewed cardiology notes from [facility] and called [facility] and spoke to MELISSA Mccoy. He was told to decrease metoprolol to 100mg but not to stop. I suggested carvedilol but cardiology concerned about greater BP effect, will start back with metoprolol at 25mg QID. Stop digoxin. If this doesn't work, he would need transfer for [facility] before cardioversion electric or chemical as was off DOAC recently. He is back on Pradaxa now (2) Heart failure with reduced ejection fraction: Status: Chronic Assessment and plan: Recent echocardogram 07/2024, no need to repeat. Euvolemic now. Continue torsemide every other day. He is on SGLT2i but not on other GDMT because of concern for low BP (3) Hypokalemia: Status: Chronic Assessment and plan: Continue supplementation and trend labs. Mg normal. (4) Esophageal varices determined by endoscopy: Status: Chronic Assessment and plan: With low platelet count and on Pradaxa, watch closely for bleeding. He would benefit from transition to carvedilol extermination supervisor if tolerates metoprolol. (5) Pancytopenia: Status: Chronic Assessment and plan: Has been followed by heme/onc, negative Bx for MDS. This appears related to cirrhosis. h/h dropped, no clear bleed this time, follow. (6) Cirrhosis of liver without ascites: Status: Chronic Assessment and plan: Monitor labs. Patient is not presently drinking alcohol. Hepatology consulted as outpatient but has not been seen for full evaluation. Hep screens negative. CP score 5, compensated at this point. (7) PAD (peripheral artery disease): Status: Chronic Assessment and plan: Extensive disease with patient on appropriate medical therapy. He is active. (8) Pulmonary fibrosis: Status: Chronic Assessment and plan: Continue inhalers long-term with nebulizer treatment aggressively during hospital stay. (9) COPD (chronic obstructive pulmonary disease): Status: Chronic Assessment and plan: Not clearly active, continue inhalers. Subjective Subjective Patient reports: feels better and tolerating a regular diet; denies nausea, vomiting, shortness of breath or fever Interval history since last seen: Events: Runs of non-sustained VT after getting digoxin load overnight Supplemented K+ and Mg++ More PVCs with digoxin this morning Some chest pressure this morning, EKG repeated, has resovled. He is feeling okay. Comfortable, not SOB. Doesn't feel dizzy or palpitations. no bleeding. Exam Narrative Exam Narrative: General: Alert and oriented x 3 and in no acute distress. Lungs: Bronchovesicular breath sounds diffusely with coarse crackles bilaterally without focalizing no true rales. No expiratory wheeze. Fair aeration. Heart: Irregular irregular rhythm with tachycardic rate, 1/6 systolic murmur over left sternal border. No gallops or rubs. Abdomen: +BS, soft, NT/ND, no obvious ascities/fluid wave Extremities: No clubbing, cyanosis or grossly pitting edema. Fair capillary refill. Skin: Normal color, warm and dry. Objective Last Vital Signs Temp 37 C 12/06/24 13:00 Pulse 117 H 12/06/24 15:01 Resp 27 H 12/06/24 15:01 BP 113/78 12/06/24 15:01 Pulse Ox 93 12/06/24 15:01 Laboratory Results - last 24 hr 12/05/24 12/05/24 12/05/24 14:30 15:45 16:57 WBC RBC Hgb Hct MCV MCH MCHC RDW Plt Count MPV Sodium Potassium Chloride Carbon Dioxide Anion Gap BUN Creatinine Est GFR (CKD-EPI 2020) Glucose Calcium Magnesium Total Bilirubin AST ALT Alkaline Phosphatase Troponin I 150 H* 155 H* Total Protein Albumin Digoxin COVID-19 Source Nasopharynx SARS-CoV-2 (PCR) Negative Influenza Type A (PCR) Negative Influenza Type B (PCR) Negative RSV (PCR) Negative 12/05/24 12/06/24 23:00 05:38 WBC 2.04 L RBC 3.06 L Hgb 7.9 L Hct 27.6 L MCV 90 MCH 25.8 L MCHC 28.6 L RDW 18.5 H Plt Count 41 L MPV 11.2 H Sodium 139 142 Potassium 3.7 4.1 Chloride 106 107 Carbon Dioxide 26.5 27.6 Anion Gap 6.5 7.4 BUN 13 12 Creatinine 1.0 0.9 Est GFR (CKD-EPI 2020) 80.97 91.88 Glucose 105 104 Calcium 8.4 L 8.5 Magnesium 1.7 Total Bilirubin 1.0 AST 30 ALT 20 Alkaline Phosphatase 189 H Troponin I 125 H* Total Protein 6.2 L Albumin 2.9 L Digoxin 0.85 L COVID-19 Source SARS-CoV-2 (PCR) Influenza Type A (PCR) Influenza Type B (PCR) RSV (PCR) Time Spent with Patient Time Spent with Patient: >50 minutes Time was spent: preparing to see the patient(eg.review tests), obtaining and/or reviewing separately otained hiistory, ordering medications,tests, procedures, referring, communicating with other health progressive care nurse, indepentently interpreting results, counseling the patient and care coordination
[2024-12-07] VITALS (15 sets, daily range): BP systolic 120–145; BP diastolic 64–87; PULSE 77–140; RESP 18–31; O2SAT 79–96
[2024-12-07] MEDS: Metoprolol 25 MG TAB PO ×2 (04:08→09:46)
[2024-12-07 06:41] LABS: HCT 28.6 % (40.0-50.0); HGB 8.1 g/dL (13.5-17.5); MCH 25.6 pg (27.0-33.0); MCHC 28.3 % (32.0-36.0); MCV 90 fL (80-95); MPV 10.7 fL (8.0-11.0); RBC 3.17 10^6/uL (4.36-5.78); WBC 2.38 10^3/uL (4.4-10.8)
[2024-12-07 06:57] LABS: Anion Gap 9.1 mmol/L (3-11); BUN 14 mg/dL (7-18); CO2 25.9 mmol/L (21.0-32.0); CREATININE 0.9 mg/dL (0.70-1.30); Calcium 8.8 mg/dL (8.5-10.1); Chloride 107 mmol/L (98-107); Estimated GFR 91.88 (mL/min/1.73m2); Glucose 93 mg/dL (74-106); Magnesium 2.2 mg/dL; Potassium 4.2 mmol/L (3.5-5.1); Sodium 142 mmol/L (136-145)
[2024-12-07 07:15] LABS: Platelet Count 45 10^3/uL (130-400); RDW 18.4 % (11.8-14.1)
[2024-12-07] MEDS: Empaglifozin 10 MG TAB PO (07:40)
[2024-12-07] MEDS: Gabapentin 100 MG CAP 200 MG PO ×2 (07:40→13:58)
[2024-12-07] MEDS: Rosuvastatin 20 MG TAB PO (07:40)
[2024-12-07] MEDS: Vitamins B Comp w/C TAB 1 TAB PO (07:40)
[2024-12-07] MEDS: Pantoprazole 20 MG TABCR 40 MG PO (07:40)
[2024-12-07] MEDS: Calcium 600mg/Vit D 200U TAB 1 TAB PO (07:40)
[2024-12-07] MEDS: Potassium Chloride 20 MEQ TABCR PO (07:41)
[2024-12-07] MEDS: Normal Saline Flush 10 ML SYR IVP (07:41)
[2024-12-07] MEDS: Budesonide/Formoterol 80/4.5 6.9 GM 60 PUFF INH IH (08:21)
[2024-12-07] MEDS: Tiotropium Bromide-Respimat 10 PUFF INH 2 PUFF IH (08:21)
--- NOTE | 2024-12-07 11:30 | PCNE_ITS ---
Date of service: 12/07/24 Time of Service: 11:30 History of Present Illness Narrative: Long Godinez is a 69 year old with CHF with reduced EF, a-fib, cirrhosis of the liver with esophageal varices, PAD, pulmonary fibrosis, COPD. He has had 3 hospitalizations in the last 4 months and 5 ED visits. Palliative was consulted to establish care. He reports that his , Jose Hall works here in the lab. She would be the one to make decisions for him if needed. He also reports having people in [place] as [place] that would help out if Jose was not available. He sounds like he has financial things in order but declined to put HCA/AD in writing. He has children but he does not have a relationship with them. Reviewed CODE STATUS. He is clear he would want attempts at CPR and would agree to mechanical ventilation. Briefly reviewed that he has multiple issues going on in his body. He asked that I speak with his about all of this. He does not think he needs Palliative f/u at this time. Offered to visit him when he is in the hospital and he agreed with this plan. Phone call to his , Jose. Jose reports feeling frustrated at times. Reviewed what Palliative has to offer. Offered outpatient f/u be she states he would not go. Discussed that if they feel they want to do ACP with HCA form/AD, etc, they can call and make an appointment to review. Assessment and Plan Assessment and plan (1) Atrial fibrillation with rapid ventricular response: Start date: 12/05/24 Status: Acute Assessment and plan: Hospitalist managing. (2) Heart failure with reduced ejection fraction: Status: Chronic Assessment and plan: Recent echocardogram 07/2024 with LVEF of 42%. (3) Hypokalemia: Status: Chronic Assessment and plan: Resolved. (4) Esophageal varices determined by endoscopy: Status: Chronic Assessment and plan: With low platelet count and on Pradaxa, watch closely for bleeding. He would benefit from transition to carvedilol prison if tolerates metoprolol. (5) Pancytopenia: Status: Chronic Assessment and plan: Has been followed by heme/onc, negative Bx for MDS. This appears related to cirrhosis. h/h dropped, no clear bleed this time, follow. (6) Cirrhosis of liver without ascites: Status: Chronic Assessment and plan: Monitor labs. Patient is not presently drinking alcohol. Hepatology consulted as outpatient but has not been seen for full evaluation. Hep screens negative. CP score 5, compensated at this point. (7) PAD (peripheral artery disease): Status: Chronic Assessment and plan: Extensive disease with patient on appropriate medical therapy. He is active. (8) Pulmonary fibrosis: Status: Chronic Assessment and plan: Continue inhalers long-term with nebulizer treatment aggressively during hospital stay. (9) COPD (chronic obstructive pulmonary disease): Status: Chronic Assessment and plan: Not clearly active, continue inhalers. (10) Palliative care encounter: Status: Acute Assessment and plan: Long Godinez is a 69 year old with multiple comorbidities including CHF with reduced EF (42%), a-fib, cirrhosis of the liver with esophageal varices, PAD, pulmonary fibrosis, COPD. He has had 3 hospitalizations in the last 4 months and 5 ED visits. He was seen to establish care with Palliative care. He is a FULL CODE, he wishes to remain full code at this point. He was not interested in completing HCA/AD paperwork. He thinks his , Jose Hall would make decisions for him if needed. He also has people in [place] that could help if needed. He has children but he does not have a relationship with them. Reviewed his current medical problems. He may benefit from outpatient f/u but he declines for now. He and his are advised that they can reach out to the Palliative office if he decides that he would like to engage with the service. Palliative will f/u with him when he is in the hospital- he was agreeable to this plan. Review of Systems Narrative: Feeling better, hoping to go home today. [facility] All Active Problems (Updated 12/07/24 @ 12:29 by Carmela Pedroza NP) Palliative care encounter (Acute) Hypokalemia (Chronic) Atrial fibrillation with rapid ventricular response (Acute) Shortness of breath (Acute) Cirrhosis (Acute) Hemorrhoids (Acute ~11/2024) EGD at [facility] internal and external possible sm rectal varices Diverticulosis of colon (Acute ~11/2024) [facility] Colonoscopy sigmoid and 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 (Acute ~11/2024) [facility] Stage C0-M2 per [place] criteria Portal hypertensive gastropathy (Acute ~11/2024) Esophageal varices determined by endoscopy (Chronic ~11/2024) Grade 1, Type 2 gastroesophageal varices Paroxysmal atrial fibrillation (Chronic) Non-ST elevation OK (NSTEMI) (Acute) Congestive heart failure (Chronic) Anemia (Acute) Sleep difficulties (Acute) Knee pain, left (Acute) Insomnia (Acute) Lumbar radiculitis (Acute) Spinal stenosis, lumbar region with neurogenic claudication (Acute ~07/30/24) [facility] Ctr Pain/Spine-note from 07/30/24.HE Acute HFrEF (heart failure with reduced ejection fraction) (Acute ~07/26/24) [facility] Cardiology note from 07/26/24 visit.HE Bilateral carotid artery occlusion (Acute ~07/17/24) [facility] Vascular Surg. note from 07/17/24.HE Abnormal involuntary movements (Acute) Community acquired pneumonia (Acute) Liver dysfunction (Acute) Chronic kidney disease (Chronic) Right upper lobe pulmonary infiltrate (Acute) Thrombocytopenia (Chronic) Anemia (Chronic) Disability affecting daily living (Acute) Lumbosacral stenosis with neurogenic claudication (Acute) per [facility] tele consult & 06/05/24 MRI Radiculopathy due to disorder of intervertebral disc of lumbar spine (Acute) Pancytopenia (Chronic) 02/17/24 f/u Hem/Onc At risk for stroke (Acute) New AFib: CHAD2 12/16.. [id number] 02/18 .. so, med-high risk (9.7% stroke risk; 13.6% TIA risk).. Thrombocytopenia (Chronic) Acute, with Hx chronic ITP .. new pathology? or active ITP? or hepatic dz? Atherosclerosis of [place] coronary artery of [place] heart without angina pectoris (Acute 10/24/09) stent 2009; re-occluded stented 11/2015 along with second site Cx.; dual platelet rx until 12/2016-06/2018; Dr. Mcnulty; [facility] 07/30/16 neg for ischemia, EF 51% (< AFTER 2021 stenting?) Cirrhosis of liver without ascites (Chronic) Heart failure with reduced ejection fraction (Chronic) EF 33% (11/11/23) .. EF 51% post-cath (01/2022) EF 33% (12/2021) Impaired quality of life (Acute) Femoro-popliteal artery disease (Acute) Atherosclerosis of lower extremity with claudication (Acute) PAD (peripheral artery disease) (Chronic) Rt LE, per MEET, [facility] (03/18/23) Carotid artery occlusion (Acute 04/12/07) bilateral; L PARIETAL CVA Diarrhea (Acute) Daily x months, managed with OTC (loperamide?) Claudication of calf muscles (Acute) Worsening, 10/2023, affecting ADLs and ability to work! Rt Calf, resolves w/in minutes of rest Other specified nonscarring hair loss (Acute) LE, b/l (no problem, but notable to pt who is wondering) .. 2' PAD? ik, 03/2023 [ ] MEET Pulmonary fibrosis (Chronic) Emphysema lung (Acute) Restrictive lung disease (Acute) Chronic ITP (idiopathic thrombocytopenia) (Chronic 07/25/17) Per rvw of Heme consult of 07/2019: RTC if pltlts<70,000, 12/17/23, ik...Heme consult Dr. Nolen 07/2017, likely slowly progressive chronic going back to 2006; re-consult if drops below 50,000 Hypertension (Chronic 12/11/00) avoid hypotension due to cerebral vascular disease; cardilogy: Dr Camara; goal 130-140 systolic, sens to thiazide Hyperlipidemia (Chronic 11/10/02) goal LDL 70 or best able Sensorineural hearing loss, bilateral (Chronic 06/24/14) R hearing aid 07/2014 Splenomegaly (Chronic 08/02/17) 14 cm on US 06/2017; ? due to chronic ITP Cervical radiculitis (Chronic) Osteoarthritis of lower back (Acute 12/11/01) Macrocytic anemia (Acute) Chronic low back pain (Chronic) Acute episodes, 2020-. Mild DJD on LS film 04/2014; Hx daily Aleve. Hepatic steatosis (Chronic) Abdominal US in 2016 Muscle spasm (Acute) Acute ... improves with PT, but re-spasms .. Need rest, anti-inflamm then abd/core mm strengthening. Possible PSOAS (?) COPD (chronic obstructive pulmonary disease) (Chronic) NEG COPD per pt rpt s/p Pulm OV, 03/2023. Per CT (2016), Hx smoking. Weight gain (Acute) 15 lbs per chart, no diet change per pt Anemia (Chronic) Low HGB. Hx Macrocytic anemia, B12 WNL ().. [ ] iron suppl, po review Compression fracture of L2 lumbar vertebra (Acute) per MRI (03/08/22), w/ acute/subacute signal. Fx lines extend towards pedicles..20% ht loss..intraosseous edema.. Spinal stenosis at L4-L5 level (Chronic) per MRI (03/08/22). .. moderate ctl canal stenosis .. disc protrusion caudally, 5mm behind L5.. MRI LSpine 04/2022 no nerve compressin or central stenosis Sacroiliac joint dysfunction of left side (Acute) Hyponatremia (Chronic) CHRONIC? Asymptomatic, 08/05/22 Lung nodule seen on imaging study (Acute) Per 10/19/22 CTA: Neg PE. (+) pleural base nodule, RML, 4mm.. & sessile pleural plaque (RUL) measuring 1 cm x 0.3 cm. Pleuritic chest pain (Acute) Pleural plaque (Acute) Medical History Skin tag of perianal region (~11/2024) Atrial fibrillation, new onset Asymptomatic, just took medications.. some improvement in HR while resting [allowing meds to act? ik) in exam room, 12/23/23. Hx of atherosclerotic cardiovascular disease Stents Patent per Cath, 02/2022 (Dr. Camara, [facility]). Stents placed, 2009 .. re- occluded, stented 11/2015 along with second site Cx.; dual platelet Rx 12/2016-06/2018; Dr. Mcnulty; [facility] 07/30/16 neg for ischemia, EF 51% Absent breath sounds on left side of chest much lower than rt base .. seems new.. Hx of arterial ischemic stroke 2006, cerebral infarction Hemoptysis COVID-30 March 2022, home test Tenderness of back Prominent mm; lft paraspinal tenderness (L2-L4), rad into left buttock Left buttock pain Helped focus on SI Joint vs lower bk. Feeling great, 09/2022. Left-sided back pain Acute on chronic .. barely walking, tenderness out of proportion .. Carcinoma in situ, unspecified 11/28/2019 [facility] Derm: squamous cell left forearm with biopsy and destroyed by curettage and electrodesiccation. Cerebral artery occlusion with cerebral infarction (01/13/07) Convulsions (01/25/08) Pt. denies Abnormal findings on diagnostic imaging of lung (11/25/06) Old notes, CXR since then show cardiomegaly, possible atelectasis or scarring.. nothing acute. Carpal tunnel syndrome (07/05/11) Headache (08/01/09) Sudden hearing loss (12/15/12) assoc with CVA?? History of tobacco use (10/12/11) quit over 25 yrs ago, 09/2022 Vertigo (05/09/17) ER 05/09/17: CT neg, MRI old cva, good flow [place] [facility] [place]; rx Meclizine 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) Anxiety disorder, unspecified (03/22/17) Erectile dysfunction Surgical History History of colonoscopy (11/27/24) [facility], no specimens History of esophagogastroduodenoscopy (EGD) (11/27/24) [facility] esophageal plaques suspicious for candidiasis History of biopsy Biopsy at [facility] in 2019 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 Camara [facility] Coronary Stent (12/11/15) LAD POBA for in-stent restenosis, November 2015 AND left circumflex 3-mm drug-eluting stent, November 2015, Dr Camara Appendectomy 2006 Family History Father , Pneumonia at age 68. Tobacco use disorder Pneumonia Other Heart disease Stroke Social History Smoking/Tobacco Use Status: Former Tobacco Use Quit Date: 09/12/02 Tobacco: How many years used: 15 Second Hand Exposure: Yes Smoking risk assessment performed?: Yes Alcohol Intake: current Alcohol Intake frequency: 0-2 drinks per day Alcohol type: hard liquor Drug use: Never Substance use type: does not use Adopted: No Foster care: No Household members: spouse and family Housing: house Number of Children: 2 number of grandchildren: 3 Communication Needs: Hard of Hearing and Corrective Lenses Education Level: high school Do you need help understanding health information?: Never current occupation: [employer] Pets and animals: No Do you think of yourself as: straight/heterosexual Current gender identity: male What is your relationship status?: How often do you get together with friends or relatives?: once per week Panel score (0-1 are the most socially isolated patients): 1 What type of physical activity do you participate in: other Details: active lifestyle- Duration: 15-30 minutes/day Frequency: daily Shannan/Jehovah'S Witness: Orthodox Seatbelt use: sometimes Drive intox or ride w/intox flatbed driver: No Do you feel safe at home: Yes Do you feel safe in your relationship?: Yes Additional Social history: 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 works at [employer]. Exam Narrative Exam Narrative: General: pleasant, older man, sitting up at the edge of the bed, eating lunch. He answers questions appropriately, he is alert and oriented, he does not appear to be in distress. HEENT: normocephalic, atraumatic, EOMI, mmm Neck: supple Respiratory: respirations appear even and unlabored at rest. Ext: moves all 4 extremities freely. Results Last Vital Signs Temp 37 C 12/06/24 13:00 Pulse 97 H 12/07/24 08:01 Resp 20 12/07/24 08:01 BP 130/80 12/07/24 08:01 Pulse Ox 94 12/07/24 08:01 Labs 12/07/24 05:32 12/07/24 05:32 Labs: Laboratory Results - last 24 hr 12/07/24 05:32 WBC 2.38 L RBC 3.17 L Hgb 8.1 L Hct 28.6 L MCV 90 MCH 25.6 L MCHC 28.3 L RDW 18.4 H Plt Count 45 L MPV 10.7 Sodium 142 Potassium 4.2 Chloride 107 Carbon Dioxide 25.9 Anion Gap 9.1 BUN 14 Creatinine 0.9 Est GFR (CKD-EPI 2020) 91.88 Glucose 93 Calcium 8.8 Magnesium 2.2 Time Spent Time Spent with Patient Time Spent(min): 52
[2024-12-07] MEDS: Metoprolol CR 50 MG TABCR 100 MG PO (13:58)
--- NOTE | 2024-12-07 14:54 | W.PM.DS.N ---
Date of service: 12/07/24 Time of Service: 14:54 DS: Diagnosis Discharge Diagnosis (1) Atrial fibrillation with rapid ventricular response: Status: Acute (2) Heart failure with reduced ejection fraction: Status: Chronic (3) Hypokalemia: Status: Chronic (4) Esophageal varices determined by endoscopy: Status: Chronic (5) Pancytopenia: Status: Chronic (6) Cirrhosis of liver without ascites: Status: Chronic (7) PAD (peripheral artery disease): Status: Chronic (8) Pulmonary fibrosis: Status: Chronic (9) COPD (chronic obstructive pulmonary disease): Status: Chronic (10) Palliative care encounter: Status: Acute Discharge Plan Disposition Patient Disposition: Home Condition: Stable Discharge Details Reason For Visit: atrial fibrillation w/RVR,HFrEF Admit Date/Time: 12/05/24 17:24 Admit Provider: Long Contreras Attending Provider: Long Contreras [facility] Course: 69 yo M with history of Atrial fibrillation, HFrEF, liver cirrhosis, recent upper GI bleed associated with esophageal and gastric varicies, CKD, COPD, PAD with bilateral carotid stenosis who presented with sudden onset of dsypnea and was found to be in atrial fibrillation with HR in the 170s. Troponin was elevated to 146, up to 155 before trending down to 125. He had stopped his metoprolol over concern that it was lowering his blood pressure too much and causing dizziness because of his carotid stenosis. He was initially treated with 15mg diltiazem, but after discussion with [facility] cardiology in the ED he started with loading of digoxin. He was admitted to the ICU for close monitoring. During this treatment he had runs of ventricular ectopy. Potassium and magnesium were supplemented. Upon additional dosing he had recurrence of ventricular ectopy. Rhythm control medicatoins such as amiodarone or other cardioversion options were not considered as he had recently been off his digatraban due to UGI bleed. [facility] cardiology was contacted again 12/06 and reviewing records their previous recommendation was to decrease metoprolol succinate to 100mg, not stop it completely. Metoprolol was resumed rather than continue digoxin or transfer for ALISON and cardioversion. He tolerated 25mg QID with blood pressures staying 130-150 and pulses in 90s. He was given 100mg metoprolol succinate and discharged home to resume this dose daily. He may still consider cardioversion non-emergently as an outpatient. He had stable pancytopenia and mild LFT abnormalities. He has hepatology consult pending. He was told he had esophageal candidiasis during his last admissoin with endoscopy, but never got his fluconazole. He was given 400mg x 1, and sent home with 200mg/day. He should have a CMP in 1 week to monitor LFTs and Creatinine on this. He should ideally be on carvedilol rather than metoprolol given his HFrEF AND portal hypertension with bleeding varices. Unfortunately carvedilol interacts with Pradaxa and raises bleeding risk. He may consider alternative anticoagulation that is compatable as an outpatient. Follow up: CMP in 1 week to monitor fluconazole follow up with cardiology about rate or rhythm control Home Meds and New Rx's Prescriptions: New metoprolol succinate 100 mg tablet extended release 24 hr 100 mg PO DAILY Qty: 90 0RF fluconazole 200 mg tablet 200 mg PO DAILY 13 Days Qty: 13 0RF Rx Instructions: start 12/08 Continued rosuvastatin 20 mg tablet 20 mg PO DAILY Qty: 90 3RF nitroglycerin 0.4 mg tablet, sublingual 0.4 mg Sublingual PRN Qty: 25 3RF Rx Instructions: for chest pain. potassium chloride [Klor-Con M20] 20 mEq tablet,ER particles/crystals 20 meq PO DAILY Qty: 90 3RF vitamin B complex [B Complex-Vitamin B12] 1 cap PO .qd Combivent Respimat 20-100 mcg/actuation mist 1 puff inhalation Q6H PRN (Reason: chest congestion; cold symptoms) Qty: 4 6RF Rx Instructions: Trial in the morning (with spacer) to help clear phlegm trazodone 50 mg tablet 50 mg PO QHS PRN (Reason: sleep) Qty: 30 3RF gabapentin 100 mg capsule 200 mg PO TID Qty: 180 2RF Trelegy Ellipta 100-62.5-25 mcg blister with device 1 inh inhalation DAILY Qty: 60 11RF Jardiance 10 mg tablet 10 mg PO QAM Qty: 90 3RF torsemide 20 mg tablet 20 mg PO Q OTHER DAY Rx Instructions: decr dose from 07/26/25 but pt just started that week of 10/29/24 per Jose who spoke w/cardiology recently- dabigatran etexilate [Pradaxa] 150 mg capsule 150 mg PO BID Qty: 60 3RF pantoprazole 20 mg Tablet,Delayed Release (Dr/Ec) 40 mg PO DAILY@0730 30 Days Qty: 30 0RF acetaminophen 325 mg Tablet 650 mg PO Q4H PRN PRN (Reason: fever or pain) Qty: 0 0RF Rx Instructions: max dose 2000mg per day calcium carbonate-vitamin D3 [Calcium 500 With D] 500 mg-10 mcg (400 unit) tablet 1 tab PO BID Qty: 60 3RF Discharge Instructions Instructions: Atrial Fibrillation (DC) Additional Instructions: start back on metoprolol succinate (XL) 100mg once daily. You may benefit from changing to carvedilol but this interacts with pradaxa. You have 13 more days of fluconazole for the yeast in the esophagus. You got your first dose here. You need labs in a week to watch your liver on the fluconazole. Referrals: Gladys Jonas APRN [Primary Care Provider] - (no appt. available at PCP office. PCP office suggests that the patient call on Tuesday for any provider or Tuesday for a Same Day appointment. ) Activity:: Activity as Tolerated Equipment/Supplies:: No Equipment Needed Diet:: Low Sodium Discharge Orders Discharge Orders: Discharge Order (Routine); Ordered 12/07/24 Ordered By: Long Contreras Discharge Data Discharge Date/Time-TO BE ENTERED AT DEPARTURE: 12/07/24 16:00 DS: Summary Time Spent with Patient providing and/or coordinating discharge services: Greater than 30 minutes Status at Discharge Functional status at discharge: independent ambulation Overall status at discharge: patient is progressing back to baseline Mental Status: mental status grossly normal Speech and Movement: speech and movement normal Mood: congruent mood Affect: normal affect Quality:SDOH Health Related Social Needs: No Data to Display Exam Narrative Exam Narrative: General: Alert and oriented x 3 and in no acute distress. Lungs: Mildly course breath sounds diffusely, slight rales left base. No expiratory wheeze. Fair aeration. Heart: Irregular irregular rhythm with tachycardic rate, no murmur, gallops or rubs. Abdomen: +BS, soft, NT/ND, no obvious ascities/fluid wave Extremities: No clubbing, cyanosis or grossly pitting edema. Fair capillary refill. Skin: Normal color, warm and dry. Psych Mental Status: mental status grossly normal Speech and Movement: speech and movement normal Mood: congruent mood Affect: normal affect DS: Data Vitals/I&O Vitals and I&O: Vital Signs Temperature 37 C 12/06/24 13:00 Temperature Source Temporal Artery Scan 12/06/24 13:00 Pulse 115 H 12/07/24 12:00 Pulse 109 H 12/07/24 12:00 Respiratory Rate 26 H 12/07/24 12:00 Respiratory Effort Normal 12/05/24 21:42 Respiratory Depth Normal 12/05/24 21:42 Respiratory Pattern Normal 12/05/24 21:42 Blood Pressure 131/83 12/07/24 12:00 Blood Pressure Mean 90 12/07/24 12:00 Blood Pressure Position Supine 12/05/24 21:42 Pulse Oximetry 94 12/07/24 09:24 Oxygen Delivery Method Room Air 12/05/24 22:21 Oxygen Flow Rate 0 12/05/24 22:21 Pain Level 7 12/06/24 09:25 Comment While voiding 12/06/24 13:00 Intake & Output 12/06/24 12/07/24 12/07/24 23:59 11:59 23:59 Intake Total 250 / 918 240 / 480 240 / 480 Output Total 875 / 1325 200 / 200 Balance -625 / -407 40 / 280 240 / 280 Intake: Oral 250 / 668 240 / 480 240 / 480 Output: Urine 875 / 1325 200 / 200 Other: Urine Color Yellow Straw Urine Appearance Clear Clear Urine Odor Normal Normal Stool Occult Blood Negative Stool Size Small Copious Stool Characteristics Soft Soft Formed Formed Brown Brown Data Completed and Pending Labs on day of discharge: Labs from last 24 hours 12/07/24 05:32 WBC 2.38 L RBC 3.17 L Hgb 8.1 L Hct 28.6 L MCV 90 MCH 25.6 L MCHC 28.3 L RDW 18.4 H Plt Count 45 L MPV 10.7 Sodium 142 Potassium 4.2 Chloride 107 Carbon Dioxide 25.9 Anion Gap 9.1 BUN 14 Creatinine 0.9 Est GFR (CKD-EPI 2020) 91.88 Glucose 93 Calcium 8.8 Magnesium 2.2 PFSH All Active Problems (Updated 12/07/24 @ 14:44 by Long Contreras) Palliative care encounter (Acute) Hypokalemia (Chronic) Atrial fibrillation with rapid ventricular response (Acute) Shortness of breath (Acute) Cirrhosis (Acute) Hemorrhoids (Acute ~11/2024) [place] [facility] [place] and external possible sm rectal varices Diverticulosis of colon (Acute ~11/2024) [facility] [place]oscopy sigmoid and 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 (Acute ~11/2024) [facility] [place] Stage C0-M2 per Harmony criteria Portal hypertensive gastropathy (Acute ~11/2024) Esophageal varices determined by endoscopy (Chronic ~11/2024) Grade 1, Type 2 gastroesophageal varices Paroxysmal atrial fibrillation (Chronic) Non-ST elevation MA (NSTEMI) (Acute) Congestive heart failure (Chronic) Anemia (Acute) Sleep difficulties (Acute) Knee pain, left (Acute) Insomnia (Acute) Lumbar radiculitis (Acute) Spinal stenosis, lumbar region with neurogenic claudication (Acute ~07/30/24) [facility] [place]/Spine-note from 07/30/24.HE Acute HFrEF (heart failure with reduced ejection fraction) (Acute ~07/26/24) [facility] [place] from 07/26/24 visit.HE Bilateral carotid artery occlusion (Acute ~07/17/24) [facility] [place]. [place] from 07/17/24.HE Abnormal involuntary movements (Acute) Community acquired pneumonia (Acute) Liver dysfunction (Acute) Chronic kidney disease (Chronic) Right upper lobe pulmonary infiltrate (Acute) Thrombocytopenia (Chronic) Anemia (Chronic) Disability affecting daily living (Acute) Lumbosacral stenosis with neurogenic claudication (Acute) per [facility] tele consult & 06/05/24 MRI Radiculopathy due to disorder of intervertebral disc of lumbar spine (Acute) Pancytopenia (Chronic) 02/17/24 f/u Hem/Onc At risk for stroke (Acute) New AFib: CHAD2 12/16.. [id number] 02/18 .. so, med-high risk (9.7% stroke risk; 13.6% TIA risk).. Thrombocytopenia (Chronic) Acute, with Hx chronic ITP .. new pathology? or active ITP? or hepatic dz? Cirrhosis of liver without ascites (Chronic) Heart failure with reduced ejection fraction (Chronic) EF 33% (11/11/23) .. EF 51% post-cath (01/2022) EF 33% (12/2021) Impaired quality of life (Acute) Femoro-popliteal artery disease (Acute) Atherosclerosis of lower extremity with claudication (Acute) PAD (peripheral artery disease) (Chronic) Rt LE, per MEET, [facility] (03/18/23) Diarrhea (Acute) Daily x months, managed with OTC (loperamide?) Claudication of calf muscles (Acute) Worsening, 10/2023, affecting ADLs and ability to work! Rt Calf, resolves w/in minutes of rest Other specified nonscarring hair loss (Acute) LE, b/l (no problem, but notable to pt who is wondering) .. 2' PAD? ik, 03/2023 [ ] MEET Pulmonary fibrosis (Chronic) Emphysema lung (Acute) Restrictive lung disease (Acute) Pleural plaque (Acute) Pleuritic chest pain (Acute) Lung nodule seen on imaging study (Acute) Per 10/19/22 CTA: Neg PE. (+) pleural base nodule, RML, 4mm.. & sessile pleural plaque (RUL) measuring 1 cm x 0.3 cm. Hyponatremia (Chronic) CHRONIC? Asymptomatic, 08/05/22 Sacroiliac joint dysfunction of left side (Acute) Spinal stenosis at L4-L5 level (Chronic) per MRI (03/08/22). .. moderate ctl canal stenosis .. disc protrusion caudally, 5mm behind L5.. MRI LSpine 04/2022 no nerve compressin or central stenosis Compression fracture of L2 lumbar vertebra (Acute) per MRI (03/08/22), w/ acute/subacute signal. Fx lines extend towards pedicles..20% ht loss..intraosseous edema.. Anemia (Chronic) Low HGB. Hx Macrocytic anemia, B12 WNL ().. [ ] iron suppl, po review Weight gain (Acute) 15 lbs per chart, no diet change per pt COPD (chronic obstructive pulmonary disease) (Chronic) NEG COPD per pt rpt s/p Pulm OV, 03/2023. Per CT (2016), Hx smoking. Muscle spasm (Acute) Acute ... improves with PT, but re-spasms .. Need rest, anti-inflamm then abd/core mm strengthening. Possible PSOAS (?) Hepatic steatosis (Chronic) Abdominal US in 2016 Chronic low back pain (Chronic) Acute episodes, . Mild DJD on LS film 04/2014; Hx daily Aleve. Macrocytic anemia (Acute) Osteoarthritis of lower back (Acute 12/11/01) Cervical radiculitis (Chronic) Splenomegaly (Chronic 08/02/17) 14 cm on US 06/2017; ? due to chronic ITP Sensorineural hearing loss, bilateral (Chronic 06/24/14) R hearing aid 07/2014 Hyperlipidemia (Chronic 11/10/02) goal LDL 70 or best able Hypertension (Chronic 12/11/00) avoid hypotension due to cerebral vascular disease; cardilogy: Dr Camara; goal 130-140 systolic, sens to thiazide Chronic ITP (idiopathic thrombocytopenia) (Chronic 07/25/17) Per rvw of Heme consult of 07/2019: RTC if pltlts<70,000, 12/17/23, ik...Heme consult Dr. Nolen 07/2017, likely slowly progressive chronic going back to 2006; re-consult if drops below 50,000 Carotid artery occlusion (Acute 04/12/07) bilateral; L PARIETAL CVA Atherosclerosis of [place] coronary artery of [place] heart without angina pectoris (Acute 10/24/09) stent 2009; re-occluded stented 11/2015 along with second site Cx.; dual platelet rx until 12/2016-06/2018; Dr. Mcnulty; [facility] 07/30/16 neg for ischemia, EF 51% (< AFTER 2021 stenting?) Medical History Skin tag of perianal region (~11/2024) Atrial fibrillation, new onset Asymptomatic, just took medications.. some improvement in HR while resting [allowing meds to act? ik) in exam room, 12/23/23. Hx of atherosclerotic cardiovascular disease Stents Patent per Cath, 02/2022 ([place] Cam[place] [facility] [place] Stents placed, 2009 .. re-occluded, stented 11/2015 along with second site Cx.; dual platelet Rx 12/2016-06/2018; Dr. Mcnulty; [facility] 07/30/16 neg for ischemia, EF 51% Absent breath sounds on left side of chest much lower than rt base .. seems new.. Hx of arterial ischemic stroke 2006, cerebral infarction Hemoptysis COVID-30 March 2022, home test Tenderness of back Prominent mm; lft paraspinal tenderness (L2-L4), rad into left buttock Left buttock pain Helped focus on SI Joint vs lower bk. Feeling great, 09/2022. Left-sided back pain Acute on chronic .. barely walking, tenderness out of proportion .. 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 Cerebral artery occlusion with cerebral infarction (01/13/07) Convulsions (01/25/08) Pt. denies Abnormal findings on diagnostic imaging of lung (11/25/06) Old notes, CXR since then show cardiomegaly, possible atelectasis or scarring.. nothing acute. Carpal tunnel syndrome (07/05/11) Headache (08/01/09) Sudden hearing loss (12/15/12) assoc with CVA?? 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 Camara [facility] [place]ary Stent (12/11/15) LAD POBA for in-stent restenosis, November 2015 AND left circumflex 3-mm drug-eluting stent, November 2015, Dr Camara Appendectomy 2006 Family History Father , Pneumonia at age 68. Tobacco use disorder Pneumonia Other Heart disease Stroke Social History Smoking/Tobacco Use Status: Former Tobacco Use Quit Date: 09/12/02 Tobacco: How many years used: 15 Second Hand Exposure: Yes Smoking risk assessment performed?: Yes Alcohol Intake: current Alcohol Intake frequency: 0-2 drinks per day Alcohol type: hard liquor Drug use: Never Substance use type: does not use Adopted: No Foster care: No Household members: spouse and family Housing: house Number of Children: 2 number of grandchildren: 3 Communication Needs: Hard of Hearing and Corrective Lenses Education Level: high school Do you need help understanding health information?: Never current occupation: [employer] Pets and animals: No Do you think of yourself as: straight/heterosexual Current gender identity: male What is your relationship status?: How often do you get together with friends or relatives?: once per week Panel score (0-1 are the most socially isolated patients): 1 What type of physical activity do you participate in: other Details: active lifestyle- Duration: 15-30 minutes/day Frequency: daily Shannan/Mormon: Islam Seatbelt use: sometimes Drive intox or ride w/intox hearse driver: No Do you feel safe at home: Yes Do you feel safe in your relationship?: Yes Additional Social history: 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 works at [employer]. Time Spent with Patient Time Spent with Patient: 45-69 minutes Time was spent: preparing to see the patient(eg.review tests), obtaining and/or reviewing separately otained hiistory, ordering medications,tests, procedures, referring, communicating with other health health care analyst, indepentently interpreting results, counseling the patient and care coordination
[2024-12-07] MEDS: Fluconazole 100 MG TAB 400 MG PO (15:32)
--- NOTE | 2024-12-07 15:40 | PDOC.CMDIS ---
Date of service: 12/07/24 Time of Service: 15:40 LACE Index Scoring Tool Questions: Length of Stay (in days): 2 Was the patient admitted via the E.D.?: Yes Comorbidities: Previous M.I., Congestive Heart Failure, Chronic Pulmonary Disease and Mild Liver/Renal Disease E.D. Visits: 5 Answers: Total Score: 14 Risk of Readmission: High Risk Care Management Discharge Plan Reason for Hospitalization: afib with RVR Discharge Plan: Long was discharged home today with no new services. He will f/u with his PCP and cardiology and continue per his plan of care. Long was transported home in a private vehicle with his . Patient/Family Education Needs: Review of discharge instructions, activity, limitations and discuss Ask me 3. SDOH Health Related Social Needs: No Data to Display
== END 2024-12-07 16:00 | disposition home or self-care (01) | DRG 309 ==
LOC: ER 18:25 → ICU 18:34
PROVIDERS: Family Medicine; Admitting Provider Family Medicine; Emergency Provider Emergency Medicine; PCP Nurse Practitioner Family; Responsible Provider Family Medicine; Visit Provider Family Medicine
DX: I48.0 Paroxysmal atrial fibrillation (principal); D61.818 Other pancytopenia; I50.22 Chronic systolic (congestive) heart failure; I85.10 Secondary esophageal varices without bleeding; K76.6 Portal hypertension; D69.3 Immune thrombocytopenic purpura; K70.30 Alcoholic cirrhosis of liver without ascites; I73.9 Peripheral vascular disease, unspecified; J84.10 Pulmonary fibrosis, unspecified; I11.0 Hypertensive heart disease with heart failure; E78.2 Mixed hyperlipidemia; E87.6 Hypokalemia; J44.9 Chronic obstructive pulmonary disease, unspecified; I25.10 Atherosclerotic heart disease of native coronary artery without angina pectoris; Z95.5 Presence of coronary angioplasty implant and graft; K57.30 Diverticulosis of large intestine without perforation or abscess without bleeding; K22.70 Barrett's esophagus without dysplasia; K31.89 Other diseases of stomach and duodenum; I25.2 Old myocardial infarction; D64.9 Anemia, unspecified; G47.00 Insomnia, unspecified; M48.062 Spinal stenosis, lumbar region with neurogenic claudication; I65.23 Occlusion and stenosis of bilateral carotid arteries; R91.8 Other nonspecific abnormal finding of lung field; Z79.02 Long term (current) use of antithrombotics/antiplatelets; I49.3 Ventricular premature depolarization
CPT/HCPCS: 00123; 36415; 80048; 80053; 85027; 87637; 93005; 94640; 96374; 96375; 99291; 71045; 80162; 83735; 83880; 84443; 84484; 85025; 85610; 93010; 94664; 99223; 99233; 99239; J1160; J3475; J3480; J3490

== ENCOUNTER 2024-12-13 00:53 | Outpatient (CLI) | payer OTHER, SELFPAY ==
--- NOTE | 2024-12-13 07:30 | DI.US_ITS ---
APPROVED REPORT EXAM: Comprehensive 2D, Doppler, and color-flow Echocardiogram Patient Location: Out-Patient Telesales Agent: Hay Morrison RDCS (AE) Indications: Acute heart failure with reduced EF Conclusion Normal left ventricular wall thickness and chamber size. Ejection fraction is 35 to 40%. There is o verall generalized hypokinesis with akinesis of the anteroapical segment Normal right ventricular size and function Left atrium is moderately dilated. Right atrium is mildly dilated Aortic valve is trileaflet and sclerotic with mild regurgitation Mildly thickened mitral leaflets. Moderate mitral regurgitation Normal tricuspid valve with mild to moderate eccentric tricuspid regurgitation. Estimated right vent ricular systolic pressure is 54 mmHg Ascending aorta measures 3.63 cm Wall motion Left Ventricle The left ventricle is normal size. Left ventricular systolic function ismoderately decreased. There i s normal left ventricular wall thickness. Anteroapical akinesis otherwise generalized hypokinesis The re is no ventricular septal defect visualized. LVEF is 35-40%. Right Ventricle The right ventricle is normal size. The right ventricular systolic function is normal. Atria Left atrium is moderately dilated. Right atrium is mildly dilated. The interatrial septum is intact w ith no evidence for an atrial septal defect. Aortic Valve The aortic valve is sclerotic. There is no aortic valvular stenosis. Mild aortic regurgitation. Mitral Valve Mitral valve leaflets are mildly thickened. No evidence of mitral valve stenosis. Moderate mitral reg urgitation. Tricuspid Valve The tricuspid valve is normal in structure. There is no tricuspid valve stenosis. Mild to moderate ec centric tricuspid regurgitation. The RVSP is 54.4 mmHg. Pulmonic Valve The pulmonary valve is normal in structure. There is no pulmonic valvular stenosis. Mild pulmonic reg urgitation. Great Vessels The ascending aorta is mildly dilated. Aortic arch is not well visualized. The IVC collapses <50% wit h inspiration. Pericardium There is no pericardial effusion. 2D Dimensions IVSD d PLAX 1.22 cm M: 0.6-1.2 Ao Root d 2.92 cm M: 3.1 - 3.7 LVPW d PLAX 1.00 cm M: 0.6 - 1.2 Ao Asc Diam d 3.63 cm M: 2.6 - 3.4 LVID d PLAX 4.90 cm M: 4.2 - 5.8 LVDs 4.01 cm M: 2.5 - 4.0 LV EF Teichholz 37.6 % FS 18.15 % LV EDV (Teich) 112.7 mL LV ESV (Teich) 70.4 mL Stroke Vol Index (Teich) 19.88 M-Mode TAPSE 1.96 cm (M/F) >1.7 Auto EF LV EDV A4C 133.7 mL LV EDV A2C 152.8 mL LV EDV BP LV ESV A4C 83.8 mL LV ESV A2C 92.8 mL LV ESV BP LVEF(%) A4C 37.3 % LVEF(%) A2C 39.3 % LVEF(%) BP LV SV A4C 49.8 ml LV SV A2C 60.0 ml LV SV BP LV CO A4C 5.7 L/min LV CO A2C 4.9 L/min LV CO BP HR A4C 114.30 BPM HR A2C 81.62 BPM LV EDV Index (BP) LA Volume LA Length A4C 5.1 cm LA Length A2C 6.2 cm LA Area A4C s 20.17 cm2 LA Area A2C s 24.24 cm2 LA Vol A4C A-L 68.12 mL LA Vol A2C A-L 80.84 mL LA Vol Biplane A-L 81.9 mL LA Vol/BSA A4C A-L LA Vol/BSA A2C A-L LA Vol/BSA BP A-L 38.4 mL/m2 LA Vol A4C MOD 63.6 mL LA Vol A2C MOD 79.2 mL LA Vol BP MOD 77.9 mL RA Volume RA Area A4C 19.8 cm2 RA ESV A4C (A-L) 59.6mL RA Vol/BSA A4C A-L RA Length A4C 5.6 cm RA ESV A4C (MOD) 57.0mL LV Diastology MV E' medial 0.066 (>0.07 m/s) MV E Vmax 1.13 (0.4-1.3 m/s) MV E/E' MED 17.22 (<14) MV E' lateral 0.118 (>0.1 m/s) MV E/E' LAT 9.60 (<14) MV E' Average 0.092 m/s MV E/E'(average) 12.33 Aortic Valve AoV Vmax 1.96 m/s LVOT Vmax 0.97 m/s AoV Peak Grad 37.1 mmHg LVOT Peak Grad 3.7 mmHg AoV Area (Vmax) 1.49 cm2 LVOT VTI 0.196 m AoV VTI 0.396 m LVOT Mean Grad 2.0 mmHg AoV Mean Dejuan. 1.39 m/s LVOT SV 59.17 mL AoV Mean Grad 8.7 mmHg LVOT Diam s 1.95 cm AoV Area (VTI) 1.49 cm2 AV Regurg Peak Gr. 15.40 mmHg Velocity Ratio 0.49 AR Decel [place] 3.7m/sec2 AR DT 1026 msec AR PHT 298 msec AR Vmax 3.83 m/s Mitral Valve MV DT 132 (160-240 msec) MV Vmax TIPS 1.29 m/s MV Mean Grad 3.0 (<2mmHg) MV VTI 0.251 m Tricuspid Valve RA Pressure 8.00 mmHg TR Vmax 3.41 m/s TV S' 0.12 m/s TR Peak Grad 46.4 mmHg RVSP (TR) 54.4 mmHg
== END 2024-12-13 01:13 ==
LOC: DI 00:53
PROVIDERS: PCP Nurse Practitioner Family; Visit Provider Internal Medicine Cardiovascular Disease
DX: I50.21 Acute systolic (congestive) heart failure (principal); I35.0 Nonrheumatic aortic (valve) stenosis
CPT/HCPCS: 93306

== ENCOUNTER 2024-12-13 10:52 | Outpatient (REF) | payer OTHER, SELFPAY ==
[2024-12-13 12:38] LABS: HCT 32.8 % (40.0-50.0); HGB 9.1 g/dL (13.5-17.5); MCH 25.9 pg (27.0-33.0); MCV 93 fL (80-95); RBC 3.51 10^6/uL (4.36-5.78); RDW 18.4 % (11.8-14.1); RDW-SD 62.9 fL; WBC 3.97 10^3/uL (4.4-10.8)
[2024-12-13 13:03] LABS: ALT 25 U/L (16-63); AST 44 U/L (15-37); Albumin 3.3 g/dL (3.4-5.0); Alkaline Phosphatase 194 U/L (46-116); Anion Gap 9.3 mmol/L (3-11); BUN 11 mg/dL (7-18); Bilirubin, Total 0.7 mg/dL (0.2-1.0); CO2 26.7 mmol/L (21.0-32.0); CREATININE 1.1 mg/dL (0.70-1.30); Calcium 8.9 mg/dL (8.5-10.1); Chloride 102 mmol/L (98-107); Estimated GFR 72.22 (mL/min/1.73m2); Glucose 109 mg/dL (74-106); Potassium 4.6 mmol/L (3.5-5.1); Sodium 138 mmol/L (136-145); Total Protein 7.3 g/dL (6.4-8.2)
[2024-12-13 13:21] LABS: MPV 12.1 fL (8.0-11.0); Platelet Count 70 10^3/uL (130-400)
[2024-12-13 13:23] LABS: MCHC 27.7 % (32.0-36.0)
== END 2024-12-13 10:53 | disposition home or self-care (01) ==
LOC: LBO 10:52
PROVIDERS: PCP Nurse Practitioner Family; Visit Provider Nurse Practitioner Family
DX: D64.9 Anemia, unspecified (principal); D61.818 Other pancytopenia; Z79.899 Other long term (current) drug therapy
CPT/HCPCS: 36415; 80053; 85027

== ENCOUNTER 2024-12-28 21:39 | Outpatient (REF) | payer OTHER, SELFPAY ==
[2024-12-28 16:22] LABS: Abs Immature Grans 0.01 10^3/uL (0.0-0.06); Absolute Basophil Count 0.03 10^3/uL (0.0-0.2); Absolute Eosinophil Count 0.03 10^3/uL (0.0-0.7); Absolute Lymphocyte Count 0.81 10^3/uL (1.2-3.4); Absolute Monocyte Count 0.42 10^3/uL (0.1-0.8); Absolute Neutrophil Count 2.16 10^3/uL (1.2-6.7); Basophils % 0.9 %; Eosinophils % 0.9 %; HGB 8.2 g/dL (13.5-17.5); Immature Grans % 0.3 %; Lymphocytes % 23.4 %; MCH 25.2 pg (27.0-33.0); MCHC 27.3 % (32.0-36.0); MCV 92 fL (80-95); MPV 12.3 fL (8.0-11.0); Monocytes % 12.1 %; Neutrophils % 62.4 %; RBC 3.25 10^6/uL (4.36-5.78); RDW 18.6 % (11.8-14.1); WBC 3.46 10^3/uL (4.4-10.8)
[2024-12-28 16:38] LABS: ALT 22 U/L (16-63); AST 41 U/L (15-37); Albumin 3.1 g/dL (3.4-5.0); Alkaline Phosphatase 129 U/L (46-116); Anion Gap 13.1 mmol/L (3-11); BUN 14 mg/dL (7-18); Bilirubin, Total 0.6 mg/dL (0.2-1.0); CO2 19.9 mmol/L (21.0-32.0); CREATININE 1.3 mg/dL (0.70-1.30); Calcium 8.5 mg/dL (8.5-10.1); Chloride 106 mmol/L (98-107); Glucose 107 mg/dL (74-106); Potassium 3.6 mmol/L (3.5-5.1); Sodium 139 mmol/L (136-145); Total Protein 6.9 g/dL (6.4-8.2)
[2024-12-28 16:44] LABS: Platelet Count 52 10^3/uL (130-400)
[2024-12-28 16:45] LABS: Anisocytosis 1+; Diff Comment RBC Morph Reviewed; Hypochromasia 1+
[2024-12-28 17:05] LABS: LDH 250 U/L (85-227)
== END 2024-12-28 21:40 | disposition home or self-care (01) ==
LOC: LBO 21:39
PROVIDERS: PCP Nurse Practitioner Family; Visit Provider Nurse Practitioner Adult Health
DX: D61.818 Other pancytopenia (principal)
CPT/HCPCS: 36415; 80053; 83615; 85025

== ENCOUNTER 2025-01-15 08:18 | Outpatient (REF) | payer OTHER, SELFPAY ==
[2025-01-15 10:37] LABS: Abs Immature Grans 0.02 10^3/uL (0.0-0.06); Absolute Basophil Count 0.01 10^3/uL (0.0-0.2); Absolute Eosinophil Count 0.04 10^3/uL (0.0-0.7); Absolute Lymphocyte Count 0.87 10^3/uL (1.2-3.4); Absolute Monocyte Count 0.48 10^3/uL (0.1-0.8); Basophils % 0.2 %; Eosinophils % 0.9 %; HCT 28.4 % (40.0-50.0); HGB 8.1 g/dL (13.5-17.5); Immature Grans % 0.4 %; Lymphocytes % 19.2 %; MCH 25.6 pg (27.0-33.0); MCHC 28.5 % (32.0-36.0); MCV 90 fL (80-95); MPV 10.6 fL (8.0-11.0); Monocytes % 10.6 %; Neutrophils % 68.7 %; RBC 3.16 10^6/uL (4.36-5.78); RDW 19.7 % (11.8-14.1); RDW-SD 64.1 fL; WBC 4.52 10^3/uL (4.4-10.8)
[2025-01-15 10:47] LABS: Anisocytosis 2+; Diff Comment RBC Morph Reviewed; Platelet Count 59 10^3/uL (130-400); Polychromasia Present
[2025-01-15 10:48] LABS: Iron 22 ug/dL (65-175); Total Iron Binding Capacity 515 ug/dL (250-450); Transferrin Sat 4 % (20-55)
[2025-01-15 11:02] LABS: Ferritin 23 ng/mL (26-388)
== END 2025-01-15 08:19 | disposition home or self-care (01) ==
LOC: LBO 08:18
PROVIDERS: PCP Nurse Practitioner Family; Visit Provider Nurse Practitioner Adult Health
DX: D50.0 Iron deficiency anemia secondary to blood loss (chronic) (principal); D61.818 Other pancytopenia
CPT/HCPCS: 36415; 82728; 83540; 83550; 85025

== ENCOUNTER 2025-01-28 03:41 | Emergency (ER) | payer OTHER, SELFPAY ==
[2025-01-28] VITALS (32 sets, daily range): BP systolic 102–136; BP diastolic 53–90; PULSE 87–127; RESP 20–32; TEMP 36.2; O2SAT 75–100
--- NOTE | 2025-01-28 03:30 | RT.EKG_ITS ---
APPROVED REPORT Exam: Resting ECG Reason for Exam: Short of Breath Patient Location: E HR:96 bpm ECG Measurements Heart Rate 96 AXIS AL [id number] P [id number] QRSd 83 QRS -5 QT 369 T 118 QTc 468 Conclusion Atrial fibrillation...V-rate 82-122, irreg A-activity Abnormal T, consider ischemia, lateral leads...T <-0.20mV, I aVL V5 V6 I have reviewed and interpreted ECG and agree with software generated interpretation.
--- NOTE | 2025-01-28 03:45 | DI.RAD_ITS ---
Exam(s) XR PORTABLE CHEST AP EXAM: XR PORTABLE CHEST AP CLINICAL HISTORY: SOB, eval for CHF TECHNIQUE: 2D digital imaging was performed. COMPARISON: CR,XR XR PORTABLE CHEST AP from 11/09/2024 CR XR PORTABLE CHEST AP from 12/05/2024 FINDINGS: LUNGS: Vascular prominence mildly increased interstitial markings consistent with CHF. No pleural ab normality seen. HEART: Enlarged. AORTA: Normal diameter. BONES: Unremarkable for age. Soft tissues: Unremarkable. IMPRESSION: Cardiomegaly and mild CHF DATA REPOSITORY: RADIATION DOSE DELIVERED:
--- NOTE | 2025-01-28 03:54 | W.ED.GENAD ---
Discharge Plan Disposition Patient Disposition: Home Condition: Good Discharge Details Chief Complaint: RespSymp Clinical Impression: CHF (congestive heart failure) Primary Care Provider: Gladys Jonas ED Provider: Madhav Burgos Home Meds and New Rx's Prescriptions: No Action nitroglycerin 0.4 mg tablet, sublingual 0.4 mg Sublingual PRN Qty: 25 3RF Rx Instructions: for chest pain. potassium chloride [Klor-Con M20] 20 mEq tablet,ER particles/crystals 20 meq PO DAILY Qty: 90 3RF vitamin B complex [B Complex-Vitamin B12] 1 cap PO .qd Combivent Respimat 20-100 mcg/actuation mist 1 puff inhalation Q6H PRN (Reason: chest congestion; cold symptoms) Qty: 4 6RF Rx Instructions: Trial in the morning (with spacer) to help clear phlegm trazodone 50 mg tablet 50 mg PO QHS PRN (Reason: sleep) Qty: 30 3RF gabapentin 100 mg capsule 200 mg PO TID Qty: 180 2RF rosuvastatin 20 mg tablet 20 mg PO DAILY Qty: 90 3RF Trelegy Ellipta 100-62.5-25 mcg blister with device 1 inh inhalation DAILY Qty: 60 11RF pantoprazole [Protonix] 40 mg tablet,delayed release (DR/EC) 40 mg PO QAM Qty: 90 3RF Rx Instructions: take alone on empty stomach Jardiance 10 mg tablet 10 mg PO QAM Qty: 90 3RF dabigatran etexilate [Pradaxa] 150 mg capsule 150 mg PO BID Qty: 60 3RF torsemide 20 mg tablet 20 mg PO DAILY Qty: 90 3RF acetaminophen 325 mg Tablet 650 mg PO Q4H PRN PRN (Reason: fever or pain) Qty: 0 0RF Rx Instructions: max dose 2000mg per day calcium carbonate-vitamin D3 [Calcium 500 With D] 500 mg-10 mcg (400 unit) tablet 1 tab PO BID Qty: 60 3RF metoprolol succinate 100 mg tablet extended release 24 hr 100 mg PO DAILY Qty: 90 0RF Discharge Instructions Instructions: Heart Failure ED, Low-sodium diet Additional Instructions: At this time you have urinated a significant amount of fluids, your oxygen levels are stable. Your kidney function is good. For the next 2 days please double your furosemide, taking 40 mg/day total. Avoid salty foods. If you notice any worsening of your symptoms, or any new symptoms such as vomiting, diarrhea, fever, chills, shortness of breath, chest pain, numbness, weakness, or fainting , please return immediately to the emergency department for reevaluation. Please follow up with your primary care provider as soon as possible for reassessment and reevaluation. As always, it was a pleasure participating in your medical care today. Referrals: Gladys Jonas APRN [Primary Care Provider] - [facility] General Date/Time Provider Initiated Documentation: 01/28/25 03:50. HPI Narrative: This is a 69-year-old male with a past medical history of congestive heart failure with an ejection fraction between 35 and 40% per last echo on 12/13/2024, atrial fibrillation on Pradaxa, chronic ITP, esophageal varices, hypertension, high cholesterol, COPD, peripheral artery disease and pulmonary fibrosis, coronary artery disease with stents, chronic disease, who presents today for evaluation of shortness of breath. Patient states that for the last 2 weeks he has been having increasing shortness of breath. He has associated positional nocturnal dyspnea, notable swelling of the lower extremities and shortness of breath. He has been taking his 20 mg turosemide as prescribed. He has had recent admissions for CHF exacerbations including in 11/09/2024. He denies any other complaints at this time. No chest pain or tearing or ripping sensation. He denies excess salty foods or missing medication doses. He denies fever or chills. He denies hemoptysis. Related Data Home Medications ?Medication ?Instructions ?Recorded ?Confirmed vitamin B complex [B 1 cap PO .qd 04/24/19 12/12/24 Complex-Vitamin B12] nitroglycerin 0.4 mg sublingual 0.4 mg sublingual PRN #25 tabs 12/25/23 12/12/24 tablet ipratropium 20 mcg-albuterol 100 1 puff inhalation Q6H PRN chest 02/03/24 12/12/24 mcg/actuation mist for inhalation congestion; cold symptoms #4 grams (Combivent Respimat) acetaminophen 325 mg tablet 650 mg (2 x 325 mg) PO Q4H PRN PRN 08/08/24 12/12/24 fever or pain #0 tabs calcium 500 mg (as 1 tab PO BID #60 tabs 08/08/24 12/12/24 carbonate)-vitamin D3 10 mcg (400 unit) tablet (Calcium 500 With D) potassium chloride 20 mEq 20 meq PO DAILY #90 tabs 08/30/24 12/12/24 tablet,extended release(part/cryst) (Klor-Con M) trazodone 50 mg tablet 50 mg PO QHS PRN sleep #30 tabs 10/05/24 12/12/24 empagliflozin 10 mg tablet 10 mg PO QAM #90 tabs 10/15/24 12/12/24 (Jardiance) gabapentin 100 mg capsule 200 mg (2 x 100 mg) PO TID #180 11/14/24 12/12/24 caplets dabigatran etexilate 150 mg 150 mg PO BID #60 caps 11/20/24 12/12/24 capsule (Pradaxa) metoprolol succinate 100 mg 100 mg PO DAILY #90 tabs 12/07/24 12/12/24 tablet,extended release 24 hr fluticasone fur. 100 mcg-umeclid 1 inh inhalation DAILY #60 ea 12/12/24 12/12/24 62.5 mcg-vilant 25 mcg inhalat.powder (Trelegy Ellipta) pantoprazole 40 mg tablet,delayed 40 mg PO QAM #90 tabs 12/12/24 12/12/24 release (Protonix) rosuvastatin 20 mg tablet 20 mg PO DAILY #90 tabs 12/12/24 12/12/24 torsemide 20 mg tablet 20 mg PO DAILY #90 tabs 12/14/24 Previous Rx's ?Medication ?Instructions ?Recorded nitroglycerin 0.4 mg sublingual 0.4 mg sublingual PRN #25 tabs 12/25/23 tablet ipratropium 20 mcg-albuterol 100 1 puff inhalation Q6H PRN chest 02/03/24 mcg/actuation mist for inhalation congestion; cold symptoms #4 grams (Combivent Respimat) acetaminophen 325 mg tablet 650 mg (2 x 325 mg) PO Q4H PRN PRN 08/08/24 fever or pain #0 tabs calcium 500 mg (as 1 tab PO BID #60 tabs 08/08/24 carbonate)-vitamin D3 10 mcg (400 unit) tablet (Calcium 500 With D) potassium chloride 20 mEq 20 meq PO DAILY #90 tabs 08/30/24 tablet,extended release(part/cryst) (Klor-Con M) trazodone 50 mg tablet 50 mg PO QHS PRN sleep #30 tabs 10/05/24 empagliflozin 10 mg tablet 10 mg PO QAM #90 tabs 10/15/24 (Jardiance) gabapentin 100 mg capsule 200 mg (2 x 100 mg) PO TID #180 11/14/24 caplets dabigatran etexilate 150 mg 150 mg PO BID #60 caps 11/20/24 capsule (Pradaxa) metoprolol succinate 100 mg 100 mg PO DAILY #90 tabs 12/07/24 tablet,extended release 24 hr fluticasone fur. 100 mcg-umeclid 1 inh inhalation DAILY #60 ea 12/12/24 62.5 mcg-vilant 25 mcg inhalat.powder (Trelegy Ellipta) pantoprazole 40 mg tablet,delayed 40 mg PO QAM #90 tabs 12/12/24 release (Protonix) rosuvastatin 20 mg tablet 20 mg PO DAILY #90 tabs 12/12/24 torsemide 20 mg tablet 20 mg PO DAILY #90 tabs 12/14/24 Allergies Allergy/AdvReac Type Severity Reaction Status Date / Time azithromycin AdvReac Severe Other (See Verified 12/12/24 08:51 Comment) atorvastatin AdvReac Intermediate Diarrhea Verified 12/12/24 08:51 General SHE: 3 Exam Narrative Exam Narrative: 1.Const: Well-nourished, Well-developed, appearing stated age 2.Eyes: PERRL, no conjunctival injection, and symmetrical lids. 3.ENT: Atraumatic external nose and ears. Moist MM. Neck: Symmetric, trachea midline, No thyromegaly. 4.CVS: +S1/S2, Peripheral pulses 2+ and equal in all extremities. Brisk capillary refill in all extremities. 5.RESP: Unlabored respiratory effort. Minimal crackles at the base. 6.GI: Soft, Nontender/Nondistended, No hepatosplenomegaly. No guarding or rebound. 7.MSK: Normocephalic/Atraumatic, Extremities w/o deformity or ttp No cyanosis or clubbing, Normal movement of all extremities. +3 pitting edema bilaterally. No calf tenderness 8.Skin: Warm, Dry. No rashes or lesions. 9.Neuro: beer runner II-XII grossly intact. Sensation grossly intact, no focal neurologic deficits. 10.Psych: (AAO) x3. Appropriate mood and affect Medical Decision Making This is a 69-year-old male with a past medical history of congestive heart failure with an ejection fraction between 35 and 40% per last echo on 12/13/2024, atrial fibrillation on Pradaxa, chronic ITP, esophageal varices, hypertension, high cholesterol, COPD, peripheral artery disease and pulmonary fibrosis, coronary artery disease with stents, chronic disease, who presents today for evaluation of shortness of breath. Patient states that for the last 2 weeks he has been having increasing shortness of breath. He has associated positional nocturnal dyspnea, notable swelling of the lower extremities and shortness of breath. He has been taking his 20 mg turosemide as prescribed. He has had recent admissions for CHF exacerbations including in 11/09/2024. He denies any other complaints at this time. No chest pain or tearing or ripping sensation. He denies excess salty foods or missing medication doses. He denies fever or chills. He denies hemoptysis. Exam demonstrates +3 pitting edema, minimal crackles at the base of his lungs. Symptoms appear concerning for CHF exacerbation. NSTEMI cardiac etiology for an acute component less likely. No wheezes to suggest COPD. He is on Pradaxa, symptoms unlikely to be PE. Will diurese with 20 of Lasix, check his proBNP, troponin, monitor closely and reassess. Will get a chest x-ray for further assessment of pulmonary edema versus effusion. 6:55 AM Patient's laboratory workup has returned, patient's white count and hemoglobin and platelets are near baseline. Renal function is slightly better than normal. Potassium is 4.1. proBNP is slightly high at 2077 but certainly not as high as it has been during previous CHF exacerbations. Patient was given a total of 60 mg of IV Lasix and has micturated over a liter. He feels much better. Chest x-ray shows evidence suggestive of congestive heart failure. However after over a liter of urination he feels well. He is able to lie flat without any hypoxemia or shortness of breath. He has had no hypoxemia during his time here in all positions. I discussed observation versus discharge, and at this time he feels well, comfortable, and would like to go home over staying overnight. As he is urinating well, has good renal function, and shows no evidence of severe CHF I do feel that this is reasonable. We will recommend doubling of his Lasix for the next 48 hours. I had a long discussion regarding the importance of aggressive avoidance of salt. Patient understands. is at bedside. The patient does have a return of his symptoms we will recommend prompt reassessment here. We will give compression stockings for home. Discussed red flags for which to return. I have extensively reviewed the treatment plan and discharge instructions with the patient and their family. I have addressed all patient concerns at this time. The patient and family was made aware of what symptoms to monitor for that would warrant a return to the emergency department. Discussed the plan with the patient and family, they demonstrate verbal understanding and agreement with our assessment and plan at this time. The documentation in this chart was dictated using [employer] dictation software. Please excuse any dictation errors. FINDINGS: Lungs: Pulmonary vascular congestion. Increased interstitial markings. Pleural spaces: No large pleural effusion seen. Heart/Mediastinum: Enlarged cardiac silhouette. Bones/joints: No acute abnormality. IMPRESSION: Findings suggestive of congestive heart failure with edema. Thank you for allowing us to participate in the care of your patient. Dictated and Authenticated by: Rebecca Vogel MD 01/28/2025 4:34 AM Eastern Time ([place] & [place] Quality:SDOH Health Related Social Needs: No Data to Display PFSH All Active Problems (Updated 01/28/25 @ 06:48 by Madhav Burgos DO) CHF (congestive heart failure) (Chronic) Esophageal candidiasis (Acute) Medication management (Acute) Hemorrhoids (Acute ~11/2024) EGD at [facility] internal and external possible sm rectal varices Diverticulosis of colon (Acute ~11/2024) [facility] Colonoscopy sigmoid and 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 (Acute ~11/2024) [facility] Stage C0-M2 per [place] criteria Portal hypertensive gastropathy (Acute ~11/2024) Esophageal varices determined by endoscopy (Chronic ~11/2024) Grade 1, Type 2 gastroesophageal varices Paroxysmal atrial fibrillation (Chronic) Non-ST elevation NM (NSTEMI) (Acute) Sleep difficulties (Acute) Knee pain, left (Acute) Insomnia (Acute) Lumbar radiculitis (Acute) Spinal stenosis, lumbar region with neurogenic claudication (Acute ~07/30/24) [facility] Ctr Pain/Spine-note from 07/30/24.HE Acute HFrEF (heart failure with reduced ejection fraction) (Acute ~07/26/24) [facility] Cardiology note from 07/26/24 visit.HE Bilateral carotid artery occlusion (Acute ~07/17/24) [facility] Vascular Surg. note from 07/17/24.HE Abnormal involuntary movements (Acute) Disability affecting daily living (Acute) Lumbosacral stenosis with neurogenic claudication (Acute) per [facility] tele consult & 06/05/24 MRI Radiculopathy due to disorder of intervertebral disc of lumbar spine (Acute) Pancytopenia (Chronic) 02/17/24 f/u Hem/Onc At risk for stroke (Acute) New AFib: CHAD2 12/16.. [id number] 02/18 .. so, med-high risk (9.7% stroke risk; 13.6% TIA risk).. Thrombocytopenia (Chronic) Acute, with Hx chronic ITP .. new pathology? or active ITP? or hepatic dz? Atherosclerosis of rincon coronary artery of rincon heart without angina pectoris (Acute 10/24/09) stent 2009; re-occluded stented 11/2015 along with second site Cx.; dual platelet rx until 12/2016-06/2018; Dr. Mcnulty; [facility] 07/30/16 neg for ischemia, EF 51% (< AFTER 2021 stenting?) Cirrhosis of liver without ascites (Chronic) Heart failure with reduced ejection fraction (Chronic) EF 33% (11/11/23) .. EF 51% post-cath (01/2022) EF 33% (12/2021) Impaired quality of life (Acute) Femoro-popliteal artery disease (Acute) Atherosclerosis of lower extremity with claudication (Acute) PAD (peripheral artery disease) (Chronic) Rt LE, per MEET, [facility] (03/18/23) Carotid artery occlusion (Acute 04/12/07) bilateral; L PARIETAL CVA Claudication of calf muscles (Acute) Worsening, 10/2023, affecting ADLs and ability to work! Rt Calf, resolves w/in minutes of rest Other specified nonscarring hair loss (Acute) LE, b/l (no problem, but notable to pt who is wondering) .. 2' PAD? ik, 03/2023 [ ] MEET Pulmonary fibrosis (Chronic) Emphysema lung (Acute) Restrictive lung disease (Acute) Chronic ITP (idiopathic thrombocytopenia) (Chronic 07/25/17) Per rvw of Heme consult of 07/2019: RTC if pltlts<70,000, 12/17/23, ik...Heme consult Dr. Nolen 07/2017, likely slowly progressive chronic going back to 2006; re-consult if drops below 50,000 Hypertension (Chronic 12/11/00) avoid hypotension due to cerebral vascular disease; cardilogy: Dr Camara; goal 130-140 systolic, sens to thiazide Hyperlipidemia (Chronic 11/10/02) goal LDL 70 or best able Sensorineural hearing loss, bilateral (Chronic 06/24/14) R hearing aid 07/2014 Splenomegaly (Chronic 08/02/17) 14 cm on US 06/2017; ? due to chronic ITP Cervical radiculitis (Chronic) Osteoarthritis of lower back (Acute 12/11/01) Macrocytic anemia (Acute) Chronic low back pain (Chronic) Acute episodes, . Mild DJD on LS film 04/2014; Hx daily Aleve. Hepatic steatosis (Chronic) Abdominal US in 2016 COPD (chronic obstructive pulmonary disease) (Chronic) NEG COPD per pt rpt s/p Pulm OV, 03/2023. Per CT (2016), Hx smoking. Anemia (Chronic) Low HGB. Hx Macrocytic anemia, B12 WNL ().. [ ] iron suppl, po review Compression fracture of L2 lumbar vertebra (Acute) per MRI (03/08/22), w/ acute/subacute signal. Fx lines extend towards pedicles..20% ht loss..intraosseous edema.. Spinal stenosis at L4-L5 level (Chronic) per MRI (03/08/22). .. moderate ctl canal stenosis .. disc protrusion caudally, 5mm behind L5.. MRI LSpine 04/2022 no nerve compressin or central stenosis Sacroiliac joint dysfunction of left side (Acute) Hyponatremia (Chronic) CHRONIC? Asymptomatic, 08/05/22 Lung nodule seen on imaging study (Acute) Per 10/19/22 CTA: Neg PE. (+) pleural base nodule, RML, 4mm.. & sessile pleural plaque (RUL) measuring 1 cm x 0.3 cm. Pleuritic chest pain (Acute) Pleural plaque (Acute) Medical History (Updated 01/28/25 @ 06:48 by Madhav Burgos DO) Palliative care encounter Cirrhosis Congestive heart failure Anemia Community acquired pneumonia Liver dysfunction Chronic kidney disease Right upper lobe pulmonary infiltrate Thrombocytopenia Anemia Diarrhea Daily x months, managed with OTC (loperamide?) Weight gain 15 lbs per chart, no diet change per pt Muscle spasm Acute ... improves with PT, but re-spasms .. Need rest, anti-inflamm then abd/core mm strengthening. Possible PSOAS (?) Skin tag of perianal region (~11/2024) Atrial fibrillation, new onset Asymptomatic, just took medications.. some improvement in HR while resting [allowing meds to act? ik) in exam room, 12/23/23. Hx of atherosclerotic cardiovascular disease Stents Patent per Cath, 02/2022 (Dr. Camara, [facility]). Stents placed, 2009 .. re-occluded, stented 11/2015 along with second site Cx.; dual platelet Rx 12/2016-06/2018; Dr. Mcnulty; [facility] 07/30/16 neg for ischemia, EF 51% Absent breath sounds on left side of chest much lower than rt base .. seems new.. Hx of arterial ischemic stroke 2006, cerebral infarction Hemoptysis COVID-30 March 2022, home test Tenderness of back Prominent mm; lft paraspinal tenderness (L2-L4), rad into left buttock Left buttock pain Helped focus on SI Joint vs lower bk. Feeling great, 09/2022. Left-sided back pain Acute on chronic .. barely walking, tenderness out of proportion .. Carcinoma in situ, unspecified 11/28/2019 [facility] Derm: squamous cell left forearm with biopsy and destroyed by curettage and electrodesiccation. Cerebral artery occlusion with cerebral infarction (01/13/07) Convulsions (01/25/08) Pt. denies Abnormal findings on diagnostic imaging of lung (11/25/06) Old notes, CXR since then show cardiomegaly, possible atelectasis or scarring.. nothing acute. Carpal tunnel syndrome (07/05/11) Headache (08/01/09) Sudden hearing loss (04/05/13) assoc with CVA?? 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 Camara [facility] Coronary Stent (12/11/15) LAD POBA for in-stent restenosis, November 2015 AND left circumflex 3-mm drug-eluting stent, November 2015, Dr Camara Appendectomy 2006 Family History Father , Pneumonia at age 68. Tobacco use disorder Pneumonia Other Heart disease Stroke Social History Smoking/Tobacco Use Status: Former Tobacco Use Quit Date: 09/12/02 Tobacco: How many years used: 15 Second Hand Exposure: Yes Smoking risk assessment performed?: Yes Alcohol Intake: current Alcohol Intake frequency: 0-2 drinks per day Alcohol type: hard liquor Drug use: Never Substance use type: does not use Adopted: No Foster care: No Household members: spouse and family Housing: house Number of Children: 2 number of grandchildren: 3 Communication Needs: Hard of Hearing and Corrective Lenses Education Level: high school Do you need help understanding health information?: Never current occupation: [employer] Pets and animals: No Do you think of yourself as: straight/heterosexual Current gender identity: male What is your relationship status?: How often do you get together with friends or relatives?: once per week Panel score (0-1 are the most socially isolated patients): 1 What type of physical activity do you participate in: other Details: active lifestyle-LH Duration: 15-30 minutes/day Frequency: daily Shannan/Congregation: [employer] Seatbelt use: sometimes Drive intox or ride w/intox class c driver: No Do you feel safe at home: Yes Do you feel safe in your relationship?: Yes Additional Social history: 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 works at [employer].
[2025-01-28] MEDS: Furosemide 20 MG/2 ML VIAL IVP (04:19)
[2025-01-28 04:20] LABS: Abs Immature Grans 0.01 10^3/uL (0.0-0.06); Absolute Basophil Count 0.02 10^3/uL (0.0-0.2); Absolute Eosinophil Count 0.02 10^3/uL (0.0-0.7); Absolute Lymphocyte Count 0.56 10^3/uL (1.2-3.4); Absolute Monocyte Count 0.39 10^3/uL (0.1-0.8); Absolute Neutrophil Count 2.08 10^3/uL (1.2-6.7); Basophils % 0.6 %; Eosinophils % 0.6 %; HCT 27.2 % (40.0-50.0); HGB 7.7 g/dL (13.5-17.5); Immature Grans % 0.3 %; Lymphocytes % 18.2 %; MCH 25.8 pg (27.0-33.0); MCHC 28.3 % (32.0-36.0); MCV 91 fL (80-95); MPV 10.4 fL (8.0-11.0); Monocytes % 12.7 %; Neutrophils % 67.6 %; RBC 2.98 10^6/uL (4.36-5.78); RDW 20.8 % (11.8-14.1); RDW-SD 68.3 fL; WBC 3.08 10^3/uL (4.4-10.8)
[2025-01-28 04:30] LABS: INR 1.3 (0.9-1.1); Prothrombin Time 12.7 sec (9.1-11.1)
--- NOTE | 2025-01-28 04:35 | DI.VRAD_ITS ---
PROCEDURE INFORMATION: Exam: XR Chest Exam date and time: 01/28/2025 4:26 AM Age: 69 years old Clinical indication: Shortness of breath; SOB, eval for chf TECHNIQUE: Imaging protocol: Radiologic exam of the chest. Views: 1 view. COMPARISON: CR XR PORTABLE CHEST AP 12/05/2024 2:14 PM FINDINGS: Lungs: Pulmonary vascular congestion. Increased interstitial markings. Pleural spaces: No large pleural effusion seen. Heart/Mediastinum: Enlarged cardiac silhouette. Bones/joints: No acute abnormality. IMPRESSION: Findings suggestive of congestive heart failure with edema. Dictated and Authenticated by: Rebecca Vogel MD. Orderin Aubrey Corey MD
[2025-01-28 04:38] LABS: Diff Comment RBC Morph Reviewed
[2025-01-28 04:39] LABS: Anisocytosis 1+; Hypochromasia 1+; Platelet Count 69 10^3/uL (130-400); Poikilocytes 1+; Polychromasia Present
[2025-01-28 04:43] LABS: PTT Activated 31.7 sec (20.6-30.2)
[2025-01-28 04:44] LABS: ALT 24 U/L (16-63); AST 51 U/L (15-37); Albumin 3.1 g/dL (3.4-5.0); Alkaline Phosphatase 197 U/L (46-116); Anion Gap 9.2 mmol/L (3-11); BUN 14 mg/dL (7-18); Bilirubin, Total 0.8 mg/dL (0.2-1.0); CO2 26.8 mmol/L (21.0-32.0); CREATININE 1.2 mg/dL (0.70-1.30); Calcium 8.4 mg/dL (8.5-10.1); Chloride 102 mmol/L (98-107); Estimated GFR 65.06 (mL/min/1.73m2); Glucose 106 mg/dL (74-106); Potassium 4.1 mmol/L (3.5-5.1); Sodium 138 mmol/L (136-145); Total Protein 7.1 g/dL (6.4-8.2); Troponin I 37 ng/L (<or=76)
[2025-01-28 05:03] LABS: NT-proBNP 2078 pg/mL (<300)
[2025-01-28] MEDS: Furosemide 40 MG/4 ML VIAL IVP (05:12)
[2025-01-28 05:37] LABS: Troponin I 34 ng/L (<or=76)
== END 2025-01-28 07:03 | disposition home or self-care (01) ==
PROVIDERS: Emergency Provider Student in an Organized Health Care Education/Training Program; PCP Nurse Practitioner Family
DX: I13.0 Hypertensive heart and chronic kidney disease with heart failure and stage 1 through stage 4 chronic kidney disease, or unspecified chronic kidney disease (principal); N18.9 Chronic kidney disease, unspecified; I50.22 Chronic systolic (congestive) heart failure; I25.10 Atherosclerotic heart disease of native coronary artery without angina pectoris; I25.2 Old myocardial infarction; I48.0 Paroxysmal atrial fibrillation; D69.3 Immune thrombocytopenic purpura; E78.5 Hyperlipidemia, unspecified; J44.9 Chronic obstructive pulmonary disease, unspecified; I73.9 Peripheral vascular disease, unspecified; Z86.73 Personal history of transient ischemic attack (TIA), and cerebral infarction without residual deficits; Z95.5 Presence of coronary angioplasty implant and graft; Z79.899 Other long term (current) drug therapy; Z87.891 Personal history of nicotine dependence
CPT/HCPCS: 36415; 80053; 93005; 96374; 96376; 99285; 71045; 83880; 84484; 85025; 85610; 85730; 93010; 99284; J1938

== ENCOUNTER 2025-02-01 16:48 | Inpatient (IN) | payer OTHER, MEDICARE, SELFPAY ==
[2025-02-01 17:01] VITALS: BP 177/76; PULSE 119; RESP 35; TEMP 36.5; O2SAT 95
[2025-02-01 17:23] VITALS: BP 162/78; PULSE 120; RESP 24; O2SAT 88
[2025-02-01 17:26] VITALS: O2SAT 96
--- NOTE | 2025-02-01 17:30 | RT.EKG_ITS ---
APPROVED REPORT Exam: Resting ECG Reason for Exam: tachy Patient Location: E HR:110 bpm ECG Measurements Heart Rate 110 AXIS MD [id number] P [id number] QRSd 80 QRS 6 QT 366 T 135 QTc 495 Conclusion Atrial fibrillation, rate 110 Borderline QTc at 495ms PVCs No STEMI T wave inversion I, aVL, unchanged from priors
[2025-02-01 17:50] VITALS: BP 140/67; PULSE 112; RESP 24; O2SAT 98
[2025-02-01 18:05] LABS: Abs Immature Grans 0.01 10^3/uL (0.0-0.06); Absolute Basophil Count 0.01 10^3/uL (0.0-0.2); Absolute Eosinophil Count 0.02 10^3/uL (0.0-0.7); Absolute Lymphocyte Count 0.38 10^3/uL (1.2-3.4); Absolute Monocyte Count 0.28 10^3/uL (0.1-0.8); Absolute Neutrophil Count 1.98 10^3/uL (1.2-6.7); Basophils % 0.4 %; Eosinophils % 0.7 %; HCT 28.7 % (40.0-50.0); HGB 7.9 g/dL (13.5-17.5); Immature Grans % 0.4 %; Lymphocytes % 14.2 %; MCH 24.5 pg (27.0-33.0); MCHC 27.5 % (32.0-36.0); MCV 89 fL (80-95); MPV 11.3 fL (8.0-11.0); Monocytes % 10.4 %; Neutrophils % 73.9 %; RBC 3.23 10^6/uL (4.36-5.78); RDW-SD 65.1 fL; WBC 2.68 10^3/uL (4.4-10.8)
[2025-02-01 18:10] VITALS: RESP 23
[2025-02-01 18:18] LABS: Platelet Count 55 10^3/uL (130-400)
--- NOTE | 2025-02-01 18:43 | ED.GENADUL_ITS ---
Discharge Plan Disposition Patient Disposition: Admit to [facility] Condition: Fair Discharge Details Chief Complaint: SOB/SuddenOnset Clinical Impression: Acute HFrEF (heart failure with reduced ejection fraction), Paroxysmal atrial fibrillation, Hypertension, Pancytopenia Primary Care Provider: Gladys Jonas ED Provider: Marcia Obrien Home Meds and New Rx's Prescriptions: No Action potassium chloride [Klor-Con M20] 20 mEq tablet,ER particles/crystals 20 meq PO DAILY Qty: 90 3RF Combivent Respimat 20-100 mcg/actuation mist 1 puff inhalation Q6H PRN (Reason: chest congestion; cold symptoms) Qty: 4 6RF Rx Instructions: Trial in the morning (with spacer) to help clear phlegm gabapentin 100 mg capsule 200 mg PO TID Qty: 180 2RF rosuvastatin 20 mg tablet 20 mg PO DAILY Qty: 90 3RF Trelegy Ellipta 100-62.5-25 mcg blister with device 1 inh inhalation DAILY Qty: 60 11RF pantoprazole [Protonix] 40 mg tablet,delayed release (DR/EC) 40 mg PO QAM Qty: 90 3RF Rx Instructions: take alone on empty stomach Jardiance 10 mg tablet 10 mg PO QAM Qty: 90 3RF dabigatran etexilate [Pradaxa] 150 mg capsule 150 mg PO BID Qty: 60 3RF torsemide 20 mg tablet 20 mg PO DAILY Qty: 90 3RF nitroglycerin 0.4 mg tablet, sublingual 0.4 mg Sublingual PRN Qty: 25 3RF Rx Instructions: for chest pain. trazodone 50 mg tablet 50 mg PO QHS PRN (Reason: sleep) Qty: 30 3RF acetaminophen 325 mg Tablet 650 mg PO Q4H PRN PRN (Reason: fever or pain) Qty: 0 0RF Rx Instructions: max dose 2000mg per day calcium carbonate-vitamin D3 [Calcium 500 With D] 500 mg-10 mcg (400 unit) tablet 1 tab PO BID Qty: 60 3RF metoprolol succinate 100 mg tablet extended release 24 hr 100 mg PO DAILY Qty: 90 0RF sildenafil 50 mg tablet 50 mg PO PRN PRN Patient Comments: TAKE ONE TABLET BY MOUTH NEEDED FOR SEXUAL ACTIVITY tramadol 50 mg tablet 50 mg PO QHS PRN Patient Comments: TAKE ONE TABLET BY MOUTH EVERY DAY NEEDED FOR SEVERE FOR BACK pain OR claudication pain. aspirin 81 mg tablet 81 mg PO DAILY B-complex with vitamin C [Super B/C] Capsule 1 cap PO DAILY Urban Navarro 160-9-4.8 mcg/actuation HFA aerosol inhaler 2 inh inhalation BID HPI General Mode of arrival: EMS . Date/Time Provider Initiated Documentation: 02/01/25 16:48 . Limitations to Documentation: no limitations . Information obtained by: patient, family, EMS and old records reviewed . HPI Narrative: This is a 69-year-old male patient with a past medical history significant for heart failure, CKD, pancytopenia, atrial fibrillation not on anticoagulation, pulmonary fibrosis, COPD, presenting for evaluation of voice changes and shortness of breath with new hypoxia. The patient reports that he received an iron infusion today. He felt well afterwards and went home to take a nap, states that he woke up from sleep with shortness of breath and felt like his voice was very hoarse. He was concerned for a reaction, and called the cancer center who called EMS. EMS arrived and noted the patient to be slightly hypoxic to 87 to 88% on room air, placed him on 2 L/min of oxygen by nasal cannula. He was tachycardic and tachypneic, and was transported to our facility for further workup and management. He did not receive any medications for allergic reaction or anaphylaxis, and does not have any sensation of throat swelling, stridor, and has not had a rash or nausea or vomiting. The patient was seen at her facility a few days ago for a concern for CHF exacerbation, at which time his furosemide was increased. He states that he has been urinating appropriately, but was told if his fluid levels did not improve he may require admission. He states he occasionally has some discomfort in the left side of his chest especially associated with his work of breathing, has had a nonproductive cough. Related Data Home Medications ?Medication ?Instructions ?Recorded ?Confirmed ipratropium 20 mcg-albuterol 100 1 puff inhalation Q6H PRN chest 02/03/24 02/01/25 mcg/actuation mist for inhalation congestion; cold symptoms #4 grams (Combivent Respimat) acetaminophen 325 mg tablet 650 mg (2 x 325 mg) PO Q4H PRN PRN 08/08/24 02/01/25 fever or pain #0 tabs calcium 500 mg (as 1 tab PO BID #60 tabs 08/08/24 02/01/25 carbonate)-vitamin D3 10 mcg (400 unit) tablet (Calcium 500 With D) potassium chloride 20 mEq 20 meq PO DAILY #90 tabs 08/30/24 02/01/25 tablet,extended release(part/cryst) (Klor-Con M) empagliflozin 10 mg tablet 10 mg PO QAM #90 tabs 10/15/24 02/01/25 (Jardiance) gabapentin 100 mg capsule 200 mg (2 x 100 mg) PO TID #180 11/14/24 02/01/25 caplets dabigatran etexilate 150 mg 150 mg PO BID #60 caps 11/20/24 02/01/25 capsule (Pradaxa) metoprolol succinate 100 mg 100 mg PO DAILY #90 tabs 12/07/24 02/01/25 tablet,extended release 24 hr fluticasone fur. 100 mcg-umeclid 1 inh inhalation DAILY #60 ea 12/12/24 02/01/25 62.5 mcg-vilant 25 mcg inhalat.powder (Trelegy Ellipta) pantoprazole 40 mg tablet,delayed 40 mg PO QAM #90 tabs 12/12/24 02/01/25 release (Protonix) rosuvastatin 20 mg tablet 20 mg PO DAILY #90 tabs 12/12/24 02/01/25 torsemide 20 mg tablet 20 mg PO DAILY #90 tabs 12/14/24 02/01/25 nitroglycerin 0.4 mg sublingual 0.4 mg sublingual PRN #25 tabs 01/28/25 02/01/25 tablet trazodone 50 mg tablet 50 mg PO QHS PRN sleep #30 tabs 01/28/25 02/01/25 B-complex with vitamin C (Super 1 cap PO DAILY 02/01/25 02/01/25 B/C capsule) aspirin 81 mg tablet 81 mg PO DAILY 02/01/25 02/01/25 budesonide 160 mcg-glycopyr 9 2 inh inhalation BID 02/01/25 02/01/25 mcg-formot 4.8 mcg/actuation HFA inhaler (Breztri Aerosphere) sildenafil 50 mg tablet 50 mg PO PRN PRN 02/01/25 02/01/25 tramadol 50 mg tablet 50 mg PO QHS PRN 02/01/25 02/01/25 Previous Rx's ?Medication ?Instructions ?Recorded ipratropium 20 mcg-albuterol 100 1 puff inhalation Q6H PRN chest 02/03/24 mcg/actuation mist for inhalation congestion; cold symptoms #4 grams (Combivent Respimat) acetaminophen 325 mg tablet 650 mg (2 x 325 mg) PO Q4H PRN PRN 08/08/24 fever or pain #0 tabs calcium 500 mg (as 1 tab PO BID #60 tabs 08/08/24 carbonate)-vitamin D3 10 mcg (400 unit) tablet (Calcium 500 With D) potassium chloride 20 mEq 20 meq PO DAILY #90 tabs 08/30/24 tablet,extended release(part/cryst) (Klor-Con M) empagliflozin 10 mg tablet 10 mg PO QAM #90 tabs 10/15/24 (Jardiance) gabapentin 100 mg capsule 200 mg (2 x 100 mg) PO TID #180 11/14/24 caplets dabigatran etexilate 150 mg 150 mg PO BID #60 caps 11/20/24 capsule (Pradaxa) metoprolol succinate 100 mg 100 mg PO DAILY #90 tabs 12/07/24 tablet,extended release 24 hr fluticasone fur. 100 mcg-umeclid 1 inh inhalation DAILY #60 ea 12/12/24 62.5 mcg-vilant 25 mcg inhalat.powder (Trelegy Ellipta) pantoprazole 40 mg tablet,delayed 40 mg PO QAM #90 tabs 12/12/24 release (Protonix) rosuvastatin 20 mg tablet 20 mg PO DAILY #90 tabs 12/12/24 torsemide 20 mg tablet 20 mg PO DAILY #90 tabs 12/14/24 nitroglycerin 0.4 mg sublingual 0.4 mg sublingual PRN #25 tabs 01/28/25 tablet trazodone 50 mg tablet 50 mg PO QHS PRN sleep #30 tabs 01/28/25 Allergies Allergy/AdvReac Type Severity Reaction Status Date / Time azithromycin AdvReac Severe Other (See Verified 02/01/25 18:11 Comment) atorvastatin AdvReac Intermediate Diarrhea Verified 02/01/25 18:11 General Stated Complaint: SOB/SuddenOnset SHE: 2 Exam Narrative Exam Narrative: Gen: awake and alert, in no apparent distress. Appears well nourished. HEENT: PERRL, EOMs full and without nystagmus. External ears and nose normal, mucous membranes moist. Speaks in full sentences, posterior pharynx without edema or erythema Neck: Supple, full range of motion, no observable masses Lungs: Tachypneic but not in severe respiratory distress., lung sounds clear and equal bilaterally without wheezes, rhonchi, or rales. CV: Heart with tachycardic rate and irregularly irregular rhythm, no murmurs auscultated. Strong and symmetrical radial pulses. Abdomen: Soft, nondistended, non-tender to palpation. No rigidity, rebound tenderness, or guarding. MSK: No joint swelling, no redness. Full ROM without limitation, no external traumatic findings. No significant peripheral edema, no unilateral calf swelling or tenderness Skin: No rashes or lesions to visualized skin. Normal color, warm, and dry. Neuro: Cranial nerves II-XII intact and symmetrical bilaterally. 5/5 strength in all muscle groups x4 extremities. No sensory deficits. Ambulates with steady gait. Psych: Appropriate for situation. Course Vital Signs Vital signs: Vital Signs Temperature 36.5 C 02/01/25 17:01 Pulse 119 H 02/01/25 17:01 Respiratory Rate 35 H 02/01/25 17:01 Blood Pressure 177/76 H 02/01/25 17:01 Pulse Oximetry 95 02/01/25 17:01 Temperature 36.5 C 02/01/25 17:01 Temperature Source Temporal Artery Scan 02/01/25 17:01 Pulse 112 H 02/01/25 17:50 Respiratory Rate 23 02/01/25 18:10 Respiratory Effort Short of Breath 02/01/25 18:10 Respiratory Depth Shallow 02/01/25 18:10 Respiratory Pattern Tachypnea 02/01/25 18:10 Blood Pressure 140/67 02/01/25 17:50 Blood Pressure Mean 91 02/01/25 17:50 Blood Pressure Position Sitting 02/01/25 17:01 Pulse Oximetry 98 02/01/25 17:50 Oxygen Delivery Method Nasal Cannula 02/01/25 17:50 Oxygen Flow Rate 2 02/01/25 17:50 Pain Level 2 02/01/25 17:23 Comment placed on 2 liters 02/01/25 17:23 Lab/Test Results Lab/Test Results: Laboratory Tests Range/Units 02/01/25 18:00 WBC (4.4-10.8) 10^3/uL 2.68 L RBC (4.36-5.78) 10^6/uL 3.23 L Hgb (13.5-17.5) g/dL 7.9 L Hct (40.0-50.0) % 28.7 L MCV (80-95) fL 89 MCH (27.0-33.0) pg 24.5 L MCHC (32.0-36.0) % 27.5 L RDW (11.8-14.1) % 20.0 H Plt Count (130-400) 10^3/uL 55 L MPV (8.0-11.0) fL 11.3 H Immature Gran % % 0.4 Neutrophils % % 73.9 Lymphocytes % % 14.2 Monocytes % % 10.4 Eosinophils % % 0.7 Basophils % % 0.4 Nucleated RBC % (0.0-0.3) % 0.0 Absolute Neutrophils (1.2-6.7) 10^3/uL 1.98 Absolute Lymphocytes (1.2-3.4) 10^3/uL 0.38 L Absolute Monocytes (0.1-0.8) 10^3/uL 0.28 Absolute Eosinophils (0.0-0.7) 10^3/uL 0.02 Absolute Basophils (0.0-0.2) 10^3/uL 0.01 Sodium Cancelled Potassium Cancelled Chloride Cancelled Carbon Dioxide Cancelled Anion Gap Cancelled BUN Cancelled Creatinine Cancelled Est GFR (CKD-EPI 2020) Cancelled Glucose Cancelled Calcium Cancelled Magnesium Cancelled Total Bilirubin Cancelled AST Cancelled ALT Cancelled Alkaline Phosphatase Cancelled Troponin I Cancelled NT-Pro-B Natriuret Pep Cancelled Total Protein Cancelled Albumin Cancelled Medical Decision Making This is a 69-year-old male patient presenting for evaluation of shortness of breath and new hypoxia. Though certainly this did occur in the context of getting an iron infusion, I note no stridor, posterior pharyngeal edema, rash, and an otherwise reassuring against anaphylaxis. I certainly considered other respiratory abnormalities including heart failure exacerbation, reactive airway disease exacerbation, pulmonary embolism, pleural effusion, pneumonia, as well as cardiac abnormalities including ACS. He is in atrial fibrillation with RVR, states that his heart rate has been higher typically and he has a appointment with cardiology to discuss his heart rhythm. I obtained an EKG, which shows an atrial fibrillation without evidence of acute ischemia compared to prior studies. He does remain tachycardic and has occasional PVCs. We will obtain laboratory studies to include CBC, CMP, magnesium, troponin, BNP, D-dimer, and INR. I will obtain a chest x-ray. - I reviewed the patient's laboratory studies, which show a stable pancytopenia with a white count of 2.6, hemoglobin 7.9, and a platelet count of 55. D-dimer was negative at 344. Chemistry panel notable for a mildly low potassium to 3.3, no other evidence of electrolyte abnormalities or kidney injury. No significant liver dysfunction, but initial troponin was elevated at 136, 1 hour recheck 138. BNP is slightly above where the patient was most recently at 2200. Chest x-ray showing very small bilateral pleural effusions, cardiomegaly, concerning for ongoing CHF exacerbation. -I provided the patient with 40 mg of IV Lasix and he put out an adequate amount of urine. I also repleted his potassium intravenously given the active diuresis. I feel that this patient will meet criteria for admission given his failure to improve his fluid status in the outpatient environment and his new oxygen requirement. The patient's voice changes reported immediately upon awakening have entirely resolved and he remains without evidence of anaphylaxis on repeat examinations. I did reach out to the hospitalist to request a cardiology consult given the troponin elevation, as the patient's thrombocytopenia may make him a poor candidate for empiric heparinization. I reached out to [facility], callback was unfortunately delayed due to their clinical burden, but upon discussing with their team they feel that given the repeat troponin, which is stable and without interval increase, and the concern for fluid overload that NSTEMI is highly unlikely, and they do not recommend heparinization. I discussed this with the hospitalist who is graciously accepted this patient for admission to their service for ongoing diuresis. Marcia Obrien MD Quality:[facility] Health Related Social Needs: No Data to Display PFSH All Active Problems (Updated 02/01/25 @ 23:29 by Marcia Obrien MD) Pancytopenia (Acute) CHF (congestive heart failure) (Chronic) Esophageal candidiasis (Acute) Medication management (Acute) Hemorrhoids (Acute ~11/2024) EGD at [facility] internal and external possible sm rectal varices Diverticulosis of colon (Acute ~11/2024) [facility] Colonoscopy sigmoid and 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 (Acute ~11/2024) [facility] Stage C0-M2 per [place] criteria Portal hypertensive gastropathy (Acute ~11/2024) Esophageal varices determined by endoscopy (Chronic ~11/2024) Grade 1, Type 2 gastroesophageal varices Paroxysmal atrial fibrillation (Chronic) Non-ST elevation RI (NSTEMI) (Acute) Sleep difficulties (Acute) Knee pain, left (Acute) Insomnia (Acute) Lumbar radiculitis (Acute) Spinal stenosis, lumbar region with neurogenic claudication (Acute ~07/30/24) [facility] Ctr Pain/Spine-note from 07/30/24.HE Acute HFrEF (heart failure with reduced ejection fraction) (Acute ~07/26/24) [facility] Cardiology note from 07/26/24 visit.HE Bilateral carotid artery occlusion (Acute ~07/17/24) [facility] Vascular Surg. note from 07/17/24.HE Abnormal involuntary movements (Acute) Disability affecting daily living (Acute) Lumbosacral stenosis with neurogenic claudication (Acute) per [facility] tele consult & 06/05/24 MRI Radiculopathy due to disorder of intervertebral disc of lumbar spine (Acute) Pancytopenia (Chronic) 02/17/24 f/u Hem/Onc At risk for stroke (Acute) New AFib: CHAD2 12/16.. GPU1NA2 02/18 .. so, med-high risk (9.7% stroke risk; 13.6% TIA risk).. Thrombocytopenia (Chronic) Acute, with Hx chronic ITP .. new pathology? or active ITP? or hepatic dz? Atherosclerosis of stebbins coronary artery of stebbins heart without angina pectoris (Acute 10/24/09) stent 2009; re-occluded stented 11/2015 along with second site Cx.; dual platelet rx until 12/2016-06/2018; Dr. Mcnulty; [facility] 07/30/16 neg for ischemia, EF 51% (< AFTER 2021 stenting?) Cirrhosis of liver without ascites (Chronic) Heart failure with reduced ejection fraction (Chronic) EF 33% (11/11/23) .. EF 51% post-cath (01/2022) EF 33% (12/2021) Impaired quality of life (Acute) Femoro-popliteal artery disease (Acute) Atherosclerosis of lower extremity with claudication (Acute) PAD (peripheral artery disease) (Chronic) Rt LE, per MEET, [facility] (03/18/23) Carotid artery occlusion (Acute 04/12/07) bilateral; L PARIETAL CVA Claudication of calf muscles (Acute) Worsening, 10/2023, affecting ADLs and ability to work! Rt Calf, resolves w/in minutes of rest Other specified nonscarring hair loss (Acute) LE, b/l (no problem, but notable to pt who is wondering) .. 2' PAD? ik, 03/2023 [ ] MEET Pulmonary fibrosis (Chronic) Emphysema lung (Acute) Restrictive lung disease (Acute) Chronic ITP (idiopathic thrombocytopenia) (Chronic 07/25/17) Per rvw of Heme consult of 07/2019: RTC if pltlts<70,000, 12/17/23, ik...Heme consult Dr. Nolen 07/2017, likely slowly progressive chronic going back to 2006; re-consult if drops below 50,000 Hypertension (Chronic 12/11/00) avoid hypotension due to cerebral vascular disease; cardilogy: Dr Camara; goal 130-140 systolic, sens to thiazide Hyperlipidemia (Chronic 11/10/02) goal LDL 70 or best able Sensorineural hearing loss, bilateral (Chronic 06/24/14) R hearing aid 07/2014 Splenomegaly (Chronic 08/02/17) 14 cm on US 06/2017; ? due to chronic ITP Cervical radiculitis (Chronic) Osteoarthritis of lower back (Acute 12/11/01) Macrocytic anemia (Acute) Chronic low back pain (Chronic) Acute episodes, . Mild DJD on LS film 04/2014; Hx daily Aleve. Hepatic steatosis (Chronic) Abdominal US in 2016 COPD (chronic obstructive pulmonary disease) (Chronic) NEG COPD per pt rpt s/p Pulm OV, 03/2023. Per CT (2016), Hx smoking. Anemia (Chronic) Low HGB. Hx Macrocytic anemia, B12 WNL ().. [ ] iron suppl, po review Compression fracture of L2 lumbar vertebra (Acute) per MRI (03/08/22), w/ acute/subacute signal. Fx lines extend towards pedicles..20% ht loss..intraosseous edema.. Spinal stenosis at L4-L5 level (Chronic) per MRI (03/08/22). .. moderate ctl canal stenosis .. disc protrusion caudally, 5mm behind L5.. MRI LSpine 04/2022 no nerve compressin or central stenosis Sacroiliac joint dysfunction of left side (Acute) Hyponatremia (Chronic) CHRONIC? Asymptomatic, 08/05/22 Lung nodule seen on imaging study (Acute) Per 10/19/22 CTA: Neg PE. (+) pleural base nodule, RML, 4mm.. & sessile pleural plaque (RUL) measuring 1 cm x 0.3 cm. Pleuritic chest pain (Acute) Pleural plaque (Acute) Medical History Palliative care encounter Cirrhosis Congestive heart failure Anemia Community acquired pneumonia Liver dysfunction Chronic kidney disease Right upper lobe pulmonary infiltrate Thrombocytopenia Anemia Diarrhea Daily x months, managed with OTC (loperamide?) Weight gain 15 lbs per chart, no diet change per pt Muscle spasm Acute ... improves with PT, but re-spasms .. Need rest, anti-inflamm then abd/core mm strengthening. Possible PSOAS (?) Skin tag of perianal region (~11/2024) Atrial fibrillation, new onset Asymptomatic, just took medications.. some improvement in HR while resting [allowing meds to act? ik) in exam room, 12/23/23. Hx of atherosclerotic cardiovascular disease Stents Patent per Cath, 02/2022 (Dr. Camara, [facility]). Stents placed, 2009 .. re- occluded, stented 11/2015 along with second site Cx.; dual platelet Rx 12/2016-06/2018; Dr. Mcnulty; [facility] 07/30/16 neg for ischemia, EF 51% Absent breath sounds on left side of chest much lower than rt base .. seems new.. Hx of arterial ischemic stroke 2006, cerebral infarction Hemoptysis COVID-30 March 2022, home test Tenderness of back Prominent mm; lft paraspinal tenderness (L2-L4), rad into left buttock Left buttock pain Helped focus on SI Joint vs lower bk. Feeling great, 09/2022. Left-sided back pain Acute on chronic .. barely walking, tenderness out of proportion .. 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 Derm: squamous cell left forearm with biopsy and destroyed by curettage and electrodesiccation. Cerebral artery occlusion with cerebral infarction (01/13/07) Convulsions (01/25/08) Pt. denies Abnormal findings on diagnostic imaging of lung (11/25/06) Old notes, CXR since then show cardiomegaly, possible atelectasis or scarring.. nothing acute. Carpal tunnel syndrome (07/05/11) Headache (08/01/09) Sudden hearing loss (12/15/12) assoc with CVA?? History of tobacco use (10/12/11) quit over 25 yrs ago, 09/2022 Vertigo (05/09/17) ER 05/09/17: CT neg, MRI old cva, good flow [place] [facility] [place]; rx Meclizine 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) Anxiety disorder, unspecified (03/22/17) Erectile dysfunction Surgical History History of colonoscopy (11/27/24) [facility], no specimens History of esophagogastroduodenoscopy (EGD) (11/27/24) [facility] esophageal plaques suspicious for candidiasis History of biopsy Biopsy at 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 [facility] Coronary Stent (12/11/15) LAD POBA for in-stent restenosis, November 2015 AND left circumflex 3-mm drug-eluting stent, November 2015, Dr Camara Appendectomy 2006 Family History Father , Pneumonia at age 68. Tobacco use disorder Pneumonia Other Heart disease Stroke Social History Smoking/Tobacco Use Status: Former Tobacco Use Quit Date: 09/12/02 Tobacco: How many years used: 15 Second Hand Exposure: Yes Smoking risk assessment performed?: Yes Alcohol Intake: current Alcohol Intake frequency: 0-2 drinks per day Alcohol type: hard liquor Drug use: Never Substance use type: does not use Adopted: No Foster care: No Household members: spouse and family Housing: house Number of Children: 2 number of grandchildren: 3 Communication Needs: Hard of Hearing and Corrective Lenses Education Level: high school Do you need help understanding health information?: Never current occupation: [employer],lawn [employer] Pets and animals: No Do you think of yourself as: straight/heterosexual Current gender identity: male What is your relationship status?: How often do you get together with friends or relatives?: once per week Panel score (0-1 are the most socially isolated patients): 1 What type of physical activity do you participate in: other Details: active lifestyle- Duration: 15-30 minutes/day Frequency: daily Shannan/Shinto: Catholic Seatbelt use: sometimes Drive intox or ride w/intox compressed air pile driver operator: No Do you feel safe at home: Yes Do you feel safe in your relationship?: Yes Additional Social history: still works two jobs mowing and doing plowing for [employer]. works at [employer].
--- NOTE | 2025-02-01 18:51 | DI.RAD_ITS ---
Exam(s) XR CHEST 2V PA LATERAL EXAM: XR CHEST 2V PA LATERAL CLINICAL HISTORY: SOB TECHNIQUE: 2D digital imaging was performed of the chest. Two images were obtained. PA and lateral views were obtained. COMPARISON: CR XR CHEST 2V PA LATERAL from 08/30/2024 CR,XR XR PORTABLE CHEST AP from 11/09/2024 CR XR PORTABLE CHEST AP from 12/05/2024 CR,XR XR PORTABLE CHEST AP from 01/28/2025 FINDINGS: MEDIASTINUM: Normal. HEART: Stable cardiomegaly. PULMONARY VASCULATURE: Normal. LUNGS: No focal consolidating infiltrates are present. PLEURAL SPACE: No pleural effusion or pneumothorax. BONE:Within n there is blunting of the costophrenic angles bilaterally which may reflect small effusi ons. Ormal limits for the patient's age. Stable mild compression deformities of T6 and T7. OTHER FINDINGS:Normal. IMPRESSION: 1. Cardiomegaly. 2. Tiny pleural effusions. 3. No focal consolidating infiltrates. DATA REPOSITORY: RADIATION DOSE DELIVERED:
[2025-02-01 19:34] VITALS: BP 140/57; PULSE 122; RESP 26; TEMP 37; O2SAT 98
[2025-02-01 19:35] LABS: Lab Add On Test DONE
[2025-02-01 19:36] LABS: ALT 25 U/L (16-63); AST 57 U/L (15-37); Albumin 3.1 g/dL (3.4-5.0); Alkaline Phosphatase 207 U/L (46-116); Anion Gap 8.6 mmol/L (3-11); BUN 14 mg/dL (7-18); Bilirubin, Total 0.9 mg/dL (0.2-1.0); CO2 28.4 mmol/L (21.0-32.0); CREATININE 1.2 mg/dL (0.70-1.30); Calcium 8.6 mg/dL (8.5-10.1); Chloride 100 mmol/L (98-107); Estimated GFR 65.06 (mL/min/1.73m2); Glucose 99 mg/dL (74-106); Magnesium 1.8 mg/dL (1.8-2.4); NT-proBNP 2231 pg/mL (<300); Potassium 3.3 mmol/L (3.5-5.1); Sodium 137 mmol/L (136-145); Total Protein 7.1 g/dL (6.4-8.2)
[2025-02-01 19:45] LABS: Troponin I 136 ng/L (<or=76)
[2025-02-01 20:06] LABS: D-Dimer 344 ng/mlFEU (<500)
[2025-02-01] MEDS: Furosemide 40 MG/4 ML VIAL IVP (20:07)
[2025-02-01] MEDS: POTASSIUM CHLORIDE 10 MEQ/100 ML BAG 100 MEQ IV_INF ×2 (20:21→21:21)
--- NOTE | 2025-02-01 20:36 | W.PM.HP.N ---
Date of service: 02/01/25 Time of Service: 20:36 Assessment and Plan Assessment and plan (1) Acute HFrEF (heart failure with reduced ejection fraction): Start date: 02/01/25 Status: Acute Assessment and plan: This is a 69-year-old gentleman with worsening symptoms after iron infusion which most likely is not related to his exacerbation of CHF. He has responded to IV Lasix and this will be continued twice daily the patient usually on torsemide 40 mg daily and to be given Lasix for milligrams twice daily. Monitor symptoms and electrolytes with his metoprolol to be split dose because of possibility of hypotension with diuresis. He has had recent echocardiogram which does show decreasing left ventricular ejection fraction and increasing PA pressures. He also has valvular disease with his chronic dysrhythmia with atrial fibrillation. Long-term he should [place] [facility] [place] He remains a full code this should be rediscussed with his multisystem disease. (2) Elevated troponin level not due to acute coronary syndrome: Start date: 02/01/25 Status: Acute Assessment and plan: Slight increase in troponins which appear to have plateaued and are decreasing. It peaked at 138. Continue to trend and monitor with telemetry as we diurese. (3) COPD (chronic obstructive pulmonary disease): Status: Chronic Assessment and plan: Continue outpatient medical therapy and albuterol nebulizer as needed. (4) Hypokalemia: Status: Chronic Assessment and plan: Replete and trend labs. He is chronically on oral potassium supplement with dosing possibly needing increase with increased diuresis. (5) Paroxysmal atrial fibrillation: Status: Chronic Assessment and plan: Patient appears to be in chronic atrial fibrillation at this time and he thinks he is on anticoagulation but this is not on his medication list this should be reviewed with pharmacy in the morning. He has on Pradaxa with PAD. (6) PAD (peripheral artery disease): Status: Chronic Assessment and plan: Continue Pradaxa. (7) Atherosclerosis of [place] coronary artery of [place] heart without angina pectoris: Status: Chronic Assessment and plan: Continue outpatient medical therapy and monitor for exacerbation with elevation in troponins. There is no evidence of ischemia presently. (8) Cirrhosis of liver without ascites: Status: Chronic Assessment and plan: Patient admits to drinking alcohol and does have all signs and symptoms of chronic alcoholic cirrhosis. He denies any problems with withdrawal with this to be observed closely. (9) Pancytopenia: Status: Chronic Assessment and plan: Progressive seen [facility] [place]ology and possibly associated with alcoholic cirrhosis. (10) Hypertension: Status: Chronic Assessment and plan: Continue outpatient medical therapy modifying as needed with the diuresis being increased. (11) Hyperlipidemia: Status: Chronic Assessment and plan: Continue outpatient statin therapy. (12) Spinal stenosis at L4-L5 level: Status: Chronic Assessment and plan: Continue tramadol as needed the patient states he does not think his problem. Check the MIN, VPMS was reviewed and was consistent with infrequent use of tramadol. Patient does drink alcohol with increased risk of misuse. History of Present Illness History of Present Illness Chief Complaint: Voice changes with shortness of breath with hypoxemia after iron infusion. Narrative: This is a 69-year-old male patient who received an iron infusion the day of presentation and after this procedure he had a nap but woke up from his sleep with shortness of breath and felt hoarse. He was concerned that he was having a reaction to the iron infusion and reported to the ED for evaluation after calling the cancer center. He is not being mildly hypoxic in the ED at 87%. Placed on 2 L/min of nasal cannula O2. He continued to be tachycardic and tachypneic but did not have any throat swelling or rash and no GI symptoms. He has no focal neurological symptoms. He does have a history of CHF and evaluation in the ED did reveal elevation of his BNP from baseline as well as progression of the chest x-ray findings showing small bilateral effusions and cardiomegaly. Troponin was slightly elevated but he had no acute EKG changes with a history of chronic atrial fibrillation. He thinks that he is on anticoagulation but is only on Pradaxa for PAD. He does have bruising over his arm with his treatment. He also has a history of cirrhosis with some hematological disorders including chronic thrombocytopenia. As stated he is on iron treatment for anemia at this time as having pancytopenia. He is followed [place]ology [place] [facility] [place] Cardiology was called by the ED provider to review his troponin bump and his symptoms which appear to be acute onset despite recent treatment in the ED for CHF. The patient was assessed as having exacerbation of CHF despite this change in oral diuretics and was admitted for IV Lasix and close monitoring. Will trend troponins but cardiology did not think these were secondary to acute ischemia no monitoring was warranted. 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 He did feel slightly better after IV Lasix. He denies any chest pain and is less short of breath. Slight increased swelling over his ankles recently but no exertional chest discomfort while he was dyspneic. He is a full code. He has had Review of Systems Narrative: 13 point review of systems otherwise unrevealing or stable. Patient denies any bruising or bleeding. Patient does have chronic back pain and does take tramadol occasionally though not daily. He denies any misuse of this pain medications though he does drink alcohol daily and does have cirrhosis without ascites. He denies previous alcohol withdrawal. PFSH All Active Problems (Updated 02/02/25 @ 02:54 by Gian Stanley) Hypokalemia (Chronic) Elevated troponin level not due to acute coronary syndrome (Acute) Pancytopenia (Chronic) CHF (congestive heart failure) (Chronic) Esophageal candidiasis (Acute) Medication management (Acute) Hemorrhoids (Acute ~11/2024) [place] [facility] [place] and external possible sm rectal varices Diverticulosis of colon (Acute ~11/2024) [facility] [place]oscopy sigmoid and 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 (Acute ~11/2024) [facility] [place] Stage C0-M2 per [place] criteria Portal hypertensive gastropathy (Acute ~11/2024) Esophageal varices determined by endoscopy (Chronic ~11/2024) Grade 1, Type 2 gastroesophageal varices Paroxysmal atrial fibrillation (Chronic) Non-ST elevation ND (NSTEMI) (Acute) Sleep difficulties (Acute) Knee pain, left (Acute) Insomnia (Acute) Lumbar radiculitis (Acute) Spinal stenosis, lumbar region with neurogenic claudication (Acute ~07/30/24) [facility] [place] [place] Pain/Spine-note from 07/30/24.HE Acute HFrEF (heart failure with reduced ejection fraction) (Acute ~07/26/24) [facility] [place] [place] note from 07/26/24 visit.HE Bilateral carotid artery occlusion (Acute ~07/17/24) [facility] [place]. note from 07/17/24.HE Abnormal involuntary movements (Acute) Disability affecting daily living (Acute) Lumbosacral stenosis with neurogenic claudication (Acute) per [facility] tele consult & 06/05/24 MRI Radiculopathy due to disorder of intervertebral disc of lumbar spine (Acute) Pancytopenia (Chronic) 02/17/24 f/u Hem/Onc At risk for stroke (Acute) New AFib: CHAD2 12/16.. MTP2EC6 02/18 .. so, med-high risk (9.7% stroke risk; 13.6% TIA risk).. Thrombocytopenia (Chronic) Acute, with Hx chronic ITP .. new pathology? or active ITP? or hepatic dz? Atherosclerosis of [place] coronary artery of [place] heart without angina pectoris (Chronic 10/24/09) stent 2009; re-occluded stented 11/2015 along with second site Cx.; dual platelet rx until 12/2016-06/2018; Dr. Mcnulty; [facility] 07/30/16 neg for ischemia, EF 51% (< AFTER 2021 stenting?) Cirrhosis of liver without ascites (Chronic) Heart failure with reduced ejection fraction (Chronic) EF 33% (11/11/23) .. EF 51% post-cath (01/2022) EF 33% (12/2021) Impaired quality of life (Acute) Femoro-popliteal artery disease (Acute) Atherosclerosis of lower extremity with claudication (Acute) PAD (peripheral artery disease) (Chronic) Rt LE, per MEET, [facility] (03/18/23) Carotid artery occlusion (Acute 04/12/07) bilateral; L PARIETAL CVA Claudication of calf muscles (Acute) Worsening, 10/2023, affecting ADLs and ability to work! Rt Calf, resolves w/in minutes of rest Other specified nonscarring hair loss (Acute) LE, b/l (no problem, but notable to pt who is wondering) .. 2' PAD? ik, 03/2023 [ ] MEET Pulmonary fibrosis (Chronic) Emphysema lung (Acute) Restrictive lung disease (Acute) Chronic ITP (idiopathic thrombocytopenia) (Chronic 07/25/17) Per rvw of Heme consult of 07/2019: RTC if pltlts<70,000, 12/17/23, ik...Heme consult Dr. Nolen 07/2017, likely slowly progressive chronic going back to 2006; re-consult if drops below 50,000 Hypertension (Chronic 12/11/00) avoid hypotension due to cerebral vascular disease; cardilogy: Dr Camara; goal 130-140 systolic, sens to thiazide Hyperlipidemia (Chronic 11/10/02) goal LDL 70 or best able Sensorineural hearing loss, bilateral (Chronic 06/24/14) R hearing aid 07/2014 Splenomegaly (Chronic 08/02/17) 14 cm on US 06/2017; ? due to chronic ITP Cervical radiculitis (Chronic) Osteoarthritis of lower back (Acute 12/11/01) Macrocytic anemia (Acute) Chronic low back pain (Chronic) Acute episodes, . Mild DJD on LS film 04/2014; Hx daily Aleve. Hepatic steatosis (Chronic) Abdominal US in 2016 COPD (chronic obstructive pulmonary disease) (Chronic) NEG COPD per pt rpt s/p Pulm OV, 03/2023. Per CT (2016), Hx smoking. Anemia (Chronic) Low HGB. Hx Macrocytic anemia, B12 WNL ().. [ ] iron suppl, po review Compression fracture of L2 lumbar vertebra (Acute) per MRI (03/08/22), w/ acute/subacute signal. Fx lines extend towards pedicles..20% ht loss..intraosseous edema.. Spinal stenosis at L4-L5 level (Chronic) per MRI (03/08/22). .. moderate ctl canal stenosis .. disc protrusion caudally, 5mm behind L5.. MRI LSpine 04/2022 no nerve compressin or central stenosis Sacroiliac joint dysfunction of left side (Acute) Hyponatremia (Chronic) CHRONIC? Asymptomatic, 08/05/22 Lung nodule seen on imaging study (Acute) Per 10/19/22 CTA: Neg PE. (+) pleural base nodule, RML, 4mm.. & sessile pleural plaque (RUL) measuring 1 cm x 0.3 cm. Pleuritic chest pain (Acute) Pleural plaque (Acute) Medical History Palliative care encounter Cirrhosis Congestive heart failure Anemia Community acquired pneumonia Liver dysfunction Chronic kidney disease Right upper lobe pulmonary infiltrate Thrombocytopenia Anemia Diarrhea Daily x months, managed with OTC (loperamide?) Weight gain 15 lbs per chart, no diet change per pt Muscle spasm Acute ... improves with PT, but re-spasms .. Need rest, anti-inflamm then abd/core mm strengthening. Possible PSOAS (?) Skin tag of perianal region (~11/2024) Atrial fibrillation, new onset Asymptomatic, just took medications.. some improvement in HR while resting [allowing meds to act? ik) in exam room, 12/23/23. Hx of atherosclerotic cardiovascular disease Stents Patent per Cath, 02/2022 ([place] Camara, [facility] [place] Stents placed, 2009 .. re-occluded, stented 11/2015 along with second site Cx.; dual platelet Rx 12/2016-06/2018; Dr. Mcnulty; [facility] [place]16 neg for ischemia, EF 51% Absent breath sounds on left side of chest much lower than rt base .. seems new.. Hx of arterial ischemic stroke 2006, cerebral infarction Hemoptysis COVID-30 March 2022, home test Tenderness of back Prominent mm; lft paraspinal tenderness (L2-L4), rad into left buttock Left buttock pain Helped focus on SI Joint vs lower bk. Feeling great, 09/2022. Left-sided back pain Acute on chronic .. barely walking, tenderness out of proportion .. 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 Cerebral artery occlusion with cerebral infarction (01/13/07) Convulsions (01/25/08) Pt. denies Abnormal findings on diagnostic imaging of lung (11/25/06) Old notes, CXR since then show cardiomegaly, possible atelectasis or scarring.. nothing acute. Carpal tunnel syndrome (07/05/11) Headache (08/01/09) Sudden hearing loss (12/15/12) assoc with CVA?? History of tobacco use (10/12/11) quit over 25 yrs ago, 09/2022 Vertigo (05/09/17) ER 05/09/17: CT neg, MRI old cva, good flow [place]; rx Meclizine 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) Anxiety disorder, unspecified (03/22/17) Erectile dysfunction Surgical History History of colonoscopy (11/27/24) [facility] [place] History of esophagogastroduodenoscopy (EGD) (11/27/24) [facility] [place] esophageal plaques suspicious for candidiasis History of biopsy Biopsy [place] [facility] [place] 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 Camara [facility] [place] Coronary Stent (12/11/15) LAD POBA for in-stent restenosis, November 2015 AND left circumflex 3-mm drug-eluting stent, November 2015, Dr Camara Appendectomy 2006 Family History Father , Pneumonia at age 68. Tobacco use disorder Pneumonia Other Heart disease Stroke Social History Smoking/Tobacco Use Status: Former Tobacco Use Quit Date: 09/12/02 Tobacco: How many years used: 15 Second Hand Exposure: Yes Smoking risk assessment performed?: Yes Alcohol Intake: current Alcohol Intake frequency: 0-2 drinks per day Alcohol type: hard liquor Drug use: Never Substance use type: does not use Adopted: No Foster care: No Household members: spouse and family Housing: house Number of Children: 2 number of grandchildren: 3 Communication Needs: Hard of Hearing and Corrective Lenses Education Level: high school Do you need help understanding health information?: Never current occupation: [employer] Pets and animals: No Do you think of yourself as: straight/heterosexual Current gender identity: male What is your relationship status?: How often do you get together with friends or relatives?: once per week Panel score (0-1 are the most socially isolated patients): 1 What type of physical activity do you participate in: other Details: active lifestyle- Duration: 15-30 minutes/day Frequency: daily Shannan/Yazdanism: Buddhism Seatbelt use: sometimes Drive intox or ride w/intox funeral limousine driver: No Do you feel safe at home: Yes Do you feel safe in your relationship?: Yes Additional Social history: 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 works at [employer] Meds Allergies and Home Medications Allergies Allergy/AdvReac Type Severity Reaction Status Date / Time azithromycin AdvReac Severe Other (See Verified 02/01/25 18:11 Comment) atorvastatin AdvReac Intermediate Diarrhea Verified 02/01/25 18:11 Home Medications ?Medication ?Instructions ?Recorded ?Confirmed ?Type ipratropium 20 mcg-albuterol 100 1 puff inhalation Q6H PRN chest 02/03/24 02/01/25 Rx mcg/actuation mist for inhalation congestion; cold symptoms #4 grams (Combivent Respimat) acetaminophen 325 mg tablet 650 mg (2 x 325 mg) PO Q4H PRN PRN 08/08/24 02/01/25 Rx fever or pain #0 tabs calcium 500 mg (as 1 tab PO BID #60 tabs 08/08/24 02/01/25 Rx carbonate)-vitamin D3 10 mcg (400 unit) tablet (Calcium 500 With D) potassium chloride 20 mEq 20 meq PO DAILY #90 tabs 08/30/24 02/01/25 Rx tablet,extended release(part/cryst) (Klor-Con M) empagliflozin 10 mg tablet 10 mg PO QAM #90 tabs 10/15/24 02/01/25 Rx (Jardiance) gabapentin 100 mg capsule 200 mg (2 x 100 mg) PO TID #180 11/14/24 02/01/25 Rx caplets dabigatran etexilate 150 mg 150 mg PO BID #60 caps 11/20/24 02/01/25 Rx capsule (Pradaxa) metoprolol succinate 100 mg 100 mg PO DAILY #90 tabs 12/07/24 02/01/25 Rx tablet,extended release 24 hr fluticasone fur. 100 mcg-umeclid 1 inh inhalation DAILY #60 ea 12/12/24 02/01/25 Rx 62.5 mcg-vilant 25 mcg inhalat.powder (Trelegy Ellipta) pantoprazole 40 mg tablet,delayed 40 mg PO QAM #90 tabs 12/12/24 02/01/25 Rx release (Protonix) rosuvastatin 20 mg tablet 20 mg PO DAILY #90 tabs 12/12/24 02/01/25 Rx torsemide 20 mg tablet 20 mg PO DAILY #90 tabs 12/14/24 02/01/25 Rx nitroglycerin 0.4 mg sublingual 0.4 mg sublingual PRN #25 tabs 01/28/25 02/01/25 Rx tablet trazodone 50 mg tablet 50 mg PO QHS PRN sleep #30 tabs 01/28/25 02/01/25 Rx B-complex with vitamin C (Super 1 cap PO DAILY 02/01/25 02/01/25 History B/C capsule) aspirin 81 mg tablet 81 mg PO DAILY 02/01/25 02/01/25 History budesonide 160 mcg-glycopyr 9 2 inh inhalation BID 02/01/25 02/01/25 History mcg-formot 4.8 mcg/actuation HFA inhaler (Breztri Aerosphere) sildenafil 50 mg tablet 50 mg PO PRN PRN 02/01/25 02/01/25 History tramadol 50 mg tablet 50 mg PO QHS PRN 02/01/25 02/01/25 History Exam Narrative Exam Narrative: General: Patient appears older than stated age, moderately obese and in no acute distress. He is comfortable lying in bed. He is hard of hearing. HEENT: Normocephalic, eyes with pupils equal and react to light symmetrically, extraocular movement intact and sclera anicteric. Oropharynx with dry mucosa and poor dentition. Neck: Supple without JVD. Back: Kyphotic without CVA tenderness. Lungs: Bronchovesicular breath sound diffusely with occasional coarse crackle at the bases but fair aeration. Decreased aeration at the bases. No focalizing rales or rhonchi. Heart: Irregular irregular rhythm with tachycardic rate and 4 with 6 systolic murmur left lower border. No gallop or rubs. Abdomen: Obese contour, soft and nontender to palpation with no palpable hepatosplenomegaly. Bowel sounds positive in all quadrants. Genitalia/rectal: Exam deferred. Extremities: 2+ soft pitting edema over ankles, no cyanosis or clubbing. Fair capillary refill. Joints have fair range of motion. Skin: Pale, warm and dry with old bruising over forearms bilaterally. No palpable hematomas or fluctuance. Neuro: Cranial nerves II through XII is intact, no focalized motor deficits and no tremor. Psych: Slightly anxious with pressured speech, no abnormal thought processes. Remote and recent memory grossly intact. Results Imaging Imaging Studies: EXAM: XR CHEST 2V PA LATERAL Date of exam: 02/01/2025 CLINICAL HISTORY: SOB TECHNIQUE: 2D digital imaging was performed of the chest. Two images were obtained. PA and lateral views were obtained. COMPARISON: CR XR CHEST 2V PA LATERAL from 08/30/2024 CR,XR XR PORTABLE CHEST AP from 11/09/2024 CR XR PORTABLE CHEST AP from 12/05/2024 CR,XR XR PORTABLE CHEST AP from 01/28/2025 FINDINGS: MEDIASTINUM: Normal. HEART: Stable cardiomegaly. PULMONARY VASCULATURE: Normal. LUNGS: No focal consolidating infiltrates are present. PLEURAL SPACE: No pleural effusion or pneumothorax. BONE:Within n there is blunting of the costophrenic angles bilaterally which may reflect small effusions. Ormal limits for the patient's age. Stable mild compression deformities of T6 and T7. OTHER FINDINGS:Normal. IMPRESSION: 1. Cardiomegaly. 2. Tiny pleural effusions. 3. No focal consolidating infiltrates. EXAM: XR PORTABLE CHEST AP Exam: 01/28/2025 CLINICAL HISTORY: SOB, eval for CHF TECHNIQUE: 2D digital imaging was performed. COMPARISON: CR,XR XR PORTABLE CHEST AP from 11/09/2024 CR XR PORTABLE CHEST AP from 12/05/2024 FINDINGS: LUNGS: Vascular prominence mildly increased interstitial markings consistent with CHF. No pleural abnormality seen. HEART: Enlarged. AORTA: Normal diameter. BONES: Unremarkable for age. Soft tissues: Unremarkable. Varicosities IMPRESSION: Cardiomegaly and mild CHF EXAM: Comprehensive 2D, Doppler, and color-flow Echocardiogram Negative exam: 12/13/2024 Patient Location: Out-Patient Printed Circuit Photographer: Hay Morrison RDCS (AE) Indications: Acute heart failure with reduced EF Conclusion Normal left ventricular wall thickness and chamber size. Ejection fraction is 35 to 40%. There is overall generalized hypokinesis with akinesis of the anteroapical segment Normal right ventricular size and function Left atrium is moderately dilated. Right atrium is mildly dilated Aortic valve is trileaflet and sclerotic with mild regurgitation Mildly thickened mitral leaflets. Moderate mitral regurgitation Normal tricuspid valve with mild to moderate eccentric tricuspid regurgitation. Estimated right ventricular systolic pressure is 54 mmHg Ascending aorta measures 3.63 cm Labs 02/01/25 18:00 02/01/25 19:07 Labs: Laboratory Results - last 24 hr 02/01/25 02/01/25 02/01/25 18:00 18:30 19:07 WBC 2.68 L RBC 3.23 L Hgb 7.9 L Hct 28.7 L MCV 89 MCH 24.5 L MCHC 27.5 L RDW 20.0 H Plt Count 55 L MPV 11.3 H Immature Gran % 0.4 Neutrophils % 73.9 Lymphocytes % 14.2 Monocytes % 10.4 Eosinophils % 0.7 Basophils % 0.4 Nucleated RBC % 0.0 Absolute Neutrophils 1.98 Absolute Lymphocytes 0.38 L Absolute Monocytes 0.28 Absolute Eosinophils 0.02 Absolute Basophils 0.01 D-Dimer Sodium Cancelled 137 Potassium Cancelled 3.3 L Chloride Cancelled 100 Carbon Dioxide Cancelled 28.4 Anion Gap Cancelled 8.6 BUN Cancelled 14 Creatinine Cancelled 1.2 Est GFR (CKD-EPI 2020) Cancelled 65.06 Glucose Cancelled 99 Calcium Cancelled 8.6 Magnesium Cancelled 1.8 Total Bilirubin Cancelled 0.9 AST Cancelled 57 H ALT Cancelled 25 Alkaline Phosphatase Cancelled 207 H Troponin I Cancelled 136 H* NT-Pro-B Natriuret Pep Cancelled 2231 H Total Protein Cancelled 7.1 Albumin Cancelled 3.1 L Add-On Test Request DONE 02/01/25 19:29 WBC RBC Hgb Hct MCV MCH MCHC RDW Plt Count MPV Immature Gran % Neutrophils % Lymphocytes % Monocytes % Eosinophils % Basophils % Nucleated RBC % Absolute Neutrophils Absolute Lymphocytes Absolute Monocytes Absolute Eosinophils Absolute Basophils D-Dimer 344 Sodium Potassium Chloride Carbon Dioxide Anion Gap BUN Creatinine Est GFR (CKD-EPI 2020) Glucose Calcium Magnesium Total Bilirubin AST ALT Alkaline Phosphatase Troponin I NT-Pro-B Natriuret Pep Total Protein Albumin Add-On Test Request Last Vital Signs Temp 37.0 C 02/01/25 19:34 Pulse 122 H 02/01/25 19:34 Resp 26 H 02/01/25 19:34 BP 140/57 L 02/01/25 19:34 Pulse Ox 98 02/01/25 19:34 Time Spent Time spent with Patient: >75 minutes Time was spent: preparing to see the patient(eg.review tests), obtaining and/or reviewing separately otained hiistory, ordering medications,tests, procedures, referring, communicating with other health primary care sales representative, indepentently interpreting results and care coordination
[2025-02-01 21:05] LABS: Troponin I 138 ng/L (<or=76)
[2025-02-02] VITALS (12 sets, daily range): BP systolic 98–140; BP diastolic 51–78; PULSE 114–130; RESP 16–26; TEMP 36.2–37; O2SAT 95–98
[2025-02-02 00:16] LABS: Troponin I 124 ng/L (<or=76)
--- NOTE | 2025-02-02 00:54 | W.PC.ACHO ---
Registration Status: Primary Language: Preferred Language: ED Information & Data Chief Complaint SOB/SuddenOnset 02/01/25 18:43 Triage Note pt had iron infusion this 02/01/25 17:01 morning. a few hours later he felt SOB and was experiencing intermittent episodes of hoarse voice. Medical / Surgical History (Last Reviewed 02/01/25 @ 23:36 by Gian Stanley) Palliative care encounter Cirrhosis Congestive heart failure Anemia Community acquired pneumonia Liver dysfunction Chronic kidney disease Right upper lobe pulmonary infiltrate Thrombocytopenia Anemia Diarrhea Weight gain Muscle spasm Skin tag of perianal region (~11/2024) Atrial fibrillation, new onset Hx of atherosclerotic cardiovascular disease Absent breath sounds on left side of chest Hx of arterial ischemic stroke Hemoptysis COVID-19 Tenderness of back Left buttock pain Left-sided back pain Carcinoma in situ, unspecified Cerebral artery occlusion with cerebral infarction (01/13/07) Convulsions (01/25/08) Abnormal findings on diagnostic imaging of lung (11/25/06) Carpal tunnel syndrome (07/05/11) Headache (08/01/09) Sudden hearing loss (12/15/12) History of tobacco use (10/12/11) Vertigo (05/09/17) 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) Anxiety disorder, unspecified (03/22/17) Erectile dysfunction (Last Reviewed 02/01/25 @ 23:36 by Gian Stanley) History of colonoscopy (11/27/24) History of esophagogastroduodenoscopy (EGD) (11/27/24) History of biopsy Hx of cardiac cath Coronary Stent (12/11/15) Appendectomy Most Recent Vital Signs Temperature 37.0 C 02/01/25 19:34 Temperature Source Oral 02/01/25 19:34 Pulse 122 H 02/01/25 19:34 Respiratory Rate 26 H 02/01/25 19:34 Respiratory Effort Short of Breath 02/01/25 18:10 Respiratory Depth Shallow 02/01/25 18:10 Respiratory Pattern Tachypnea 02/01/25 18:10 Blood Pressure 140/57 L 02/01/25 19:34 Blood Pressure Mean 84 02/01/25 19:34 Blood Pressure Position Sitting 02/01/25 17:01 Pulse Oximetry 98 02/01/25 19:34 Oxygen Delivery Method Nasal Cannula 02/01/25 19:34 Oxygen Flow Rate 2 02/01/25 17:50 Pain Level 2 02/01/25 17:23 Comment placed on 2 liters 02/01/25 17:23 Allergies azithromycin Adverse Reaction (Severe, Verified 02/01/25 18:11) Other (See Comment) Blurred vision atorvastatin Adverse Reaction (Intermediate, Verified 02/01/25 18:11) Diarrhea begun 11/2015; persistent diarrhea for 5 mos; relieved on D/C 04/2016 IV IV Catheter Type [Right Hand] Saline Lock IV Catheter Gauge [Right Hand] 20 Diagnostics 02/02/25 02/01/25 02/01/25 Range/Units 00:02 23:40 20:36 WBC (4.4-10.8) 10^3/uL RBC (4.36-5.78) 10^6/uL Hgb (13.5-17.5) g/dL Hct (40.0-50.0) % MCV (80-95) fL MCH (27.0-33.0) pg MCHC (32.0-36.0) % RDW (11.8-14.1) % Plt Count (130-400) 10^3/uL MPV (8.0-11.0) fL Immature Gran % % Neutrophils % % Lymphocytes % % Monocytes % % Eosinophils % % Basophils % % Nucleated RBC % (0.0-0.3) % Absolute Neutrophils (1.2-6.7) 10^3/uL Absolute Lymphocytes (1.2-3.4) 10^3/uL Absolute Monocytes (0.1-0.8) 10^3/uL Absolute Eosinophils (0.0-0.7) 10^3/uL Absolute Basophils (0.0-0.2) 10^3/uL D-Dimer (<500) ng/mlFEU Sodium Potassium Chloride Carbon Dioxide Anion Gap BUN Creatinine Est GFR (CKD-EPI 2020) Glucose Calcium Magnesium Total Bilirubin AST ALT Alkaline Phosphatase Troponin I 124 H* 138 H* NT-Pro-B Natriuret Pep Total Protein Albumin COVID-19 Source Pending SARS-CoV-2 (PCR) Pending Influenza Type A (PCR) Pending Influenza Type B (PCR) Pending RSV (PCR) Pending Add-On Test Request 02/01/25 02/01/25 02/01/25 Range/Units 19:29 19:07 18:30 WBC (4.4-10.8) 10^3/uL RBC (4.36-5.78) 10^6/uL Hgb (13.5-17.5) g/dL Hct (40.0-50.0) % MCV (80-95) fL MCH (27.0-33.0) pg MCHC (32.0-36.0) % RDW (11.8-14.1) % Plt Count (130-400) 10^3/uL MPV (8.0-11.0) fL Immature Gran % % Neutrophils % % Lymphocytes % % Monocytes % % Eosinophils % % Basophils % % Nucleated RBC % (0.0-0.3) % Absolute Neutrophils (1.2-6.7) 10^3/uL Absolute Lymphocytes (1.2-3.4) 10^3/uL Absolute Monocytes (0.1-0.8) 10^3/uL Absolute Eosinophils (0.0-0.7) 10^3/uL Absolute Basophils (0.0-0.2) 10^3/uL D-Dimer 344 (<500) ng/mlFEU Sodium 137 Potassium 3.3 L Chloride 100 Carbon Dioxide 28.4 Anion Gap 8.6 BUN 14 Creatinine 1.2 Est GFR (CKD-EPI 2020) 65.06 Glucose 99 Calcium 8.6 Magnesium 1.8 Total Bilirubin 0.9 AST 57 H ALT 25 Alkaline Phosphatase 207 H Troponin I 136 H* NT-Pro-B Natriuret Pep 2231 H Total Protein 7.1 Albumin 3.1 L COVID-19 Source SARS-CoV-2 (PCR) Influenza Type A (PCR) Influenza Type B (PCR) RSV (PCR) Add-On Test Request DONE 02/01/25 Range/Units 18:00 WBC 2.68 L (4.4-10.8) 10^3/uL RBC 3.23 L (4.36-5.78) 10^6/uL Hgb 7.9 L (13.5-17.5) g/dL Hct 28.7 L (40.0-50.0) % MCV 89 (80-95) fL MCH 24.5 L (27.0-33.0) pg MCHC 27.5 L (32.0-36.0) % RDW 20.0 H (11.8-14.1) % Plt Count 55 L (130-400) 10^3/uL MPV 11.3 H (8.0-11.0) fL Immature Gran % 0.4 % Neutrophils % 73.9 % Lymphocytes % 14.2 % Monocytes % 10.4 % Eosinophils % 0.7 % Basophils % 0.4 % Nucleated RBC % 0.0 (0.0-0.3) % Absolute Neutrophils 1.98 (1.2-6.7) 10^3/uL Absolute Lymphocytes 0.38 L (1.2-3.4) 10^3/uL Absolute Monocytes 0.28 (0.1-0.8) 10^3/uL Absolute Eosinophils 0.02 (0.0-0.7) 10^3/uL Absolute Basophils 0.01 (0.0-0.2) 10^3/uL D-Dimer (<500) ng/mlFEU Sodium Cancelled Potassium Cancelled Chloride Cancelled Carbon Dioxide Cancelled Anion Gap Cancelled BUN Cancelled Creatinine Cancelled Est GFR (CKD-EPI 2020) Cancelled Glucose Cancelled Calcium Cancelled Magnesium Cancelled Total Bilirubin Cancelled AST Cancelled ALT Cancelled Alkaline Phosphatase Cancelled Troponin I Cancelled NT-Pro-B Natriuret Pep Cancelled Total Protein Cancelled Albumin Cancelled COVID-19 Source SARS-CoV-2 (PCR) Influenza Type A (PCR) Influenza Type B (PCR) RSV (PCR) Add-On Test Request Intake and Output - 24 Hour Total 02/01/25 16:36 thru 02/01/25 21:21 Intake Total 100 Balance 100 Weight 92.533 kg Intake: IV 100 Falls Risk Assessment History of Falls Previous History 02/01/25 18:10 Contributing Factors No Factors 02/01/25 18:10 Ambulatory Aids Independent 02/01/25 18:10 Tubes/Lines None 02/01/25 18:10 Gait Evaluation No gait disturbance 02/01/25 18:10 Cognition No cognitive impairment 02/01/25 18:10 Fall Total Score 15 02/01/25 18:10 Level of Risk Standard/Low Risk 02/01/25 18:10 Problems (Last Reviewed 02/01/25 @ 23:36 by Gian Stanley) Elevated troponin level not due to acute coronary syndrome (Acute) Pancytopenia (Chronic) Paroxysmal atrial fibrillation (Chronic) Acute HFrEF (heart failure with reduced ejection fraction) (Acute ~07/26/24) Atherosclerosis of [place] coronary artery of [place] heart without angina pectoris (Chronic 10/24/09) 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 Information / Comments: A X O 4, independent, on 98% 2LPM Report received from:Kane @ 1243am. nurse unavailable, will call [phone]
[2025-02-02 01:10] LABS: *AMPHETAMINES SCREEN URINE Negative (Negative); *BARBITURATES SCREEN URINE Negative (Negative); *BENZODIAZEPINES SCREEN URINE Negative (Negative); Cannabinoids THC Negative (Negative); Cocaine Screen,Urine Negative (Negative); METHADONE URINE SCREEN Negative (Negative); OPIATES URINE SCREEN Negative (Negative)
[2025-02-02 01:11] LABS: Tricyclic Antidepressants Negative (Negative)
[2025-02-02 01:46] LABS: COVID-19 PCR Negative (Negative); Influenza A PCR Negative (Negative); Influenza B PCR Negative (Negative); RSV PCR Negative (Negative)
[2025-02-02 01:48] LABS: Source Nasopharynx
[2025-02-02] MEDS: Acetaminophen 325 MG TAB PO ×2 (02:05→10:53)
[2025-02-02] MEDS: Potassium Chloride 20 MEQ TABCR 40 MEQ PO (02:19)
[2025-02-02] MEDS: Metoprolol 25 MG TAB PO ×3 (03:45→17:04)
[2025-02-02 05:36] LABS: Bilirubin Negative (Negative); Blood Negative (Negative); Clarity Clear (Clear); Glucose 100 mg/dL (Negative); Ketones Negative (Negative); Leukocyte Esterase Negative (Negative); Nitrite Negative (Negative); Urobilinogen 0.2 mg/dL (Up to 0.2)
[2025-02-02 06:38] LABS: HCT 25.6 % (40.0-50.0); HGB 7.6 g/dL (13.5-17.5); MCH 25.9 pg (27.0-33.0); MCHC 29.7 % (32.0-36.0); MCV 87 fL (80-95); MPV 9.2 fL (8.0-11.0); RBC 2.94 10^6/uL (4.36-5.78); RDW-SD 64.2 fL; WBC 2.61 10^3/uL (4.4-10.8)
[2025-02-02 07:05] LABS: ALT 22 U/L (16-63); AST 41 U/L (15-37); Alkaline Phosphatase 186 U/L (46-116); Anion Gap 5.5 mmol/L (3-11); BUN 15 mg/dL (7-18); Bilirubin, Total 1.2 mg/dL (0.2-1.0); CO2 29.5 mmol/L (21.0-32.0); CREATININE 1.1 mg/dL (0.70-1.30); Calcium 8.9 mg/dL (8.5-10.1); Chloride 103 mmol/L (98-107); Estimated GFR 72.22 (mL/min/1.73m2); Glucose 105 mg/dL (74-106); Magnesium 1.8 mg/dL (1.8-2.4); Platelet Count 54 10^3/uL (130-400); Potassium 3.8 mmol/L (3.5-5.1); RDW 20.3 % (11.8-14.1); Sodium 138 mmol/L (136-145); Total Protein 6.6 g/dL (6.4-8.2)
[2025-02-02 07:11] LABS: TSH (W/Ref FT4) 2.22 uIU/mL (0.36-3.74)
[2025-02-02 07:15] LABS: Troponin I 93 ng/L (<or=76)
[2025-02-02] MEDS: Pantoprazole 40 MG TABCR PO (08:12)
[2025-02-02] MEDS: Normal Saline Flush 10 ML SYR IVP ×3 (08:12→20:07)
[2025-02-02] MEDS: Gabapentin 100 MG CAP 200 MG PO ×3 (08:12→20:07)
[2025-02-02] MEDS: Rosuvastatin 20 MG TAB PO (08:12)
[2025-02-02] MEDS: Potassium Chloride 20 MEQ TABCR PO (08:12)
[2025-02-02] MEDS: Empaglifozin 10 MG TAB PO (08:12)
[2025-02-02] MEDS: Aspirin 81 MG CHEW PO (08:12)
[2025-02-02] MEDS: Calcium 600mg/Vit D 200U TAB 1 TAB PO ×2 (08:12→20:07)
[2025-02-02] MEDS: Furosemide 40 MG/4 ML VIAL IVP ×2 (08:13→17:04)
--- NOTE | 2025-02-02 09:40 | W.PM.PROGNOT ---
Date of Service Date of service: 02/02/25 Time of Service: 09:41 Assessment and Plan Assessment and plan (1) Acute HFrEF (heart failure with reduced ejection fraction): Start date: 02/01/25 Status: Acute Assessment and plan: Continue IV Lasix Telemetry- Jyothi VS SVT not symptomatic X < 15 sec Cardiology at [facility] [place] this [place] with plan for 2nd cardioversion last echo on 12/13/2024 reported decreased from 07/2024 Normal left ventricular wall thickness and chamber size. Ejection fraction is 35 to 40%. There is overall generalized hypokinesis with akinesis of the anteroapical segment Normal right ventricular size and function Left atrium is moderately dilated. Right atrium is mildly dilated Aortic valve is trileaflet and sclerotic with mild regurgitation Mildly thickened mitral leaflets. Moderate mitral regurgitation Normal tricuspid valve with mild to moderate eccentric tricuspid regurgitation. Estimated right ventricular systolic pressure is 54 mmHg Ascending aorta measures 3.63 cm (2) Elevated troponin level not due to acute coronary syndrome: Start date: 02/01/25 Status: Acute Assessment and plan: troponin trending down . Ongoing down trend - will not continue to monitor unsless symptomatic (3) COPD (chronic obstructive pulmonary disease): Status: Chronic Assessment and plan: Continue outpatient medical therapy and albuterol nebulizer as needed. (4) Hypokalemia: Status: Chronic Assessment and plan: Replete and trend labs. He is chronically on oral potassium supplement with dosing possibly needing increase with increased diuresis. resolved BMP in AM (5) Paroxysmal atrial fibrillation: Status: Chronic Assessment and plan: He has on Pradaxa with PAD. On metoprolol (6) PAD (peripheral artery disease): Status: Chronic Assessment and plan: Continue Pradaxa. (7) Atherosclerosis of [place] coronary artery of [place] heart without angina pectoris: Status: Chronic Assessment and plan: Continue outpatient medical therapy and monitor for exacerbation with elevation in troponins. There is no evidence of ischemia presently. F/u at [facility] [place] (8) Cirrhosis of liver without ascites: Status: Chronic Assessment and plan: no signs and symptoms of w/d. Patient admits to drinking alcohol and does have all signs and symptoms of chronic alcoholic cirrhosis. (9) Pancytopenia: Status: Chronic Assessment and plan: followed by [facility] [place] hematology oncology and possibly associated with alcoholic cirrhosis. (10) Hypertension: Status: Chronic Assessment and plan: Continue outpatient medical therapy adjust PRN (11) Hyperlipidemia: Status: Chronic Assessment and plan: Ongoing outpatient statin therapy. (12) Spinal stenosis at L4-L5 level: Status: Chronic Assessment and plan: PRN tramadol discussed with Dr Rose Subjective Subjective Patient reports: no new complaints, tolerating liquids well and tolerating a regular diet; denies diarrhea, nausea, vomiting, shortness of breath or fever Interval history since last seen: Denies pain, reports tiredness, Exam Narrative Exam Narrative: General: Patient appears older than stated age, moderately obese and in no acute distress. He is comfortable lying in bed. He is hard of hearing. Lungs:CTA with decreased aeration at the bases. No focalizing rales or rhonchi. Heart:S-fib on tele Irregular rhythm positive murmur left lower border. Abdomen: Obese contour, soft and nontender to palpation with no palpable hepatosplenomegaly. Bowel sounds positive in all quadrants. Genitalia/rectal: Exam deferred. Extremities:fair range of motion. Skin: Pale, warm and dry with old bruising over forearms bilaterally. Neuro: no focalized motor deficits and no tremor. Psych: Slightly anxious abouit leaving in AM Objective Last Vital Signs Temp 36.9 C 02/02/25 07:59 Pulse 130 H 02/02/25 07:59 Resp 16 02/02/25 07:59 BP 131/78 02/02/25 07:59 Pulse Ox 98 02/02/25 07:59 Laboratory Results - last 24 hr 02/01/25 02/01/25 02/01/25 18:00 18:30 19:07 WBC 2.68 L RBC 3.23 L Hgb 7.9 L Hct 28.7 L MCV 89 MCH 24.5 L MCHC 27.5 L RDW 20.0 H Plt Count 55 L MPV 11.3 H Immature Gran % 0.4 Neutrophils % 73.9 Lymphocytes % 14.2 Monocytes % 10.4 Eosinophils % 0.7 Basophils % 0.4 Nucleated RBC % 0.0 Absolute Neutrophils 1.98 Absolute Lymphocytes 0.38 L Absolute Monocytes 0.28 Absolute Eosinophils 0.02 Absolute Basophils 0.01 D-Dimer Sodium Cancelled 137 Potassium Cancelled 3.3 L Chloride Cancelled 100 Carbon Dioxide Cancelled 28.4 Anion Gap Cancelled 8.6 BUN Cancelled 14 Creatinine Cancelled 1.2 Est GFR (CKD-EPI 2020) Cancelled 65.06 Glucose Cancelled 99 Calcium Cancelled 8.6 Magnesium Cancelled 1.8 Total Bilirubin Cancelled 0.9 AST Cancelled 57 H ALT Cancelled 25 Alkaline Phosphatase Cancelled 207 H Troponin I Cancelled 136 H* NT-Pro-B Natriuret Pep Cancelled 2231 H Total Protein Cancelled 7.1 Albumin Cancelled 3.1 L TSH Urine Color Urine Clarity Urine pH Ur Specific [place] Urine Protein Urine Ketones Urine Blood Urine Nitrite Urine Bilirubin Urine Urobilinogen Ur Leukocyte Esterase Urine Glucose Urine Opiates Screen Urine Methadone Screen Ur Barbiturates Screen Ur Tricyclics Screen Ur Amphetamines Screen U Benzodiazepines Scrn Urine Cocaine Screen Ur THC Screen COVID-19 Source SARS-CoV-2 (PCR) Influenza Type A (PCR) Influenza Type B (PCR) RSV (PCR) Add-On Test Request DONE 02/01/25 02/01/25 02/01/25 19:29 20:36 23:40 WBC RBC Hgb Hct MCV MCH MCHC RDW Plt Count MPV Immature Gran % Neutrophils % Lymphocytes % Monocytes % Eosinophils % Basophils % Nucleated RBC % Absolute Neutrophils Absolute Lymphocytes Absolute Monocytes Absolute Eosinophils Absolute Basophils D-Dimer 344 Sodium Potassium Chloride Carbon Dioxide Anion Gap BUN Creatinine Est GFR (CKD-EPI 2020) Glucose Calcium Magnesium Total Bilirubin AST ALT Alkaline Phosphatase Troponin I 138 H* 124 H* NT-Pro-B Natriuret Pep Total Protein Albumin TSH Urine Color Urine Clarity Urine pH Ur Specific [place] Urine Protein Urine Ketones Urine Blood Urine Nitrite Urine Bilirubin Urine Urobilinogen Ur Leukocyte Esterase Urine Glucose Urine Opiates Screen Urine Methadone Screen Ur Barbiturates Screen Ur Tricyclics Screen Ur Amphetamines Screen U Benzodiazepines Scrn Urine Cocaine Screen Ur THC Screen COVID-19 Source SARS-CoV-2 (PCR) Influenza Type A (PCR) Influenza Type B (PCR) RSV (PCR) Add-On Test Request 02/02/25 02/02/25 02/02/25 00:48 01:06 06:25 WBC 2.61 L RBC 2.94 L Hgb 7.6 L Hct 25.6 L MCV 87 MCH 25.9 L MCHC 29.7 L D RDW 20.3 H Plt Count 54 L MPV 9.2 Immature Gran % Neutrophils % Lymphocytes % Monocytes % Eosinophils % Basophils % Nucleated RBC % Absolute Neutrophils Absolute Lymphocytes Absolute Monocytes Absolute Eosinophils Absolute Basophils D-Dimer Sodium 138 Potassium 3.8 Chloride 103 Carbon Dioxide 29.5 Anion Gap 5.5 BUN 15 Creatinine 1.1 Est GFR (CKD-EPI 2020) 72.22 Glucose 105 Calcium 8.9 Magnesium 1.8 Total Bilirubin 1.2 H AST 41 H ALT 22 Alkaline Phosphatase 186 H Troponin I 93 H* NT-Pro-B Natriuret Pep Total Protein 6.6 Albumin 3.0 L TSH 2.22 Urine Color Yellow Urine Clarity Clear Urine pH 7.0 Ur Specific [place] 1.020 Urine Protein Negative Urine Ketones Negative Urine Blood Negative Urine Nitrite Negative Urine Bilirubin Negative Urine Urobilinogen 0.2 Ur Leukocyte Esterase Negative Urine Glucose 100 H Urine Opiates Screen Negative Urine Methadone Screen Negative Ur Barbiturates Screen Negative Ur Tricyclics Screen Negative Ur Amphetamines Screen Negative U Benzodiazepines Scrn Negative Urine Cocaine Screen Negative Ur THC Screen Negative COVID-19 Source Nasopharynx SARS-CoV-2 (PCR) Negative Influenza Type A (PCR) Negative Influenza Type B (PCR) Negative RSV (PCR) Negative Add-On Test Request Time Spent with Patient Time Spent with Patient: >50 minutes Time was spent: preparing to see the patient(eg.review tests), obtaining and/or reviewing separately otained hiistory, ordering medications,tests, procedures, referring, communicating with other health child caregiver private home, indepentently interpreting results, counseling the patient and care coordination
[2025-02-02] MEDS: Budesonide/Formoterol 80/4.5 6.9 GM 60 PUFF INH IH ×2 (10:03→19:14)
[2025-02-02] MEDS: Tiotropium Bromide-Respimat 10 PUFF INH 2 PUFF IH (10:03)
--- NOTE | 2025-02-02 13:07 | PDOC.CMIN ---
Date of service: 02/02/25 Time of Service: 13:07 Care Management Initial Assmt Initial Assessment Reason for Hospitalization: CHF, elevated troponin Functional Status/Living Situation Patient Presentation: Long was lying in bed when CM met with him. He stated that his just left and he was planning on taking a nap. He was pleasant and was happy to talk for a short while before his nap. He stated that he is frustrated because he wants to discharge home, and per provider, he is not yet medically cleared to do so. He reported that he is receiving IV lasix, which he recognized would not be able to be administered at home. 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 He stated that he is independent at baseline, and does not anticipate the need for any community services/support upon discharge. CM will continue to follow. Town of Residence: [place] Resides with: Spouse (, Jose ) Significant Other/Family: Local Natural Supports: 2 children, 3 grandchildren Employment Status: Employed ([employer] and own [employer]) Instrumental Activities of Daily Living (ADLs): Independent Medications Medication Management: No Issues/Barriers identified Advance Directives Advance Directives: Do you have an Advance Directive: AD On File at [facility]: N 12/01/12 08:27 Date Asked 12/05/24 12/05/24 18:49 AD Date Reviewed COLST On File at [facility] COLST Date Scanned Code Status Resuscitation Status Full Code Insurance Coverage/Financial Issues Insurance: Health Plans ([facility]) Care Team Visit Care Team Role Provider Type Aye Lopez APRN MD [facility] STAFF PHYSICIAN Gladys Jonas APRN Primary Care Provider NURSE PRACTITIONER Marcia Obrien MD Emergency Provider [facility] STAFF PHYSICIAN Gian Stanley Admit Provider NON-[facility] STAFF PHYSICIAN Attending Provider Discharge Potential Discharge Needs: PCP F/U Appt Anticipated Barriers to Discharge: None Identified Patient/Family Education Needs: Review discharge instructions, discuss Ask Me Three Transportation: Private vehicle Plan: Anticipate Long will return home once medically cleared. His , Jose, will drive him home via private vehicle. He will follow up with his PCP and discharge plan of care. CM will continue to follow. Social Determinants of Health Screening Social Determinants of health last assessed in clinic: 02/02/25 Will the Patient Participate in the Screening?: Yes Do you worry about having a steady place to live?: no Problems where you live: no known problems In the past 12 months, have you had to go without electric, gas, oil or water in your home?: no 1. Within the past 12 months, we worried whether our food would run out before we got money to buy more.: Never true 2. Within the past 12 months, the food we bought just didn't last and we didn't have money to get more.: Never true Has lack of transportation kept you from medical appointments or from doing things needed for daily living?: no Has anyone in your life made you feel unsafe or unsupported?: no How hard is it for you to pay for the very basics like food, housing, medical care, and heating? Would you say it is:: Not hard at all Do you want help finding or keeping work or a job?: I do not need or want help If for any reason you need help with day-to-day activities such as bathing, preparing meals, shopping, managing finances, etc., do you get the help you need?: I don?t need any help How often do you feel lonely or isolated from those around you?: Never Do you speak a language other than [place]an at home?: No Does the patient want assistance with any of the above?: No PFSH All Active Problems (Updated 02/02/25 @ 02:54 by Gian Stanley) Hypokalemia (Chronic) Elevated troponin level not due to acute coronary syndrome (Acute) Pancytopenia (Chronic) CHF (congestive heart failure) (Chronic) Esophageal candidiasis (Acute) Medication management (Acute) Hemorrhoids (Acute ~11/2024) EGD at [facility] internal and external possible sm rectal varices Diverticulosis of colon (Acute ~11/2024) [facility] Colonoscopy sigmoid and 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 (Acute ~11/2024) [facility] Stage C0-M2 per Hammond criteria Portal hypertensive gastropathy (Acute ~11/2024) Esophageal varices determined by endoscopy (Chronic ~11/2024) Grade 1, Type 2 gastroesophageal varices Paroxysmal atrial fibrillation (Chronic) Non-ST elevation [place] (NSTEMI) (Acute) Sleep difficulties (Acute) Knee pain, left (Acute) Insomnia (Acute) Lumbar radiculitis (Acute) Spinal stenosis, lumbar region with neurogenic claudication (Acute ~07/30/24) [facility] Ctr Pain/Spine-note from 07/30/24.HE Acute HFrEF (heart failure with reduced ejection fraction) (Acute ~07/26/24) [facility] Cardiology note from 07/26/24 visit.HE Bilateral carotid artery occlusion (Acute ~07/17/24) [facility] Vascular Surg. note from 07/17/24.HE Abnormal involuntary movements (Acute) Disability affecting daily living (Acute) Lumbosacral stenosis with neurogenic claudication (Acute) per [facility] tele consult & 06/05/24 MRI Radiculopathy due to disorder of intervertebral disc of lumbar spine (Acute) Pancytopenia (Chronic) 02/17/24 f/u Hem/Onc At risk for stroke (Acute) New AFib: CHAD2 12/16.. [id number] 02/18 .. so, med-high risk (9.7% stroke risk; 13.6% TIA risk).. Thrombocytopenia (Chronic) Acute, with Hx chronic ITP .. new pathology? or active ITP? or hepatic dz? Atherosclerosis of [place] coronary artery of [place] heart without angina pectoris (Chronic 10/24/09) stent 2009; re-occluded stented 11/2015 along with second site Cx.; dual platelet rx until 12/2016-06/2018; Dr. Mcnulty; [facility] 07/30/16 neg for ischemia, EF 51% (< AFTER 2021 stenting?) Cirrhosis of liver without ascites (Chronic) Heart failure with reduced ejection fraction (Chronic) EF 33% (11/11/23) .. EF 51% post-cath (01/2022) EF 33% (12/2021) Impaired quality of life (Acute) Femoro-popliteal artery disease (Acute) Atherosclerosis of lower extremity with claudication (Acute) PAD (peripheral artery disease) (Chronic) Rt LE, per MEET, [facility] (03/18/23) Carotid artery occlusion (Acute 04/12/07) bilateral; L PARIETAL CVA Claudication of calf muscles (Acute) Worsening, 10/2023, affecting ADLs and ability to work! Rt Calf, resolves w/in minutes of rest Other specified nonscarring hair loss (Acute) LE, b/l (no problem, but notable to pt who is wondering) .. 2' PAD? ik, 03/2023 [ ] MEET Pulmonary fibrosis (Chronic) Emphysema lung (Acute) Restrictive lung disease (Acute) Chronic ITP (idiopathic thrombocytopenia) (Chronic 07/25/17) Per rvw of Heme consult of 07/2019: RTC if pltlts<70,000, 12/17/23, ik...Heme consult Dr. Nolen 07/2017, likely slowly progressive chronic going back to 2006; re-consult if drops below 50,000 Hypertension (Chronic 12/11/00) avoid hypotension due to cerebral vascular disease; cardilogy: Dr Camara; goal 130-140 systolic, sens to thiazide Hyperlipidemia (Chronic 11/10/02) goal LDL 70 or best able Sensorineural hearing loss, bilateral (Chronic 06/24/14) R hearing aid 07/2014 Splenomegaly (Chronic 08/02/17) 14 cm on US 06/2017; ? due to chronic ITP Cervical radiculitis (Chronic) Osteoarthritis of lower back (Acute 12/11/01) Macrocytic anemia (Acute) Chronic low back pain (Chronic) Acute episodes, . Mild DJD on LS film 04/2014; Hx daily Aleve. Hepatic steatosis (Chronic) Abdominal US in 2016 COPD (chronic obstructive pulmonary disease) (Chronic) NEG COPD per pt rpt s/p Pulm OV, 03/2023. Per CT (2016), Hx smoking. Anemia (Chronic) Low HGB. Hx Macrocytic anemia, B12 WNL ().. [ ] iron suppl, po review Compression fracture of L2 lumbar vertebra (Acute) per MRI (03/08/22), w/ acute/subacute signal. Fx lines extend towards pedicles..20% ht loss..intraosseous edema.. Spinal stenosis at L4-L5 level (Chronic) per MRI (03/08/22). .. moderate ctl canal stenosis .. disc protrusion caudally, 5mm behind L5.. MRI LSpine 04/2022 no nerve compressin or central stenosis Sacroiliac joint dysfunction of left side (Acute) Hyponatremia (Chronic) CHRONIC? Asymptomatic, 08/05/22 Lung nodule seen on imaging study (Acute) Per 10/19/22 CTA: Neg PE. (+) pleural base nodule, RML, 4mm.. & sessile pleural plaque (RUL) measuring 1 cm x 0.3 cm. Pleuritic chest pain (Acute) Pleural plaque (Acute) Medical History Palliative care encounter Cirrhosis Congestive heart failure Anemia Community acquired pneumonia Liver dysfunction Chronic kidney disease Right upper lobe pulmonary infiltrate Thrombocytopenia Anemia Diarrhea Daily x months, managed with OTC (loperamide?) Weight gain 15 lbs per chart, no diet change per pt Muscle spasm Acute ... improves with PT, but re-spasms .. Need rest, anti-inflamm then abd/core mm strengthening. Possible PSOAS (?) Skin tag of perianal region (~11/2024) Atrial fibrillation, new onset Asymptomatic, just took medications.. some improvement in HR while resting [allowing meds to act? ik) in exam room, 12/23/23. Hx of atherosclerotic cardiovascular disease Stents Patent per Cath, 02/2022 (Dr. Camara, [facility]). Stents placed, 2009 .. re-occluded, stented 11/2015 along with second site Cx.; dual platelet Rx 12/2016-06/2018; Dr. Mcnulty; [facility] 07/30/16 neg for ischemia, EF 51% Absent breath sounds on left side of chest much lower than rt base .. seems new.. Hx of arterial ischemic stroke 2006, cerebral infarction Hemoptysis COVID-30 March 2022, home test Tenderness of back Prominent mm; lft paraspinal tenderness (L2-L4), rad into left buttock Left buttock pain Helped focus on SI Joint vs lower bk. Feeling great, 09/2022. Left-sided back pain Acute on chronic .. barely walking, tenderness out of proportion .. 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 Cerebral artery occlusion with cerebral infarction (01/13/07) Convulsions (01/25/08) Pt. denies Abnormal findings on diagnostic imaging of lung (11/25/06) Old notes, CXR since then show cardiomegaly, possible atelectasis or scarring.. nothing acute. Carpal tunnel syndrome (07/05/11) Headache (08/01/09) Sudden hearing loss (12/15/12) assoc with CVA?? 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 Camara [facility] Coronary Stent (12/11/15) LAD POBA for in-stent restenosis, November 2015 AND left circumflex 3-mm drug-eluting stent, November 2015, Dr Camara Appendectomy 2006 Family History Father , Pneumonia at age 68. Tobacco use disorder Pneumonia Other Heart disease Stroke Social History Smoking/Tobacco Use Status: Former Tobacco Use Quit Date: 09/12/02 Tobacco: How many years used: 15 Second Hand Exposure: Yes Smoking risk assessment performed?: Yes Alcohol Intake: current Alcohol Intake frequency: 0-2 drinks per day Alcohol type: hard liquor Drug use: Never Substance use type: does not use Adopted: No Foster care: No Household members: spouse and family Housing: house Number of Children: 2 number of grandchildren: 3 Communication Needs: Hard of Hearing and Corrective Lenses Education Level: high school Do you need help understanding health information?: Never current occupation: [employer] Pets and animals: No Do you think of yourself as: straight/heterosexual Current gender identity: male What is your relationship status?: How often do you get together with friends or relatives?: once per week Panel score (0-1 are the most socially isolated patients): 1 What type of physical activity do you participate in: other Details: active lifestyle- Duration: 15-30 minutes/day Frequency: daily Shannan/Christianity: Jainism Seatbelt use: sometimes Drive intox or ride w/intox putaway driver: No Do you feel safe at home: Yes Do you feel safe in your relationship?: Yes Additional Social history: 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 works at [employer].
[2025-02-03 03:00] VITALS: BP 88/52; PULSE 116; RESP 18; TEMP 36.8; O2SAT 92
[2025-02-03 04:04] VITALS: BP 110/66; PULSE 112
[2025-02-03] MEDS: Metoprolol 25 MG TAB PO ×2 (04:12→11:22)
[2025-02-03 06:35] LABS: HCT 26.8 % (40.0-50.0); HGB 7.6 g/dL (13.5-17.5); MCH 25.1 pg (27.0-33.0); MCHC 28.4 % (32.0-36.0); MCV 88 fL (80-95); MPV 11.3 fL (8.0-11.0); RBC 3.03 10^6/uL (4.36-5.78)
[2025-02-03 06:58] LABS: ALT 19 U/L (16-63); AST 47 U/L (15-37); Alkaline Phosphatase 201 U/L (46-116); Anion Gap 8.3 mmol/L (3-11); BUN 17 mg/dL (7-18); Bilirubin, Total 1.3 mg/dL (0.2-1.0); CO2 29.7 mmol/L (21.0-32.0); CREATININE 1.2 mg/dL (0.70-1.30); Calcium 8.9 mg/dL (8.5-10.1); Chloride 100 mmol/L (98-107); Estimated GFR 65.06 (mL/min/1.73m2); Glucose 104 mg/dL (74-106); Magnesium 1.8 mg/dL (1.8-2.4); Potassium 3.8 mmol/L (3.5-5.1); Sodium 138 mmol/L (136-145); Total Protein 6.7 g/dL (6.4-8.2)
[2025-02-03 07:17] LABS: Platelet Count 49 10^3/uL (130-400); RDW 20.3 % (11.8-14.1)
[2025-02-03 07:51] VITALS: BP 135/84; PULSE 102; RESP 18; TEMP 36.3; O2SAT 100
[2025-02-03] MEDS: Furosemide 40 MG/4 ML VIAL IVP (07:56)
[2025-02-03] MEDS: Normal Saline Flush 10 ML SYR IVP (07:56)
[2025-02-03] MEDS: Potassium Chloride 20 MEQ TABCR PO (07:57)
[2025-02-03] MEDS: Gabapentin 100 MG CAP 200 MG PO (07:57)
[2025-02-03] MEDS: Calcium 600mg/Vit D 200U TAB 1 TAB PO (07:57)
[2025-02-03] MEDS: Pantoprazole 40 MG TABCR PO (07:58)
[2025-02-03] MEDS: Aspirin 81 MG CHEW PO (07:58)
[2025-02-03] MEDS: Empaglifozin 10 MG TAB PO (07:58)
[2025-02-03] MEDS: Rosuvastatin 20 MG TAB PO (07:58)
[2025-02-03] MEDS: Tiotropium Bromide-Respimat 10 PUFF INH 2 PUFF IH (07:59)
[2025-02-03] MEDS: Budesonide/Formoterol 80/4.5 6.9 GM 60 PUFF INH IH (08:00)
--- NOTE | 2025-02-03 10:56 | DSE_ITS ---
Date of service: 02/03/25 Time of Service: 10:56 DS: Diagnosis Discharge Diagnosis (1) Acute HFrEF (heart failure with reduced ejection fraction): Status: Acute (2) Elevated troponin level not due to acute coronary syndrome: Status: Acute (3) COPD (chronic obstructive pulmonary disease): Status: Chronic (4) Hypokalemia: Status: Chronic (5) Paroxysmal atrial fibrillation: Status: Chronic (6) PAD (peripheral artery disease): Status: Chronic (7) Atherosclerosis of douglas coronary artery of douglas heart without angina pectoris: Status: Chronic (8) Cirrhosis of liver without ascites: Status: Chronic (9) Pancytopenia: Status: Chronic (10) Hypertension: Status: Chronic (11) Hyperlipidemia: Status: Chronic (12) Spinal stenosis at L4-L5 level: Status: Chronic Discharge Plan Disposition Patient Disposition: Home Condition: Improving Discharge Details Reason For Visit: CHF exacerbation, Elevated troponin Admit Date/Time: 02/02/25 00:02 Admit Provider: Gian Stanley Attending Provider: Gian Stanley Primary Care Provider: Gladys Jonas Hospital Course Hospital Course: This 69-year-old male patient with past medical history of HFrEF with LVEF 35 to 40% with some of the GDMT recommended medicines, CKD, hypertension, discussion between the ED provider and [facility] cardiology anemia, thrombocytopenia, pulmonary fibrosis, COPD, neuropathy, atrial fibrillation on Pradaxa and metoprolol presented to the ED on 02/01/2025 via EMS for evaluation of increased shortness of breath and new hypoxia status post IV iron infusion. Hypoxia resolved with administration of oxygen at 2 L via nasal cannula. Workup in the ED was concerning for CHF exacerbation with increased troponin levels. EKG showed atrial fibrillation with rapid ventricular response wit discussion between the ED provider and [facility] cardiology completed without recommendations for heparinization in the unlikely wound on non-STEMI; no concern for fluid overload in the setting of stable second troponin level. The patient was treated with IV Lasix and admitted to the medical surgical floor for further evaluation management of CHF exacerbation and troponin trend. The patient continued to receive IV Lasix, hypoxic respiratory failure resolved with the patient ambulating at baseline without shortness of breath. The patient insisting on being discharged this morning. The patient is hemodynamically stable and will be discharged home on an increased dose of torsemide and outpatient blood work on Tuesday prior to his appointment with his PCP. This afternoon at 1600 take torsemide 20 mg orally, tomorrow morning take torsemide 40 mg orally and tomorrow afternoon around 1600 take torsemide 20 mg orally. On subsequent days continue to take torsemide 40 mg orally every morning. Discussed with Dr. Rose on Home Meds and New Rx's Prescriptions: Continued potassium chloride [Klor-Con M20] 20 mEq tablet,ER particles/crystals 20 meq PO DAILY Qty: 90 3RF Combivent Respimat 20-100 mcg/actuation mist 1 puff inhalation Q6H PRN (Reason: chest congestion; cold symptoms) Qty: 4 6RF Rx Instructions: Trial in the morning (with spacer) to help clear phlegm gabapentin 100 mg capsule 200 mg PO TID Qty: 180 2RF rosuvastatin 20 mg tablet 20 mg PO DAILY Qty: 90 3RF Trelegy Ellipta 100-62.5-25 mcg blister with device 1 inh inhalation DAILY Qty: 60 11RF pantoprazole [Protonix] 40 mg tablet,delayed release (DR/EC) 40 mg PO QAM Qty: 90 3RF Rx Instructions: take alone on empty stomach Jardiance 10 mg tablet 10 mg PO QAM Qty: 90 3RF dabigatran etexilate [Pradaxa] 150 mg capsule 150 mg PO BID Qty: 60 3RF nitroglycerin 0.4 mg tablet, sublingual 0.4 mg Sublingual PRN Qty: 25 3RF Rx Instructions: for chest pain. trazodone 50 mg tablet 50 mg PO QHS PRN (Reason: sleep) Qty: 30 3RF acetaminophen 325 mg Tablet 650 mg PO Q4H PRN PRN (Reason: fever or pain) Qty: 0 0RF Rx Instructions: max dose 2000mg per day calcium carbonate-vitamin D3 [Calcium 500 With D] 500 mg-10 mcg (400 unit) tablet 1 tab PO BID Qty: 60 3RF metoprolol succinate 100 mg tablet extended release 24 hr 100 mg PO DAILY Qty: 90 0RF sildenafil 50 mg tablet 50 mg PO PRN PRN Patient Comments: TAKE ONE TABLET BY MOUTH NEEDED FOR SEXUAL ACTIVITY tramadol 50 mg tablet 50 mg PO QHS PRN Patient Comments: TAKE ONE TABLET BY MOUTH EVERY DAY NEEDED FOR SEVERE FOR BACK pain OR claudication pain. aspirin 81 mg tablet 81 mg PO DAILY B-complex with vitamin C [Super B/C] Capsule 1 cap PO DAILY Changed torsemide 20 mg tablet 40 mg PO DAILY Qty: 90 3RF Discharge Instructions Referrals: Nito Morton MD [ [facility] STAFF PHYSICIAN] - (F/U with your PCP as planned on Tuesday at 10:30) Activity:: Activity as Tolerated Equipment/Supplies:: No Equipment Needed Diet:: heart healthy Discharge Orders Other Ambulatory Orders: Basic Metabolic Panel (Routine) Timeframe: [id number] Facility: [facility] - Location: Laboratory Outpatient - [facility] Ordered By: Aye Lopez Magnesium (Routine) Timeframe: [id number] Facility: [facility] - Location: Laboratory Outpatient - [facility] Ordered By: Aye Lopez DS: Summary Time Spent with Patient providing and/or coordinating discharge services: Greater than 30 minutes Status at Discharge Functional status at discharge: independent ambulation Overall status at discharge: patient is progressing back to baseline Mental Status: mental status grossly normal Speech and Movement: speech and movement normal Mood: congruent mood Affect: normal affect Quality:SDOH Health Related Social Needs: No Data to Display Exam Narrative Exam Narrative: General: Patient appears older than stated age, no acute distress non-focal and independently ambulatory , slightly elated mood/ normal affect Lungs:Clear lungs Heart:A-fib on telemetry -HR 102 Irregular rhythm no murmur, improved pitting edema to LE's Abdomen: Obese contour, soft and nontender to palpation Skin: Pale, warm and dry with old bruising over forearms bilaterally. Psych Mental Status: mental status grossly normal Speech and Movement: speech and movement normal Mood: congruent mood Affect: normal affect DS: Data Vitals/I&O Vitals and I&O: Vital Signs Temperature 36.3 C L 02/03/25 07:51 Temperature Source Temporal Artery Scan 02/03/25 07:51 Pulse 102 H 02/03/25 07:51 Pulse Rhythm Irregular 02/02/25 01:31 Respiratory Rate 18 02/03/25 07:51 Respiratory Effort Normal 02/02/25 01:31 Respiratory Depth Normal 02/02/25 01:31 Respiratory Pattern Normal 02/02/25 01:31 Blood Pressure 135/84 02/03/25 07:51 Blood Pressure Mean 101 02/03/25 07:51 Blood Pressure Position Sitting 02/01/25 17:01 Pulse Oximetry 100 02/03/25 07:51 Oxygen Delivery Method Room Air 02/03/25 07:51 Oxygen Flow Rate 0 02/03/25 07:51 Pain Level 0 02/03/25 07:51 Comment BP recheck 02/03/25 04:04 Intake & Output 02/02/25 02/02/25 02/03/25 11:59 23:59 11:59 Intake Total 100 / 100 Output Total 850 / 1450 600 / 1450 850 / 850 Balance -750 / -1350 -600 / -1350 -850 / -850 Weight 98.157 kg 96.1 kg Intake: IV 100 / 100 Output: Urine 850 / 1450 600 / 1450 850 / 850 Other: Urine Color Yellow Yellow Yellow Urine Appearance Clear Clear Clear Urine Odor None Normal Comment pt voided very little, unmeasurable Stool Size Moderate Stool Characteristics Soft Formed Data Completed and Pending Labs on day of discharge: Labs from last 24 hours 02/03/25 06:25 WBC 2.80 L RBC 3.03 L Hgb 7.6 L Hct 26.8 L MCV 88 MCH 25.1 L MCHC 28.4 L RDW 20.3 H Plt Count 49 L MPV 11.3 H Sodium 138 Potassium 3.8 Chloride 100 Carbon Dioxide 29.7 Anion Gap 8.3 BUN 17 Creatinine 1.2 Est GFR (CKD-EPI 2020) 65.06 Glucose 104 Calcium 8.9 Magnesium 1.8 Total Bilirubin 1.3 H AST 47 H ALT 19 Alkaline Phosphatase 201 H Total Protein 6.7 Albumin 3.0 L PFSH All Active Problems (Updated 02/03/25 @ 10:47 by Aye Lopez APRN) Hypokalemia (Chronic) Elevated troponin level not due to acute coronary syndrome (Acute) Pancytopenia (Chronic) CHF (congestive heart failure) (Chronic) Esophageal candidiasis (Acute) Medication management (Acute) Hemorrhoids (Acute ~11/2024) EGD at [facility] internal and external possible sm rectal varices Diverticulosis of colon (Acute ~11/2024) [facility] Colonoscopy sigmoid and 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 (Acute ~11/2024) [facility] Stage C0-M2 per Braman criteria Portal hypertensive gastropathy (Acute ~11/2024) Esophageal varices determined by endoscopy (Chronic ~11/2024) Grade 1, Type 2 gastroesophageal varices Paroxysmal atrial fibrillation (Chronic) Non-ST elevation W[place] (NSTEMI) (Acute) Sleep difficulties (Acute) Knee pain, left (Acute) Insomnia (Acute) Lumbar radiculitis (Acute) Spinal stenosis, lumbar region with neurogenic claudication (Acute ~07/30/24) [facility] Ctr Pain/Spine-note from 07/30/24.HE Acute HFrEF (heart failure with reduced ejection fraction) (Acute ~07/26/24) [facility] Cardiology note from 07/26/24 visit.HE Bilateral carotid artery occlusion (Acute ~07/17/24) [facility] Vascular Surg. note from 07/17/24.HE Abnormal involuntary movements (Acute) Disability affecting daily living (Acute) Lumbosacral stenosis with neurogenic claudication (Acute) per [facility] tele consult & 06/05/24 MRI Radiculopathy due to disorder of intervertebral disc of lumbar spine (Acute) Pancytopenia (Chronic) 02/17/24 f/u Hem/Onc At risk for stroke (Acute) New AFib: CHAD2 12/16.. [id number] 02/18 .. so, med-high risk (9.7% stroke risk; 13.6% TIA risk).. Thrombocytopenia (Chronic) Acute, with Hx chronic ITP .. new pathology? or active ITP? or hepatic dz? Atherosclerosis of douglas coronary artery of douglas heart without angina pectoris (Chronic 10/24/09) stent 2009; re-occluded stented 11/2015 along with second site Cx.; dual platelet rx until 12/2016-06/2018; Dr. Mcnulty; [facility] 07/30/16 neg for ischemia, EF 51% (< AFTER 2021 stenting?) Cirrhosis of liver without ascites (Chronic) Heart failure with reduced ejection fraction (Chronic) EF 33% (11/11/23) .. EF 51% post-cath (01/2022) EF 33% (12/2021) Impaired quality of life (Acute) Femoro-popliteal artery disease (Acute) Atherosclerosis of lower extremity with claudication (Acute) PAD (peripheral artery disease) (Chronic) Rt LE, per MEET, [facility] (03/18/23) Carotid artery occlusion (Acute 04/12/07) bilateral; L PARIETAL CVA Claudication of calf muscles (Acute) Worsening, 10/2023, affecting ADLs and ability to work! Rt Calf, resolves w/in minutes of rest Other specified nonscarring hair loss (Acute) LE, b/l (no problem, but notable to pt who is wondering) .. 2' PAD? ik, 03/2023 [ ] MEET Pulmonary fibrosis (Chronic) Emphysema lung (Acute) Restrictive lung disease (Acute) Chronic ITP (idiopathic thrombocytopenia) (Chronic 07/25/17) Per rvw of Heme consult of 07/2019: RTC if pltlts<70,000, 12/17/23, ik...Heme consult Dr. Nolen 07/2017, likely slowly progressive chronic going back to 2006; re-consult if drops below 50,000 Hypertension (Chronic 12/11/00) avoid hypotension due to cerebral vascular disease; cardilogy: Dr Camara; goal 130-140 systolic, sens to thiazide Hyperlipidemia (Chronic 11/10/02) goal LDL 70 or best able Sensorineural hearing loss, bilateral (Chronic 06/24/14) R hearing aid 07/2014 Splenomegaly (Chronic 08/02/17) 14 cm on US 06/2017; ? due to chronic ITP Cervical radiculitis (Chronic) Osteoarthritis of lower back (Acute 12/11/01) Macrocytic anemia (Acute) Chronic low back pain (Chronic) Acute episodes, . Mild DJD on LS film 04/2014; Hx daily Aleve. Hepatic steatosis (Chronic) Abdominal US in 2016 COPD (chronic obstructive pulmonary disease) (Chronic) NEG COPD per pt rpt s/p Pulm OV, 03/2023. Per CT (2016), Hx smoking. Anemia (Chronic) Low HGB. Hx Macrocytic anemia, B12 WNL ().. [ ] iron suppl, po review Compression fracture of L2 lumbar vertebra (Acute) per MRI (03/08/22), w/ acute/subacute signal. Fx lines extend towards pedicles..20% ht loss..intraosseous edema.. Spinal stenosis at L4-L5 level (Chronic) per MRI (03/08/22). .. moderate ctl canal stenosis .. disc protrusion caudally, 5mm behind L5.. MRI LSpine 04/2022 no nerve compressin or central stenosis Sacroiliac joint dysfunction of left side (Acute) Hyponatremia (Chronic) CHRONIC? Asymptomatic, 08/05/22 Lung nodule seen on imaging study (Acute) Per 10/19/22 CTA: Neg PE. (+) pleural base nodule, RML, 4mm.. & sessile pleural plaque (RUL) measuring 1 cm x 0.3 cm. Pleuritic chest pain (Acute) Pleural plaque (Acute) Medical History Palliative care encounter Cirrhosis Congestive heart failure Anemia Community acquired pneumonia Liver dysfunction Chronic kidney disease Right upper lobe pulmonary infiltrate Thrombocytopenia Anemia Diarrhea Daily x months, managed with OTC (loperamide?) Weight gain 15 lbs per chart, no diet change per pt Muscle spasm Acute ... improves with PT, but re-spasms .. Need rest, anti-inflamm then abd/core mm strengthening. Possible PSOAS (?) Skin tag of perianal region (~11/2024) Atrial fibrillation, new onset Asymptomatic, just took medications.. some improvement in HR while resting [allowing meds to act? ik) in exam room, 12/23/23. Hx of atherosclerotic cardiovascular disease Stents Patent per Cath, 02/2022 (Dr. Camara, [facility]). Stents placed, 2009 .. re- occluded, stented 11/2015 along with second site Cx.; dual platelet Rx 12/2016-06/2018; Dr. Mcnulty; [facility] 07/30/16 neg for ischemia, EF 51% Absent breath sounds on left side of chest much lower than rt base .. seems new.. Hx of arterial ischemic stroke 2006, cerebral infarction Hemoptysis COVID-30 March 2022, home test Tenderness of back Prominent mm; lft paraspinal tenderness (L2-L4), rad into left buttock Left buttock pain Helped focus on SI Joint vs lower bk. Feeling great, 09/2022. Left-sided back pain Acute on chronic .. barely walking, tenderness out of proportion .. Carcinoma in situ, unspecified 11/28/2019 [facility] Derm: squamous cell left forearm with biopsy and destroyed by curettage and electrodesiccation. Cerebral artery occlusion with cerebral infarction (01/13/07) Convulsions (01/25/08) Pt. denies Abnormal findings on diagnostic imaging of lung (11/25/06) Old notes, CXR since then show cardiomegaly, possible atelectasis or sca rring.. nothing acute. Carpal tunnel syndrome (07/05/11) Headache (08/01/09) Sudden hearing loss (12/15/12) assoc with CVA?? History of tobacco use (10/12/11) quit over 25 yrs ago, 09/2022 Vertigo (05/09/17) ER 05/09/17: CT neg, MRI old cva, good flow Alexander of [place]; rx Meclizine 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) Anxiety disorder, unspecified (03/22/17) Erectile dysfunction Surgical History History of colonoscopy (11/27/24) [facility], no specimens History of esophagogastroduodenoscopy (EGD) (11/27/24) [facility] esophageal plaques suspicious for candidiasis History of biopsy Biopsy at [facility] in 2019 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 Camara [facility] Coronary Stent (12/11/15) LAD POBA for in-stent restenosis, November 2015 AND left circumflex 3-mm drug-eluting stent, November 2015, Dr Camara Appendectomy 2006 Family History Father , Pneumonia at age 68. Tobacco use disorder Pneumonia Other Heart disease Stroke Social History Smoking/Tobacco Use Status: Former Tobacco Use Quit Date: 09/12/02 Tobacco: How many years used: 15 Second Hand Exposure: Yes Smoking risk assessment performed?: Yes Alcohol Intake: current Alcohol Intake frequency: 0-2 drinks per day Alcohol type: hard liquor Drug use: Never Substance use type: does not use Adopted: No Foster care: No Household members: spouse and family Housing: house Number of Children: 2 number of grandchildren: 3 Communication Needs: Hard of Hearing and Corrective Lenses Education Level: high school Do you need help understanding health information?: Never current occupation: [employer] Pets and animals: No Do you think of yourself as: straight/heterosexual Current gender identity: male What is your relationship status?: How often do you get together with friends or relatives?: once per week Panel score (0-1 are the most socially isolated patients): 1 What type of physical activity do you participate in: other Details: active lifestyle- Duration: 15-30 minutes/day Frequency: daily Shannan/Taoist: Congregational Seatbelt use: sometimes Drive intox or ride w/intox after school driver: No Do you feel safe at home: Yes Do you feel safe in your relationship?: Yes Additional Social history: 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 works at [employer]. Time Spent with Patient Time Spent with Patient: 70-84 minutes4 Time was spent: preparing to see the patient(eg.review tests), obtaining and/or reviewing separately otained hiistory, ordering medications,tests, procedures, referring, communicating with other health medicare interviewer, indepentently interpreting results, counseling the patient and care coordination
[2025-02-03 11:22] VITALS: BP 125/78; PULSE 120
--- NOTE | 2025-02-03 17:38 | PDOC.CMDIS ---
Date of service: 02/03/25 Time of Service: 17:38 LACE Index Scoring Tool Questions: Length of Stay (in days): 1 Was the patient admitted via the E.D.?: Yes Comorbidities: Previous M.I., Congestive Heart Failure, Chronic Pulmonary Disease and Liver or Renal Disease E.D. Visits: 4 Answers: Total Score: 13 Risk of Readmission: High Risk Care Management Discharge Plan Reason for Hospitalization: CHF exacerbation, elevated troponin Discharge Plan: Long returned home today with no new services. His drove him home via private vehicle. He will follow up with his PCP and discharge plan of care. He was happy to be going home. Patient/Family Education Needs: Review discharge instructions and limitations, discussion of self care needs including ask me three. SDOH Health Related Social Needs: No Data to Display
== END 2025-02-03 11:47 | disposition home or self-care (01) | DRG 291 ==
LOC: ER 02-02 00:31 → MS 02-02 01:13
PROVIDERS: Admitting Provider Family Medicine; Emergency Provider Emergency Medicine; PCP Nurse Practitioner Family; Responsible Provider Nurse Practitioner Acute Care; Visit Provider Family Medicine
DX: I13.0 Hypertensive heart and chronic kidney disease with heart failure and stage 1 through stage 4 chronic kidney disease, or unspecified chronic kidney disease (principal); I50.23 Acute on chronic systolic (congestive) heart failure; D61.818 Other pancytopenia; K76.6 Portal hypertension; I85.10 Secondary esophageal varices without bleeding; I48.0 Paroxysmal atrial fibrillation; E87.6 Hypokalemia; I73.9 Peripheral vascular disease, unspecified; I25.10 Atherosclerotic heart disease of native coronary artery without angina pectoris; M48.061 Spinal stenosis, lumbar region without neurogenic claudication; N18.9 Chronic kidney disease, unspecified; J44.9 Chronic obstructive pulmonary disease, unspecified; J84.10 Pulmonary fibrosis, unspecified; R09.02 Hypoxemia; K22.70 Barrett's esophagus without dysplasia; K57.30 Diverticulosis of large intestine without perforation or abscess without bleeding; K31.89 Other diseases of stomach and duodenum; I25.2 Old myocardial infarction; G47.00 Insomnia, unspecified; M48.062 Spinal stenosis, lumbar region with neurogenic claudication; M54.16 Radiculopathy, lumbar region; I65.23 Occlusion and stenosis of bilateral carotid arteries; R16.1 Splenomegaly, not elsewhere classified; D53.9 Nutritional anemia, unspecified; R91.1 Solitary pulmonary nodule; G89.29 Other chronic pain; K70.30 Alcoholic cirrhosis of liver without ascites; F10.90 Alcohol use, unspecified, uncomplicated; Z95.5 Presence of coronary angioplasty implant and graft; I08.3 Combined rheumatic disorders of mitral, aortic and tricuspid valves
CPT/HCPCS: 00123; 36415; 80053; 80307; 85027; 87637; 93005; 94640; 96374; 99285; 71046; 81003; 83735; 83880; 84443; 84484; 85025; 85379; 93010; 94664; 99223; 99233; 99239; J1938; J3480; J3490

== ENCOUNTER 2025-02-06 09:09 | Outpatient (REF) | payer OTHER, MEDICARE, SELFPAY ==
[2025-02-06 09:15] LABS: Anion Gap 9.2 mmol/L (3-11); BUN 16 mg/dL (7-18); CO2 26.8 mmol/L (21.0-32.0); CREATININE 1.3 mg/dL (0.70-1.30); Calcium 8.6 mg/dL (8.5-10.1); Chloride 99 mmol/L (98-107); Glucose 114 mg/dL (74-106); Magnesium 1.8 mg/dL (1.8-2.4); Potassium 3.7 mmol/L (3.5-5.1); Sodium 135 mmol/L (136-145)
[2025-02-06 11:21] LABS: Abs Immature Grans 0.03 10^3/uL (0.0-0.06); Absolute Basophil Count 0.02 10^3/uL (0.0-0.2); Absolute Eosinophil Count 0.03 10^3/uL (0.0-0.7); Absolute Lymphocyte Count 0.84 10^3/uL (1.2-3.4); Absolute Monocyte Count 0.46 10^3/uL (0.1-0.8); Absolute Neutrophil Count 2.63 10^3/uL (1.2-6.7); Basophils % 0.5 %; Eosinophils % 0.7 %; HCT 28.1 % (40.0-50.0); HGB 7.8 g/dL (13.5-17.5); Immature Grans % 0.7 %; Lymphocytes % 20.9 %; MCH 26.2 pg (27.0-33.0); MCHC 27.8 % (32.0-36.0); MCV 94 fL (80-95); Monocytes % 11.5 %; Neutrophils % 65.7 %; RBC 2.98 10^6/uL (4.36-5.78); RDW 23.1 % (11.8-14.1); RDW-SD 68.7 fL; WBC 4.01 10^3/uL (4.4-10.8)
[2025-02-06 11:30] LABS: Anisocytosis 2+; Diff Comment Diff Reviewed; Hypochromasia 1+; Platelet Count 62 10^3/uL (130-400); Poikilocytes 1+
== END 2025-02-06 09:10 | disposition home or self-care (01) ==
LOC: LBO 09:09
PROVIDERS: Family Medicine; PCP Nurse Practitioner Family; Visit Provider Nurse Practitioner Acute Care
DX: I50.9 Heart failure, unspecified (principal); Z13.9 Encounter for screening, unspecified
CPT/HCPCS: 36415; 80048; 83735; 85025

== ENCOUNTER 2025-02-28 00:32 | Outpatient (CLI) | payer OTHER, MEDICARE, SELFPAY ==
--- NOTE | 2025-02-28 08:30 | DI.US_ITS ---
APPROVED REPORT EXAM: Comprehensive 2D, Doppler, and color-flow Echocardiogram Patient Location: Out-Patient Events Specialist: Lisa Davenport RDCS (AE) Indications: Paroxysmal atrial fibrillation Other Information Study Quality: Adequate Conclusion Normal left ventricular wall thickness and chamber size. Ejection fraction 35%. There is global hypokinesis Normal right ventricular size. Right ventricle may be mildly hypocontractile Both atria are moderately enlarged Aortic valve is trileaflet and sclerotic with trace regurgitation Normal mitral valve with mild to moderate regurgitation Normal tricuspid valve with mild regurgitation. Estimated right ventricular systolic pressure is 38 mmHg Ascending aorta measures 3.65 cm Overall there is no significant change compared to the echocardiogram from December 2024 Wall motion Left Ventricle The left ventricle is normal size. Left ventricular systolic function is moderate to severely decreased. There is normal left ventricular wall thickness. There is global hypokinesis of the left ventricle. There is no ventricular septal defect visualized. LVEF is 35%. Right Ventricle The right ventricle is normal size. Right ventricle is mildly hypokinetic. Atria Left atrium is moderately dilated. Right atrium is moderately dilated. The interatrial septum is intact with no evidence for an atrial septal defect. Aortic Valve The Aortic valve is sclerotic. Aortic valve is trileaflet. There is no aortic valvular stenosis. Trace aortic regurgitation. Mitral Valve The mitral valve is normal in structure. No evidence of mitral valve stenosis. Mild to moderate mitral regurgitation. Tricuspid Valve The tricuspid valve is normal in structure. There is no tricuspid valve stenosis. Mild tricuspid regurgitation. The RVSP is 38.4 mmHg. Pulmonic Valve The pulmonary valve is normal in structure. There is no pulmonic valvular stenosis. There is no pulmonic valvular regurgitation. Great Vessels The aortic root is normal in size. The ascending aorta is mildly dilated. Aortic arch is not well visualized. The IVC collapses <50% with inspiration. Pericardium There is no pericardial effusion. 2D Dimensions IVSD d PLAX 1.00 cm M: 0.6-1.2 Ao Root d 3.20 cm M: 3.1 - 3.7 LVPW d PLAX 1.01 cm M: 0.6 - 1.2 Ao Asc Diam d 3.65 cm M: 2.6 - 3.4 LVID d PLAX 4.93 cm M: 4.2 - 5.8 LVDs 4.19 cm M: 2.5 - 4.0 LV EF Teichholz 31.9 % FS 15.09 % LV EDV (Teich) 114.7 mL LV ESV (Teich) 78.1 mL M-Mode TAPSE 1.38 cm (M/F) >1.7 Auto EF LV EDV A4C 125.0 mL LV EDV A2C 169.6 mL LV EDV BP 144.4 mL LV ESV A4C 83.5 mL LV ESV A2C 114.9 mL LV ESV BP 98.8 mL LVEF(%) A4C 33.2 % LVEF(%) A2C 32.2 % LVEF(%) BP 31.6 % LV SV A4C 41.5 ml LV SV A2C 54.6 ml LV SV BP 45.7 ml LV CO A4C 3.4 L/min LV CO A2C 4.8 L/min LV CO BP 4.1 L/min HR A4C 82.20 BPM HR A2C 87.81 BPM LV EDV Index (BP) LV Strain Long Pk Overal Avg (s) 6.54 LA Volume LA Length A4C 5.8 cm LA Length A2C 6.4 cm LA Area A4C s 25.30 cm2 LA Area A2C s 27.53 cm2 LA Vol A4C A-L 93.27 mL LA Vol A2C A-L 100.06 mL LA Vol Biplane A- L 101.5 mL LA Vol/BSA A4C A-L LA Vol/BSA A2C A-L LA Vol/BSA BP A-L 46.8 mL/m2 LA Vol A4C MOD 85.9 mL LA Vol A2C MOD 94.8 mL LA Vol BP MOD 94.4 mL RA Volume RA Area A4C 21.8 cm2 RA ESV A4C (A-L) 66.4mL RA Vol/BSA A4C A-L RA Length A4C 6.1 cm RA ESV A4C (MOD) 62.5mL LV Diastology MV E' medial 0.064 (>0.07 m/s) MV E Vmax 1.05 (0.4-1.3 m/s) MV E' lateral 0.086 (>0.1 m/s) Aortic Valve AoV Vmax 1.82 m/s LVOT Vmax 1.17 m/s AoV Peak Grad 37.1 mmHg LVOT Peak Grad 5.5 mmHg AoV Area (Vmax) 2.02 cm2 LVOT VTI 0.238 m AoV VTI 0.363 m LVOT Mean Grad 3.3 mmHg AoV Mean Dejuan. 1.27 m/s LVOT SV 74.70 mL AoV Mean Grad 7.2 mmHg LVOT Diam s 1.95 cm AoV Area (VTI) 2.06 cm2 AV Regurg Peak Gr. 13.27 mmHg Velocity Ratio 0.[address] [place] 2.6m/sec2 AR DT 1492 msec AR PHT 433 msec AR Vmax 3.91 m/s Mitral Valve MV Vmax TIPS 1.14 m/s MV Mean Grad 2.9 (<2mmHg) MV Area PHT 4.78 cm2 MV VTI 0.218 m Pulmonary Valve PV Vmax 1.12 (0.5-1.5 m/s) RVOT Vmax 0.47 m/s PV Peak Grad 5.1 mmHg RVOT Peak Gr. 0.9 mmHg PV Mean Dejuan 0.66 m/s RVOT VTI 0.082 m PV Mean Grad 2.1 mmHg RVOT Mean Gr. 0.6 mmHg Tricuspid Valve RA Pressure 8.00 mmHg TR Vmax 2.76 m/s TV S' 0.10 m/s TR Peak Grad 30.3 mmHg RVSP (TR) 38.4 mmHg
== END 2025-02-28 00:52 ==
LOC: DI 00:32
PROVIDERS: PCP Nurse Practitioner Family; Visit Provider Internal Medicine Cardiovascular Disease
DX: I48.0 Paroxysmal atrial fibrillation (principal); I36.0 Nonrheumatic tricuspid (valve) stenosis
CPT/HCPCS: 93306

== ENCOUNTER 2025-05-20 08:45 | Outpatient (CLI) | payer OTHER, MEDICARE, SELFPAY ==
--- NOTE | 2025-05-20 | DI.CT_ITS ---
Exam(s) CT ABD AORTA CTA W RUNOFF EXAM: CT ABD AORTA CTA W RUNOFF CLINICAL HISTORY: PAD I73.9. TECHNIQUE: Imaging Protocol: Axial computed tomography images with coronal and sagittal reformatted images were created and reviewed CONTRAST MATERIAL: Intravenous: Omnipaque 350 Contrast volume:150 mL Oral: None COMPARISON: CT CT ABD AORTA CTA W RUNOFF from 06/05/2024 FINDINGS: AORTA/RUNOFF CTA: There is no evidence of abdominal aortic aneurysm. The abdominal aorta is peripherally calcified but not enlarged as is the aortic bifurcation. 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 The inferior mesenteric artery is patent. Calcified plaque noted at the origin of the right renal artery. Lesser amount of plaque at the origin left renal artery. The aortic bifurcation is again noted be calcified as are the common iliac arteries. Right-side: There is approximately 50 percent stenosis in the proximal right common iliac artery again noted. There is no aneurysmal dilatation of this vessel. There is mild stenosis at its junction with the right external iliac artery. Distal to this the right external iliac artery is patent. There is approximately 40 percent stenosis in the right common femoral artery. There is multilevel mild stenoses in the right SFA and more moderate disease in the right SFA within Sai's canal. There is again noted more severe disease in the distal right SFA and at its junction with the right popliteal artery. Below this level the right popliteal artery is patent and without evidence of aneurysm. There is mild disease in the right tibioperoneal trunk. There is three-vessel runoff in the right calf again noted with the anterior tibial continuous into the foot as the dorsalis pedis segment and the right posterior tibial artery continuous with the plantar vessels at the medial malleolus level. The thinner right peroneal artery is opacified to the distal calf level. Left side: Left common iliac artery is calcified-moderately atherosclerotic but without critical stenosis and without evidence of aneurysm. There is mild stenosis at its junction with the left external iliac artery. Left external iliac artery below this level is patent although there is calcified plaque at its junction with the left common femoral artery and left common femoral artery again exhibits posterior wall calcified plaque with mild stenosis. The left SFA exhibits some mild-moderate disease proximally as well as more distally within Sai's canal. There is no significant stenosis at its junction with the popliteal artery and this side and there is no evidence of popliteal artery aneurysm nor significant stenosis within the left popliteal artery. The tibioperoneal trunk is patent. There is three-vessel runoff in the left calf again noted with the anterior tibial artery continuous into the foot as the dorsalis pedis vessel and the posterior tibial artery continuous around the medial malleolus with the plantar vessels. The left peroneal artery is opacified to the distal calf level There is no ascites. LIVER: Cirrhotic appearance. No lesions. GALLBLADDER/BILIARY: Mild wall thickening. CBD is not dilated. PANCREAS: No evidence of pancreatic mass nor dilatation of the pancreatic duct. SPLEEN: There is splenomegaly with craniocaudal measurement of the spleen 16 cm, slightly increased from previous. There are few sub capsular lesions in the spleen noted which are probably meningiomas. Splenic and portal veins are patent. ADRENALS: There are no new significant adrenal masses. KIDNEYS: No solid masses. Small benign cyst again noted in the anterior cortex of the left kidney. No solid renal masses. No calculi. No hydronephrosis.. LYMPH NODES: no obvious mesenteric masses. ABDOMINAL WALL: No evidence of significant anterior abdominal wall hernia. GI: There is diverticulosis in left side of the colon but no evidence of acute diverticulitis. PELVIS: LYMPH NODES: There is no intrapelvic nor inguinal adenopathy. GI: No evidence of appendicitis. URINARY BLADDER: Collapsed. REPRODUCTIVE: Prostate not enlarged. Seminal vesicles unremarkable. Calcified bilateral vas deferens. OSSEOUS: Compression fracture at superior endplate of L2 is again noted. No new fractures in the vertebral bodies evident. IMPRESSION: 1. Findings similar to the CT angiogram study of 06/05/2024. See above for details 2. Atherosclerotic involvement of the vessels but no significant aneurysmal dilatation. Also no evidence of popliteal aneurysm. 3. 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 Moderate stenosis again noted at the origin of the celiac artery. The inferior mesenteric artery is patent. There are no obvious ischemic bowel loops evident and there is no ascites. 4. Splenomegaly noted. RADIATION DOSE DELIVERED: 760.78mGy.cm Total DLP DATA REPOSITORY: All CT scans at this facility are submitted to the National Radiology Data Registry (NRDR) Dose Index Registry (DIR) with the [employer] ([employer]). RADIATION OPTIMIZATION: All CT scans at this facility use at least one of these dose optimization techniques: automated exposure control; mA and/or kV adjustment per patient size (includes targeted exams where dose is matched to clinical indication); or iterative reconstruction.
[2025-05-20] MEDS: Normal Saline Flush 10 ML SYR IVP (08:21)
[2025-05-20] MEDS: Normal Saline - Diluent 50 ML VIAL IJ ×2 (08:21→08:24)
[2025-05-20] MEDS: Omnipaque 350 MG/ML 500 ML BTL-Imaging package IJ (08:22)
== END 2025-05-20 09:05 ==
LOC: DI 08:46
PROVIDERS: PCP Nurse Practitioner Family; Visit Provider Surgery Vascular Surgery
DX: I73.9 Peripheral vascular disease, unspecified (principal); K55.1 Chronic vascular disorders of intestine
CPT/HCPCS: 75635

== ENCOUNTER 2025-06-13 12:01 | Outpatient (CLI) | payer OTHER, MEDICARE, SELFPAY ==
--- NOTE | 2025-06-13 11:45 | DI.RAD_ITS ---
Exam(s) XR CHEST 2V PA LATERAL EXAM: XR CHEST 2V PA LATERAL CLINICAL HISTORY: R05.1,Z87.09,J98.4,J41.0,I50.20, r/o acute process please--thank you!. TECHNIQUE: 2D digital imaging was performed. COMPARISON: CR,XR XR PORTABLE CHEST AP from 01/28/2025 CR XR CHEST 2V PA LATERAL from 02/01/2025 FINDINGS: 2 views: What cardiomegaly. The mediastinum is not widened. There is platelike atelectasis in the right lung base. The left hemidiaphragm is mildly elevated, similar to previous. Slightly increased markings in left lower lobe are noted. No pleural effusion at this time (as was evident in January 2025). No evidence of pulmonary edema. Small granuloma noted in the right lung apex. IMPRESSION: Mild increased markings in lung bases described above. Possible mild infiltrate in the left lower lobe. No pleural effusions. DATA REPOSITORY: RADIATION DOSE DELIVERED:
== END 2025-06-13 12:21 ==
LOC: DI 12:01
PROVIDERS: PCP Nurse Practitioner Family; Visit Provider Nurse Practitioner Adult Health
DX: I50.20 Unspecified systolic (congestive) heart failure (principal); J41.0 Simple chronic bronchitis; J98.4 Other disorders of lung; R05.1 Acute cough; Z87.09 Personal history of other diseases of the respiratory system
CPT/HCPCS: 71046

== ENCOUNTER 2025-06-20 13:02 | Outpatient (CLI) | payer OTHER, MEDICARE, SELFPAY ==
[2025-06-20 13:06] LABS: Abs Immature Grans 0.03 10^3/uL (0.0-0.06); HCT 38.2 % (40.0-50.0); HGB 12.8 g/dL (13.5-17.5); Immature Grans % 0.7 %; MCH 37.4 pg (27.0-33.0); MCHC 33.5 % (32.0-36.0); MCV 112 fL (80-95); MPV 10.4 fL (8.0-11.0); RBC 3.42 10^6/uL (4.36-5.78); RDW 14.5 % (11.8-14.1); RDW-SD 59.7 fL; WBC 4.17 10^3/uL (4.4-10.8)
[2025-06-20 13:34] LABS: ALT 72 U/L (16-63); AST 124 U/L (15-37); Albumin 2.8 g/dL (3.4-5.0); Alkaline Phosphatase 271 U/L (46-116); Anion Gap 9.9 mmol/L (3-11); Anisocytosis 1+; BUN 16 mg/dL (7-18); Bilirubin, Total 0.8 mg/dL (0.2-1.0); CO2 31.1 mmol/L (21.0-32.0); Calcium 8.3 mg/dL (8.5-10.1); Chloride 98 mmol/L (98-107); Estimated GFR 49.47 (mL/min/1.73m2); Glucose 99 mg/dL (74-106); NT-proBNP 1649 pg/mL (<300); Platelet Count 63 10^3/uL (130-400); Potassium 3.1 mmol/L (3.5-5.1); Sodium 139 mmol/L (136-145); Total Protein 6.5 g/dL (6.4-8.2)
[2025-06-20 13:35] LABS: Macrocytosis 1+
[2025-06-20 14:21] LABS: INR 1.0 (0.9-1.1); PTT Activated 25.2 sec (20.6-30.2); Prothrombin Time 10.5 sec (9.1-11.1)
== END 2025-06-20 13:03 | disposition home or self-care (01) ==
PROVIDERS: PCP Nurse Practitioner Family; Visit Provider Physician Assistant
DX: Z01.818 Encounter for other preprocedural examination (principal); I50.20 Unspecified systolic (congestive) heart failure; D89.3 Immune reconstitution syndrome; I77.1 Stricture of artery; K74.60 Unspecified cirrhosis of liver; I70.219 Atherosclerosis of native arteries of extremities with intermittent claudication, unspecified extremity; I70.229 Atherosclerosis of native arteries of extremities with rest pain, unspecified extremity
CPT/HCPCS: 36415; 80053; 83880; 85025; 85610; 85730

== ENCOUNTER → 2025-07-23 12:01 | Outpatient (CLI) | payer OTHER, MEDICARE, SELFPAY ==
--- NOTE | 2025-07-23 12:00 | DI.RAD_ITS ---
Exam(s) XR CHEST 2V PA LATERAL EXAM: XR CHEST 2V PA LATERAL CLINICAL HISTORY: cough/HX pneumonia R05.9. TECHNIQUE: 2D digital imaging was performed. COMPARISON: CR XR CHEST 2V PA LATERAL from 06/13/2025 FINDINGS: 2 views: Mild cardiomegaly. The mediastinum is not widened. Lungs are clear. No infiltrates nor pleural effusions. IMPRESSION: No acute pulmonary findings. DATA REPOSITORY: RADIATION DOSE DELIVERED:
== END ==
LOC: DI 12:02
PROVIDERS: PCP Nurse Practitioner Family; Visit Provider Nurse Practitioner Family
DX: R05.9 Cough, unspecified (principal)
CPT/HCPCS: 71046